=== PATIENT | male | born 1960 | race Caucasian/White ===

== ENCOUNTER → 2019-09-03 | Outpatient (CLI) | payer OTHER ==
--- NOTE | 2019-09-03 20:19 | CONS ---
CONSULTATION REASON FOR THE CONSULTATION: Sleep apnea This is morbidly obese, 59-year-old male patient. There is loud snoring and difficulty breathing at nighttime. The patient has been sleeping in a recliner for the past 1-1/2 years. He has also gotten himself a wedge to keep his legs elevated knowing that the patient has chronic lower extremity edema. He has nocturia and gets up several times in the middle of night to urinate. He does snore and has excessive fatigue and tiredness and sleepiness during the day. He goes to bed around 1:00 am, wakes up 9:00 am in the morning. His sleep is fragmented and he wakes up multiple times in the middle of the night. He used to work in [employer] and currently because of obesity and arthritis and difficult mobility, the patient is seeking disability. He is tired and fatigued and sleepy during the day. His current [place] Score is at 20 which is considered to very high. He does drink a cup of coffee in the morning. No other stimulants. He takes 1 or 2 naps during the day and the timing of that varies. He is unable to sleep on his back. He sleeps on a recliner. Mainly on his side with head of recliner elevated. No sleep paralysis. No hallucinations. No cataplexy. No history of motor vehicle accident because of feeling drowsy or sleepy. PAST MEDICAL HISTORY: Morbid obesity, hyperlipidemia, acid reflux, osteoarthritis, lumbar scoliosis. SURGICAL HISTORY: Includes carpal tunnel release bilaterally, left elbow surgery, appendectomy and bilateral knee surgery for meniscal tear. DRUG ALLERGIES: PENICILLIN. OUTPATIENT MEDICATION LIST: Includes Claritin, Pepcid, Lipitor, tramadol and testosterone shots every month. SOCIAL HISTORY: The patient is a nonsmoker. No history of alcohol. No history of IV drugs. FAMILY HISTORY: Brother has obstructive sleep apnea. REVIEW OF SYSTEMS: Fourteen-point review of system was done. Positive findings are mentioned above history of present illness. Note that the patient has gained significant amount of weight in the order of 150 pounds over the past 15 years. His sleep is fragmented. He is uncomfortable due to pain. He is unable to lay down flat in bed and he tries to sleep on his back. Either in a recliner or on his side. He gets out of bed at least 3 times in the middle of the night to urinate. No grinding of the teeth. No insomnia. No restlessness in the lower extremities. No sleep talking. No sleepwalking. No palpitation, heartburn or chest pain in the middle of the night. Takes a few minutes to fall asleep. He is quite sleepy. [place] Score of 20. BP 150/87, pulse 92, respirations 16, temperature 98.2, saturation 97% on room air. Height is 5 feet weight 342, neck size 18.5 inches, BMI 60.5. GENERAL APPEARANCE: Calm. Comfortable. Head is atraumatic, normocephalic. NECK: Supple. Mallampati class 3. There is no goiter or neck masses. LUNGS: Diminished breath sounds. Especially in the mid and lower lung aguilera bilaterally. A few scattered rhonchi and wheeze. HEART: Sounds are distant. Positive S1 and S2. No S3, S4. No murmurs. ABDOMEN: Obese, organs cannot be adequately palpated. No direct tenderness. No rebound tenderness or guarding. EXTREMITIES: +1 pitting edema and no cyanosis or clubbing. NEUROLOGIC: Awake, alert, and there are no focal neurological deficits. PSYCHIATRIC: Negative for anxiety or depression. IMPRESSION: 1. Morbid obesity with a BMI of 60.5. 2. High suspicion for obstructive sleep apnea and even possible obesity hypoventilation syndrome. 3. Chronic hypersomnia, [place] score of 20. 4. Sleep fragmentation and inability to sleep in bed. Currently, the patient is sleeping in a recliner for the above-mentioned reasons. 5. Acid reflux. 6. Osteoarthritis. 7. Lumbar scoliosis. 8. Hyperlipidemia. PLAN: 1. Would recommend weight loss. 2. Would recommend a polysomnogram looking for any significant sleep breathing disorder. This can be done also on recliner in the sleep center. be able to identify if the patient quits breathing and he has any significant sleep fragmentation and sleep breathing disorder that warrants further treatment. My suspicion is quite high based on his anatomic features and clinical features and obesity. Encourage weight loss. Optimize sleep hygiene measures. We will continue to follow. MMODL / IJN: [id number] /
== END | disposition home or self-care (01) ==
LOC: SLEEP 14:04
PROVIDERS: ATTEND Internal Medicine Critical Care Medicine
DX: G47.19 Other hypersomnia (principal); E66.01 Morbid (severe) obesity due to excess calories; K21.9 Gastro-esophageal reflux disease without esophagitis; M19.90 Unspecified osteoarthritis, unspecified site; M41.86 Other forms of scoliosis, lumbar region; E78.5 Hyperlipidemia, unspecified; Z68.44 Body mass index [BMI] 60.0-69.9, adult; Z83.6 Family history of other diseases of the respiratory system; Z79.891 Long term (current) use of opiate analgesic; Z79.890 Hormone replacement therapy; Z79.899 Other long term (current) drug therapy; Z88.0 Allergy status to penicillin
CPT/HCPCS: 99201

== ENCOUNTER → 2020-01-07 | Outpatient (CLI) | payer OTHER ==
--- NOTE | 2020-01-07 17:44 | PN ---
PROGRESS NOTE This is a 59-year-old male patient diagnosed having severe symptomatic obstructive sleep apnea. The patient was found to have an AHI of 81.9. He was titrated to a CPAP pressure of 14 cm of water. Today he is coming in for a compliancy check. He was found to have also mild periodic limb movement activity. He was excessively somnolent and sleepy and his baseline Brusly Score was 20. He has been utilizing his CPAP every night and he is happy with the treatment. He was given CPAP with a pressure of 14 cm of water. On today's evaluation, his compliancy check was done. The patient has been averaging more than 8 hours of CPAP use per night. His CPAP compliancy for more than 4 hours is 100%. His pressure is 14 cm of water. His AHI is down to 11.8. He is having some minimal leaks around the mask, on the order of 19 L/minute. He is using the Simplus full-face mask. He is also looking for alternative masks. He has no complaints. He is feeling better. He is feeling much more energetic and alert during the day. His Brusly score is down to 8. REVIEW OF SYSTEMS: A full review of systems was done. Based on the 14-point review of systems, the patient has improved. He is less somnolent and less sleepy. His weight is on the rise and he is up to 360 pounds. No angina. No palpitations. No chest pain. No shortness of breath at nighttime when he is sleeping. The nose mask is irritating his nose bridge and the patient is looking for alternative masks. PHYSICAL EXAMINATION: VITAL SIGNS: BP is 158/83, pulse 90, respirations 20. Temperature is 97.6. Saturation is 94% on room air. Weight is 360 pounds. Brusly score is 8. GENERAL APPEARANCE: Calm, comfortable. HEAD: Atraumatic, normocephalic. NECK: Supple. No JVD. No goiter or neck masses. Mallampati class IV. LUNGS: Clear to auscultation. HEART: Heart sounds are regular rate and rhythm. Normal S1, S2. No S3, S4. No murmurs. ABDOMEN: Soft, nontender. No organomegaly. EXTREMITIES: Trace edema. No cyanosis or clubbing. NEUROLOGIC: Alert and oriented x3. No focal neurological deficits. IMPRESSION: 1. Severe symptomatic obstructive sleep apnea; apnea/hypopnea index of 81. The patient is currently on a CPAP pressure of 14 cm of water. 2. Chronic hypersomnia. Brusly score is down to 8 from a baseline of 20. 3. Mild sleep fragmentation with obstructive sleep apnea. 4. Hypersomnia, improved. 5. Obesity. Currently he is weighing around 360 pounds. 6. Osteoarthritis. 7. Scoliosis. 8. Acid reflux. 9. Hyperlipidemia. PLAN: 1. Continue CPAP therapy at a pressure of 14 cm of water with the possibility of increasing the pressure up to 15 if he continues to have residual obstructive respiratory events. 2. Encourage weight loss. 3. Offer different masks. On today's evaluation I offered him the F30 [id number] full-face mask, which he liked. This is an AirFit F30 full-face mask, medium size. 4. Offer the patient heated tubing. 5. Increase the humidity up to 5. 6. Encourage weight loss. 7. See me back in 4 months' time in followup. Treatment in general is successful. The patient is benefitting from the treatment. MMODL / IJN: [id number] /
== END | disposition home or self-care (01) ==
LOC: SLEEP 16:03
PROVIDERS: ATTEND Internal Medicine Critical Care Medicine
DX: G47.33 Obstructive sleep apnea (adult) (pediatric) (principal); G47.19 Other hypersomnia; E66.9 Obesity, unspecified; M19.90 Unspecified osteoarthritis, unspecified site; M41.9 Scoliosis, unspecified; K21.9 Gastro-esophageal reflux disease without esophagitis; E78.5 Hyperlipidemia, unspecified; Z99.89 Dependence on other enabling machines and devices

== ENCOUNTER → 2022-07-22 | Outpatient (CLI) | payer MEDICARE ==
--- NOTE | 2022-07-22 15:14 | US ---
EXAMINATION TYPE: US bladder DATE OF EXAM: 07/22/2022 COMPARISON: NONE CLINICAL HISTORY: N40.0 BENIGN PROSTATIC HYPERPLASIA. BPH TECHNIQUE: Multiple sonographic images of the bladder are obtained. FINDINGS: EXAM MEASUREMENTS: Post Void Residual Volume: 0 mL patient emptied completely. MANAGER TECHNICAL SALES NOTES: Color Doppler performed to assess ureteral jets. Bilateral Jets seen: no Filter urinary bladder of 95 mL. Normal Post Void Residual (less than 50ml): yes IMPRESSION: 1. Unremarkable urinary bladder ultrasound. No urinary retention is evident.
== END | disposition home or self-care (01) ==
LOC: RADUSWWP 14:17
PROVIDERS: ATTEND Family Medicine
DX: N40.0 Benign prostatic hyperplasia without lower urinary tract symptoms (principal)
CPT/HCPCS: 76857

== ENCOUNTER → 2023-03-06 | Outpatient (CLI) | payer MEDICARE ==
--- NOTE | 2023-03-06 17:46 | CA ---
Transthoracic Echo Report Name: Miguel Sorto Age: 62 Gender: M : 1960 Exam Date: 03/06/2023 13:57 Exam Location: [facility] Ht (in): 65 Wt (lb): 335 Ordering Physician: Mikey Joseph DO Attending/Referring Phys: Rn Clinical Quality Rosemarie Lynch RDCS Procedure CPT: Indications: R06.09 Cardiac Hx: Technical Quality: Very technically difficult study Contrast 1: Lumason Total Dose (mL): 5 Contrast 2: Total Dose (mL): MEASUREMENTS (Male / Female) Normal Values 2D ECHO LV Diastolic Diameter PLAX 4.4 cm 4.2 - 5.9 / 3.9 - 5.3 cm LV Systolic Diameter PLAX 2.9 cm IVS Diastolic Thickness 1.5 cm 0.6 - 1.0 / 0.6 - 0.9 cm LVPW Diastolic Thickness 1.4 cm 0.6 - 1.0 / 0.6 - 0.9 cm LV Relative Wall Thickness 0.7 RV Internal Dim ED PLAX 3.4 cm M-MODE Aortic Root Diameter MM 3.6 cm DOPPLER AV Peak Velocity 244.9 cm/s AV Peak Gradient 24.0 mmHg AV Mean Velocity 156.1 cm/s AV Mean Gradient 11.7 mmHg AV Velocity Time Integral 52.7 cm TR Peak Velocity 280.5 cm/s TR Peak Gradient 31.5 mmHg Right Ventricular Systolic Press 36.5 mmHg FINDINGS Left Ventricle Left ventricular ejection fraction is estimated at 55-60 %. Left ventricular cavity size normal. Moderate concentric left ventricular hypertrophy. No obvious regional wall motion abnormalities. Right Ventricle Mild right ventricular dilatation. Mild pulmonary hypertension. Right Atrium Normal right atrial size. Left Atrium Left atrium not well visualized. Mitral Valve Mitral valve not well visualized. Aortic Valve Aortic valve not well visualized. Mild aortic stenosis with a peak gradient of 24 mmHg and a mean gradient of 12 mmHg. Tricuspid Valve Tricuspid valve not well visualized. Mild tricuspid regurgitation. Pulmonic Valve Pulmonic valve not well visualized. Pericardium Small pericardial effusion near LV posterior wall Aorta Aortic annulus normal. CONCLUSIONS Technically suboptimal study secondary to poor echo windows Mild aortic stenosis Normal LV systolic function with an ejection fraction of 55% Previewed by: Dr. Alen Boucher MD (Electronically Signed) Final Date: 06 March 2023 17:45
== END | disposition home or self-care (01) ==
LOC: RADECHMAIN 13:49
PROVIDERS: ATTEND Family Medicine
DX: I35.0 Nonrheumatic aortic (valve) stenosis (principal); R06.09 Other forms of dyspnea
CPT/HCPCS: C8929; Q9950; 93306

== ENCOUNTER 2023-03-21 17:49 | Inpatient (IN) | payer MEDICARE ==
[2023-03-21] MEDS ORDERED: DILTIAZEM DRIP BOLUS FROM BAG 1 MG SOLN IV ONE (18:02)
[2023-03-21] MEDS ORDERED: FUROSEMIDE 10 MG/ML 4 ML VIAL IV STA (18:05)
--- NOTE | 2023-03-21 18:08 | ED ---
SOB HPI - General Chief Complaint: Shortness of Breath Stated Complaint: respiratory failure Time Seen by Provider: 03/21/23 17:50 Source: patient, EMS, RN notes reviewed Mode of arrival: EMS - History of Present Illness Initial Comments: 62-year-old male history of A. fib status post cardioversion in the past who presents with complaints of shortness of breath which started yesterday he progressively worse he also had a fever today he was found by paramedics to be and what appear to be atrial fibrillation with a rapid ventricular response found be hypoxemic at home 82% on room air pale diaphoretic. Temporal thermometer temperature 102 Fahrenheit. No overt chest pain today smoking denies any history of asthma or COPD. No fume exposure. No other current complaints or modifying factors MD Complaint: shortness of breath - Related Data Home Medications Medication Instructions Recorded Confirmed Aspirin EC [Ecotrin Low Dose] 81 mg PO DAILY 03/21/23 03/21/23 Furosemide [Lasix] 20 mg PO DAILY 03/21/23 03/21/23 Multivitamins, Thera [Multivitamin 1 tab PO DAILY 03/21/23 03/21/23 (formulary)] Omeprazole 20 mg PO DAILY 03/21/23 03/21/23 Tamsulosin [Flomax] 0.8 mg PO HS 03/21/23 03/21/23 Allergies Allergy/AdvReac Type Severity Reaction Status Date / Time Penicillins Allergy Unknown Verified 03/21/23 19:44 Review of Systems ROS Statement: Those systems with pertinent positive or pertinent negative responses have been documented in the HPI. ROS Other: All systems not noted in ROS Statement are negative. Past Medical History Past Medical History: No Reported History Past Surgical History: No Surgical Hx Reported Past Psychological History: No Psychological Hx Reported Smoking Status: Never smoker Past Alcohol Use History: None Reported Past Drug Use History: None Reported General Exam - General Exam Comments Initial Comments: Is a well-developed obese male who is awake alert oriented 4 he is in respiratory distress Limitations: no limitations General appearance: alert, anxious, in distress Head exam: Present: atraumatic, normocephalic, normal inspection Eye exam: Present: normal appearance, PERRL, EOMI. Absent: scleral icterus, conjunctival injection, periorbital swelling ENT exam: Present: mucous membranes dry Neck exam: Present: normal inspection, full ROM, other. Absent: tenderness, meningismus, lymphadenopathy Respiratory exam: Present: rales, accessory muscle use, decreased breath sounds (No surgery or bruits). Absent: respiratory distress, wheezes, rhonchi, stridor Cardiovascular Exam: Present: normal rhythm, tachycardia, irregular rhythm. Absent: systolic murmur, diastolic murmur, rubs, gallop, clicks GI/Abdominal exam: Present: soft, normal bowel sounds. Absent: distended, tenderness, guarding, rebound, rigid Extremities exam: Present: normal inspection, full ROM, normal capillary refill. Absent: tenderness, pedal edema, joint swelling, calf tenderness Back exam: Present: normal inspection Neurological exam: Present: alert, oriented X3, CN II-XII intact Psychiatric exam: Present: normal affect, anxious Skin exam: Present: warm, intact, normal color, diaphoretic. Absent: rash Course Vital Signs 03/21/23 03/21/23 03/21/23 17:51 17:56 18:02 Temperature 100.2 F H Pulse Rate 156 H Respiratory 46 H 48 H Rate Blood Pressure 142/64 O2 Sat by Pulse 96 Oximetry Fraction of 50 Inspired Oxygen (FIO2) 03/21/23 03/21/23 03/21/23 18:03 18:15 19:36 Temperature Pulse Rate 133 H Respiratory 35 H Rate Blood Pressure 122/60 O2 Sat by Pulse 97 Oximetry Fraction of 50 50 Inspired Oxygen (FIO2) 03/21/23 03/21/23 20:06 20:27 Temperature Pulse Rate Respiratory Rate Blood Pressure O2 Sat by Pulse Oximetry Fraction of 50 50 Inspired Oxygen (FIO2) - Reevaluation(s) Reevaluation #1: 03/21/23 19:56 Reevaluation patient is feeling much improved at this time heart rate is in the 100 teens Reevaluation #2: 03/21/23 21:15 Elevated lactic acid more likely secondary to the dyspnea and rapid atrial flutter as opposed to infectious process Medical Decision Making - Medical Decision Making Patient continues to improve he has much improved heart rate he is breathing is more at ease. He does have elevated d-dimer and elevated troponin. Patient will be admitted with continued treatment for a flutter RVR acute bronchospasm dyspnea. Pulmonary medicine and cardiology will be consulted. I did discuss the case initially with Dr. Sauer. I also did discuss case with patient and family members.Was pt. sent in by a medical professional or institution (, [facility], CROWNING INSPECTOR, urgent care, hospital, or alf...) When possible be specific @ -No Did you speak to anyone other than the patient for history (EMS, parent, family, police, friend...)? What history was obtained from this source @ -Paramedics and family Did you review nursing and triage notes (agree or disagree)? Why? @ -I reviewed and agree with nursing and triage notes Were old charts reviewed (outside hosp., previous admission, EMS record, old EKG, old radiological studies, urgent care reports/EKG's, alf records)? Report findings @ -No old charts were reviewed Differential Diagnosis (chest pain, altered mental status, abdominal pain women, abdominal pain men, vaginal bleeding, weakness, fever, dyspnea, syncope, headache, dizziness, GI bleed, back pain, seizure, CVA, palpatations, mental health, musculoskeletal)? @ -Acute respiratory failure, pneumonia, febrile illness EKG interpreted by me (3pts min.). @ -As above X-rays interpreted by me (1pt min.). @ -As above] CT interpreted by me (1pt min.). @ -As above U/S interpreted by me (1pt. min.). @ -None done What testing was considered but not performed or refused? (CT, X-rays, U/S, labs)? Why? @ -None What meds were considered but not given or refused? Why? @ -None Did you discuss the management of the patient with other professionals (professionals i.e. , [facility]ARY [facility]ETH, CROWNING INSPECTOR, lab, RT, psych nurse, social media editor, intellectual property lawyer, teacher, donor relations officer, ed case manager)? Give summary @ -Dr. Sauer Was smoking cessation discussed for >3mins.? @ -No Was critical care preformed (if so, how long)? @ -Is 45 minutes Were there social determinants of health that impacted care today? How? (Homelessness, low income, unemployed, alcoholism, drug addiction, transportation, low edu. Level, literacy, decrease access to med. care, care home, rehab)? @ -No Was there de-escalation of care discussed even if they declined (Discuss DNR or withdrawal of care, Hospice)? DNR status @ -No What co-morbidities impacted this encounter? (DM, HTN, Smoking, COPD, CAD, Cancer, CVA, ARF, Chemo, Hep., AIDS, mental health diagnosis, sleep apnea, morbid obesity)? @ -Morbid obesity, asthmatic-like disease she was recently seen by cardiology and music therapy specialist Was patient admitted / discharged? Hospital course, mention meds given and route, prescriptions, significant lab abnormalities, going to OR and other pertinent info. @ -hospital course patient was admitted to the hospital he continues on BiPAP IV fluids IV steroids nebulizer treatment serial troponins Undiagnosed new problem with uncertain prognosis? @ -Rapid atrial flutter, acute bronchospasm Drug Therapy requiring intensive monitoring for toxicity (Heparin, Nitro, Insulin, Cardizem)? @ -He has Cardizem Were any procedures done? @ -No Diagnosis/symptom? @ -Acute respiratory failure, rapid atrial flutter, elevated troponin, elevated d-dimer Acute, or Chronic, or Acute on Chronic? @ -Acute Uncomplicated (without systemic symptoms) or Complicated (systemic symptoms)? @ -Complicated Side effects of treatment? @ -No Exacerbation, Progression, or Severe Exacerbation? @ -No Poses a threat to life or bodily function? How? (Chest pain, USA, VT, pneumonia, PE, COPD, DKA, ARF, appy, cholecystitis, CVA, Diverticulitis, Homicidal, Suicidal, threat to staff... and all critical care pts) @ -Yes, prostrate failure, rapid atrial flutter - Lab Data Result diagrams: 03/21/23 17:55 03/21/23 17:55 Lab Results 03/21/23 03/21/23 03/21/23 Range/Units 17:55 17:55 17:55 WBC 1.9 L (3.8-10.6) k/uL RBC 5.85 (4.30-5.90) m/uL Hgb 17.8 H (13.0-17.5) gm/dL Hct 50.6 (39.0-53.0) % MCV 86.6 (80.0-100.0) fL MCH 30.5 (25.0-35.0) pg MCHC 35.2 (31.0-37.0) g/dL RDW 16.3 H (11.5-15.5) % Plt Count 100 L (150-450) k/uL MPV 9.5 Neutrophils % 80 % Lymphocytes % 15 % Monocytes % 2 % Eosinophils % 0 % Basophils % 0 % Neutrophils # 1.5 (1.3-7.7) k/uL Lymphocytes # 0.3 L (1.0-4.8) k/uL Monocytes # 0.1 (0-1.0) k/uL Eosinophils # 0.0 (0-0.7) k/uL Basophils # 0.0 (0-0.2) k/uL Anisocytosis Slight PT 11.4 (9.0-12.0) sec INR 1.1 (<1.2) APTT 23.6 (22.0-30.0) sec D-Dimer 21.15 H (<0.60) mg/L FEU Sodium 133 L (137-145) mmol/L Potassium 4.4 (3.5-5.1) mmol/L Chloride 100 (98-107) mmol/L Carbon Dioxide 14 L (22-30) mmol/L Anion Gap 19 mmol/L BUN 26 H (9-20) mg/dL Creatinine 1.86 H (0.66-1.25) mg/dL Est GFR (CKD-EPI)AfAm 43 (>60 ml/min/1.73 sqM) Est GFR (CKD-EPI)NonAf 38 (>60 ml/min/1.73 sqM) Glucose 150 H (74-99) mg/dL Lactic Ac Sepsis Rflx Plasma Lactic Acid Vince (0.7-2.0) mmol/L Calcium 7.8 L (8.4-10.2) mg/dL Magnesium 1.5 L (1.6-2.3) mg/dL Total Bilirubin 1.4 H (0.2-1.3) mg/dL AST 53 (17-59) U/L ALT 36 (4-49) U/L Alkaline Phosphatase 102 (38-126) U/L Troponin I (0.000-0.034) ng/mL NT-Pro-B Natriuret Pep pg/mL Total Protein 7.0 (6.3-8.2) g/dL Albumin 3.7 (3.5-5.0) g/dL Influenza Type A (PCR) (Not Detectd) Influenza Type B (PCR) (Not Detectd) RSV (PCR) (Not Detectd) SARS-CoV-2 (PCR) (Not Detectd) 03/21/23 03/21/23 03/21/23 Range/Units 17:55 17:55 17:55 WBC (3.8-10.6) k/uL RBC (4.30-5.90) m/uL Hgb (13.0-17.5) gm/dL Hct (39.0-53.0) % MCV (80.0-100.0) fL MCH (25.0-35.0) pg MCHC (31.0-37.0) g/dL RDW (11.5-15.5) % Plt Count (150-450) k/uL MPV Neutrophils % % Lymphocytes % % Monocytes % % Eosinophils % % Basophils % % Neutrophils # (1.3-7.7) k/uL Lymphocytes # (1.0-4.8) k/uL Monocytes # (0-1.0) k/uL Eosinophils # (0-0.7) k/uL Basophils # (0-0.2) k/uL Anisocytosis PT (9.0-12.0) sec INR (<1.2) APTT (22.0-30.0) sec D-Dimer (<0.60) mg/L FEU Sodium (137-145) mmol/L Potassium (3.5-5.1) mmol/L Chloride (98-107) mmol/L Carbon Dioxide (22-30) mmol/L Anion Gap mmol/L BUN (9-20) mg/dL Creatinine (0.66-1.25) mg/dL Est GFR (CKD-EPI)AfAm (>60 ml/min/1.73 sqM) Est GFR (CKD-EPI)NonAf (>60 ml/min/1.73 sqM) Glucose (74-99) mg/dL Lactic Ac Sepsis Rflx Plasma Lactic Acid Vince 3.2 H* (0.7-2.0) mmol/L Calcium (8.4-10.2) mg/dL Magnesium (1.6-2.3) mg/dL Total Bilirubin (0.2-1.3) mg/dL AST (17-59) U/L ALT (4-49) U/L Alkaline Phosphatase (38-126) U/L Troponin I 0.060 H* (0.000-0.034) ng/mL NT-Pro-B Natriuret Pep 818 pg/mL Total Protein (6.3-8.2) g/dL Albumin (3.5-5.0) g/dL Influenza Type A (PCR) (Not Detectd) Influenza Type B (PCR) (Not Detectd) RSV (PCR) (Not Detectd) SARS-CoV-2 (PCR) (Not Detectd) 03/21/23 03/21/23 Range/Units 18:02 18:38 WBC (3.8-10.6) k/uL RBC (4.30-5.90) m/uL Hgb (13.0-17.5) gm/dL Hct (39.0-53.0) % MCV (80.0-100.0) fL MCH (25.0-35.0) pg MCHC (31.0-37.0) g/dL RDW (11.5-15.5) % Plt Count (150-450) k/uL MPV Neutrophils % % Lymphocytes % % Monocytes % % Eosinophils % % Basophils % % Neutrophils # (1.3-7.7) k/uL Lymphocytes # (1.0-4.8) k/uL Monocytes # (0-1.0) k/uL Eosinophils # (0-0.7) k/uL Basophils # (0-0.2) k/uL Anisocytosis PT (9.0-12.0) sec INR (<1.2) APTT (22.0-30.0) sec D-Dimer (<0.60) mg/L FEU Sodium (137-145) mmol/L Potassium (3.5-5.1) mmol/L Chloride (98-107) mmol/L Carbon Dioxide (22-30) mmol/L Anion Gap mmol/L BUN (9-20) mg/dL Creatinine (0.66-1.25) mg/dL Est GFR (CKD-EPI)AfAm (>60 ml/min/1.73 sqM) Est GFR (CKD-EPI)NonAf (>60 ml/min/1.73 sqM) Glucose (74-99) mg/dL Lactic Ac Sepsis Rflx Y Plasma Lactic Acid Vince (0.7-2.0) mmol/L Calcium (8.4-10.2) mg/dL Magnesium (1.6-2.3) mg/dL Total Bilirubin (0.2-1.3) mg/dL AST (17-59) U/L ALT (4-49) U/L Alkaline Phosphatase (38-126) U/L Troponin I (0.000-0.034) ng/mL NT-Pro-B Natriuret Pep pg/mL Total Protein (6.3-8.2) g/dL Albumin (3.5-5.0) g/dL Influenza Type A (PCR) Not Detected (Not Detectd) Influenza Type B (PCR) Not Detected (Not Detectd) RSV (PCR) Not Detected (Not Detectd) SARS-CoV-2 (PCR) Not Detected (Not Detectd) - EKG Data -: EKG Interpreted by Me EKG Comments: EKG interpreted by me atrial flutter with a rapid ventricular response. A 158 QRS duration 129 QT since QTC 325/413 red bundle-branch block pattern indeterminate axis - Radiology Data Interpreted by me: I did interpret the imaging x-ray negative for acute process. He minimally present additionally the CT shows no definitive evidence of PE Critical Care Time Critical Care Time: Yes Total Critical Care Time: 45 Disposition Clinical Impression: Atrial flutter with rapid ventricular response, Acute bronchospasm, Acute bronchitis, Febrile illness, acute, Elevated troponin, Elevated d-dimer, Elevated lactic acid level, Renal insufficiency Disposition: ADMITTED IP TO THIS HOSP Condition: Fair Referrals: Mikey Joseph DO [Primary Care Provider] - 1-2 days Decision Date: 03/21/23 Decision Time: 21:15
[2023-03-21] MEDS: DILTIAZEM 125 MG in SODIUM CHLORIDE 0.9% 100 ML IV SCH (18:09)
--- NOTE | 2023-03-21 18:42 | XR ---
EXAMINATION TYPE: XR chest 1V portable DATE OF EXAM: 03/21/2023 COMPARISON: NONE HISTORY: Shortness of breath TECHNIQUE: Single frontal view of the chest is obtained. FINDINGS: There is no focal air space opacity, pleural effusion, or pneumothorax seen. The cardiac silhouette size is enlarged. The osseous structures are intact. 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 IMPRESSION: Cardiomegaly
[2023-03-21 18:49] LABS: Anisocytosis Slight; Basophils % (A) 0 %; Eosinophils % (A) 0 %; HCT 50.6 % (39.0-53.0); HGB 17.8 gm/dL (13.0-17.5); INR 1.1 (<1.2); Lymphocytes # (A) 0.3 k/uL (1.0-4.8); Lymphocytes % (A) 15 %; MCH 30.5 pg (25.0-35.0); MCHC 35.2 g/dL (31.0-37.0); MCV 86.6 fL (80.0-100.0); Mean Platelet Volume 9.5; Monocytes # (A) 0.1 k/uL (0-1.0); Monocytes % (A) 2 %; Neutrophils # (A) 1.5 k/uL (1.3-7.7); Neutrophils % (A) 80 %; Partial Thromboplastin Time 23.6 sec (22.0-30.0); Platelet Count 100 k/uL (150-450); Prothrombin Time 11.4 sec (9.0-12.0); RBC 5.85 m/uL (4.30-5.90); RDW 16.3 % (11.5-15.5); WBC 1.9 k/uL (3.8-10.6)
[2023-03-21 18:52] LABS: Albumin 3.7 g/dL (3.5-5.0); Calcium 7.8 mg/dL (8.4-10.2); Total Bilirubin 1.4 mg/dL (0.2-1.3)
[2023-03-21 19:04] LABS: Magnesium 1.5 mg/dL (1.6-2.3); Potassium 4.4 mmol/L (3.5-5.1)
[2023-03-21] MEDS ORDERED: SODIUM CHLORIDE 0.9% 1,000 ML IV STA (19:42)
[2023-03-21] MEDS: MAGNESIUM SULFATE-D5W PMX 1 GM in DEXTROSE/WATER 1 100ML.BAG IVPB SCH ×2 (20:03→21:00)
--- NOTE | 2023-03-21 20:41 | CT ---
EXAMINATION TYPE: CT angio chest DATE OF EXAM: 03/21/2023 COMPARISON: Chest x-ray earlier today HISTORY: dyspnea CT DLP: 894.8 mGycm. Automated Exposure Control for Dose Reduction was Utilized. CONTRAST: CTA scan of the thorax is performed with IV Contrast, patient injected with 80ml mL of Isovue 370, pu lmonary embolism protocol. MIP Images are created on CT scanner and reviewed. FINDINGS: LUNGS: [id number] bibasilar linear scarring and/or atelectasis. No suspicious consolidation. T here is no pleural effusion or pneumothorax seen. The tracheobronchial tree is patent. MEDIASTINUM: Suboptimal study due to large body habitus along with most dense contrast in the SVC. No convincing CT evidence for acute pulmonary embolism. 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 There is left-sided arch with a bar ium right brachiocephalic artery running posterior to the esophagus, normal variant. There are no gre ater than 1 cm hilar or mediastinal lymph nodes. No cardiomegaly or pericardial effusion is seen. OTHER: No additional significant abnormality is seen. IMPRESSION: Suboptimal study without convincing evidence for acute pulmonary embolism. [id number] te bibasilar linear scarring and/or atelectasis is noted. No suspicious acute pulmonary infiltrate.
[2023-03-21] MEDS ORDERED: cefTRIAXone IN SWFI 1,000 MG/10 ML SYRINGE IVP STA (21:06)
[2023-03-21] MEDS ORDERED: NALOXONE 0.4 MG/ML 1 ML VIAL IV PRN (21:16)
[2023-03-21] MEDS ORDERED: HEPARIN SODIUM 1,000 UN/ML (10ML VL) IV ONE (21:19)
[2023-03-21] MEDS ORDERED: HEPARIN SODIUM 1,000 UN/ML (10ML VL) IV PRN (21:19)
[2023-03-21] MEDS ORDERED: HEPARIN SOD,PORK IN 0.45% NACL 25,000 UNIT in 0.45% NACL 1 250ML.BAG IV SCH (21:30)
[2023-03-21 22:49] LABS: INR 1.2 (<1.2); Partial Thromboplastin Time 23.1 sec (22.0-30.0)
[2023-03-21 23:08] LABS: Anisocytosis Slight; Basophils % (A) 0 %; Eosinophils % (A) 0 %; HCT 47.5 % (39.0-53.0); HGB 15.6 gm/dL (13.0-17.5); Lymphocytes # (A) 0.3 k/uL (1.0-4.8); Lymphocytes % (A) 3 %; MCH 29.3 pg (25.0-35.0); MCHC 32.8 g/dL (31.0-37.0); MCV 89.3 fL (80.0-100.0); Mean Platelet Volume 10.1; Monocytes # (A) 0.3 k/uL (0-1.0); Monocytes % (A) 3 %; Neutrophils # (A) 8.9 k/uL (1.3-7.7); Neutrophils % (A) 93 %; RBC 5.32 m/uL (4.30-5.90); RDW 16.3 % (11.5-15.5); WBC 9.6 k/uL (3.8-10.6)
[2023-03-21 23:46] LABS: Platelet Count 79 k/uL (150-450)
[2023-03-21 23:55] LABS: Glucose,Whole Blood 168 mg/dL (70-110)
[2023-03-22] MEDS ORDERED: IPRATROPIUM-ALBUTEROL 3 ML NEB INHALATION SCH
[2023-03-22] MEDS ORDERED: LORazepam 2 MG/ML INJ IV PRN (00:36)
[2023-03-22] MEDS: methylPREDNISolone SOD SUCCI 125 MG/2 ML VIAL IV SCH ×5 (00:47→23:41)
[2023-03-22] MEDS: SODIUM CHLORIDE 0.9% 1,000 ML IV SCH ×3 (00:54→06:55)
[2023-03-22] MEDS ORDERED: IPRATROPIUM-ALBUTEROL 3 ML NEB INHALATION PRN (01:26)
--- NOTE | 2023-03-22 01:43 | P.CNPUL ---
History of Present Illness Consult date: 03/22/23 Requesting physician: Poncho Queen Reason for consult: dyspnea Chief complaint: Shortness of breath History of present illness: I'm seeing this patient in new consultation today 03/22/2023 in the emergency room, waiting on a bed on the cardiac stepdown unit. Patient is a 62-year-old white male with past medical history of restrictive lung disease probably related to his morbid obesity, obstructive sleep apnea on CPAP support of 14, hyperlipidemia, BPH, and GERD. Patient was recently seen in the office by Dr. Lo, on 03/13/2023, for full PFT. Patient was found to have restrictive lung disease. The patient's FEV1 was 1.77 L which is 62% of predicted. The FVC is 2.14 L which is 55% of predicted. The ratio was elevated. Total lung capacity is only 73% of predicted. Diffusion corrected for alveolar volume is normal. These lung function are consistent with a pulmonary restrictive process. It may relate to the patient's obesity. The patient also qualified for home O2, which he has not received yet. Patient reports that he's been becoming progressively more short of breath over the last few months. Patient also reports that he has been more short of breath and anxious lately, after finding out that his daughter has a potential cancer diagnosis. Patient has been reporting some nasal congestion and frequent cough without significant sputum production. Patient was found to b e febrile on arrival to the emergency room with a T-max of 100.2F. Denies any sick contacts. He was found to be in A. fib RVR, with a heart rate in the 150s on arrival. He denies any chest pain, heart palpitations, lightheadedness, syncope. Patient was subsequently started on a Cardizem infusion which is currently infusing at 15 mg/hour, and a low intensity heparin infusion per protocol. Patient denies any prior history of A. fib. Chest x-ray on arrival showed cardiomegaly without any suspicious infiltrates or pleural effusions. D- dimer was elevated at 21.2, and a follow-up chest CTA was negative for pulmonary embolism. It did show some mild to moderate bibasilar linear scarring and/or atelectasis. No focal consolidation. Patient's CBC on arrival showed a WBC count of 9.6, hemoglobin 15.6, hematocrit 47.5, platelets 79,000. BMP on arrival showed a sodium 133, potassium 4.4, chloride 100, serum CO2 14, BUN 26, creatinine 1.86, glucose 150. Troponin was mildly elevated at 0.06. NT proBNP was not very elevated at 818. Patient's was negative for influenza, RSV, COVID- 19. Lactic acid level was 3.2 on arrival and is trending down to 2.2 after 1 L normal saline fluid resuscitation. He did receive one dose of Rocephin in the emergency room. Patient status has stabilized, and he is currently sitting up in bed, on BiPAP with settings of 14/5 and FiO2 of 50%. His respiratory rate is about 20 breaths per minute and he is achieving tidal volumes of 800. Vital signs are stable, and he will be transferred to the cardiac stepdown unit once bed available. Review of Systems REVIEW OF SYSTEMS: CONSTITUTIONAL: Denies any recent significant weight loss or weight gain. EYES: Denies change in vision. EARS, NOSE, MOUTH, THROAT: Denies headaches, denies sore throat. Reports some nasal congestion CARDIOVASCULAR: Denies radiating chest pain, palpitations or syncopal episodes. RESPIRATORY: See HPI. GASTROINTESTINAL: Denies change in appetite, abdominal pain, nausea and vomiting, or diarrhea GENITOURINARY: Denies hematuria, denies infections. MUSKULOSKELETAL: Denies pain, denies swelling. INTEGUMENTARY: Denies rash, denies eczema. NEUROLOGICAL: Denies recent memory loss, no recent seizure activity. PSYCHIATRIC: Denies anxiety, denies depression. HEMATOLOGIC/LYMPHATIC: Denies anemia, denies enlarged lymph node Past Medical History Past Medical History: No Reported History Past Surgical History: No Surgical Hx Reported Past Psychological History: No Psychological Hx Reported Smoking Status: Never smoker Past Alcohol Use History: None Reported Past Drug Use History: None Reported Medications and Allergies Home Medications Medication Instructions Recorded Confirmed Type Aspirin EC [Ecotrin Low Dose] 81 mg PO DAILY 03/21/23 03/21/23 History Furosemide [Lasix] 20 mg PO DAILY 03/21/23 03/21/23 History Multivitamins, Thera [Multivitamin 1 tab PO DAILY 03/21/23 03/21/23 History (formulary)] Omeprazole 20 mg PO DAILY 03/21/23 03/21/23 History Tamsulosin [Flomax] 0.8 mg PO HS 03/21/23 03/21/23 History Allergies Allergy/AdvReac Type Severity Reaction Status Date / Time Penicillins Allergy Unknown Verified 03/21/23 19:44 Physical Exam Vitals: Vital Signs Temp Pulse Pulse Resp BP BP Pulse Ox 03/22/23 00:37 03/22/23 00:12 111 H 20 117/71 97 03/21/23 23:58 96 03/21/23 23:45 96 03/21/23 23:00 115 H 20 118/79 99 03/21/23 22:30 117 H 28 H 107/72 95 03/21/23 21:45 107 H 16 90/65 100 03/21/23 21:30 112 H 31 H 104/60 99 03/21/23 21:00 110 H 29 H 100/51 97 03/21/23 20:30 110 H 31 H 108/63 99 03/21/23 20:27 03/21/23 20:06 03/21/23 20:00 105/88 97 03/21/23 19:36 03/21/23 19:30 21 104/62 97 03/21/23 19:00 121 H 111/67 96 03/21/23 18:15 133 H 35 H 122/60 97 03/21/23 18:03 03/21/23 18:02 03/21/23 18:00 154 H 22 142/64 97 03/21/23 17:58 158 H 45 H 142/64 97 03/21/23 17:56 48 H 03/21/23 17:51 100.2 F H 156 H 46 H 142/64 96 FiO2 03/22/23 00:37 50 03/22/23 00:12 03/21/23 23:58 03/21/23 23:45 03/21/23 23:00 03/21/23 22:30 03/21/23 21:45 03/21/23 21:30 03/21/23 21:00 03/21/23 20:30 03/21/23 20:27 50 03/21/23 20:06 50 03/21/23 20:00 03/21/23 19:36 50 03/21/23 19:30 03/21/23 19:00 03/21/23 18:15 03/21/23 18:03 50 03/21/23 18:02 50 03/21/23 18:00 03/21/23 17:58 03/21/23 17:56 03/21/23 17:51 Intake and Output 03/21/23 03/21/23 03/22/23 14:59 22:59 06:59 Intake Total 18.5 Balance 18.5 Intake: Intake, IV Titration 18.5 Amount Diltiazem 125 mg In 18.5 Sodium Chloride 0.9% 100 ml @ 10 MG/HR 10 mls/hr IV .[id number] [facility] Rx#: [id number] Other: Weight 154.902 kg GENERAL EXAM: Alert, 62-year-old morbidly obese white male, slightly anxious. HEAD: Normocephalic and atraumatic EYES: Normal reaction of pupils, equal size. NOSE: Clear with pink turbinates. THROAT: No erythema or exudates. NECK: No masses, no JVD. CHEST: No chest wall deformity. LUNGS: Equal air entry wheezes and rhonchi throughout and scattered crackles. On BiPAP with settings 14/5 and FiO2 of 50%. No conversational dyspnea or accessory muscle use.. CVS: S1 and S2 normal with no audible murmur, regular rhythm. No extra heart sounds ABDOMEN: No hepatosplenomegaly, active bowel sounds, no guarding or rigidity. SPINE: No scoliosis or deformity SKIN: No rashes CENTRAL NERVOUS SYSTEM: No focal deficits, tone is normal in all 4 extremities. EXTREMITIES: There is mild nonpitting bilateral lower extremity peripheral edema. No clubbing, or cyanosis. Peripheral pulses are intact. Results - Laboratory Findings CBC and BMP: 03/21/23 22:06 03/21/23 17:55 PT/INR, D-dimer PT 12.0 sec (9.0-12.0) 03/21/23 22:06 INR 1.2 (<1.2) H 03/21/23 22:06 D-Dimer 21.15 mg/L FEU (<0.60) H 03/21/23 17:55 Abnormal lab findings: Abnormal Labs 03/21/23 03/21/23 03/21/23 17:55 17:55 17:55 WBC 1.9 L Hgb 17.8 H RDW 16.3 H Plt Count 100 L Neutrophils # Lymphocytes # 0.3 L INR D-Dimer 21.15 H Sodium 133 L Carbon Dioxide 14 L BUN 26 H Creatinine 1.86 H Glucose 150 H POC Glucose (mg/dL) Plasma Lactic Acid Vince Calcium 7.8 L Magnesium 1.5 L Total Bilirubin 1.4 H Troponin I 03/21/23 03/21/23 03/21/23 17:55 17:55 22:06 WBC Hgb RDW Plt Count Neutrophils # Lymphocytes # INR D-Dimer Sodium Carbon Dioxide BUN Creatinine Glucose POC Glucose (mg/dL) Plasma Lactic Acid Vince 3.2 H* 2.2 H* Calcium Magnesium Total Bilirubin Troponin I 0.060 H* 03/21/23 03/21/23 03/21/23 22:06 22:06 23:53 WBC Hgb RDW 16.3 H Plt Count 79 L Neutrophils # 8.9 H Lymphocytes # 0.3 L INR 1.2 H D-Dimer Sodium Carbon Dioxide BUN Creatinine Glucose POC Glucose (mg/dL) 168 H Plasma Lactic Acid Vince Calcium Magnesium Total Bilirubin Troponin I - Diagnostic Findings Chest x-ray: image reviewed CT scan - chest: image reviewed Assessment and Plan Assessment: Acute on chronic hypoxemic respiratory failure possibly related to acute bronchitis and new onset atrial fibrillation with rapid ventricular rate. Currently on BiPAP. Chest x-ray showed no evidence of focal consolidation or pneumonia. Negative for influenza, RSV, COVID-19. New-onset atrial fibrillation with rapid ventricular rate. Patient is currently on a Cardizem infusion of 15 mg per hour and a low intensity heparin infusion per protocol. Heart rate is better controlled, and ranging between 90 and 120 bpm. Recently diagnosed restrictive lung disease which may be related to the patien t's morbid obesity. Patient was recently seen in the office on 03/13/2023 for full PFT. The patient's FEV1 was 1.77 L which is 62% of predicted. The FVC is 2.14 L which is 55% of predicted. The ratio was elevated. Total lung capacity is only 73% of predicted. Diffusion corrected for alveolar volume is normal. These lung function are consistent with a pulmonary restrictive process. Acute high anion gap metabolic acidosis related to lactic acidemia Elevated troponins possibly related to oxygen demand/supply mismatch Acute kidney injury, creatinine is 1.86 Thrombocytopenia Obstructive sleep apnea with home CPAP Morbid obesity BPH GERD without esophagitis Hyperlipidemia Ex-smoker, minimally reported smoking history Plan: Patient's medications, labs, chest x-ray, chest CT were reviewed Patient is currently on BiPAP with settings 14/5 and 50%. He is slightly anxious, and I will add Ativan when necessary, so that he can tolerate the BiPAP Start Bronchodilators Continue Rocephin for now Check procalcitonin level trend lactic acid levels Blood cultures are pending Continue Cardizem and low intensity heparin infusion Monitor platelet count Cardiology was consulted Trend troponins Patient reportedly had an echocardiogram done outpatient last week, waiting on results Prognosis is guarded, and we will continue to follow I have personally seen and examined the patient, performed the documentation and the assessment and plan as written. Number of minutes spent on the visit:20 Time with Patient: Greater than 30
[2023-03-22] MEDS: DILTIAZEM 125 MG in SODIUM CHLORIDE 0.9% 100 ML IV SCH (01:46)
[2023-03-22 04:07] LABS: INR 1.2 (<1.2); Partial Thromboplastin Time 41.7 sec (22.0-30.0); Prothrombin Time 12.1 sec (9.0-12.0)
[2023-03-22 05:59] LABS: Glucose,Whole Blood 138 mg/dL (70-110)
[2023-03-22] MEDS: IPRATROPIUM-ALBUTEROL 3 ML NEB INHALATION SCH ×4 (08:22→20:26)
[2023-03-22] MEDS: APIXABAN 5 MG TAB PO SCH ×2 (08:56→21:43)
[2023-03-22] MEDS: MULTIVITAMINS, THERA 1 EACH TAB PO SCH (08:56)
[2023-03-22] MEDS: METOPROLOL TARTRATE 50 MG TAB PO SCH ×2 (08:56→21:43)
[2023-03-22] MEDS ORDERED: NON FORMULARY DRUG (Omeprazole [Omeprazole] 20 MG Capsule.Dr) PO SCH (09:00)
[2023-03-22] MEDS ORDERED: FUROSEMIDE 20 MG TAB PO SCH (09:00)
[2023-03-22] MEDS ORDERED: ASPIRIN 81 MG PO SCH (09:00)
[2023-03-22] MEDS ORDERED: METOPROLOL TARTRATE 50 MG TAB PO SCH (09:00)
[2023-03-22] MEDS ORDERED: PANTOPRAZOLE 40 MG/10 ML VIAL IV SCH (09:00)
--- NOTE | 2023-03-22 10:04 | P.CRDCN ---
History of Present Illness Consult date: 03/22/23 History of present illness: HISTORY OF PRESENT ILLNESS: This is a 62-year-old male with a past medical history significant for morbid obesity, mild aortic stenosis, obstructive sleep apnea, and chronic lower extremity edema. Patient follows in the office with Dr. Gonzalez. We have been asked to see the patient in consultation for atrial flutter. Patient examined at the bedside. Patient presented to the hospital for chief complaint of shortness of breath. Patient was also febrile on admission with temperature 100.6. Patient was found to be hypoxic. He is currently on a BiPAP at the time of examination. Patient was also found to be in atrial flutter with RVR. The patient denies a history of atrial flutter. He was started on IV Cardizem. He subsequently converted to sinus mechanism and is maintaining sinus mechanism in the 80s at the time of examination. He denies any chest pain or pressure. Blood pressure stable. He is afebrile this morning. * EKG reveals atrial flutter with RVR * Chest xray cardiomegaly * Chest CTA: Suboptimal study without convincing evidence for acute PE. [id number] bibasilar linear scarring and/or atelectasis is noted. No suspicious acute pulmonary infiltrate. * Laboratory data: W BC 9.6. Hemoglobin 15.6. Platelet count 79. D-dimer 21.15. Sodium 133. Potassium 4.4. BUN 26. Creatinine 1.86. ProBNP 818. Troponin 0.060. 0.853. 0.745. * Current home cardiac medications include Lasix 20 mg daily * Most recent echocardiogram obtained in February 2023 revealing ejection fraction 55-60%, mild aortic stenosis, mild tricuspid regurgitation REVIEW OF SYSTEMS: At the time of my exam: CONSTITUTIONAL: Denies fever or chills. HEENT: Denies blurred vision, vision changes, or eye pain. Denies hemoptysis CARDIOVASCULAR: Denies chest pain. Denies orthopnea. Denies PND. Denies palpitations RESPIRATORY: Denies shortness of breath. GASTROINTESTINAL: Denies abdominal pain. Denies nausea or vomiting. HEMATOLOGIC: Denies bleeding disorders. GENITOURINARY: Denies any blood in urine. SKIN: Denies pruitis. Denies rash. PHYSICAL EXAM: VITAL SIGNS: Reviewed. GENERAL: Well-developed in no acute distress. HEENT: Head is normocephalic. Pupils are equal, round. Sclerae anicteric. Mucous membranes of the mouth are moist. Neck supple. No JVD or thyromegaly LUNGS: Respirations even and unlabored. Lungs essentially clear to auscultation bilaterally. HEART: Regular rate and rhythm. S1 and S2 heard. ABDOMEN: Soft. Nondistended. Nontender. EXTREMITIES: Normal range of motion. No clubbing or cyanosis. Peripheral pulses intact. No lower extremity edema NEUROLOGIC: Awake and alert. Oriented x 3. ASSESSMENT: Shortness of breath Acute hypoxic respiratory failure, requiring BiPAP Fever New-onset atrial flutter with RVR, currently maintaining sinus mechanism Abnormal troponin, type II CA secondary to oxygen supply and demand mismatch Mild aortic stenosis Obstructive sleep apnea Chronic lower extremity edema; on Lasix outpatient Acute kidney injury, baseline unknown Morbid obesity, BMI 55 Former nicotine dependence PLAN: Obtain limited echocardiogram Discontinue IV Cardizem Discontinue IV heparin Begin Eliquis 5mg BID Begin metoprolol tartrate 50 mg twice a day Check TSH Continue telemetry monitoring Further recommendations pending patient course Nurse practitioner note has been reviewed by physician. Signing provider agrees with the documented findings, assessment, and plan of care. Past Medical History Past Medical History: No Reported History Additional Past Medical History / Comment(s): provided by History of Any Multi-Drug Resistant Organisms: None Reported Past Surgical History: No Surgical Hx Reported Additional Past Surgical History / Comment(s): provided by Past Anesthesia/Blood Transfusion Reactions: No Reported Reaction Additional Past Anesthesia/Blood Transfusion Reaction / Comment(s): provided by Past Psychological History: No Psychological Hx Reported Smoking Status: Never smoker Past Alcohol Use History: None Reported Past Drug Use History: None Reported Medications and Allergies Home Medications Medication Instructions Recorded Confirmed Type Aspirin EC [Ecotrin Low Dose] 81 mg PO DAILY 03/21/23 03/21/23 History Furosemide [Lasix] 20 mg PO DAILY 03/21/23 03/21/23 History Multivitamins, Thera [Multivitamin 1 tab PO DAILY 03/21/23 03/21/23 History (formulary)] Omeprazole 20 mg PO DAILY 03/21/23 03/21/23 History Tamsulosin [Flomax] 0.8 mg PO HS 03/21/23 03/21/23 History Allergies Allergy/AdvReac Type Severity Reaction Status Date / Time Penicillins Allergy Unknown Verified 03/21/23 19:44 Physical Exam Vitals: Vital Signs Temp Pulse Pulse Resp BP BP Pulse Ox 03/22/23 08:34 95 03/22/23 08:23 93 03/22/23 07:55 97.3 F L 90 33 H 105/55 97 03/22/23 04:17 03/22/23 04:00 98.4 F 105 H 30 H 108/55 97 03/22/23 02:38 98 03/22/23 02:00 111 H 28 H 03/22/23 00:37 03/22/23 00:12 111 H 20 117/71 97 03/21/23 23:58 96 03/21/23 23:45 96 03/21/23 23:00 115 H 20 118/79 99 03/21/23 22:30 117 H 28 H 107/72 95 03/21/23 21:45 107 H 16 90/65 100 03/21/23 21:30 112 H 31 H 104/60 99 03/21/23 21:00 110 H 29 H 100/51 97 03/21/23 20:30 110 H 31 H 108/63 99 03/21/23 20:27 03/21/23 20:06 03/21/23 20:00 105/88 97 03/21/23 19:36 03/21/23 19:30 21 104/62 97 03/21/23 19:00 121 H 111/67 96 03/21/23 18:15 133 H 35 H 122/60 97 03/21/23 18:03 03/21/23 18:02 03/21/23 18:00 154 H 22 142/64 97 03/21/23 17:58 158 H 45 H 142/64 97 03/21/23 17:56 48 H 03/21/23 17:51 100.2 F H 156 H 46 H 142/64 96 FiO2 03/22/23 08:34 03/22/23 08:23 50 03/22/23 07:55 50 03/22/23 04:17 50 03/22/23 04:00 50 03/22/23 02:38 03/22/23 02:00 03/22/23 00:37 50 03/22/23 00:12 03/21/23 23:58 03/21/23 23:45 03/21/23 23:00 03/21/23 22:30 03/21/23 21:45 03/21/23 21:30 03/21/23 21:00 03/21/23 20:30 03/21/23 20:27 50 03/21/23 20:06 50 03/21/23 20:00 03/21/23 19:36 50 03/21/23 19:30 03/21/23 19:00 03/21/23 18:15 03/21/23 18:03 50 03/21/23 18:02 50 03/21/23 18:00 03/21/23 17:58 03/21/23 17:56 03/21/23 17:51 Intake and Output 03/21/23 03/22/23 03/22/23 22:59 06:59 14:59 Intake Total 18.5 146.167 Output Total 150 Balance 18.5 -3.833 Intake: Intake, IV Titration 18.5 146.167 Amount Diltiazem 125 mg In 18.5 86.5 Sodium Chloride 0.9% 100 ml @ 10 MG/HR 10 mls/hr IV .[id number] [facility] Rx#: [id number] Heparin Sod,Pork in 0.45% 59.667 NaCl 25,000 unit In 0.45 % NaCl 1 250ml.bag @ 6. 456 UNITS/KG/HR 10 mls/hr IV .Q24H [facility] Rx#: [id number] Output: Urine 150 Other: Voiding Method Urinal # Voids 3 Weight 154.902 kg 154.902 kg Results 03/21/23 22:06 03/21/23 17:55 Cardiac Enzymes 03/21/23 03/21/23 03/22/23 Range/Units 17:55 17:55 01:00 AST 53 (17-59) U/L Troponin I 0.060 H* 0.853 H* (0.000-0.034) ng/mL 03/22/23 Range/Units 03:36 AST (17-59) U/L Troponin I 0.745 H* (0.000-0.034) ng/mL Coagulation 03/21/23 03/21/23 03/22/23 Range/Units 17:55 22:06 03:36 PT 11.4 12.0 12.1 H (9.0-12.0) sec APTT 23.6 23.1 41.7 H (22.0-30.0) sec CBC 03/21/23 03/21/23 Range/Units 17:55 22:06 WBC 1.9 L 9.6 (3.8-10.6) k/uL RBC 5.85 5.32 (4.30-5.90) m/uL Hgb 17.8 H 15.6 (13.0-17.5) gm/dL Hct 50.6 47.5 (39.0-53.0) % Plt Count 100 L 79 L (150-450) k/uL Comprehensive Metabolic Panel 03/21/23 Range/Units 17:55 Sodium 133 L (137-145) mmol/L Potassium 4.4 (3.5-5.1) mmol/L Chloride 100 (98-107) mmol/L Carbon Dioxide 14 L (22-30) mmol/L BUN 26 H (9-20) mg/dL Creatinine 1.86 H (0.66-1.25) mg/dL Glucose 150 H (74-99) mg/dL Calcium 7.8 L (8.4-10.2) mg/dL AST 53 (17-59) U/L ALT 36 (4-49) U/L Alkaline Phosphatase 102 (38-126) U/L Total Protein 7.0 (6.3-8.2) g/dL Albumin 3.7 (3.5-5.0) g/dL Current Medications Generic Name Dose Route Start Last Admin Trade Name Freq PRN Reason Stop Dose Admin Acetaminophen 650 mg 03/21/23 21:16 Acetaminophen Tab 325 Mg Tab PO Q6HR PRN Mild Pain or Fever > 100.5 Albuterol/Ipratropium 3 ml 03/22/23 08:00 03/22/23 08:22 Ipratropium-Albuterol 3 Ml Neb INHALATION 3 ml RT-QID KATELIN Administration Albuterol/Ipratropium 3 ml 03/22/23 01:26 Ipratropium-Albuterol 3 Ml Neb INHALATION RT-Q2H PRN Shortness Of Breath Or Wheezing Apixaban 5 mg 03/22/23 09:00 03/22/23 08:56 Apixaban 5 Mg Tab PO 5 mg BID KATELIN Administration Protocol Furosemide 20 mg 03/22/23 09:00 03/22/23 08:55 Furosemide 20 Mg Tab PO 20 mg DAILY KATELIN Administration Heparin Sodium (Porcine) 0 unit 03/21/23 21:19 Heparin Sodium 1,000 Un/Ml (10ml Vl) IV 03/22/23 10:00 PER PROTOCOL PRN Low PTT Protocol Sodium Chloride 1,000 mls @ 75 mls/hr 03/21/23 21:30 03/22/23 06:55 Saline 0.9% IV 130 mls/hr .[id number] KATELIN Administration Heparin Sodium/Sodium Chloride 250 mls @ 10 mls/hr 03/21/23 21:30 03/22/23 05:15 25,000 unit/ Sodium Chloride IV 03/22/23 10:00 8.456 units/kg/hr .Q24H KATELIN 13.099 mls/hr Titration Protocol 6.456 UNITS/KG/HR Ceftriaxone Sodium 2 gm/ 50 mls @ 100 mls/hr 03/22/23 23:00 Sodium Chloride IVPB Q24H KATELIN Protocol Lorazepam 0.5 mg 03/22/23 00:36 03/22/23 00:48 Lorazepam 2 Mg/Ml Inj IV 0.5 mg Q6HR PRN Administration Anxiety Methylprednisolone Sodium Succinate 60 mg 03/22/23 00:00 03/22/23 06:52 Methylprednisolone Sod Succi 125 Mg/2 Ml Vial IV 60 mg Q6HR KATELIN Administration Metoprolol Tartrate 50 mg 03/22/23 09:00 03/22/23 08:56 Metoprolol Tartrate 50 Mg Tab PO 50 mg BID KATELIN Administration Multivitamins 1 each 03/22/23 09:00 03/22/23 08:56 Multivitamins, Thera 1 Each Tab PO 1 each DAILY KATELIN Administration Naloxone HCl 0.2 mg 03/21/23 21:16 Naloxone 0.4 Mg/Ml 1 Ml Vial IV Q2M PRN Opioid Reversal Pantoprazole Sodium 40 mg 03/22/23 09:00 03/22/23 08:55 Pantoprazole 40 Mg/10 Ml Vial IV 40 mg DAILY KATELIN Administration Tamsulosin HCl 0.8 mg 03/22/23 21:00 Tamsulosin 0.4 Mg Cap.Er.24h PO HS KATELIN Intake and Output 03/21/23 03/22/23 03/22/23 22:59 06:59 14:59 Intake Total 18.5 146.167 Output Total 150 Balance 18.5 -3.833 Intake: Intake, IV Titration 18.5 146.167 Amount Diltiazem 125 mg In 18.5 86.5 Sodium Chloride 0.9% 100 ml @ 10 MG/HR 10 mls/hr IV .[id number] [facility] Rx#: [id number] Heparin Sod,Pork in 0.45% 59.667 NaCl 25,000 unit In 0.45 % NaCl 1 250ml.bag @ 6. 456 UNITS/KG/HR 10 mls/hr IV .Q24H [facility] Rx#: [id number] Output: Urine 150 Other: Voiding Method Urinal # Voids 3 Weight 154.902 kg 154.902 kg 03/21/23 22:06 03/21/23 17:55
[2023-03-22] MEDS ORDERED: ONDANSETRON 4 MG/2 ML VIAL IVP PRN (11:35)
[2023-03-22] MEDS ORDERED: CALCIUM CARBONATE 500 MG CHEWABLE PO PRN (11:35)
[2023-03-22 11:48] LABS: Glucose,Whole Blood 172 mg/dL (70-110)
[2023-03-22 12:18] LABS: Anisocytosis Slight; Basophils % (A) 0 %; Eosinophils % (A) 0 %; HCT 51.3 % (39.0-53.0); Lymphocytes # (A) 0.7 k/uL (1.0-4.8); Lymphocytes % (A) 4 %; MCH 29.4 pg (25.0-35.0); MCHC 33.1 g/dL (31.0-37.0); MCV 88.7 fL (80.0-100.0); Mean Platelet Volume 9.9; Monocytes # (A) 0.2 k/uL (0-1.0); Monocytes % (A) 1 %; Neutrophils # (A) 17.6 k/uL (1.3-7.7); Neutrophils % (A) 95 %; RBC 5.78 m/uL (4.30-5.90); RDW 16.6 % (11.5-15.5); WBC 18.6 k/uL (3.8-10.6)
[2023-03-22 12:20] LABS: Platelet Count 88 k/uL (150-450)
[2023-03-22 12:22] LABS: Calcium 7.3 mg/dL (8.4-10.2); Potassium 4.9 mmol/L (3.5-5.1)
[2023-03-22] MEDS: ALPRAZolam 0.25 MG TAB PO PRN ×2 (12:30→21:43)
--- NOTE | 2023-03-22 12:33 | CA ---
Transthoracic Echo Report Name: Miguel Sorto Age: 62 Gender: M : 1960 Exam Date: 03/22/2023 09:56 Exam Location: [facility] Ht (in): 66 Wt (lb): 341 Ordering Physician: Rosa Paris Attending/Referring Phys: [id number], [place] [employer]acer Markie Smith, NEIL Procedure CPT: Indications: LV function Cardiac Hx: COPD, Satus Asthmaticus Technical Quality: Very technically difficult study Contrast 1: Lumason Total Dose (mL): 6 Contrast 2: Total Dose (mL): MEASUREMENTS (Male / Female) Normal Values 2D ECHO LV Diastolic Diameter PLAX 3.3 cm 4.2 - 5.9 / 3.9 - 5.3 cm LV Systolic Diameter PLAX 3.6 cm LV Fractional Shortening PLAX -8.6 % IVS Diastolic Thickness 1.4 cm 0.6 - 1.0 / 0.6 - 0.9 cm IVS Systolic Thickness 1.7 cm LVPW Diastolic Thickness 1.5 cm 0.6 - 1.0 / 0.6 - 0.9 cm LVPW Systolic Thickness 1.3 cm LV Relative Wall Thickness 0.9 RV Internal Dim ED PLAX 2.9 cm FINDINGS Left Ventricle Left ventricle not well visualized. Overall left ventricle systolic function appears to be normal Right Ventricle Right ventricle not well visualized. Right Atrium Right atrium not well visualized. Left Atrium Left atrium not well visualized. Mitral Valve Mitral valve not well visualized. Aortic Valve Aortic valve not well visualized. Tricuspid Valve Tricuspid valve not well visualized. Pulmonic Valve Pulmonic valve not well visualized. Pericardium Normal pericardium. No pericardial effusion. Aorta Aortic root and proximal ascending aorta not well visualized. CONCLUSIONS Technically difficult study. Lumason ECHO contrast used for improved visualization of the endocardial borders (inadequate visualization of two or more contiguous segments). Overall systolic function appears to be normal Valvular structures could not be visualized Previewed by: Dr. Yonis Decker MD (Electronically Signed) Final Date: 22 Mar 2023 12:32
--- NOTE | 2023-03-22 12:54 | P.HPIM ---
History of Present Illness H&P Date: 03/22/23 Chief Complaint: Short of breath This is a pleasant 62-year-old patient who follows with Dr. Joseph. Patient had a baseline short of breath. For at least Tumma's been progressively getting increasingly short of breath. Lower extremity edema. Cough with some white sputum. Normally sits up in a chair. Decreased appetite. Patient rather anxious because his Dr. Clements brain tumor. Normally has a bowel movement every day. In the ER found to be in atrial flutter with a rate of 158. Was started on IV Cardizem drip in the ER. Also IV heparin. Review of systems: GEN.: Tired, decreased appetite EYES: None HEENT: None NECK: None RESPIRATORY: Short of breath] CARDIOVASCULAR: [As above GASTROINTESTINAL: None GENITOURINARY: None MUSCULOSKELETAL: Multiple joint pains LYMPHATICS: None HEMATOLOGICAL: None PSYCHIATRY: Anxious NEUROLOGICAL: None Social history: . No smoking or alcohol. Physical examination: VITAL SIGNS: 100.2, 156, 46, 142/64, 96% on oxygen GENERAL: BMI 55.1, declining in a chair short of breath. EYES: Pupils equal. Conjunctiva normal. HEENT: External appearance of nose and ears normal, oral cavity grossly normal. NECK: JVD unable to assess; masses not palpable. HEART: Heart sounds irregular; some edema. LUNGS: Respiratory rate increased; decreased breath sounds. ABDOMEN: Soft, nontender, liver spleen not palpable, no masses palpable. PSYCH: [Alert and oriented x3; mood and affect anxious l. MUSCULOSKELETAL:No Clubbing/cyanosis;muscles-grossly intact. Some of OA NEUROLOGICAL: Cranial nerves grossly intact; no facial asymmetry, power and sensation grossly intact. LYMPHATICS: No lymph nodes palpable in the axilla and neck INVESTIGATIONS, reviewed in the clinical context: March 22: White count 18.6 hemoglobin 17 platelets 88 sodium 135 potassium 4.9 BUN 35 creatinine 2.78 Procalcitonin critical 100 Admission tests White count 9.6 hemoglobin 15.6 platelets 79 BUN 26 creatinine 1.86 Troponin I 0.060, 0.853, 0.74 ProBNP 818 Influenza type A, B, RSV, COVID-19: Not detected EKG tracing personally reviewed by me-atrial flutter rate uncontrolled. Right bundle-branch block pattern Chest x-ray film personally reviewed by me-possible basal infiltrate Chest CTA: Negative for PE. Questionable basilar infiltrate Previous testin-D echocardiogram [03/06/2023] moderate concentric LVH. EF 55-60%. Assessment and plan: -Basilar pneumonia, suspected gram-negative organism IV ceftriaxone. -Acute hypoxic respiratory failure multifactorial including a component of obesity hypoventilation syndrome. -Acute restrictive lung disease from morbid obesity with exacerbation in a nonsmoker DuoNeb. IV Solu-Medrol -New onset atrial fibrillation with a rapid ventricular rate IV Cardizem drip. Eliquis -Acute kidney injury, likely ATN from cardiorenal. Admission creatinine was 1.86. Today's 2.78. Hold Lasix. Patient did receive IV fluids earlier. -Evaluate for CK D. Renal ultrasound. UA -Morbid obesity BMI 55.1 Weight loss measures -Situational anxiety. Patient's daughter has brain tumor. Xanax when necessary. Mind fullness get downloaded on patient's phone -Thrombocytopenia likely ITP. Follow Care was discussed with the patient. Questions answered. Stop Lasix. Patient did receive IV fluids. Renal ultrasound. UA. IV ceftriaxone. Oxygen supplementation. Past Medical History Past Medical History: No Reported History Additional Past Medical History / Comment(s): provided by History of Any Multi-Drug Resistant Organisms: None Reported Past Surgical History: No Surgical Hx Reported Additional Past Surgical History / Comment(s): provided by Past Anesthesia/Blood Transfusion Reactions: No Reported Reaction Additional Past Anesthesia/Blood Transfusion Reaction / Comment(s): provided by Past Psychological History: No Psychological Hx Reported Smoking Status: Never smoker Past Alcohol Use History: None Reported Past Drug Use History: None Reported Medications and Allergies Home Medications Medication Instructions Recorded Confirmed Type Aspirin EC [Ecotrin Low Dose] 81 mg PO DAILY 03/21/23 03/21/23 History Furosemide [Lasix] 20 mg PO DAILY 03/21/23 03/21/23 History Multivitamins, Thera [Multivitamin 1 tab PO DAILY 03/21/23 03/21/23 History (formulary)] Omeprazole 20 mg PO DAILY 03/21/23 03/21/23 History Tamsulosin [Flomax] 0.8 mg PO HS 03/21/23 03/21/23 History Allergies Allergy/AdvReac Type Severity Reaction Status Date / Time Penicillins Allergy Unknown Verified 03/21/23 19:44 Physical Exam Vitals: Vital Signs Temp Pulse Pulse Resp BP BP Pulse Ox 03/22/23 08:34 95 03/22/23 08:23 93 03/22/23 07:55 97.3 F L 90 33 H 105/55 97 03/22/23 04:17 03/22/23 04:00 98.4 F 105 H 30 H 108/55 97 03/22/23 02:38 98 03/22/23 02:00 111 H 28 H 03/22/23 00:37 03/22/23 00:12 111 H 20 117/71 97 03/21/23 23:58 96 03/21/23 23:45 96 03/21/23 23:00 115 H 20 118/79 99 03/21/23 22:30 117 H 28 H 107/72 95 03/21/23 21:45 107 H 16 90/65 100 03/21/23 21:30 112 H 31 H 104/60 99 03/21/23 21:00 110 H 29 H 100/51 97 03/21/23 20:30 110 H 31 H 108/63 99 03/21/23 20:27 03/21/23 20:06 03/21/23 20:00 105/88 97 03/21/23 19:36 03/21/23 19:30 21 104/62 97 03/21/23 19:00 121 H 111/67 96 03/21/23 18:15 133 H 35 H 122/60 97 03/21/23 18:03 03/21/23 18:02 03/21/23 18:00 154 H 22 142/64 97 03/21/23 17:58 158 H 45 H 142/64 97 03/21/23 17:56 48 H 03/21/23 17:51 100.2 F H 156 H 46 H 142/64 96 FiO2 03/22/23 08:34 03/22/23 08:23 50 03/22/23 07:55 50 03/22/23 04:17 50 03/22/23 04:00 50 03/22/23 02:38 03/22/23 02:00 03/22/23 00:37 50 03/22/23 00:12 03/21/23 23:58 03/21/23 23:45 03/21/23 23:00 03/21/23 22:30 03/21/23 21:45 03/21/23 21:30 03/21/23 21:00 03/21/23 20:30 03/21/23 20:27 50 03/21/23 20:06 50 03/21/23 20:00 03/21/23 19:36 50 03/21/23 19:30 03/21/23 19:00 03/21/23 18:15 03/21/23 18:03 50 03/21/23 18:02 50 03/21/23 18:00 03/21/23 17:58 03/21/23 17:56 03/21/23 17:51 Intake and Output 03/21/23 03/22/23 03/22/23 22:59 06:59 14:59 Intake Total 18.5 146.167 Output Total 150 Balance 18.5 -3.833 Intake: Intake, IV Titration 18.5 146.167 Amount Diltiazem 125 mg In 18.5 86.5 Sodium Chloride 0.9% 100 ml @ 10 MG/HR 10 mls/hr IV .[id number] [facility] Rx#: [id number] Heparin Sod,Pork in 0.45% 59.667 NaCl 25,000 unit In 0.45 % NaCl 1 250ml.bag @ 6. 456 UNITS/KG/HR 10 mls/hr IV .Q24H [facility] Rx#: [id number] Output: Urine 150 Other: Voiding Method Urinal # Voids 3 Weight 154.902 kg 154.902 kg Results CBC & Chem 7: 03/22/23 11:38 03/22/23 11:38 Labs: Abnormal Lab Results - Last 24 Hours (Table) 03/21/23 03/21/23 03/21/23 Range/Units 17:55 17:55 17:55 WBC 1.9 L (3.8-10.6) k/uL Hgb 17.8 H (13.0-17.5) gm/dL RDW 16.3 H (11.5-15.5) % Plt Count 100 L (150-450) k/uL Neutrophils # (1.3-7.7) k/uL Lymphocytes # 0.3 L (1.0-4.8) k/uL PT (9.0-12.0) sec INR (<1.2) APTT (22.0-30.0) sec D-Dimer 21.15 H (<0.60) mg/L FEU Sodium 133 L (137-145) mmol/L Carbon Dioxide 14 L (22-30) mmol/L BUN 26 H (9-20) mg/dL Creatinine 1.86 H (0.66-1.25) mg/dL Glucose 150 H (74-99) mg/dL POC Glucose (mg/dL) (70-110) mg/dL Plasma Lactic Acid Vince (0.7-2.0) mmol/L Calcium 7.8 L (8.4-10.2) mg/dL Magnesium 1.5 L (1.6-2.3) mg/dL Total Bilirubin 1.4 H (0.2-1.3) mg/dL Troponin I (0.000-0.034) ng/mL 03/21/23 03/21/23 03/21/23 Range/Units 17:55 17:55 22:06 WBC (3.8-10.6) k/uL Hgb (13.0-17.5) gm/dL RDW (11.5-15.5) % Plt Count (150-450) k/uL Neutrophils # (1.3-7.7) k/uL Lymphocytes # (1.0-4.8) k/uL PT (9.0-12.0) sec INR (<1.2) APTT (22.0-30.0) sec D-Dimer (<0.60) mg/L FEU Sodium (137-145) mmol/L Carbon Dioxide (22-30) mmol/L BUN (9-20) mg/dL Creatinine (0.66-1.25) mg/dL Glucose (74-99) mg/dL POC Glucose (mg/dL) (70-110) mg/dL Plasma Lactic Acid Vince 3.2 H* 2.2 H* (0.7-2.0) mmol/L Calcium (8.4-10.2) mg/dL Magnesium (1.6-2.3) mg/dL Total Bilirubin (0.2-1.3) mg/dL Troponin I 0.060 H* (0.000-0.034) ng/mL 03/21/23 03/21/23 03/21/23 Range/Units 22:06 22:06 23:53 WBC (3.8-10.6) k/uL Hgb (13.0-17.5) gm/dL RDW 16.3 H (11.5-15.5) % Plt Count 79 L (150-450) k/uL Neutrophils # 8.9 H (1.3-7.7) k/uL Lymphocytes # 0.3 L (1.0-4.8) k/uL PT (9.0-12.0) sec INR 1.2 H (<1.2) APTT (22.0-30.0) sec D-Dimer (<0.60) mg/L FEU Sodium (137-145) mmol/L Carbon Dioxide (22-30) mmol/L BUN (9-20) mg/dL Creatinine (0.66-1.25) mg/dL Glucose (74-99) mg/dL POC Glucose (mg/dL) 168 H (70-110) mg/dL Plasma Lactic Acid Vince (0.7-2.0) mmol/L Calcium (8.4-10.2) mg/dL Magnesium (1.6-2.3) mg/dL Total Bilirubin (0.2-1.3) mg/dL Troponin I (0.000-0.034) ng/mL 03/22/23 03/22/23 03/22/23 Range/Units 01:00 01:00 03:36 WBC (3.8-10.6) k/uL Hgb (13.0-17.5) gm/dL RDW (11.5-15.5) % Plt Count (150-450) k/uL Neutrophils # (1.3-7.7) k/uL Lymphocytes # (1.0-4.8) k/uL PT (9.0-12.0) sec INR (<1.2) APTT (22.0-30.0) sec D-Dimer (<0.60) mg/L FEU Sodium (137-145) mmol/L Carbon Dioxide (22-30) mmol/L BUN (9-20) mg/dL Creatinine (0.66-1.25) mg/dL Glucose (74-99) mg/dL POC Glucose (mg/dL) (70-110) mg/dL Plasma Lactic Acid Vince 2.3 H* (0.7-2.0) mmol/L Calcium (8.4-10.2) mg/dL Magnesium (1.6-2.3) mg/dL Total Bilirubin (0.2-1.3) mg/dL Troponin I 0.853 H* 0.745 H* (0.000-0.034) ng/mL 03/22/23 03/22/23 Range/Units 03:36 05:57 WBC (3.8-10.6) k/uL Hgb (13.0-17.5) gm/dL RDW (11.5-15.5) % Plt Count (150-450) k/uL Neutrophils # (1.3-7.7) k/uL Lymphocytes # (1.0-4.8) k/uL PT 12.1 H (9.0-12.0) sec INR 1.2 H (<1.2) APTT 41.7 H (22.0-30.0) sec D-Dimer (<0.60) mg/L FEU Sodium (137-145) mmol/L Carbon Dioxide (22-30) mmol/L BUN (9-20) mg/dL Creatinine (0.66-1.25) mg/dL Glucose (74-99) mg/dL POC Glucose (mg/dL) 138 H (70-110) mg/dL Plasma Lactic Acid Vince (0.7-2.0) mmol/L Calcium (8.4-10.2) mg/dL Magnesium (1.6-2.3) mg/dL Total Bilirubin (0.2-1.3) mg/dL Troponin I (0.000-0.034) ng/mL Thrombosis Risk Factor Assmnt - Choose All That Apply Any of the Below Risk Factors Present?: Yes Each Factor Represents 1 point: Abnormal pulmonary function (COPD), Medical pt on bed rest, Obesity (BMI >25), Sepsis (< 1month), Serious lung disease incl. pneumonia (< 1month), Swollen legs (current) Each Risk Factor Represents 2 Points: Age 61-74 years, Patient confined to bed Other congenital or acquired thrombophilia - If yes, enter type in comment: No Thrombosis Risk Factor Assessment Total Risk Factor Score: 10 Thrombosis Risk Factor Assessment Level: High Risk
[2023-03-22 16:47] LABS: Glucose,Whole Blood 133 mg/dL (70-110)
[2023-03-22] MEDS: ACETAMINOPHEN TAB 325 MG TAB PO PRN (16:54)
[2023-03-22 20:21] LABS: Glucose,Whole Blood 154 mg/dL (70-110)
[2023-03-22] MEDS: MELATONIN 3 MG TABLET PO PRN (21:43)
[2023-03-22] MEDS: TAMSULOSIN 0.4 MG CAP.ER.24H PO SCH (21:43)
--- NOTE | 2023-03-22 22:44 | US ---
EXAMINATION TYPE: US kidneys/renal and bladder DATE OF EXAM: 03/22/2023 COMPARISON: Bladder US 07/22/22 CLINICAL INDICATION: Male, 62 years old with history of Evaluate for CK D; Evaluate for CKD. EXAM MEASUREMENTS: Right Kidney: 11.2 x 5.8 x 5.8 cm Left Kidney: 13.0 x 7.0 x 7.4 cm Extremely limited due to patient body habitus and gas. Pt is 341 lbs. Right Kidney: No hydronephrosis or masses seen Left Kidney: Appears asymmetrically larger, although measurement is limited. No hydronephrosis or mas ses seen Bladder: Not visualized. Bilateral Jets seen: No Bladder is decompressed. IMPRESSION: Suboptimal study without hydronephrosis identified bilaterally.
[2023-03-22 23:34] LABS: Appearance,Urine Cloudy (Clear); Bilirubin,Urine Negative (Negative); Blood,Urine Large (Negative); Color,Urine Yellow; Glucose,Urine (UA) Negative (Negative); Ketones,Urine Negative (Negative); Leukocyte Esterase,Urine Large (Negative); Mucus,Urine Rare /hpf; Nitrite,Urine Negative (Negative); Protein,Urine 1+ (Negative); RBC,Urine 25 /hpf (0-5); Specific Gravity,Urine 1.036 (1.001-1.035); Squamous Epithelial Cell,Urine 1 /hpf (0-4); WBC,Urine 57 /hpf (0-5)
[2023-03-23] MEDS: ALPRAZolam 0.25 MG TAB PO PRN ×2 (03:55→22:09)
[2023-03-23] MEDS: ACETAMINOPHEN TAB 325 MG TAB PO PRN ×2 (03:55→22:09)
[2023-03-23] MEDS: SODIUM CHLORIDE 0.9% 1,000 ML IV SCH (04:28)
[2023-03-23 06:03] LABS: Glucose,Whole Blood 156 mg/dL (70-110)
[2023-03-23] MEDS: methylPREDNISolone SOD SUCCI 125 MG/2 ML VIAL IV SCH ×4 (06:34→23:18)
[2023-03-23 07:59] LABS: Anisocytosis Slight; Basophils % (A) 0 %; Eosinophils % (A) 0 %; HCT 49.3 % (39.0-53.0); HGB 16.1 gm/dL (13.0-17.5); Lymphocytes # (A) 1.2 k/uL (1.0-4.8); Lymphocytes % (A) 8 %; MCHC 32.7 g/dL (31.0-37.0); MCV 88.8 fL (80.0-100.0); Mean Platelet Volume 10.8; Monocytes # (A) 0.3 k/uL (0-1.0); Monocytes % (A) 2 %; Neutrophils # (A) 13.2 k/uL (1.3-7.7); Neutrophils % (A) 89 %; RBC 5.56 m/uL (4.30-5.90); RDW 16.7 % (11.5-15.5); WBC 14.8 k/uL (3.8-10.6)
[2023-03-23 08:03] LABS: Platelet Count 82 k/uL (150-450)
[2023-03-23 08:09] LABS: Magnesium 2.8 mg/dL (1.6-2.3); Potassium 4.8 mmol/L (3.5-5.1)
[2023-03-23] MEDS: IPRATROPIUM-ALBUTEROL 3 ML NEB INHALATION SCH ×4 (08:49→21:09)
[2023-03-23] MEDS: METOPROLOL TARTRATE 50 MG TAB PO SCH ×2 (09:26→19:37)
[2023-03-23] MEDS: MULTIVITAMINS, THERA 1 EACH TAB PO SCH (09:26)
[2023-03-23] MEDS: APIXABAN 5 MG TAB PO SCH ×2 (09:26→19:37)
--- NOTE | 2023-03-23 10:28 | P.PN ---
Subjective Progress Note Date: 03/23/23 HISTORY OF PRESENT ILLNESS: This is a 62-year-old male with a past medical history significant for morbid obesity, mild aortic stenosis, obstructive sleep apnea, and chronic lower ex tremity edema. Patient follows in the office with Dr. Gonzalez. We have been asked to see the patient in consultation for atrial flutter. Patient examined at the bedside. Patient presented to the hospital for chief complaint of shortness of breath. Patient was also febrile on admission with temperature 100.6. Patient was found to be hypoxic. He is currently on a BiPAP at the time of examination. Patient was also found to be in atrial flutter with RVR. The patient denies a history of atrial flutter. He was started on IV Cardizem. He subsequently converted to sinus mechanism and is maintaining sinus mechanism in the 80s at the time of examination. He denies any chest pain or pressure. Blood pressure stable. He is afebrile this morning. * EKG reveals atrial flutter with RVR * Chest xray cardiomegaly * Chest CTA: Suboptimal study without convincing evidence for acute PE. [id number] bibasilar linear scarring and/or atelectasis is noted. No suspicious acute pulmonary infiltrate. * Laboratory data: W BC 9.6. Hemoglobin 15.6. Platelet count 79. D-dimer 21.15. Sodium 133. Potassium 4.4. BUN 26. Creatinine 1.86. ProBNP 818. Troponin 0.060. 0.853. 0.745. * Current home cardiac medications include Lasix 20 mg daily * Most recent echocardiogram obtained in February 2023 revealing ejection fraction 55-60%, mild aortic stenosis, mild tricuspid regurgitation 03/23/2023 Patient examined this morning at the bedside. He is sitting beside the bed eating breakfast. Patient denies chest pain or pressure. He reports improvement in his shortness of breath. He remains on IV steroids and IV antibiotics. Telemetry reveals sinus mechanism. Echocardiogram was performed although is a technically difficult study. Overall systolic function appeared to be normal and valvular structures could not be visualized. PHYSICAL EXAM: VITAL SIGNS: Reviewed. GENERAL: Well-developed in no acute distress. HEENT: Head is normocephalic. Pupils are equal, round. Sclerae anicteric. Mucous membranes of the mouth are moist. Neck supple. No JVD or thyromegaly LUNGS: Respirations even and unlabored. Lungs essentially clear to auscultation bilaterally. HEART: Regular rate and rhythm. S1 and S2 heard. ABDOMEN: Soft. Nondistended. Nontender. EXTREMITIES: Normal range of motion. No clubbing or cyanosis. Peripheral pulses intact. No lower extremity edema NEUROLOGIC: Awake and alert. Oriented x 3. ASSESSMENT: Shortness of breath Acute hypoxic respiratory failure, requiring BiPAP Fever New-onset atrial flutter with RVR, currently maintaining sinus mechanism Abnormal troponin, type II [place] secondary to oxygen supply and demand mismatch Mild aortic stenosis Obstructive sleep apnea Chronic lower extremity edema; on Lasix outpatient Acute kidney injury, baseline unknown Morbid obesity, BMI 55 Former nicotine dependence PLAN: Continue current cardiac medications Pulmonary following Patient is currently stable from a cardiac perspective Further recommendations pending patient course Nurse practitioner note has been reviewed by physician. Signing provider agrees with the documented findings, assessment, and plan of care. Objective - Vital Signs Vital signs: Vital Signs Temp 97.9 F 03/23/23 04:00 Pulse 91 03/23/23 09:01 Resp 26 H 03/23/23 04:00 BP 111/65 03/23/23 04:00 Pulse Ox 98 03/23/23 08:54 FiO2 50 03/23/23 04:00 Intake & Output 03/22/23 03/23/23 03/23/23 18:59 06:59 18:59 Intake Total 410 120 Output Total 150 350 Balance 260 -350 120 Intake: Intake, IV Titration 40 Amount Sodium Chloride 0.9% 1, 40 000 ml @ 10 mls/hr IV . Q24H ON LICENSE OF [facility] Rx#:[id number] Oral 370 120 Output: Urine 150 350 Other: Voiding Method Urinal Urinal - Labs CBC & Chem 7: 03/23/23 07:16 03/23/23 07:16 Labs: Abnormal Lab Results - Last 24 Hours (Table) 03/22/23 03/22/23 03/22/23 Range/Units 03:36 11:38 11:38 WBC 18.6 H (3.8-10.6) k/uL RDW 16.6 H (11.5-15.5) % Plt Count 88 L (150-450) k/uL Neutrophils # 17.6 H (1.3-7.7) k/uL Lymphocytes # 0.7 L (1.0-4.8) k/uL Sodium 135 L (137-145) mmol/L Carbon Dioxide 14 L (22-30) mmol/L BUN 35 H (9-20) mg/dL Creatinine 2.78 H (0.66-1.25) mg/dL Glucose 173 H (74-99) mg/dL POC Glucose (mg/dL) (70-110) mg/dL Calcium 7.3 L (8.4-10.2) mg/dL Magnesium (1.6-2.3) mg/dL Procalcitonin >100.00 H (0.02-0.09) ng/mL Ur Specific [place] (1.001-1.035) Urine Protein (Negative) Urine Blood (Negative) Ur Leukocyte Esterase (Negative) Urine RBC (0-5) /hpf Urine WBC (0-5) /hpf Urine Mucus (None) /hpf 03/22/23 03/22/23 03/22/23 Range/Units 11:44 16:45 20:14 WBC (3.8-10.6) k/uL RDW (11.5-15.5) % Plt Count (150-450) k/uL Neutrophils # (1.3-7.7) k/uL Lymphocytes # (1.0-4.8) k/uL Sodium (137-145) mmol/L Carbon Dioxide (22-30) mmol/L BUN (9-20) mg/dL Creatinine (0.66-1.25) mg/dL Glucose (74-99) mg/dL POC Glucose (mg/dL) 172 H 133 H 154 H (70-110) mg/dL Calcium (8.4-10.2) mg/dL Magnesium (1.6-2.3) mg/dL Procalcitonin (0.02-0.09) ng/mL Ur Specific [place] (1.001-1.035) Urine Protein (Negative) Urine Blood (Negative) Ur Leukocyte Esterase (Negative) Urine RBC (0-5) /hpf Urine WBC (0-5) /hpf Urine Mucus (None) /hpf 03/22/23 03/23/23 03/23/23 Range/Units 20:45 06:02 07:16 WBC (3.8-10.6) k/uL RDW (11.5-15.5) % Plt Count (150-450) k/uL Neutrophils # (1.3-7.7) k/uL Lymphocytes # (1.0-4.8) k/uL Sodium 134 L (137-145) mmol/L Carbon Dioxide 21 L (22-30) mmol/L BUN 54 H (9-20) mg/dL Creatinine 2.95 H (0.66-1.25) mg/dL Glucose 154 H (74-99) mg/dL POC Glucose (mg/dL) 156 H (70-110) mg/dL Calcium 7.0 L (8.4-10.2) mg/dL Magnesium 2.8 H (1.6-2.3) mg/dL Procalcitonin (0.02-0.09) ng/mL Ur Specific [place] 1.036 H (1.001-1.035) Urine Protein 1+ H (Negative) Urine Blood Large H (Negative) Ur Leukocyte Esterase Large H (Negative) Urine RBC 25 H (0-5) /hpf Urine WBC 57 H (0-5) /hpf Urine Mucus Rare H (None) /hpf 03/23/23 Range/Units 07:16 WBC 14.8 H (3.8-10.6) k/uL RDW 16.7 H (11.5-15.5) % Plt Count 82 L (150-450) k/uL Neutrophils # 13.2 H (1.3-7.7) k/uL Lymphocytes # (1.0-4.8) k/uL Sodium (137-145) mmol/L Carbon Dioxide (22-30) mmol/L BUN (9-20) mg/dL Creatinine (0.66-1.25) mg/dL Glucose (74-99) mg/dL POC Glucose (mg/dL) (70-110) mg/dL Calcium (8.4-10.2) mg/dL Magnesium (1.6-2.3) mg/dL Procalcitonin (0.02-0.09) ng/mL Ur Specific [place] (1.001-1.035) Urine Protein (Negative) Urine Blood (Negative) Ur Leukocyte Esterase (Negative) Urine RBC (0-5) /hpf Urine WBC (0-5) /hpf Urine Mucus (None) /hpf Microbiology - Last 24 Hours (Table) 03/21/23 18:02 Blood Culture Gram Stain - Preliminary Blood Blood Culture - Preliminary Gram Neg Bacilli 03/21/23 18:22 Blood Culture Gram Stain - Preliminary Blood Blood Culture - Preliminary Proteus spec
--- NOTE | 2023-03-23 11:45 | P.PN ---
Subjective Progress Note Date: 03/23/23 Principal diagnosis: Shortness of breath. I'm seeing this patient in new consultation today 03/22/2023 in the emergency room, waiting on a bed on the cardiac stepdown unit. Patient is a 62-year-old white male with past medical history of restrictive lung disease probably relate d to his morbid obesity, obstructive sleep apnea on CPAP support of 14, hyperlipidemia, BPH, and GERD. Patient was recently seen in the office by Dr. Lo, on 03/13/2023, for full PFT. Patient was found to have restrictive lung disease. The patient's FEV1 was 1.77 L which is 62% of predicted. The FVC is 2.14 L which is 55% of predicted. The ratio was elevated. Total lung capacity is only 73% of predicted. Diffusion corrected for alveolar volume is normal. These lung function are consistent with a pulmonary restrictive process. It may relate to the patient's obesity. The patient also qualified for home O2, which he has not received yet. Patient reports that he's been becoming progressively more short of breath over the last few months. Patient also reports that he has been more short of breath and anxious lately, after finding out that his daughter has a potential cancer diagnosis. Patient has been reporting some nasal congestion and frequent cough without significant sputum production. Patient was found to be febrile on arrival to the emergency room with a T-max of 100.2F. Denies any sick contacts. He was found to be in A. fib RVR, with a heart rate in the 150s on arrival. He denies any chest pain, heart palpitations, lightheadedness, syncope. Patient was subsequently started on a Cardizem infusion which is currently infusing at 15 mg/hour, and a low intensity heparin infusion per protocol. Patient denies any prior history of A. fib. Chest x-ray on arrival showed cardiomegaly without any suspicious infiltrates or pleural effusions. D- dimer was elevated at 21.2, and a follow-up chest CTA was negative for pulmonary embolism. It did show some mild to moderate bibasilar linear scarring and/or atelectasis. No focal consolidation. Patient's CBC on arrival showed a WBC count of 9.6, hemoglobin 15.6, hematocrit 47.5, platelets 79,000. BMP on arrival showed a sodium 133, potassium 4.4, chloride 100, serum CO2 14, BUN 26, creatinine 1.86, glucose 150. Troponin was mildly elevated at 0.06. NT proBNP was not very elevated at 818. Patient's was negative for influenza, RSV, COVID- 19. Lactic acid level was 3.2 on arrival and is trending down to 2.2 after 1 L normal saline fluid resuscitation. He did receive one dose of Rocephin in the emergency room. Patient status has stabilized, and he is currently sitting up in bed, on BiPAP with settings of 14/5 and FiO2 of 50%. His respiratory rate is about 20 breaths per minute and he is achieving tidal volumes of 800. Vital signs are stable, and he will be transferred to the cardiac stepdown unit once bed available. Progress note dated 03/23/2023. 62-year-old male seen yesterday in consultation. Currently, the patient is seen today in room 373. His blood cultures were positive for Proteus species. The patient remains on Rocephin. We will get him a flutter valve. He's getting 5 L by nasal cannula. His BiPAP settings are 11 over 5 and 50%. White count 14.8, hemoglobin 16.1, hematocrit 49.3, and platelet count 82,000. PTT is 28.3. Sodium 134, potassium 4.8, chlorides 101, CO2 21, anion gap 12, BUN 54, and creatinine 2.95. Objective - Vital Signs Vital signs: Vital Signs Temp 97.9 F 03/23/23 04:00 Pulse 91 03/23/23 09:01 Resp 26 H 03/23/23 04:00 BP 111/65 03/23/23 04:00 Pulse Ox 98 03/23/23 08:54 FiO2 50 03/23/23 04:00 Intake & Output 03/22/23 03/23/23 03/23/23 18:59 06:59 18:59 Intake Total 410 120 Output Total 150 350 Balance 260 -350 120 Intake: Intake, IV Titration 40 Amount Sodium Chloride 0.9% 1, 40 000 ml @ 10 mls/hr IV . Q24H [facility] Rx#:[id number] Oral 370 120 Output: Urine 150 350 Other: Voiding Method Urinal Urinal - Exam No acute distress, oriented 3. Currently on 5 L of oxygen. Frequent cough. HEENT examination is grossly unremarkable. Neck supple. Full range of motion. No adenopathy thyromegaly or neck vein distention. Cardiovascular examination reveals regular rhythm rate. S1-S2 normal. No S3 or S4. No discernible murmur noted. Heart rate 91 bpm. Heart sounds are distant. Lungs reveal bilateral rhonchi. Cough is a bit wet sounding. No wheezes or crackles. Breath sounds equal bilaterally. Saturations are 98%. Abdomen obese. No masses or tenderness. Extremities are intact. No cyanosis clubbing or edema. Skin is without rash or lesion. Neurologic examination is brief but nonfocal. - Labs CBC & Chem 7: 03/23/23 07:16 03/23/23 07:16 Labs: Abnormal Lab Results - Last 24 Hours (Table) 03/22/23 03/22/23 03/22/23 Range/Units 03:36 11:38 11:38 WBC 18.6 H (3.8-10.6) k/uL RDW 16.6 H (11.5-15.5) % Plt Count 88 L (150-450) k/uL Neutrophils # 17.6 H (1.3-7.7) k/uL Lymphocytes # 0.7 L (1.0-4.8) k/uL Sodium 135 L (137-145) mmol/L Carbon Dioxide 14 L (22-30) mmol/L BUN 35 H (9-20) mg/dL Creatinine 2.78 H (0.66-1.25) mg/dL Glucose 173 H (74-99) mg/dL POC Glucose (mg/dL) (70-110) mg/dL Calcium 7.3 L (8.4-10.2) mg/dL Magnesium (1.6-2.3) mg/dL Procalcitonin >100.00 H (0.02-0.09) ng/mL Ur Specific Sterling (1.001-1.035) Urine Protein (Negative) Urine Blood (Negative) Ur Leukocyte Esterase (Negative) Urine RBC (0-5) /hpf Urine WBC (0-5) /hpf Urine Mucus (None) /hpf 03/22/23 03/22/23 03/22/23 Range/Units 11:44 16:45 20:14 WBC (3.8-10.6) k/uL RDW (11.5-15.5) % Plt Count (150-450) k/uL Neutrophils # (1.3-7.7) k/uL Lymphocytes # (1.0-4.8) k/uL Sodium (137-145) mmol/L Carbon Dioxide (22-30) mmol/L BUN (9-20) mg/dL Creatinine (0.66-1.25) mg/dL Glucose (74-99) mg/dL POC Glucose (mg/dL) 172 H 133 H 154 H (70-110) mg/dL Calcium (8.4-10.2) mg/dL Magnesium (1.6-2.3) mg/dL Procalcitonin (0.02-0.09) ng/mL Ur Specific Sterling (1.001-1.035) Urine Protein (Negative) Urine Blood (Negative) Ur Leukocyte Esterase (Negative) Urine RBC (0-5) /hpf Urine WBC (0-5) /hpf Urine Mucus (None) /hpf 03/22/23 03/23/23 03/23/23 Range/Units 20:45 06:02 07:16 WBC (3.8-10.6) k/uL RDW (11.5-15.5) % Plt Count (150-450) k/uL Neutrophils # (1.3-7.7) k/uL Lymphocytes # (1.0-4.8) k/uL Sodium 134 L (137-145) mmol/L Carbon Dioxide 21 L (22-30) mmol/L BUN 54 H (9-20) mg/dL Creatinine 2.95 H (0.66-1.25) mg/dL Glucose 154 H (74-99) mg/dL POC Glucose (mg/dL) 156 H (70-110) mg/dL Calcium 7.0 L (8.4-10.2) mg/dL Magnesium 2.8 H (1.6-2.3) mg/dL Procalcitonin (0.02-0.09) ng/mL Ur Specific Sterling 1.036 H (1.001-1.035) Urine Protein 1+ H (Negative) Urine Blood Large H (Negative) Ur Leukocyte Esterase Large H (Negative) Urine RBC 25 H (0-5) /hpf Urine WBC 57 H (0-5) /hpf Urine Mucus Rare H (None) /hpf 03/23/23 Range/Units 07:16 WBC 14.8 H (3.8-10.6) k/uL RDW 16.7 H (11.5-15.5) % Plt Count 82 L (150-450) k/uL Neutrophils # 13.2 H (1.3-7.7) k/uL Lymphocytes # (1.0-4.8) k/uL Sodium (137-145) mmol/L Carbon Dioxide (22-30) mmol/L BUN (9-20) mg/dL Creatinine (0.66-1.25) mg/dL Glucose (74-99) mg/dL POC Glucose (mg/dL) (70-110) mg/dL Calcium (8.4-10.2) mg/dL Magnesium (1.6-2.3) mg/dL Procalcitonin (0.02-0.09) ng/mL Ur Specific Sterling (1.001-1.035) Urine Protein (Negative) Urine Blood (Negative) Ur Leukocyte Esterase (Negative) Urine RBC (0-5) /hpf Urine WBC (0-5) /hpf Urine Mucus (None) /hpf Microbiology - Last 24 Hours (Table) 03/21/23 18:02 Blood Culture Gram Stain - Preliminary Blood Blood Culture - Preliminary Gram Neg Bacilli 03/21/23 18:22 Blood Culture Gram Stain - Preliminary Blood Blood Culture - Preliminary Proteus spec Assessment and Plan Assessment: Acute on chronic hypoxemic respiratory failure, secondary to acute bronchitis, and new onset atrial fibrillation with RVR. New onset atrial fibrillation with RVR. Restrictive lung disease, secondary to obesity. Anion gap metabolic acidosis, resolved. Troponin leak, secondary to supply/demand mismatch. Acute kidney injury. Thrombocytopenia. Obstructive sleep apnea syndrome, on home CPAP. Morbid obesity. BPH. GERD. Hyperlipidemia. Previous history of tobacco use. Plan: Plan dated 03/23/2023. The patient is currently on Rocephin. Blood cultures were positive for Proteus. Sensitivities are not yet back. We will continue to follow and make recommendations along the way. For the patient's cough, and chest congestion, we will order a flutter valve. Labs, x-rays, and medications are reviewed. We will continue to follow the patient and and make recommendations along the way. Prognosis is certainly guarded. Time with Patient: Less than 30
[2023-03-23 11:53] LABS: Glucose,Whole Blood 154 mg/dL (70-110)
--- NOTE | 2023-03-23 16:07 | P.PN ---
Progress Note - Text Progress Note Date: 03/23/23 Chief Complaint: Short of breath This is a pleasant 62-year-old patient who follows with Dr. Joseph. Patient had a baseline short of breath. For at least Tumma's been progressively getting increasingly short of breath. Lower extremity edema. Cough with some white s putum. Normally sits up in a chair. Decreased appetite. Patient rather anxious because his daughter has brain tumor. Normally has a bowel movement every day. In the ER found to be in atrial flutter with a rate of 158. Was started on IV Cardizem drip in the ER. Also IV heparin. Admitted with multiple issues including bilateral pneumonia, acute hypoxic respiratory failure from acute exacerbation of restrictive lung disease, atrial flutter fibrillation. March 4: On DuoNeb, IV ceftriaxone, IV Solu-Medrol. Remains shortness of breath. Eating fair. On eliquis. Patient is in sinus rhythm. 2-D echo shows preserved LV function. Renal ultrasound was limited. Blood cultures growing gram- negative bacilli/Proteus species. Repeat blood cultures ordered Active Medications Acetaminophen (Acetaminophen Tab 325 Mg Tab) 650 mg PO Q6HR PRN PRN Reason: Mild Pain or Fever > 100.5 Last Admin: 03/23/23 03:55 Dose: 650 mg Albuterol/Ipratropium (Ipratropium-Albuterol 3 Ml Neb) 3 ml INHALATION RT-QID KATELIN Last Admin: 03/23/23 12:16 Dose: 3 ml Albuterol/Ipratropium (Ipratropium-Albuterol 3 Ml Neb) 3 ml INHALATION RT-Q2H PRN PRN Reason: Shortness Of Breath Or Wheezing Alprazolam (Alprazolam 0.25 Mg Tab) 0.25 mg PO Q6HR PRN PRN Reason: Anxiety Last Admin: 03/23/23 03:55 Dose: 0.25 mg Apixaban (Apixaban 5 Mg Tab) 5 mg PO BID [facility]; Protocol Last Admin: 03/23/23 09:26 Dose: 5 mg Calcium Carbonate/Glycine (Calcium Carbonate 500 Mg Chewable) 1,000 mg PO Q4HR PRN PRN Reason: Dyspepsia Sodium Chloride (Saline 0.9%) 1,000 mls @ 10 mls/hr IV .Q24H [facility] Last Admin: 03/23/23 04:28 Dose: Not Given Ceftriaxone Sodium 2 gm/ (Sodium Chloride) 50 mls @ 100 mls/hr IVPB Q24H [facility]; Protocol Last Admin: 03/22/23 23:40 Dose: 100 mls/hr Lactulose (Lactulose 20 Gm/30 Ml Cup) 20 gm PO DAILY PRN PRN Reason: Constipation Melatonin (Melatonin 3 Mg Tablet) 3 mg PO HS PRN PRN Reason: Insomnia Last Admin: 03/22/23 21:43 Dose: 3 mg Methylprednisolone Sodium Succinate (Methylprednisolone Sod Succi 125 Mg/2 Ml Vial) 60 mg IV Q6HR [facility] Last Admin: 03/23/23 13:18 Dose: 60 mg Metoprolol Tartrate (Metoprolol Tartrate 50 Mg Tab) 50 mg PO BID [facility] Last Admin: 03/23/23 09:26 Dose: 50 mg Multivitamins (Multivitamins, Thera 1 Each Tab) 1 each PO DAILY [facility] Last Admin: 03/23/23 09:26 Dose: 1 each Naloxone HCl (Naloxone 0.4 Mg/Ml 1 Ml Vial) 0.2 mg IV Q2M PRN PRN Reason: Opioid Reversal Ondansetron HCl (Ondansetron 4 Mg/2 Ml Vial) 4 mg IVP Q8HR PRN PRN Reason: Nausea And Vomiting Tamsulosin HCl (Tamsulosin 0.4 Mg Cap.Er.24h) 0.8 mg PO HS [facility] Last Admin: 03/22/23 21:43 Dose: 0.8 mg Social history: . No smoking or alcohol. Physical examination: VITAL SIGNS: 97.9, 70, 26, 111/65, 99% on BiPAP morning GENERAL: BMI 55.1, declining in bed, short of breath. EYES: Pupils equal. Conjunctiva normal. HEENT: External appearance of nose and ears normal, oral cavity grossly normal. NECK: JVD unable to assess; masses not palpable. HEART: First seconds are normal; some edema. LUNGS: Respiratory rate increased; decreased breath sounds. ABDOMEN: Soft, nontender, liver spleen not palpable, no masses palpable. PSYCH: [Alert and oriented x3; mood and affect anxious l. MUSCULOSKELETAL:No Clubbing/cyanosis;muscles-grossly intact. Some of OA INVESTIGATIONS, reviewed in the clinical context: UA: Blood large, leukoesterase large, wbc 57 squamous epithelial 1 Renal ultrasound: Not good quality Blood culture [March 21]: Gram-negative bacilli, Proteus species March 4: White count 14.8 hemoglobin 16.1 platelets 82 potassium 4.8 BUN 54 creatinine 2.95 March 3: White count 18.6 hemoglobin 17 platelets 88 sodium 135 potassium 4.9 BUN 35 creatinine 2.78 Procalcitonin critical 100 Admission tests White count 9.6 hemoglobin 15.6 platelets 79 BUN 26 creatinine 1.86 Troponin I 0.060, 0.853, 0.74 ProBNP 818 Influenza type A, B, RSV, COVID-19: Not detected EKG tracing personally reviewed by me-atrial flutter rate uncontrolled. Right bundle-branch block pattern Chest x-ray film personally reviewed by me-possible basal infiltrate Chest CTA: Negative for PE. Questionable basilar infiltrate Previous testin-D echocardiogram [03/06/2023] moderate concentric LVH. EF 55-60%. Assessment and plan: -Basilar pneumonia, suspected gram-negative organism: Slow to respond IV ceftriaxone. -Acute hypoxic respiratory failure multifactorial including a component of obesity hypoventilation syndrome.: Slow to respond -Acute restrictive lung disease from morbid obesity with exacerbation in a nonsmoker: Slow to respond DuoNeb. IV Solu-Medrol -Paroxysmal atrial fibrillation with a rapid ventricular rate, normal sinus rhythm IV Cardizem drip discontinued. Lopressor 50 mg twice a day. Eliquis -Acute kidney injury, likely ATN from cardiorenal.: Worsening Admission creatinine was 1.86. Today's 2. 95. Hold Lasix. Consult nephrology. -Evaluate for CK D. Renal ultrasound. UA -Morbid obesity BMI 55.1 Weight loss measures -Situational anxiety. Patient's daughter has brain tumor. Xanax when necessary. Mind fullness get downloaded on patient's phone -Thrombocytopenia likely ITP. Follow Sinus rhythm. Lopressor. Eliquis. IV Solu-Medrol. DuoNeb. Discussed with the patient. Consult nephrology. Worsening renal function
[2023-03-23 17:01] LABS: Glucose,Whole Blood 161 mg/dL (70-110)
[2023-03-23] MEDS: TAMSULOSIN 0.4 MG CAP.ER.24H PO SCH (19:37)
[2023-03-23 20:02] LABS: Glucose,Whole Blood 186 mg/dL (70-110)
[2023-03-24] MEDS: methylPREDNISolone SOD SUCCI 125 MG/2 ML VIAL IV SCH ×2 (05:27→12:01)
[2023-03-24 05:57] LABS: Glucose,Whole Blood 157 mg/dL (70-110)
[2023-03-24] MEDS: SODIUM CHLORIDE 0.9% 1,000 ML IV SCH (06:40)
[2023-03-24] MEDS: METOPROLOL TARTRATE 50 MG TAB PO SCH ×2 (08:04→19:47)
[2023-03-24] MEDS: APIXABAN 5 MG TAB PO SCH ×2 (08:04→19:47)
[2023-03-24] MEDS: MULTIVITAMINS, THERA 1 EACH TAB PO SCH (08:04)
[2023-03-24] MEDS: IPRATROPIUM-ALBUTEROL 3 ML NEB INHALATION SCH ×4 (09:06→21:16)
[2023-03-24 10:12] LABS: Calcium 7.4 mg/dL (8.4-10.2); Magnesium 2.9 mg/dL (1.6-2.3); Potassium 4.9 mmol/L (3.5-5.1)
--- NOTE | 2023-03-24 11:19 | P.NPCON ---
History of Present Illness - Reason for Consult acute renal failure - History of Present Illness Reason for consultation: Acute kidney injury History of present illness: Patient is a 62-year-old male seen in renal consultation for acute kidney injury. Patient's creatinine on admission was 1.86 and peaked at 2.95 on 03/23/2023. It is down to 2.06 today. Patient came to the hospital on 03/21/2023 due to shortness of breath prior to admission. He was also noted to have fever noted by the paramedics. Patient was hypoxic with oxygen saturation of 82% and was also noted to be in A. fib with RVR. He is currently on anticoagulation as well as Lopressor and heart rate is controlled. Patient states he does take Lasix at home and is currently held. He has been voiding. No hematuria. Denies history of diabetes. Denies history of coronary artery disease. Which showed no PE and mild to moderate bibasilar linear scarring. Renal ultrasound showed no evidence of hydronephrosis. Echocardiogram showed preserved ejection fraction. Patient is quite emotional as he states that his was recently hospitalized and his daughter was recently diagnosed with brain tumor. He denies vomiting or diarrhea. He does admit to taking Motrin couple times a day for back pain. He is currently on IV antibiotics as blood cultures are positive for Proteus. Vital signs are stable. General: No acute distress. HEENT: Head exam is unremarkable. On nasal cannula. LUNGS: No audible rhonchi wheezes. HEART: Rate and Rhythm are regular. ABDOMEN: Nontender, obese. EXTREMITITES: Trace edema. Lower extremity is wrapped. Past Medical History Past Medical History: No Reported History Additional Past Medical History / Comment(s): provided by History of Any Multi-Drug Resistant Organisms: None Reported Past Surgical History: No Surgical Hx Reported Additional Past Surgical History / Comment(s): provided by Past Anesthesia/Blood Transfusion Reactions: No Reported Reaction Additional Past Anesthesia/Blood Transfusion Reaction / Comment(s): provided by Past Psychological History: No Psychological Hx Reported Smoking Status: Never smoker Past Alcohol Use History: None Reported Past Drug Use History: None Reported Medications and Allergies Home Medications Medication Instructions Recorded Confirmed Type Aspirin EC [Ecotrin Low Dose] 81 mg PO DAILY 03/21/23 03/21/23 History Furosemide [Lasix] 20 mg PO DAILY 03/21/23 03/21/23 History Multivitamins, Thera [Multivitamin 1 tab PO DAILY 03/21/23 03/21/23 History (formulary)] Omeprazole 20 mg PO DAILY 03/21/23 03/21/23 History Tamsulosin [Flomax] 0.8 mg PO HS 03/21/23 03/21/23 History Allergies Allergy/AdvReac Type Severity Reaction Status Date / Time Penicillins Allergy Unknown Verified 03/21/23 19:44 Physical Exam Vitals: Vital Signs Temp Pulse Pulse Resp BP Pulse Ox FiO2 03/24/23 09:22 76 03/24/23 09:07 76 98 03/24/23 08:00 98.4 F 78 18 116/65 98 50 03/24/23 03:29 98.4 F 64 18 122/74 98 50 03/24/23 02:51 50 03/24/23 02:00 66 20 03/24/23 00:11 50 03/23/23 23:44 66 20 138/82 95 03/23/23 21:23 80 03/23/23 21:11 79 03/23/23 20:00 98.5 F 60 18 126/77 03/23/23 16:27 79 03/23/23 16:09 97 03/23/23 16:07 74 03/23/23 16:00 68 16 110/62 03/23/23 12:28 88 03/23/23 12:20 97 03/23/23 12:17 90 03/23/23 12:00 73 16 124/80 98 Intake and Output 03/23/23 03/24/23 03/24/23 22:59 06:59 14:59 Intake Total 540 Output Total 300 550 Balance 240 -550 Intake: Oral 540 Output: Urine 300 550 Other: Voiding Method Urinal Urinal Urinal Results - Lab Results Most recent lab results Calcium 7.4 mg/dL (8.4-10.2) L 03/24/23 08:43 Magnesium 2.9 mg/dL (1.6-2.3) H 03/24/23 08:43 03/23/23 07:16 03/24/23 08:43 Assessment and Plan Plan: Assessment: 1. Acute kidney injury secondary to ATN secondary to severe sepsis and contra st-induced acute kidney injury. Creatinine peaked at 2.9 at this admission and is 2.06 today. Patient underwent CTA on 03/21/2023. Unknown baseline renal function. No hydronephrosis noted on kidney ultrasound. 2. Metabolic acidosis secondary to acute kidney injury. 3. Severe sepsis secondary to Proteus bacteremia. 4. Acute on chronic hypoxic respiratory failure related to acute bronchitis in A. fib with RVR. 5. A. fib with RVR. On anticoagulation and Lopressor. Rate controlled now. 6. Morbid obesity. Plan: Encourage oral intake. Continue to hold diuretics. Avoid nephrotoxins. Add oral bicarbonate. Continue to monitor renal function and urine output. Advised patient to follow up outpatient 1-2 weeks post discharge. Thank you for the consultation. I will continue to follow the patient with you during his hospital stay.
[2023-03-24 11:52] LABS: Glucose,Whole Blood 160 mg/dL (70-110)
[2023-03-24] MEDS: ACETAMINOPHEN TAB 325 MG TAB PO PRN (12:01)
[2023-03-24] MEDS: LACTULOSE 20 GM/30 ML CUP PO PRN (12:01)
[2023-03-24] MEDS: SODIUM BICARBONATE TAB 650 MG TAB PO SCH ×2 (12:01→19:47)
[2023-03-24] MEDS: ALPRAZolam 0.25 MG TAB PO PRN (12:15)
--- NOTE | 2023-03-24 13:17 | P.PN ---
Subjective Progress Note Date: 03/24/23 Principal diagnosis: Shortness of breath. I'm seeing this patient in new consultation today 03/22/2023 in the emergency room, waiting on a bed on the cardiac stepdown unit. Patient is a 62-year-old white male with past medical history of restrictive lung disease probably relate d to his morbid obesity, obstructive sleep apnea on CPAP support of 14, hyperlipidemia, BPH, and GERD. Patient was recently seen in the office by Dr. Lo, on 03/13/2023, for full PFT. Patient was found to have restrictive lung disease. The patient's FEV1 was 1.77 L which is 62% of predicted. The FVC is 2.14 L which is 55% of predicted. The ratio was elevated. Total lung capacity is only 73% of predicted. Diffusion corrected for alveolar volume is normal. These lung function are consistent with a pulmonary restrictive process. It may relate to the patient's obesity. The patient also qualified for home O2, which he has not received yet. Patient reports that he's been becoming progressively more short of breath over the last few months. Patient also reports that he has been more short of breath and anxious lately, after finding out that his daughter has a potential cancer diagnosis. Patient has been reporting some nasal congestion and frequent cough without significant sputum production. Patient was found to be febrile on arrival to the emergency room with a T-max of 100.2F. Denies any sick contacts. He was found to be in A. fib RVR, with a heart rate in the 150s on arrival. He denies any chest pain, heart palpitations, lightheadedness, syncope. Patient was subsequently started on a Cardizem infusion which is currently infusing at 15 mg/hour, and a low intensity heparin infusion per protocol. Patient denies any prior history of A. fib. Chest x-ray on arrival showed cardiomegaly without any suspicious infiltrates or pleural effusions. D- dimer was elevated at 21.2, and a follow-up chest CTA was negative for pulmonary embolism. It did show some mild to moderate bibasilar linear scarring and/or atelectasis. No focal consolidation. Patient's CBC on arrival showed a WBC count of 9.6, hemoglobin 15.6, hematocrit 47.5, platelets 79,000. BMP on arrival showed a sodium 133, potassium 4.4, chloride 100, serum CO2 14, BUN 26, creatinine 1.86, glucose 150. Troponin was mildly elevated at 0.06. NT proBNP was not very elevated at 818. Patient's was negative for influenza, RSV, COVID- 19. Lactic acid level was 3.2 on arrival and is trending down to 2.2 after 1 L normal saline fluid resuscitation. He did receive one dose of Rocephin in the emergency room. Patient status has stabilized, and he is currently sitting up in bed, on BiPAP with settings of 14/5 and FiO2 of 50%. His respiratory rate is about 20 breaths per minute and he is achieving tidal volumes of 800. Vital signs are stable, and he will be transferred to the cardiac stepdown unit once bed available. Progress note dated 03/23/2023. 62-year-old male seen yesterday in consultation. Currently, the patient is seen today in room 373. His blood cultures were positive for Proteus species. The patient remains on Rocephin. We will get him a flutter valve. He's getting 5 L by nasal cannula. His BiPAP settings are 11 over 5 and 50%. White count 14.8, hemoglobin 16.1, hematocrit 49.3, and platelet count 82,000. PTT is 28.3. Sodium 134, potassium 4.8, chlorides 101, CO2 21, anion gap 12, BUN 54, and creatinine 2.95. Progress note dated 03/24/2023. 62-year-old male seen in consultation 2 days ago. The patient is sitting in bed, and feels like he is improved. He did test positive for Proteus in the blood, and is currently being treated for that. His pro-calcitonin level is elevated. Currently, the patient is on 3 L of oxygen. He is getting Rocephin. He did use BiPAP last night, with settings of 11/5 and 50%. Current laboratory data includes a sodium 133, potassium 4.9, chlorides 103, CO2 20, anion gap 10, BUN 58, creatinine 2.06. Calcium is 7.4 with a magnesium of 2.9. Objective - Vital Signs Vital signs: Vital Signs Temp 98.4 F 03/24/23 08:00 Pulse 80 03/24/23 12:05 Resp 18 03/24/23 08:00 BP 116/65 03/24/23 08:00 Pulse Ox 98 03/24/23 09:07 FiO2 50 03/24/23 08:00 Intake & Output 03/23/23 03/24/23 03/24/23 18:59 06:59 18:59 Intake Total 780 Output Total 300 550 Balance 480 -550 Intake: Oral 780 Output: Urine 300 550 Other: Voiding Method Urinal Urinal Urinal - Exam No acute distress, oriented 3. Currently on 3 L of oxygen. Frequent cough. HEENT examination is grossly unremarkable. Neck supple. Full range of motion. No adenopathy thyromegaly or neck vein distention. Cardiovascular examination reveals regular rhythm rate. S1-S2 normal. No S3 or S4. No discernible murmur noted. Heart rate 80 bpm. Heart sounds are distant. Lungs reveal bilateral rhonchi. Cough is a bit wet sounding. No wheezes or crackles. Breath sounds equal bilaterally. Saturations are 97 %. Abdomen obese. No masses or tenderness. Extremities are intact. No cyanosis clubbing or edema. Skin is without rash or lesion. Neurologic examination is brief but nonfocal. - Labs CBC & Chem 7: 03/23/23 07:16 03/24/23 08:43 Labs: Abnormal Lab Results - Last 24 Hours (Table) 03/23/23 03/23/23 03/24/23 Range/Units 16:59 19:57 05:55 Sodium (137-145) mmol/L Carbon Dioxide (22-30) mmol/L BUN (9-20) mg/dL Creatinine (0.66-1.25) mg/dL Glucose (74-99) mg/dL POC Glucose (mg/dL) 161 H 186 H 157 H (70-110) mg/dL Calcium (8.4-10.2) mg/dL Magnesium (1.6-2.3) mg/dL 03/24/23 03/24/23 Range/Units 08:43 11:41 Sodium 133 L (137-145) mmol/L Carbon Dioxide 20 L (22-30) mmol/L BUN 58 H (9-20) mg/dL Creatinine 2.06 H (0.66-1.25) mg/dL Glucose 176 H (74-99) mg/dL POC Glucose (mg/dL) 160 H (70-110) mg/dL Calcium 7.4 L (8.4-10.2) mg/dL Magnesium 2.9 H (1.6-2.3) mg/dL Microbiology - Last 24 Hours (Table) 03/21/23 18:02 Blood Culture Gram Stain - Final Blood Blood Culture - Final Proteus mirabilis 03/21/23 18:22 Blood Culture Gram Stain - Final Blood Blood Culture - Final Proteus mirabilis Assessment and Plan Assessment: Acute on chronic hypoxemic respiratory failure, secondary to acute bronchitis, and new onset atrial fibrillation with RVR. Proteus mirabilis bacteremia. New onset atrial fibrillation with RVR. Restrictive lung disease, secondary to obesity. Anion gap metabolic acidosis, resolved. Troponin leak, secondary to supply/demand mismatch. Acute kidney injury. Thrombocytopenia. Obstructive sleep apnea syndrome, on home CPAP. Morbid obesity. BPH. GERD. Hyperlipidemia. Previous history of tobacco use. Plan: Plan dated 03/23/2023. The patient is currently on Rocephin. Blood cultures were positive for Proteus. Sensitivities are not yet back. We will continue to follow and make recommendations along the way. For the patient's cough, and chest congestion, we will order a flutter valve. Labs, x-rays, and medications are reviewed. We will continue to follow the patient and and make recommendations along the way. Prognosis is certainly guarded. Plan dated 03/24/2023. The patient was seen again today in room 373. He has been weaned down to 3 L. The patient continues on Rocephin, first Proteus mirabilis bacteremia. Clinically is doing much better. The Solu-Medrol be discontinued in favor of prednisone. The patient is using BiPAP at nighttime. We'll continue to follow the patient and make recommendations along the way. Labs, x-rays, and medications are reviewed. He asked that his oxygen be humidified. Prognosis is guarded. Time with Patient: Less than 30
--- NOTE | 2023-03-24 13:23 | P.PN ---
Subjective Progress Note Date: 03/24/23 HISTORY OF PRESENT ILLNESS: This is a 62-year-old male with a past medical history significant for morbid obesity, mild aortic stenosis, obstructive sleep apnea, and chronic lower ex tremity edema. Patient follows in the office with Dr. Gonzalez. We have been asked to see the patient in consultation for atrial flutter. Patient examined at the bedside. Patient presented to the hospital for chief complaint of shortness of breath. Patient was also febrile on admission with temperature 100.6. Patient was found to be hypoxic. He is currently on a BiPAP at the time of examination. Patient was also found to be in atrial flutter with RVR. The patient denies a history of atrial flutter. He was started on IV Cardizem. He subsequently converted to sinus mechanism and is maintaining sinus mechanism in the 80s at the time of examination. He denies any chest pain or pressure. Blood pressure stable. He is afebrile this morning. * EKG reveals atrial flutter with RVR * Chest xray cardiomegaly * Chest CTA: Suboptimal study without convincing evidence for acute PE. [id number] bibasilar linear scarring and/or atelectasis is noted. No suspicious acute pulmonary infiltrate. * Laboratory data: W BC 9.6. Hemoglobin 15.6. Platelet count 79. D-dimer 21.15. Sodium 133. Potassium 4.4. BUN 26. Creatinine 1.86. ProBNP 818. Troponin 0.060. 0.853. 0.745. * Current home cardiac medications include Lasix 20 mg daily * Most recent echocardiogram obtained in February 2023 revealing ejection fraction 55-60%, mild aortic stenosis, mild tricuspid regurgitation 03/23/2023 Patient examined this morning at the bedside. He is sitting beside the bed eating breakfast. Patient denies chest pain or pressure. He reports improvement in his shortness of breath. He remains on IV steroids and IV antibiotics. Telemetry reveals sinus mechanism. Echocardiogram was performed although is a technically difficult study. Overall systolic function appeared to be normal and valvular structures could not be visualized. 03/24/2023 Patient examined this morning. Patient is sitting on the side of the bed. He currently denies chest pain or pressure. He reports mild shortness of breath. He is maintaining supplemental oxygen to maintain saturations greater then 92%. He reports a frequent cough. Telemetry reveals sinus mechanism. PHYSICAL EXAM: VITAL SIGNS: Reviewed. GENERAL: Well-developed in no acute distress. HEENT: Head is normocephalic. Pupils are equal, round. Sclerae anicteric. Mucous membranes of the mouth are moist. Neck supple. No JVD or thyromegaly LUNGS: Respirations even and unlabored. Lungs essentially clear to auscultation bilaterally. HEART: Regular rate and rhythm. S1 and S2 heard. ABDOMEN: Soft. Nondistended. Nontender. EXTREMITIES: Normal range of motion. No clubbing or cyanosis. Peripheral pulses intact. No lower extremity edema NEUROLOGIC: Awake and alert. Oriented x 3. ASSESSMENT: Shortness of breath Acute hypoxic respiratory failure, requiring BiPAP Fever New-onset atrial flutter with RVR, currently maintaining sinus mechanism Abnormal troponin, type II OH secondary to oxygen supply and demand mismatch Mild aortic stenosis Obstructive sleep apnea Chronic lower extremity edema; on Lasix outpatient Acute kidney injury, baseline unknown Morbid obesity, BMI 55 Former nicotine dependence PLAN: Continue current cardiac medications Pulmonary following Patient is currently stable from a cardiac perspective We will sign off. Please reconsult if needed. Nurse practitioner note has been reviewed by physician. Signing provider agrees with the documented findings, assessment, and plan of care. Objective - Vital Signs Vital signs: Vital Signs Temp 98.2 F 03/24/23 12:00 Pulse 71 03/24/23 12:51 Resp 24 03/24/23 12:51 BP 127/65 03/24/23 12:00 Pulse Ox 97 03/24/23 12:00 FiO2 50 03/24/23 08:00 Intake & Output 03/23/23 03/24/23 03/24/23 18:59 06:59 18:59 Intake Total 780 Output Total 300 550 Balance 480 -550 Intake: Oral 780 Output: Urine 300 550 Other: Voiding Method Urinal Urinal Urinal - Labs CBC & Chem 7: 03/23/23 07:16 03/24/23 08:43 Labs: Abnormal Lab Results - Last 24 Hours (Table) 03/23/23 03/23/23 03/24/23 Range/Units 16:59 19:57 05:55 Sodium (137-145) mmol/L Carbon Dioxide (22-30) mmol/L BUN (9-20) mg/dL Creatinine (0.66-1.25) mg/dL Glucose (74-99) mg/dL POC Glucose (mg/dL) 161 H 186 H 157 H (70-110) mg/dL Calcium (8.4-10.2) mg/dL Magnesium (1.6-2.3) mg/dL 03/24/23 03/24/23 Range/Units 08:43 11:41 Sodium 133 L (137-145) mmol/L Carbon Dioxide 20 L (22-30) mmol/L BUN 58 H (9-20) mg/dL Creatinine 2.06 H (0.66-1.25) mg/dL Glucose 176 H (74-99) mg/dL POC Glucose (mg/dL) 160 H (70-110) mg/dL Calcium 7.4 L (8.4-10.2) mg/dL Magnesium 2.9 H (1.6-2.3) mg/dL Microbiology - Last 24 Hours (Table) 03/21/23 18:02 Blood Culture Gram Stain - Final Blood Blood Culture - Final Proteus mirabilis 03/21/23 18:22 Blood Culture Gram Stain - Final Blood Blood Culture - Final Proteus mirabilis
[2023-03-24 16:47] LABS: Glucose,Whole Blood 145 mg/dL (70-110)
--- NOTE | 2023-03-24 17:03 | P.PN ---
Progress Note - Text Progress Note Date: 03/24/23 Chief Complaint: Short of breath This is a pleasant 62-year-old patient who follows with Dr. Joseph. Patient had a baseline short of breath. For at least Tumma's been progressively getting increasingly short of breath. Lower extremity edema. Cough with some white s putum. Normally sits up in a chair. Decreased appetite. Patient rather anxious because his daughter has brain tumor. Normally has a bowel movement every day. In the ER found to be in atrial flutter with a rate of 158. Was started on IV Cardizem drip in the ER. Also IV heparin. Admitted with multiple issues including bilateral pneumonia, acute hypoxic respiratory failure from acute exacerbation of restrictive lung disease, atrial flutter fibrillation. March 23: On DuoNeb, IV ceftriaxone, IV Solu-Medrol. Remains shortness of breath. Eating fair. On eliquis. Patient is in sinus rhythm. 2-D echo shows preserved LV function. Renal ultrasound was limited. Blood cultures growing gram- negative bacilli/Proteus species. Repeat blood cultures ordered March 24: Blood cultures are growing Proteus mirabilis. Repeat blood cultures done yesterday. Patient's breathing is a bit better. Remains on IV ceftriaxone. Oral intake fair. Care was discussed length with the patient and at [facility]. Patient is keen to go to see his daughter out of state having a brain surgery. Travel medical depend upon how patient does on the weekend. Active Medications Acetaminophen (Acetaminophen Tab 325 Mg Tab) 650 mg PO Q6HR PRN PRN Reason: Mild Pain or Fever > 100.5 Last Admin: 03/24/23 12:01 Dose: 650 mg Albuterol/Ipratropium (Ipratropium-Albuterol 3 Ml Neb) 3 ml INHALATION RT-QID KATELIN Last Admin: 03/24/23 16:39 Dose: 3 ml Albuterol/Ipratropium (Ipratropium-Albuterol 3 Ml Neb) 3 ml INHALATION RT-Q2H PRN PRN Reason: Shortness Of Breath Or Wheezing Alprazolam (Alprazolam 0.25 Mg Tab) 0.25 mg PO Q6HR PRN PRN Reason: Anxiety Last Admin: 03/23/23 22:09 Dose: 0.25 mg Apixaban (Apixaban 5 Mg Tab) 5 mg PO BID [facility]; Protocol Last Admin: 03/24/23 08:04 Dose: 5 mg Calcium Carbonate/Glycine (Calcium Carbonate 500 Mg Chewable) 1,000 mg PO Q4HR PRN PRN Reason: Dyspepsia Sodium Chloride (Saline 0.9%) 1,000 mls @ 10 mls/hr IV .Q24H [facility] Last Admin: 03/24/23 06:40 Dose: Not Given Ceftriaxone Sodium 2 gm/ (Sodium Chloride) 50 mls @ 100 mls/hr IVPB Q24H [facility]; Protocol Last Admin: 03/23/23 22:09 Dose: 100 mls/hr Lactulose (Lactulose 20 Gm/30 Ml Cup) 20 gm PO DAILY PRN PRN Reason: Constipation Last Admin: 03/24/23 12:01 Dose: 20 gm Melatonin (Melatonin 3 Mg Tablet) 3 mg PO HS PRN PRN Reason: Insomnia Last Admin: 03/22/23 21:43 Dose: 3 mg Metoprolol Tartrate (Metoprolol Tartrate 50 Mg Tab) 50 mg PO BID [facility] Last Admin: 03/24/23 08:04 Dose: 50 mg Multivitamins (Multivitamins, Thera 1 Each Tab) 1 each PO DAILY [facility] Last Admin: 03/24/23 08:04 Dose: 1 each Naloxone HCl (Naloxone 0.4 Mg/Ml 1 Ml Vial) 0.2 mg IV Q2M PRN PRN Reason: Opioid Reversal Ondansetron HCl (Ondansetron 4 Mg/2 Ml Vial) 4 mg IVP Q8HR PRN PRN Reason: Nausea And Vomiting Prednisone (Prednisone 10 Mg Tab) 30 mg PO DAILY [facility] Sodium Bicarbonate (Sodium Bicarbonate Tab 650 Mg Tab) 650 mg PO BID [facility] Last Admin: 03/24/23 12:01 Dose: 650 mg Tamsulosin HCl (Tamsulosin 0.4 Mg Cap.Er.24h) 0.8 mg PO HS [facility] Last Admin: 03/23/23 19:37 Dose: 0.8 mg Social history: . No smoking or alcohol. Physical examination: VITAL SIGNS: 98.2, 71, 24, 127/65, 97% on 3 L GENERAL: BMI 55.1, sitting at the edge of the bed, breathing improved EYES: Pupils equal. Conjunctiva normal. HEENT: External appearance of nose and ears normal, oral cavity grossly normal. NECK: JVD unable to assess; masses not palpable. HEART: First seconds are normal; some edema. LUNGS: Respiratory rate increased; decreased breath sounds. ABDOMEN: Soft, nontender, liver spleen not palpable, no masses palpable. PSYCH: [Alert and oriented x3; mood and affect anxious l. MUSCULOSKELETAL:No Clubbing/cyanosis;muscles-grossly intact. Some of OA INVESTIGATIONS, reviewed in the clinical context: March 24: Sodium 133 potassium 4.9 BUN 58 creatinine 2.06 UA: Blood large, leukoesterase large, wbc 57 squamous epithelial 1 Renal ultrasound: Not good quality Blood culture [March 21]: Proteus mirabilis March 23: White count 14.8 hemoglobin 16.1 platelets 82 potassium 4.8 BUN 54 creatinine 2.95 March 22: White count 18.6 hemoglobin 17 platelets 88 sodium 135 potassium 4.9 BUN 35 creatinine 2.78 Procalcitonin critical 100 Admission tests White count 9.6 hemoglobin 15.6 platelets 79 BUN 26 creatinine 1.86 Troponin I 0.060, 0.853, 0.74 ProBNP 818 Influenza type A, B, RSV, COVID-19: Not detected EKG tracing personally reviewed by me-atrial flutter rate uncontrolled. Right bundle-branch block pattern Chest x-ray film personally reviewed by me-possible basal infiltrate Chest CTA: Negative for PE. Questionable basilar infiltrate Previous testin-D echocardiogram [03/06/2023] moderate concentric LVH. EF 55-60%. Assessment and plan: -Basilar pneumonia, suspected gram-negative organism: IV ceftriaxone. -Sepsis positive blood cultures with Proteus mirabilis Repeat blood cultures pending -Acute hypoxic respiratory failure multifactorial including a component of obesity hypoventilation syndrome.: Slow to respond -Acute restrictive lung disease from morbid obesity with exacerbation in a nonsmoker: Slow to respond DuoNeb. Oral prednisone -Paroxysmal atrial fibrillation with a rapid ventricular rate, normal sinus rhythm IV Cardizem drip discontinued. Lopressor 50 mg twice a day. Eliquis -Acute kidney injury, likely ATN from cardiorenal.: Improvement Admission creatinine was 1.86. Peaked 2. 95. Hold Lasix. Follow nephrology. -Evaluate for CK D. Renal ultrasound. UA -Morbid obesity BMI 55.1 Weight loss measures -Situational anxiety. Patient's daughter has brain tumor. Xanax when necessary. Mind fullness get downloaded on patient's phone -Thrombocytopenia likely ITP. Follow [facility]. Melanie. Oral prednisone. DuoNeb. Discussed with the patient. Kidney function improving. Blood cultures pending. Continue IV ceftriaxone.
[2023-03-24] MEDS ORDERED: DOCUSATE 100 MG CAP PO STA (19:23)
[2023-03-24] MEDS: polyethylene glycoL 3350 17 GM POWD.PACK PO SCH (19:39)
[2023-03-24] MEDS: TAMSULOSIN 0.4 MG CAP.ER.24H PO SCH (19:47)
[2023-03-24 20:04] LABS: Glucose,Whole Blood 166 mg/dL (70-110)
[2023-03-25 06:25] LABS: Glucose,Whole Blood 116 mg/dL (70-110)
[2023-03-25] MEDS: IPRATROPIUM-ALBUTEROL 3 ML NEB INHALATION SCH ×4 (08:25→21:31)
[2023-03-25] MEDS: SODIUM CHLORIDE 0.9% 1,000 ML IV SCH (08:27)
[2023-03-25] MEDS: polyethylene glycoL 3350 17 GM POWD.PACK PO SCH (08:33)
[2023-03-25] MEDS: LACTULOSE 20 GM/30 ML CUP PO PRN (08:33)
[2023-03-25] MEDS: APIXABAN 5 MG TAB PO SCH ×2 (08:33→20:18)
[2023-03-25] MEDS: MULTIVITAMINS, THERA 1 EACH TAB PO SCH (08:34)
[2023-03-25] MEDS: METOPROLOL TARTRATE 50 MG TAB PO SCH ×2 (08:34→20:18)
[2023-03-25] MEDS: SODIUM BICARBONATE TAB 650 MG TAB PO SCH (08:34)
[2023-03-25] MEDS: ACETAMINOPHEN TAB 325 MG TAB PO PRN ×2 (08:34→20:18)
[2023-03-25] MEDS: predniSONE 10 MG TAB PO SCH (08:34)
--- NOTE | 2023-03-25 09:34 | P.PN ---
Subjective Progress Note Date: 03/25/23 Principal diagnosis: Shortness of breath. I'm seeing this patient in new consultation today 03/22/2023 in the emergency room, waiting on a bed on the cardiac stepdown unit. Patient is a 62-year-old white male with past medical history of restrictive lung disease probably relate d to his morbid obesity, obstructive sleep apnea on CPAP support of 14, hyperlipidemia, BPH, and GERD. Patient was recently seen in the office by Dr. Lo, on 03/13/2023, for full PFT. Patient was found to have restrictive lung disease. The patient's FEV1 was 1.77 L which is 62% of predicted. The FVC is 2.14 L which is 55% of predicted. The ratio was elevated. Total lung capacity is only 73% of predicted. Diffusion corrected for alveolar volume is normal. These lung function are consistent with a pulmonary restrictive process. It may relate to the patient's obesity. The patient also qualified for home O2, which he has not received yet. Patient reports that he's been becoming progressively more short of breath over the last few months. Patient also reports that he has been more short of breath and anxious lately, after finding out that his daughter has a potential cancer diagnosis. Patient has been reporting some nasal congestion and frequent cough without significant sputum production. Patient was found to be febrile on arrival to the emergency room with a T-max of 100.2F. Denies any sick contacts. He was found to be in A. fib RVR, with a heart rate in the 150s on arrival. He denies any chest pain, heart palpitations, lightheadedness, syncope. Patient was subsequently started on a Cardizem infusion which is currently infusing at 15 mg/hour, and a low intensity heparin infusion per protocol. Patient denies any prior history of A. fib. Chest x-ray on arrival showed cardiomegaly without any suspicious infiltrates or pleural effusions. D- dimer was elevated at 21.2, and a follow-up chest CTA was negative for pulmonary embolism. It did show some mild to moderate bibasilar linear scarring and/or atelectasis. No focal consolidation. Patient's CBC on arrival showed a WBC count of 9.6, hemoglobin 15.6, hematocrit 47.5, platelets 79,000. BMP on arrival showed a sodium 133, potassium 4.4, chloride 100, serum CO2 14, BUN 26, creatinine 1.86, glucose 150. Troponin was mildly elevated at 0.06. NT proBNP was not very elevated at 818. Patient's was negative for influenza, RSV, COVID- 19. Lactic acid level was 3.2 on arrival and is trending down to 2.2 after 1 L normal saline fluid resuscitation. He did receive one dose of Rocephin in the emergency room. Patient status has stabilized, and he is currently sitting up in bed, on BiPAP with settings of 14/5 and FiO2 of 50%. His respiratory rate is about 20 breaths per minute and he is achieving tidal volumes of 800. Vital signs are stable, and he will be transferred to the cardiac stepdown unit once bed available. Progress note dated 03/23/2023. 62-year-old male seen yesterday in consultation. Currently, the patient is seen today in room 373. His blood cultures were positive for Proteus species. The patient remains on Rocephin. We will get him a flutter valve. He's getting 5 L by nasal cannula. His BiPAP settings are 11 over 5 and 50%. White count 14.8, hemoglobin 16.1, hematocrit 49.3, and platelet count 82,000. PTT is 28.3. Sodium 134, potassium 4.8, chlorides 101, CO2 21, anion gap 12, BUN 54, and creatinine 2.95. Progress note dated 03/24/2023. 62-year-old male seen in consultation 2 days ago. The patient is sitting in bed, and feels like he is improved. He did test positive for Proteus in the blood, and is currently being treated for that. His pro-calcitonin level is elevated. Currently, the patient is on 3 L of oxygen. He is getting Rocephin. He did use BiPAP last night, with settings of 11/5 and 50%. Current laboratory data includes a sodium 133, potassium 4.9, chlorides 103, CO2 20, anion gap 10, BUN 58, creatinine 2.06. Calcium is 7.4 with a magnesium of 2.9. Progress note dated 03/25/2023. 62-year-old male again seen in room 373. Anemia at the bedside. The patient is currently on oxygen at 3 L by nasal cannula. No IV fluids. The patient is u sing BiPAP at nighttime, with settings of 11/5 and 50%. Clinically he is doing okay. He seems a bit agitated today. Has not had a bowel movement for a number of days. He is getting medication to help that process along. No new labs today other than a glucose of 116. Blood cultures are positive for Proteus mirabilis. Objective - Vital Signs Vital signs: Vital Signs Temp 98.3 F 03/24/23 20:00 Pulse 80 03/25/23 08:40 Resp 20 03/25/23 04:00 BP 127/64 03/25/23 04:00 Pulse Ox 96 03/25/23 08:28 FiO2 50 03/25/23 04:19 Intake & Output 03/24/23 03/25/23 03/25/23 18:59 06:59 18:59 Intake Total 420 120 Output Total 325 Balance 420 120 -325 Intake: Oral 420 120 Output: Urine 325 Other: Voiding Method Urinal Urinal - Exam No acute distress, oriented 3. Currently on 3 L of oxygen. HEENT examination is grossly unremarkable. Neck supple. Full range of motion. No adenopathy thyromegaly or neck vein distention. Cardiovascular examination reveals regular rhythm rate. S1-S2 normal. No S3 or S4. No discernible murmur noted. Heart rate 80 bpm. Heart sounds are distant. Lungs reveal bilateral rhonchi. Cough is a bit wet sounding. No wheezes or crackles. Breath sounds equal bilaterally. Saturations are 96 %. Abdomen obese. No masses or tenderness. Extremities are intact. No cyanosis clubbing or edema. His lower extremities are wrapped by LAURIE bandages. Skin is without rash or lesion. Neurologic examination is brief but nonfocal. - Labs CBC & Chem 7: 03/23/23 07:16 03/24/23 08:43 Labs: Abnormal Lab Results - Last 24 Hours (Table) 03/24/23 03/24/23 03/24/23 Range/Units 08:43 11:41 16:45 Sodium 133 L (137-145) mmol/L Carbon Dioxide 20 L (22-30) mmol/L BUN 58 H (9-20) mg/dL Creatinine 2.06 H (0.66-1.25) mg/dL Glucose 176 H (74-99) mg/dL POC Glucose (mg/dL) 160 H 145 H (70-110) mg/dL Calcium 7.4 L (8.4-10.2) mg/dL Magnesium 2.9 H (1.6-2.3) mg/dL 03/24/23 03/25/23 Range/Units 20:03 06:23 Sodium (137-145) mmol/L Carbon Dioxide (22-30) mmol/L BUN (9-20) mg/dL Creatinine (0.66-1.25) mg/dL Glucose (74-99) mg/dL POC Glucose (mg/dL) 166 H 116 H (70-110) mg/dL Calcium (8.4-10.2) mg/dL Magnesium (1.6-2.3) mg/dL Microbiology - Last 24 Hours (Table) 03/21/23 18:02 Blood Culture Gram Stain - Final Blood Blood Culture - Final Proteus mirabilis 03/21/23 18:22 Blood Culture Gram Stain - Final Blood Blood Culture - Final Proteus mirabilis Assessment and Plan Assessment: Acute on chronic hypoxemic respiratory failure, secondary to acute bronchitis, and new onset atrial fibrillation with RVR. Proteus mirabilis bacteremia. New onset atrial fibrillation with RVR. Restrictive lung disease, secondary to obesity. Anion gap metabolic acidosis, resolved. Troponin leak, secondary to supply/demand mismatch. Acute kidney injury. Thrombocytopenia. Obstructive sleep apnea syndrome, on home CPAP. Morbid obesity. BPH. GERD. Hyperlipidemia. Previous history of tobacco use. Plan: Plan dated 03/23/2023. The patient is currently on Rocephin. Blood cultures were positive for Proteus. Sensitivities are not yet back. We will continue to follow and make recommendations along the way. For the patient's cough, and chest congestion, we will order a flutter valve. Labs, x-rays, and medications are reviewed. We will continue to follow the patient and and make recommendations along the way. Prognosis is certainly guarded. Plan dated 03/24/2023. The patient was seen again today in room 373. He has been weaned down to 3 L. The patient continues on Rocephin, first Proteus mirabilis bacteremia. Clinically is doing much better. The Solu-Medrol be discontinued in favor of prednisone. The patient is using BiPAP at nighttime. We'll continue to follow the patient and make recommendations along the way. Labs, x-rays, and medicatio ns are reviewed. He asked that his oxygen be humidified. Prognosis is guarded. Plan dated March 6023. The patient is again seen today in room 373. He continues on oxygen at 3 L. He is on Rocephin for Proteus bacteremia. His complaint today includes primarily constipation. He is on medication to help that situation along. He is using BiPAP at nighttime, with settings of 11/5 and 50%. Clinically, the patient appears to be relatively stable. His respiratory status is stable. We will continue to follow and make recommendations along the way. Prognosis is guarded. Time with Patient: Less than 30
[2023-03-25] MEDS: LACTULOSE 20 GM/30 ML CUP PO SCH ×2 (10:54→20:19)
[2023-03-25] MEDS: ALPRAZolam 0.25 MG TAB PO PRN (10:55)
[2023-03-25 11:20] LABS: Glucose,Whole Blood 121 mg/dL (70-110)
--- NOTE | 2023-03-25 11:25 | XR ---
EXAMINATION TYPE: XR chest 1V portable DATE OF EXAM: 03/25/2023 11:16 AM COMPARISON: Chest radiographs from 04/08/2023 TECHNIQUE: XR chest 1V portable Frontal view of the chest. CLINICAL INDICATION:Male, 62 years old with history of chf; FINDINGS: Lungs/Pleura: No evidence of focal consolidation or pneumothorax. Blunting of the costophrenic angles is present. Pulmonary vascularity: Unremarkable. Heart/mediastinum: Cardiomediastinal silhouette is enlarged and stable. Musculoskeletal: No acute osseous pathology. IMPRESSION: Similar Cardiomegaly, pulmonary vascular congestion and bilateral pleural effusions. Correlate with B PUFFER TENDER for congestive heart failure.
[2023-03-25 11:46] LABS: Calcium 7.7 mg/dL (8.4-10.2); Potassium 4.5 mmol/L (3.5-5.1)
[2023-03-25 11:56] LABS: Anisocytosis Slight; Basophils % (A) 0 %; Eosinophils % (A) 0 %; HCT 53.7 % (39.0-53.0); HGB 17.3 gm/dL (13.0-17.5); Lymphocytes % (A) 7 %; MCH 28.8 pg (25.0-35.0); MCHC 32.3 g/dL (31.0-37.0); MCV 89.2 fL (80.0-100.0); Mean Platelet Volume 11.9; Monocytes # (A) 0.9 k/uL (0-1.0); Monocytes % (A) 6 %; Neutrophils # (A) 13.3 k/uL (1.3-7.7); Neutrophils % (A) 85 %; RBC 6.02 m/uL (4.30-5.90); RDW 16.7 % (11.5-15.5); WBC 15.6 k/uL (3.8-10.6)
[2023-03-25 11:57] LABS: Platelet Count 80 k/uL (150-450)
[2023-03-25] MEDS: FORMOTEROL FUMARATE 20 MCG/2 ML NEBU INHALATION SCH ×2 (12:04→21:31)
--- NOTE | 2023-03-25 12:04 | P.PN ---
Subjective Patient is seen for follow-up for acute kidney injury. Mostly ATN from sepsis and IV contrast. Renal function has been improving. Serum creatinine down to 1.8 mg/dL Patient has been voiding Hemodynamically stable. Blood pressure had been low initially with systolic in the 90s. Currently about 130s Bradley at Objective - Vital Signs Vital signs: Vital Signs Temp 96.9 F L 03/25/23 08:00 Pulse 80 03/25/23 08:40 Resp 20 03/25/23 08:00 BP 132/77 03/25/23 08:00 Pulse Ox 96 03/25/23 08:28 FiO2 50 03/25/23 04:19 Intake & Output 03/24/23 03/25/23 03/25/23 18:59 06:59 18:59 Intake Total 420 120 Output Total 325 Balance 420 120 -325 Intake: Oral 420 120 Output: Urine 325 Other: Voiding Method Urinal Urinal Urinal - Exam Awake, comfortable, no acute distress Examination of the heart S1 and S2 Examination of the lungs decreased breath sounds at the bases Abdomen is soft nontender obese Examination of lower extremities shows no significant edema DENTAL HYGIENE TEACHER exam grossly intact - Labs CBC & Chem 7: 03/25/23 10:44 03/25/23 09:28 Labs: Abnormal Lab Results - Last 24 Hours (Table) 03/24/23 03/24/23 03/25/23 Range/Units 16:45 20:03 06:23 WBC (3.8-10.6) k/uL RBC (4.30-5.90) m/uL Hct (39.0-53.0) % RDW (11.5-15.5) % Plt Count (150-450) k/uL Neutrophils # (1.3-7.7) k/uL BUN (9-20) mg/dL Creatinine (0.66-1.25) mg/dL Glucose (74-99) mg/dL POC Glucose (mg/dL) 145 H 166 H 116 H (70-110) mg/dL Calcium (8.4-10.2) mg/dL 03/25/23 03/25/23 03/25/23 Range/Units 09:28 10:44 11:18 WBC 15.6 H (3.8-10.6) k/uL RBC 6.02 H (4.30-5.90) m/uL Hct 53.7 H (39.0-53.0) % RDW 16.7 H (11.5-15.5) % Plt Count 80 L (150-450) k/uL Neutrophils # 13.3 H (1.3-7.7) k/uL BUN 53 H (9-20) mg/dL Creatinine 1.88 H (0.66-1.25) mg/dL Glucose 114 H (74-99) mg/dL POC Glucose (mg/dL) 121 H (70-110) mg/dL Calcium 7.7 L (8.4-10.2) mg/dL Microbiology - Last 24 Hours (Table) 03/23/23 16:21 Blood Culture - Preliminary Blood 03/21/23 18:02 Blood Culture Gram Stain - Final Blood Blood Culture - Final Proteus mirabilis 03/21/23 18:22 Blood Culture Gram Stain - Final Blood Blood Culture - Final Proteus mirabilis Assessment and Plan Assessment: 1. Acute kidney injury secondary to ATN secondary to severe sepsis and contrast-induced acute kidney injury. Patient was also on NSAIDs prior to admission. Creatinine peaked at 2.9 at this admission and is 2.06 today. Patient underwent CTA on 03/21/2023. Unknown baseline renal function. No hydronephrosis noted on kidney ultrasound. 2. Metabolic acidosis secondary to acute kidney injury. 3. Severe sepsis secondary to Proteus bacteremia. 4. Acute on chronic hypoxic respiratory failure related to acute bronchitis in A. fib with RVR. 5. A. fib with RVR. On anticoagulation and Lopressor. Rate controlled now. 6. Morbid obesity. 7. Pyuria possibly UTI. Urine culture not sent out. Patient has been on antibiotics for about 3 days Plan: Continue IV antibiotics Repeat labs in a.m. Continue off of IV fluids. DC sodium bicarb
[2023-03-25] MEDS: BUDESONIDE 1 MG/2 ML NEBU INHALATION SCH ×2 (12:05→21:31)
[2023-03-25 12:29] LABS: C Reactive Protein 5.7 mg/dL (<1.0)
[2023-03-25] MEDS: IOPAMIDOL CONTRAST (ORAL USE) VIAL PO PRN ×2 (12:29→13:29)
[2023-03-25 12:58] LABS: Erythrocyte Sedimentation Rate 25 mm/hr (0-15)
--- NOTE | 2023-03-25 13:30 | PN ---
PROGRESS NOTE DATE OF SERVICE: 03/25/2023 SUBJECTIVE: This is a 62-year-old gentleman, who was admitted with possible bibasilar pneumonia and sepsis. He is still having some shortness of breath. The patient also had some allergies previously. The patient also complaining of severe constipation and difficulty walking also. Multiple consultants are following the patient closely. The patient also had a Proteus sepsis. There is no history of any fever or rigors. PAST MEDICAL HISTORY: Reviewed. REVIEW OF SYSTEMS: A 14-point review of systems is negative except as mentioned earlier. CURRENT MEDICATIONS: Reviewed, include DuoNeb. The rest of medications noted. PHYSICAL EXAMINATION: VITAL SIGNS: Pulse is 76, blood pressure 132/70, respirations 18. HEENT: Conjunctivae normal. NECK: No jugular venous distention. CARDIOVASCULAR: S1, S2. RESPIRATIONS: Bilateral scattered rhonchi and crackles. ABDOMEN: Soft, nontender, obese. LEGS: No edema. No swelling. NERVOUS SYSTEMS: No focal deficit. LABORATORY DATA: Creatinine 2.06. ASSESSMENT: 1. Bibasilar pneumonia. 2. Proteus mirabilis sepsis. 3. Acute hypoxic respiratory failure, multifactorial. 4. Obesity hypoventilation syndrome. 5. Possible obstructive lung disease and possible chronic bronchitis. 6. Chronic kidney disease. 7. Constipation. 8. History of allergies. 9. Gait dysfunction. 10.Morbid obesity with BMI of 55.1. RECOMMENDATIONS AND DISCUSSION: This is a 62-year-old gentleman, who presented with multiple complex medical issues. We will monitor the patient closely. We will optimize bronchodilator treatment, repeat chest x-ray, repeat blood cultures. Infectious Disease evaluation. Intensive bronchodilator treatment. Otherwise PT/OT evaluation. Increase ambulation. The patient is on p.o. steroids. Prognosis guarded. Further recommendations to follow. See orders for further details. MMODL / IJN: [id number] /
--- NOTE | 2023-03-25 14:25 | CT ---
EXAMINATION TYPE: CT abdomen pelvis wo con DATE OF EXAM: 03/25/2023 COMPARISON: None HISTORY: Abdominal pain CT DLP: 2344.2 mGycm Automated exposure control for dose reduction was used. TECHNIQUE: Helical acquisition of images was performed from the lung bases through the pelvis. FINDINGS: There is minimal atelectasis in the left lung base. There are surgical absence of the gallbladder. There is no organomegaly involving the liver, pancreas, spleen or adrenal glands. There is moderate left-sided hydronephrosis secondary to a 7-8 mm proximal left ureteral calcificatio n. There are no right renal calcifications or right-sided hydronephrosis. Caliber the aorta is normal. The bowel loops normal in caliber although the colon is prominently distended with air and fluid. The re is no small bowel obstruction. There is no free intraperitoneal air or fluid. No pelvic mass, free fluid, abscess or adenopathy. The osseous structures are intact. IMPRESSION: Left moderate hydronephrosis secondary to a 7 - 8 mm proximal left ureteral calcification.
[2023-03-25 16:18] LABS: Glucose,Whole Blood 119 mg/dL (70-110)
--- NOTE | 2023-03-25 19:44 | P.CONS ---
History of Present Illness - Reason for Consult Consult date: 03/25/23 Sepsis Requesting physician: Kaylyn Jacob - Chief Complaint Shortness of breath and abdominal pain x few days - History of Present Illness Patient is a 62-year-old male with a history of atrial fibrillation presenting to the ER on 03/21/2023 for evaluation of increasing shortness of breath apparently has been getting worse for a day before presentation to hospital patient also noted to be febrile and diaphoretic and hypoxic for the patient was brought into the hospital patient denies having any headache or URI symptoms no chest pain has been complaining of shortness of breath did have a cough mild to moderate intensity no sputum production some nausea no vomiting has been complaining of abdominal pain distention and no bowel movement for the last 1 week did have some urinary burning and frequency no hematuria patient presented to the hospital did have low-grade fever 100.2 F patient was tachycardic not hypoxic currently on 3 L nasal cannula patient did have a leukopenia with a white and 1.9 however the white count is up to 15.6 today patient did have elevated BUN/creatinine did have elevated lactic acid procalcitonin was more than 100 cultures growing Proteus Mirabella's patient did have positive UA however no urine culture has been done chest x-ray cardiomegaly no focal airspace opacity patient did have a CT angiogram of the chest no convincing evidence of acute PE mild to moderate basilar linear scarring or atelectasis no acute infiltrate infectious he was consulted today for further management of the patient has been hospital for 4 days regarding sepsis Review of Systems Positive point and negatives has been mentioned in the HPI, complete review of systems was performed and all other systems are negative Past Medical History Past Medical History: No Reported History Additional Past Medical History / Comment(s): provided by History of Any Multi-Drug Resistant Organisms: None Reported Past Surgical History: No Surgical Hx Reported Additional Past Surgical History / Comment(s): provided by Past Anesthesia/Blood Transfusion Reactions: No Reported Reaction Additional Past Anesthesia/Blood Transfusion Reaction / Comm: provided by Past Psychological History: No Psychological Hx Reported Smoking Status: Never smoker Past Alcohol Use History: None Reported Past Drug Use History: None Reported Medications and Allergies Home Medications Medication Instructions Recorded Confirmed Type Aspirin EC [Ecotrin Low Dose] 81 mg PO DAILY 03/21/23 03/21/23 History Furosemide [Lasix] 20 mg PO DAILY 03/21/23 03/21/23 History Multivitamins, Thera [Multivitamin 1 tab PO DAILY 03/21/23 03/21/23 History (formulary)] Omeprazole 20 mg PO DAILY 03/21/23 03/21/23 History Tamsulosin [Flomax] 0.8 mg PO HS 03/21/23 03/21/23 History Allergies Allergy/AdvReac Type Severity Reaction Status Date / Time Penicillins Allergy Unknown Verified 03/21/23 19:44 Physical Exam Vitals: Vital Signs Temp Pulse Pulse Resp BP Pulse Ox FiO2 03/25/23 08:40 80 03/25/23 08:28 96 03/25/23 08:25 76 03/25/23 08:00 96.9 F L 82 20 132/77 98 03/25/23 04:19 50 03/25/23 04:00 78 20 127/64 94 L 03/25/23 01:08 70 20 03/25/23 00:00 70 20 122/60 96 03/24/23 21:33 80 03/24/23 21:18 74 03/24/23 20:00 98.3 F 75 20 130/66 95 03/24/23 16:39 80 03/24/23 16:00 98.2 F 77 20 133/60 97 03/24/23 12:51 71 24 03/24/23 12:05 80 03/24/23 12:00 98.2 F 71 24 127/65 97 03/24/23 11:55 80 Intake and Output 03/24/23 03/25/23 03/25/23 22:59 06:59 14:59 Intake Total 540 Output Total 325 Balance 540 -325 Intake: Oral 540 Output: Urine 325 Other: Voiding Method Urinal Urinal Urinal GENERAL DESCRIPTION: Elderly male up in the bed, no distress. No tachypnea or accessory muscle of respiration use. HEENT: Shows Pallor , no scleral icterus. Oral mucous membrane is dry. No pharyngeal erythema or thrush NECK: Trachea central, no thyromegaly. LUNGS: Unlabored breathing. Decreased intensity of breath sounds. HEART: S1, S2, regular rate and rhythm. No loud murmur ABDOMEN: Soft, distention a left-sided tenderness EXTREMITIES: No edema of feet. SKIN: No rash, no masses palpable. NEUROLOGICAL: The patient is awake, alert, oriented x3, mood and affect normal. Results CBC & Chem 7: 03/26/23 06:37 03/26/23 06:37 Labs: Abnormal Lab Results - Last 24 Hours (Table) 03/24/23 03/24/23 03/24/23 Range/Units 11:41 16:45 20:03 POC Glucose (mg/dL) 160 H 145 H 166 H (70-110) mg/dL 03/25/23 Range/Units 06:23 POC Glucose (mg/dL) 116 H (70-110) mg/dL Microbiology - Last 24 Hours (Table) 03/23/23 16:21 Blood Culture - Preliminary Blood 03/21/23 18:02 Blood Culture Gram Stain - Final Blood Blood Culture - Final Proteus mirabilis 03/21/23 18:22 Blood Culture Gram Stain - Final Blood Blood Culture - Final Proteus mirabilis Assessment and Plan (1) Sepsis Current Visit: Yes Status: Acute Code(s): A41.9 - SEPSIS, UNSPECIFIED ORGANISM SNOMED Code(s): 77677150 (2) UTI (urinary tract infection) Current Visit: Yes Status: Acute Code(s): N39.0 - URINARY TRACT INFECTION, SITE NOT SPECIFIED SNOMED Code(s): 17959413 (3) Bacteremia Current Visit: Yes Status: Acute Code(s): R78.81 - BACTEREMIA SNOMED Code(s): 8953588 Plan: 1patient presented to hospital with sepsis in this patient with fever tac hycardia elevated white count and evidence of Proteus bacteremia source likely urinary as the patient having the symptoms and positive unfortunately no urine culture was done patient did have a left-sided abdominal pain and tenderness and the patient is also constipated underlying GI source not entirely excluded versus complicated UTI as the patient have elevated creatinine and possible obstructive uropathy 2-we will obtain a CT of abdominal pelvis with oral contrast only 3-blood cultures repeated document clearance 4-continue with Rocephin 2 g daily We will follow on clinical condition and cultures to further adjust medication if needed Thank you for this consultation we will follow the patient along with you Time with Patient: Greater than 30
[2023-03-25 20:14] LABS: Glucose,Whole Blood 144 mg/dL (70-110)
[2023-03-25] MEDS: TAMSULOSIN 0.4 MG CAP.ER.24H PO SCH (20:19)
[2023-03-26] MEDS: ALPRAZolam 0.25 MG TAB PO PRN ×4 (03:10→23:59)
[2023-03-26 06:15] LABS: Glucose,Whole Blood 99 mg/dL (70-110)
[2023-03-26] MEDS: SODIUM CHLORIDE 0.9% 1,000 ML IV SCH (06:44)
[2023-03-26 07:18] LABS: Albumin 3.1 g/dL (3.5-5.0); Calcium 7.6 mg/dL (8.4-10.2); Potassium 4.3 mmol/L (3.5-5.1); Total Bilirubin 0.7 mg/dL (0.2-1.3); Total Protein 5.9 g/dL (6.3-8.2)
[2023-03-26 07:29] LABS: Anisocytosis Slight; Basophils % (A) 0 %; Eosinophils % (A) 0 %; HCT 53.3 % (39.0-53.0); HGB 17.3 gm/dL (13.0-17.5); Lymphocytes # (A) 1.1 k/uL (1.0-4.8); Lymphocytes % (A) 7 %; MCH 28.6 pg (25.0-35.0); MCHC 32.5 g/dL (31.0-37.0); MCV 87.8 fL (80.0-100.0); Mean Platelet Volume 11.1; Monocytes # (A) 1.1 k/uL (0-1.0); Monocytes % (A) 7 %; Neutrophils # (A) 12.6 k/uL (1.3-7.7); Neutrophils % (A) 83 %; Platelet Count 105 k/uL (150-450); RBC 6.07 m/uL (4.30-5.90); RDW 16.7 % (11.5-15.5); WBC 15.2 k/uL (3.8-10.6)
[2023-03-26] MEDS: METOPROLOL TARTRATE 50 MG TAB PO SCH ×2 (09:03→20:50)
[2023-03-26] MEDS: MULTIVITAMINS, THERA 1 EACH TAB PO SCH (09:03)
[2023-03-26] MEDS: APIXABAN 5 MG TAB PO SCH ×2 (09:03→20:50)
[2023-03-26] MEDS: predniSONE 10 MG TAB PO SCH (09:03)
--- NOTE | 2023-03-26 09:04 | P.GSCN ---
History of Present Illness Consult date: 03/26/23 Reason for Consult: Left ureteral stone, hydronephrosis History of present illness: This is a 62-year-old male with an 8 mm left-sided ureteral stone seen on a CT scan done yesterday. Patient admitted to the hospital with respiratory failure. Patient has been complaining of mild left-sided flank pain for the past 1-2 weeks. He did have an episode of gross hematuria approximately 2 months ago. At this time denies any gross hematuria and dysuria. Denies any nausea or vomiting. No previous history of kidney stones. Clinically he is slow to improve, but hemodynamically stable. He did have evidence of acute kidney injury on this admission with creatinine elevated at 2.95, and improved to 1.33 this morning. At this time he is having minimal left flank pain. His blood culture did grow Proteus, no urine culture was not obtained during this admission but his urinalysis was concerning for UTI on presentation Review of Systems - Constitutional Denies fever, Denies weight loss - EENT Ears, nose, mouth and throat: Denies dysphagia - Cardiovascular Denies chest pain, Denies shortness of breath - Respiratory Reports cough, Reports dyspnea - Gastrointestinal Reports as per HPI - Genitourinary Reports flank pain, Reports hematuria - Integumentary Denies rash, Denies unusual bruising - Neurological Denies headaches, Denies syncope Past Medical History Past Medical History: No Reported History Additional Past Medical History / Comment(s): provided by History of Any Multi-Drug Resistant Organisms: None Reported Past Surgical History: No Surgical Hx Reported Additional Past Surgical History / Comment(s): provided by Past Anesthesia/Blood Transfusion Reactions: No Reported Reaction Additional Past Anesthesia/Blood Transfusion Reaction / Comm: provided by Past Psychological History: No Psychological Hx Reported Smoking Status: Never smoker Past Alcohol Use History: None Reported Past Drug Use History: None Reported Medications and Allergies Home Medications Medication Instructions Recorded Confirmed Type Aspirin EC [Ecotrin Low Dose] 81 mg PO DAILY 03/21/23 03/21/23 History Furosemide [Lasix] 20 mg PO DAILY 03/21/23 03/21/23 History Multivitamins, Thera [Multivitamin 1 tab PO DAILY 03/21/23 03/21/23 History (formulary)] Omeprazole 20 mg PO DAILY 03/21/23 03/21/23 History Tamsulosin [Flomax] 0.8 mg PO HS 03/21/23 03/21/23 History Allergies Allergy/AdvReac Type Severity Reaction Status Date / Time Penicillins Allergy Unknown Verified 03/21/23 19:44 Surgical - Exam Vital Signs Temp Pulse Resp BP Pulse Ox 100.2 F H 156 H 46 H 142/64 96 03/21/23 17:51 03/21/23 17:51 03/21/23 17:51 03/21/23 17:51 03/21/23 17:51 - General no distress, no pain - Eyes normal ocular movement, no pale - ENT normal nares, normal mucosa - Respiratory normal expansion, normal respiratory effort - Abdomen Abdomen: soft, non tender - Psychiatric oriented to time, oriented to person, oriented to place Results - Labs 03/26/23 06:37 03/26/23 06:37 Abnormal Lab Results - Last 24 Hours (Table) 03/25/23 03/25/23 03/25/23 Range/Units 09:28 10:44 11:18 WBC 15.6 H (3.8-10.6) k/uL RBC 6.02 H (4.30-5.90) m/uL Hct 53.7 H (39.0-53.0) % RDW 16.7 H (11.5-15.5) % Plt Count 80 L (150-450) k/uL Neutrophils # 13.3 H (1.3-7.7) k/uL Monocytes # (0-1.0) k/uL ESR 25 H (0-15) mm/hr Sodium (137-145) mmol/L BUN 53 H (9-20) mg/dL Creatinine 1.88 H (0.66-1.25) mg/dL Glucose 114 H (74-99) mg/dL POC Glucose (mg/dL) 121 H (70-110) mg/dL Calcium 7.7 L (8.4-10.2) mg/dL C-Reactive Protein 5.7 H (<1.0) mg/dL Total Protein (6.3-8.2) g/dL Albumin (3.5-5.0) g/dL 03/25/23 03/25/23 03/26/23 Range/Units 16:16 20:13 06:37 WBC 15.2 H (3.8-10.6) k/uL RBC 6.07 H (4.30-5.90) m/uL Hct 53.3 H (39.0-53.0) % RDW 16.7 H (11.5-15.5) % Plt Count 105 L (150-450) k/uL Neutrophils # 12.6 H (1.3-7.7) k/uL Monocytes # 1.1 H (0-1.0) k/uL ESR (0-15) mm/hr Sodium (137-145) mmol/L BUN (9-20) mg/dL Creatinine (0.66-1.25) mg/dL Glucose (74-99) mg/dL POC Glucose (mg/dL) 119 H 144 H (70-110) mg/dL Calcium (8.4-10.2) mg/dL C-Reactive Protein (<1.0) mg/dL Total Protein (6.3-8.2) g/dL Albumin (3.5-5.0) g/dL 03/26/23 Range/Units 06:37 WBC (3.8-10.6) k/uL RBC (4.30-5.90) m/uL Hct (39.0-53.0) % RDW (11.5-15.5) % Plt Count (150-450) k/uL Neutrophils # (1.3-7.7) k/uL Monocytes # (0-1.0) k/uL ESR (0-15) mm/hr Sodium 136 L (137-145) mmol/L BUN 36 H (9-20) mg/dL Creatinine 1.33 H (0.66-1.25) mg/dL Glucose 106 H (74-99) mg/dL POC Glucose (mg/dL) (70-110) mg/dL Calcium 7.6 L (8.4-10.2) mg/dL C-Reactive Protein (<1.0) mg/dL Total Protein 5.9 L (6.3-8.2) g/dL Albumin 3.1 L (3.5-5.0) g/dL Microbiology - Last 24 Hours (Table) 03/23/23 16:21 Blood Culture - Preliminary Blood Diabetes panel 03/25/23 03/26/23 Range/Units 09:28 06:37 Sodium 137 136 L (137-145) mmol/L Potassium 4.5 4.3 (3.5-5.1) mmol/L Chloride 100 103 (98-107) mmol/L Carbon Dioxide 26 25 (22-30) mmol/L BUN 53 H 36 H (9-20) mg/dL Creatinine 1.88 H 1.33 H (0.66-1.25) mg/dL Glucose 114 H 106 H (74-99) mg/dL Calcium 7.7 L 7.6 L (8.4-10.2) mg/dL AST 24 (17-59) U/L ALT 35 (4-49) U/L Alkaline Phosphatase 84 (38-126) U/L Total Protein 5.9 L (6.3-8.2) g/dL Albumin 3.1 L (3.5-5.0) g/dL Calcium panel 03/25/23 03/26/23 Range/Units 09:28 06:37 Calcium 7.7 L 7.6 L (8.4-10.2) mg/dL Albumin 3.1 L (3.5-5.0) g/dL Pituitary panel 03/25/23 03/26/23 Range/Units 09:28 06:37 Sodium 137 136 L (137-145) mmol/L Potassium 4.5 4.3 (3.5-5.1) mmol/L Chloride 100 103 (98-107) mmol/L Carbon Dioxide 26 25 (22-30) mmol/L BUN 53 H 36 H (9-20) mg/dL Creatinine 1.88 H 1.33 H (0.66-1.25) mg/dL Glucose 114 H 106 H (74-99) mg/dL Calcium 7.7 L 7.6 L (8.4-10.2) mg/dL Adrenal panel 03/25/23 03/26/23 Range/Units 09:28 06:37 Sodium 137 136 L (137-145) mmol/L Potassium 4.5 4.3 (3.5-5.1) mmol/L Chloride 100 103 (98-107) mmol/L Carbon Dioxide 26 25 (22-30) mmol/L BUN 53 H 36 H (9-20) mg/dL Creatinine 1.88 H 1.33 H (0.66-1.25) mg/dL Glucose 114 H 106 H (74-99) mg/dL Calcium 7.7 L 7.6 L (8.4-10.2) mg/dL Total Bilirubin 0.7 (0.2-1.3) mg/dL AST 24 (17-59) U/L ALT 35 (4-49) U/L Alkaline Phosphatase 84 (38-126) U/L Total Protein 5.9 L (6.3-8.2) g/dL Albumin 3.1 L (3.5-5.0) g/dL - Imaging CT scan - abdomen: image reviewed (Evidence of a 7 mm left-sided ureteral stone with hydronephrosis) Assessment and Plan Assessment: 62-year-old male evidence of a 7 mm left-sided ureteral stone with hydronephrosis. blood culture grown Proteus. I discussed with him given his bacteremia and obstructive stone, the source of the Proteus could be secondary to obstruction of the left kidney. Discussed with him I do recommend proceeding with stent insertion. Discussed risk benefit and rationale during the surgery. Discussed with him he will eventually need a ureteroscopy with holmium laser after the stent insertion as an outpatient once his sepsis resolves. -Nothing by mouth past midnight -Or for cystoscopy left stent insertion tomorrow
[2023-03-26] MEDS: LACTULOSE 20 GM/30 ML CUP PO SCH ×3 (09:06→20:50)
[2023-03-26] MEDS: FORMOTEROL FUMARATE 20 MCG/2 ML NEBU INHALATION SCH ×2 (09:06→19:32)
[2023-03-26] MEDS: IPRATROPIUM-ALBUTEROL 3 ML NEB INHALATION SCH ×4 (09:06→19:31)
[2023-03-26] MEDS: BUDESONIDE 1 MG/2 ML NEBU INHALATION SCH ×2 (09:06→19:32)
[2023-03-26] MEDS: polyethylene glycoL 3350 17 GM POWD.PACK PO SCH (09:07)
[2023-03-26 11:24] LABS: Glucose,Whole Blood 126 mg/dL (70-110)
--- NOTE | 2023-03-26 11:26 | P.PN ---
Subjective Patient is seen for follow-up for acute kidney injury. Mostly ATN from sepsis and IV contrast. Renal function has been improving. Serum creatinine down to 1.3 mg/dL Patient has been voiding CT of the abdomen showed moderate left hydronephrosis with 7-8 mm proximal left ureteral calcification. Ultrasound on initial admission had not shown any a bnormality. Patient has been evaluated by urology and is scheduled for cystoscopy and left ureteral stent placement in a.m. Objective - Vital Signs Vital signs: Vital Signs Temp 98 F 03/26/23 08:00 Pulse 78 03/26/23 09:40 Resp 20 03/26/23 08:00 BP 148/81 03/26/23 08:00 Pulse Ox 95 03/26/23 09:07 FiO2 50 03/26/23 05:46 Intake & Output 03/25/23 03/26/23 03/26/23 18:59 06:59 18:59 Output Total 925 950 300 Balance -925 -950 -300 Output: Urine 925 950 300 Other: Voiding Method Urinal Urinal Urinal # Bowel Movements 1 - Exam Patient is comfortable awake alert oriented 3. Currently on the commode Bilateral lower extremities are wrapped MATERIAL ASSISTANT exam grossly intact - Labs CBC & Chem 7: 03/26/23 06:37 03/26/23 06:37 Labs: Abnormal Lab Results - Last 24 Hours (Table) 03/25/23 03/25/23 03/25/23 Range/Units 09:28 10:44 16:16 WBC 15.6 H (3.8-10.6) k/uL RBC 6.02 H (4.30-5.90) m/uL Hct 53.7 H (39.0-53.0) % RDW 16.7 H (11.5-15.5) % Plt Count 80 L (150-450) k/uL Neutrophils # 13.3 H (1.3-7.7) k/uL Monocytes # (0-1.0) k/uL ESR 25 H (0-15) mm/hr Sodium (137-145) mmol/L BUN 53 H (9-20) mg/dL Creatinine 1.88 H (0.66-1.25) mg/dL Glucose 114 H (74-99) mg/dL POC Glucose (mg/dL) 119 H (70-110) mg/dL Calcium 7.7 L (8.4-10.2) mg/dL C-Reactive Protein 5.7 H (<1.0) mg/dL Total Protein (6.3-8.2) g/dL Albumin (3.5-5.0) g/dL 03/25/23 03/26/23 03/26/23 Range/Units 20:13 06:37 06:37 WBC 15.2 H (3.8-10.6) k/uL RBC 6.07 H (4.30-5.90) m/uL Hct 53.3 H (39.0-53.0) % RDW 16.7 H (11.5-15.5) % Plt Count 105 L (150-450) k/uL Neutrophils # 12.6 H (1.3-7.7) k/uL Monocytes # 1.1 H (0-1.0) k/uL ESR (0-15) mm/hr Sodium 136 L (137-145) mmol/L BUN 36 H (9-20) mg/dL Creatinine 1.33 H (0.66-1.25) mg/dL Glucose 106 H (74-99) mg/dL POC Glucose (mg/dL) 144 H (70-110) mg/dL Calcium 7.6 L (8.4-10.2) mg/dL C-Reactive Protein (<1.0) mg/dL Total Protein 5.9 L (6.3-8.2) g/dL Albumin 3.1 L (3.5-5.0) g/dL Microbiology - Last 24 Hours (Table) 03/23/23 16:21 Blood Culture - Preliminary Blood Assessment and Plan Assessment: 1. Acute kidney injury secondary to ATN secondary to severe sepsis and contrast-induced acute kidney injury. Patient was also on NSAIDs prior to admission. CT of the abdomen shows left hydronephrosis with 7-8 mm calculus. Ultrasound done on initial admission did not reveal any hydronephrosis. Creatinine peaked at 2.9 at this admission and is 1.3 today. Patient underwent CTA on 03/21/2023. Unknown baseline renal function. No hydronephrosis noted on kidney ultrasound. 2. Metabolic acidosis secondary to acute kidney injury. 3. Severe sepsis secondary to Proteus bacteremia. 4. Acute on chronic hypoxic respiratory failure related to acute bronchitis in A. fib with RVR. 5. A. fib with RVR. On anticoagulation and Lopressor. Rate controlled now. 6. Morbid obesity. 7. Pyuria possibly UTI. Urine culture not sent out. Patient has been on antibiotics for about 3 days 8. Left hydronephrosis with 7-8 mm calculus scheduled for cystoscopy and left ureteral stent placement in a.m. Plan: Continue IV antibiotics Repeat labs in a.m. Continue off of IV fluids.
[2023-03-26] MEDS: ACETAMINOPHEN TAB 325 MG TAB PO PRN ×2 (13:18→18:47)
--- NOTE | 2023-03-26 13:41 | P.PN ---
Subjective Progress Note Date: 03/26/23 Principal diagnosis: Shortness of breath. I'm seeing this patient in new consultation today 03/22/2023 in the emergency room, waiting on a bed on the cardiac stepdown unit. Patient is a 62-year-old white male with past medical history of restrictive lung disease probably relate d to his morbid obesity, obstructive sleep apnea on CPAP support of 14, hyperlipidemia, BPH, and GERD. Patient was recently seen in the office by Dr. Lo, on 03/13/2023, for full PFT. Patient was found to have restrictive lung disease. The patient's FEV1 was 1.77 L which is 62% of predicted. The FVC is 2.14 L which is 55% of predicted. The ratio was elevated. Total lung capacity is only 73% of predicted. Diffusion corrected for alveolar volume is normal. These lung function are consistent with a pulmonary restrictive process. It may relate to the patient's obesity. The patient also qualified for home O2, which he has not received yet. Patient reports that he's been becoming progressively more short of breath over the last few months. Patient also reports that he has been more short of breath and anxious lately, after finding out that his daughter has a potential cancer diagnosis. Patient has been reporting some nasal congestion and frequent cough without significant sputum production. Patient was found to be febrile on arrival to the emergency room with a T-max of 100.2F. Denies any sick contacts. He was found to be in A. fib RVR, with a heart rate in the 150s on arrival. He denies any chest pain, heart palpitations, lightheadedness, syncope. Patient was subsequently started on a Cardizem infusion which is currently infusing at 15 mg/hour, and a low intensity heparin infusion per protocol. Patient denies any prior history of A. fib. Chest x-ray on arrival showed cardiomegaly without any suspicious infiltrates or pleural effusions. D- dimer was elevated at 21.2, and a follow-up chest CTA was negative for pulmonary embolism. It did show some mild to moderate bibasilar linear scarring and/or atelectasis. No focal consolidation. Patient's CBC on arrival showed a WBC count of 9.6, hemoglobin 15.6, hematocrit 47.5, platelets 79,000. BMP on arrival showed a sodium 133, potassium 4.4, chloride 100, serum CO2 14, BUN 26, creatinine 1.86, glucose 150. Troponin was mildly elevated at 0.06. NT proBNP was not very elevated at 818. Patient's was negative for influenza, RSV, COVID- 19. Lactic acid level was 3.2 on arrival and is trending down to 2.2 after 1 L normal saline fluid resuscitation. He did receive one dose of Rocephin in the emergency room. Patient status has stabilized, and he is currently sitting up in bed, on BiPAP with settings of 14/5 and FiO2 of 50%. His respiratory rate is about 20 breaths per minute and he is achieving tidal volumes of 800. Vital signs are stable, and he will be transferred to the cardiac stepdown unit once bed available. Progress note dated 03/23/2023. 62-year-old male seen yesterday in consultation. Currently, the patient is seen today in room 373. His blood cultures were positive for Proteus species. The patient remains on Rocephin. We will get him a flutter valve. He's getting 5 L by nasal cannula. His BiPAP settings are 11 over 5 and 50%. White count 14.8, hemoglobin 16.1, hematocrit 49.3, and platelet count 82,000. PTT is 28.3. Sodium 134, potassium 4.8, chlorides 101, CO2 21, anion gap 12, BUN 54, and creatinine 2.95. Progress note dated 03/24/2023. 62-year-old male seen in consultation 2 days ago. The patient is sitting in bed, and feels like he is improved. He did test positive for Proteus in the blood, and is currently being treated for that. His pro-calcitonin level is elevated. Currently, the patient is on 3 L of oxygen. He is getting Rocephin. He did use BiPAP last night, with settings of 11/5 and 50%. Current laboratory data includes a sodium 133, potassium 4.9, chlorides 103, CO2 20, anion gap 10, BUN 58, creatinine 2.06. Calcium is 7.4 with a magnesium of 2.9. Progress note dated 03/25/2023. 62-year-old male again seen in room 373. Anemia at the bedside. The patient is currently on oxygen at 3 L by nasal cannula. No IV fluids. The patient is u sing BiPAP at nighttime, with settings of 11/5 and 50%. Clinically he is doing okay. He seems a bit agitated today. Has not had a bowel movement for a number of days. He is getting medication to help that process along. No new labs today other than a glucose of 116. Blood cultures are positive for Proteus mirabilis. Progress note dated 04/05/2023. 62-year-old male, again seen today in room 373. The patient is on 2 L of oxygen. At nighttime, he uses BiPAP, 11/5, and 50%. The patient is not receiving any IV fluids. Clinically, the patient has improved, since being admitted here to the hospital. White count 15.2, hemoglobin 17.3, hematocrit 53.3, and platelet count 105,000. Sodium 136, potassium 4.3, chlorides 103, CO2 25, BUN 36, creatinine 1.33. Glucose is 106. Albumin is 3.1. All cultures were positive for Proteus mirabilis. The patient remains on Rocephin. His breathing is much improved. Chest x-ray was consistent with mild fluid overload, from March 25. Objective - Vital Signs Vital signs: Vital Signs Temp 98.2 F 03/26/23 11:51 Pulse 78 03/26/23 12:39 Resp 20 03/26/23 11:51 BP 151/83 03/26/23 11:51 Pulse Ox 97 03/26/23 11:51 FiO2 50 03/26/23 05:46 Intake & Output 03/25/23 03/26/23 03/26/23 18:59 06:59 18:59 Output Total 925 950 550 Balance -925 -950 -550 Output: Urine 925 950 550 Other: Voiding Method Urinal Urinal Urinal # Bowel Movements 1 - Exam No acute distress, oriented 3. Currently on 2 L of oxygen. Saturations are 97%. HEENT examination is grossly unremarkable. Neck supple. Full range of motion. No adenopathy thyromegaly or neck vein distention. Cardiovascular examination reveals regular rhythm rate. S1-S2 normal. No S3 or S4. No discernible murmur noted. Heart rate 74 bpm. Heart sounds are distant. Lungs reveal bilateral rhonchi. Cough is a bit wet sounding. No wheezes or crackles. Breath sounds equal bilaterally. Breath sounds are improved. Saturations are 97 %. Abdomen obese. No masses or tenderness. Extremities are intact. No cyanosis clubbing or edema. His lower extremities are wrapped by LAURIE bandages. Skin is without rash or lesion. Neurologic examination is brief but nonfocal. - Labs CBC & Chem 7: 03/26/23 06:37 03/26/23 06:37 Labs: Abnormal Lab Results - Last 24 Hours (Table) 03/25/23 03/25/23 03/26/23 Range/Units 16:16 20:13 06:37 WBC 15.2 H (3.8-10.6) k/uL RBC 6.07 H (4.30-5.90) m/uL Hct 53.3 H (39.0-53.0) % RDW 16.7 H (11.5-15.5) % Plt Count 105 L (150-450) k/uL Neutrophils # 12.6 H (1.3-7.7) k/uL Monocytes # 1.1 H (0-1.0) k/uL Sodium (137-145) mmol/L BUN (9-20) mg/dL Creatinine (0.66-1.25) mg/dL Glucose (74-99) mg/dL POC Glucose (mg/dL) 119 H 144 H (70-110) mg/dL Calcium (8.4-10.2) mg/dL Total Protein (6.3-8.2) g/dL Albumin (3.5-5.0) g/dL 03/26/23 03/26/23 Range/Units 06:37 11:22 WBC (3.8-10.6) k/uL RBC (4.30-5.90) m/uL Hct (39.0-53.0) % RDW (11.5-15.5) % Plt Count (150-450) k/uL Neutrophils # (1.3-7.7) k/uL Monocytes # (0-1.0) k/uL Sodium 136 L (137-145) mmol/L BUN 36 H (9-20) mg/dL Creatinine 1.33 H (0.66-1.25) mg/dL Glucose 106 H (74-99) mg/dL POC Glucose (mg/dL) 126 H (70-110) mg/dL Calcium 7.6 L (8.4-10.2) mg/dL Total Protein 5.9 L (6.3-8.2) g/dL Albumin 3.1 L (3.5-5.0) g/dL Microbiology - Last 24 Hours (Table) 03/23/23 16:21 Blood Culture - Preliminary Blood Assessment and Plan Assessment: Acute on chronic hypoxemic respiratory failure, multifactorial, secondary to acute bronchitis, mild fluid overload, and new onset atrial fibrillation with RVR. Proteus mirabilis bacteremia. New onset atrial fibrillation with RVR. Restrictive lung disease, secondary to obesity. Anion gap metabolic acidosis, resolved. Troponin leak, secondary to supply/demand mismatch. Acute kidney injury. Thrombocytopenia. Obstructive sleep apnea syndrome, on home CPAP. Morbid obesity. BPH. GERD. Hyperlipidemia. Previous history of tobacco use. Plan: Plan dated 03/23/2023. The patient is currently on Rocephin. Blood cultures were positive for Proteus. Sensitivities are not yet back. We will continue to follow and make recommendations along the way. For the patient's cough, and chest congestion, we will order a flutter valve. Labs, x-rays, and medications are reviewed. We will continue to follow the patient and and make recommendations along the way. Prognosis is certainly guarded. Plan dated 03/24/2023. The patient was seen again today in room 373. He has been weaned down to 3 L. The patient continues on Rocephin, first Proteus mirabilis bacteremia. Clinically is doing much better. The Solu-Medrol be discontinued in favor of prednisone. The patient is using BiPAP at nighttime. We'll continue to follow the patient and make recommendations along the way. Labs, x-rays, and medications are reviewed. He asked that his oxygen be humidified. Prognosis is guarded. Plan dated March 6023. The patient is again seen today in room 373. He continues on oxygen at 3 L. He is on Rocephin for Proteus bacteremia. His complaint today includes primarily constipation. He is on medication to help that situation along. He is using BiPAP at nighttime, with settings of 11/5 and 50%. Clinically, the patient appears to be relatively stable. His respiratory status is stable. We will continue to follow and make recommendations along the way. Prognosis is guarded. Plan dated 03/26/2023. The patient is resting comfortably on 2 L. His overall condition and breathing has improved. He continues on BiPAP at nighttime. Labs, x-rays, and medications are reviewed. He's being seen by infectious disease for his Proteus mirabilis bacteremia. He's currently on Rocephin. We will continue to follow the patient make recommendations along the way. I recently saw him in the office, and we diagnosed him with restrictive lung disease, secondary to obesity. In that regard, we did talk about the importance of a healthy diet, eating properly, and making good choices. Time with Patient: Less than 30
--- NOTE | 2023-03-26 14:07 | PN ---
PROGRESS NOTE DATE OF SERVICE: 03/26/2023 SUBJECTIVE: This 62-year-old gentleman, who was admitted with multiple prior medical problems including Proteus sepsis, also was found to have significant shortness of breath and possible pneumonia. The patient also has a 7 mm left-sided ureteral stone with hydronephrosis. Dr. Barraza is planning cystoscopy and possible stent placement. PAST MEDICAL HISTORY: Reviewed. REVIEW OF SYSTEMS: Fourteen-point review is negative as mentioned earlier. CURRENT MEDICATIONS: Reviewed include DuoNeb, dose and rest of medication noted. PHYSICAL EXAMINATION: VITAL SIGNS: Pulse is 81, blood pressure is 148/80, respiration 20. HEENT: Conjunctivae normal. NECK: No jugular venous distention. CARDIOVASCULAR: Normal S1, S2. RESPIRATIONS: Bilateral scattered rhonchi and crackles. Expiratory wheezing. ABDOMEN: Soft, obese. LEGS: No edema. NERVOUS SYSTEM: Nonfocal. LABORATORY DATA: WBC 15.2. Sodium 136, creatinine is noted. ASSESSMENT: 1. Bibasilar pneumonia. 2. Proteus mirabilis sepsis. 3. A 7 mm left-sided ureteral stone with hydronephrosis for cystoscopy and possible stenting. 4. Acute hypoxic respiratory failure, multifactorial. 5. Obesity hypoventilation syndrome. 6. Possible chronic obstructive pulmonary disease or chronic bronchitis. 7. Chronic kidney disease. 8. Constipation. 9. History of multiple allergies. 10.Morbid obesity with body mass index of 55.1. RECOMMENDATIONS: Recommended to continue current management and current symptomatic treatment. Otherwise, continue with bronchodilators. Continue with steroids. Continue with antibiotics and we will repeat labs. The most recent blood cultures are negative so far. Closely follow with multiple consultants and Infectious Disease input appreciated. Further recommendations to follow. MMODL / IJN: [id number] /
--- NOTE | 2023-03-26 16:11 | P.PN ---
Subjective Progress Note Date: 03/26/23 Principal diagnosis: Proteus, complicated UTI and bacteremia Patient is a 62-year-old male with a history of atrial fibrillation presenting to the ER on 03/21/2023 for evaluation of increasing shortness of breath, patient did have evidence of Proteus bacteremia did have a CT abdominal pelvis with evidence of left-sided moderate hydronephrosis. On today's evaluation that is 03/26/2023, the patient denies having any fever or any chills patient is breathing comfortably currently on a 2 L nasal cannula oxygen, patient denies having any chest pain or any coughing has been complaining of mostly abdominal distention and not having a bowel movement some left-sided discomfort, RN mention he did have a bowel movement this morning Objective - Vital Signs Vital signs: Vital Signs Temp 98.2 F 03/26/23 11:51 Pulse 78 03/26/23 12:39 Resp 20 03/26/23 11:51 BP 151/83 03/26/23 11:51 Pulse Ox 97 03/26/23 11:51 FiO2 50 03/26/23 05:46 Intake & Output 03/25/23 03/26/23 03/26/23 18:59 06:59 18:59 Output Total 925 950 550 Balance -925 -950 -550 Output: Urine 925 950 550 Other: Voiding Method Urinal Urinal Urinal # Bowel Movements 1 - Exam GENERAL DESCRIPTION: A middle-age male up in bed in no distress RESPIRATORY SYSTEM: Unlabored breathing , decreased breath sounds at bases HEART: S1 S2 regular rate and rhythm , ABDOMEN: Soft , mild distention and tenderness EXTREMITIES: No edema feet - Labs CBC & Chem 7: 03/26/23 06:37 03/26/23 06:37 Labs: Abnormal Lab Results - Last 24 Hours (Table) 03/25/23 03/25/23 03/26/23 Range/Units 16:16 20:13 06:37 WBC 15.2 H (3.8-10.6) k/uL RBC 6.07 H (4.30-5.90) m/uL Hct 53.3 H (39.0-53.0) % RDW 16.7 H (11.5-15.5) % Plt Count 105 L (150-450) k/uL Neutrophils # 12.6 H (1.3-7.7) k/uL Monocytes # 1.1 H (0-1.0) k/uL Sodium (137-145) mmol/L BUN (9-20) mg/dL Creatinine (0.66-1.25) mg/dL Glucose (74-99) mg/dL POC Glucose (mg/dL) 119 H 144 H (70-110) mg/dL Calcium (8.4-10.2) mg/dL Total Protein (6.3-8.2) g/dL Albumin (3.5-5.0) g/dL 03/26/23 03/26/23 Range/Units 06:37 11:22 WBC (3.8-10.6) k/uL RBC (4.30-5.90) m/uL Hct (39.0-53.0) % RDW (11.5-15.5) % Plt Count (150-450) k/uL Neutrophils # (1.3-7.7) k/uL Monocytes # (0-1.0) k/uL Sodium 136 L (137-145) mmol/L BUN 36 H (9-20) mg/dL Creatinine 1.33 H (0.66-1.25) mg/dL Glucose 106 H (74-99) mg/dL POC Glucose (mg/dL) 126 H (70-110) mg/dL Calcium 7.6 L (8.4-10.2) mg/dL Total Protein 5.9 L (6.3-8.2) g/dL Albumin 3.1 L (3.5-5.0) g/dL Microbiology - Last 24 Hours (Table) 03/23/23 16:21 Blood Culture - Preliminary Blood Assessment and Plan (1) Bacteremia Current Visit: Yes Status: Acute Code(s): R78.81 - BACTEREMIA SNOMED Code(s): 1569066 (2) UTI (urinary tract infection) Current Visit: Yes Status: Acute Code(s): N39.0 - URINARY TRACT INFECTION, SITE NOT SPECIFIED SNOMED Code(s): 07282659 Plan: 1patient presented to hospital with sepsis in this patient with fever tachycardia elevated white count and evidence of Proteus bacteremia source likely urinary as the patient having urinary symptoms and positive UA unfortunately no urine culture was done patient did have a left-sided abdominal pain and tenderness and the patient CT abdominal pelvis which is evidence of left-sided moderate hydronephrosis, urology has seen the patient planning for cystoscopy and stent placement tomorrow 2Patient to with Rocephin 2 g daily Questions concerned were answered Time with Patient: Less than 30
[2023-03-26 16:26] LABS: Glucose,Whole Blood 121 mg/dL (70-110)
[2023-03-26 20:14] LABS: Glucose,Whole Blood 123 mg/dL (70-110)
[2023-03-26] MEDS: TAMSULOSIN 0.4 MG CAP.ER.24H PO SCH (20:50)
[2023-03-27] MEDS: SODIUM CHLORIDE 0.9% 1,000 ML IV SCH ×3 (00:24→20:44)
[2023-03-27 05:59] LABS: Glucose,Whole Blood 106 mg/dL (70-110)
[2023-03-27] MEDS: FORMOTEROL FUMARATE 20 MCG/2 ML NEBU INHALATION SCH ×2 (08:24→21:12)
[2023-03-27] MEDS: BUDESONIDE 1 MG/2 ML NEBU INHALATION SCH ×2 (08:24→21:13)
[2023-03-27] MEDS: IPRATROPIUM-ALBUTEROL 3 ML NEB INHALATION SCH ×4 (08:24→21:13)
[2023-03-27] MEDS: LACTULOSE 20 GM/30 ML CUP PO SCH ×3 (08:28→20:42)
[2023-03-27] MEDS: polyethylene glycoL 3350 17 GM POWD.PACK PO SCH (08:28)
[2023-03-27] MEDS: MULTIVITAMINS, THERA 1 EACH TAB PO SCH (08:29)
[2023-03-27] MEDS ORDERED: LACTATED RINGERS 1,000 ML IV ONE (10:14)
--- NOTE | 2023-03-27 10:16 | P.PN ---
Subjective Progress Note Date: 03/27/23 Shortness of breath. I'm seeing this patient in new consultation today 03/22/2023 in the emergency room, waiting on a bed on the cardiac stepdown unit. Patient is a 62-year-old white male with past medical history of restrictive lung disease probably related to his morbid obesity, obstructive sleep apnea on CPAP support of 14, hyperlipidemia, BPH, and GERD. Patient was recently seen in the office by Dr. Lo, on 03/13/2023, for full PFT. Patient was found to have restrictive lung disease. The patient's FEV1 was 1.77 L which is 62% of predicted. The FVC is 2.14 L which is 55% of predicted. The ratio was elevated. Total lung capacity is only 73% of predicted. Diffusion corrected for alveolar volume is normal. These lung function are consistent with a pulmonary restrictive process. It may relate to the patient's obesity. The patient also qualified for home O2, which he has not received yet. Patient reports that he's been becoming progressively more short of breath over the last few months. Patient also reports that he has been more short of breath and anxious lately, after finding out that his daughter has a potential cancer diagnosis. Patient has been reporting some nasal congestion and frequent cough without significant sputum production. Patient was found to be febrile on arrival to the emergency room with a T-max of 100.2F. Denies any sick contacts. He was found to be in A. fib RVR, with a heart rate in the 150s on arrival. He denies any chest pain, heart palpitations, lightheadedness, syncope. Patient was subsequently started on a Cardizem infusion which is currently infusing at 15 mg/hour, and a low intensity heparin infusion per protocol. Patient denies any prior history of A. fib. Chest x-ray on arrival showed cardiomegaly without any suspicious infiltrates or pleural effusions. D- dimer was elevated at 21.2, and a follow-up chest CTA was negative for pulmonary embolism. It did show some mild to moderate bibasilar linear scarring and/or atelectasis. No focal consolidation. Patient's CBC on arrival showed a WBC count of 9.6, hemoglobin 15.6, hematocrit 47.5, platelets 79,000. BMP on arrival showed a sodium 133, potassium 4.4, chloride 100, serum CO2 14, BUN 26, creatinine 1.86, glucose 150. Troponin was mildly elevated at 0.06. NT proBNP was not very elevated at 818. Patient's was negative for influenza, RSV, COVID- 19. Lactic acid level was 3.2 on arrival and is trending down to 2.2 after 1 L normal saline fluid resuscitation. He did receive one dose of Rocephin in the emergency room. Patient status has stabilized, and he is currently sitting up in bed, on BiPAP with settings of 14/5 and FiO2 of 50%. His respiratory rate is about 20 breaths per minute and he is achieving tidal volumes of 800. Vital signs are stable, and he will be transferred to the cardiac stepdown unit once bed available. Progress note dated 03/23/2023. 62-year-old male seen yesterday in consultation. Currently, the patient is seen today in room 373. His blood cultures were positive for Proteus species. The patient remains on Rocephin. We will get him a flutter valve. He's getting 5 L by nasal cannula. His BiPAP settings are 11 over 5 and 50%. White count 14.8, hemoglobin 16.1, hematocrit 49.3, and platelet count 82,000. PTT is 28.3. Sodi um 134, potassium 4.8, chlorides 101, CO2 21, anion gap 12, BUN 54, and creatinine 2.95. Progress note dated 03/24/2023. 62-year-old male seen in consultation 2 days ago. The patient is sitting in bed, and feels like he is improved. He did test positive for Proteus in the blood, and is currently being treated for that. His pro-calcitonin level is elevated. Currently, the patient is on 3 L of oxygen. He is getting Rocephin. He did use BiPAP last night, with settings of 11/5 and 50%. Current laboratory data includes a sodium 133, potassium 4.9, chlorides 103, CO2 20, anion gap 10, BUN 58, creatinine 2.06. Calcium is 7.4 with a magnesium of 2.9. Progress note dated 03/25/2023. 62-year-old male again seen in room 373. Anemia at the bedside. The patient is currently on oxygen at 3 L by nasal cannula. No IV fluids. The patient is using BiPAP at nighttime, with settings of 11/5 and 50%. Clinically he is doing okay. He seems a bit agitated today. Has not had a bowel movement for a number of days. He is getting medication to help that process along. No new labs today other than a glucose of 116. Blood cultures are positive for Proteus mirabilis. Progress note dated 04/05/2023. 62-year-old male, again seen today in room 373. The patient is on 2 L of oxygen. At nighttime, he uses BiPAP, 11/5, and 50%. The patient is not receiving any IV fluids. Clinically, the patient has improved, since being admitted here to the hospital. White count 15.2, hemoglobin 17.3, hematocrit 53.3, and platelet count 105,000. Sodium 136, potassium 4.3, chlorides 103, CO2 25, BUN 36, creatinine 1.33. Glucose is 106. Albumin is 3.1. All cultures were positive for Proteus mirabilis. The patient remains on Rocephin. His breathing is much improved. Chest x-ray was consistent with mild fluid overload, from March 25. On today's evaluation of 03/27/2023, the patient will be taken to the operating room for a cystoscopy and stent insertion as the patient has an 8 mm stone on t he left side in the ureter and the patient is going to have a stent placed by urology. Note that his septic and the patient had positive blood cultures with Proteus mirabilis and the patient is currently on broad-spectrum antibiotics maintained on IV Rocephin at a dose of 2 mg224 hours. The patient is also known to have multiple other medical problems and the patient is morbidly obese with a BMI 55 and the patient is utilizing a BiPAP overnight. He is on his CPAP at a pressure of 14 cm of water. He has also hypertension, hyperlipidemia, BPH and acid reflux. He is known to have some chronic pulmonary interstitial due to his morbid obesity. The patient initially came to us with sepsis and atrial fibrillation with rapid ventricular response and his current cardiac rhythm is sternal atrial fibrillation his rate is controlled and his taken Eliquis for anticoagulants the addition to metoprolol 50 mg by mouth twice a day. His rate is controlled. Objective - Vital Signs Vital signs: Vital Signs Temp 97.9 F 03/27/23 10:02 Pulse 89 03/27/23 10:02 Resp 20 03/27/23 10:02 BP 126/79 03/27/23 10:02 Pulse Ox 96 03/27/23 10:02 FiO2 50 03/26/23 05:46 Intake & Output 03/26/23 03/27/23 03/27/23 18:59 06:59 18:59 Output Total 550 Balance -550 Output: Urine 550 Other: Voiding Method Urinal Urinal # Voids 2 # Bowel Movements 1 - Exam No acute distress, oriented 3. Currently on 2 L of oxygen. Saturations are 97 %. HEENT examination is grossly unremarkable. Neck supple. Full range of motion. No adenopathy thyromegaly or neck vein distention. Cardiovascular examination reveals irregular rhythm consistent with atrial fibrillation S1-S2 normal. No S3 or S4. No discernible murmur noted. Heart sounds are distant. Lungs reveal bilateral rhonchi. Cough is a bit wet sounding. No wheezes or crackles. Breath sounds equal bilaterally. Breath sounds are improved. Abdomen obese. No masses or tenderness. Extremities are intact. No cyanosis clubbing or edema. His lower extremities are wrapped by LAURIE bandages. Skin is without rash or lesion. Neurologic examinationNeurologically, the patient is awake and alert and the patient does not have any focal neurological deficit. Cranial nerves are essentially intact. - Labs CBC & Chem 7: 03/26/23 06:37 03/26/23 06:37 Labs: Abnormal Lab Results - Last 24 Hours (Table) 03/26/23 03/26/23 03/26/23 Range/Units 11:22 16:24 20:12 POC Glucose (mg/dL) 126 H 121 H 123 H (70-110) mg/dL Microbiology - Last 24 Hours (Table) 03/23/23 16:21 Blood Culture - Preliminary Blood Assessment and Plan Plan: Acute on chronic hypoxemic respiratory failure, multifactorial, secondary to acute bronchitis, mild fluid overload, and new onset atrial fibrillation with RVR. Rate is under better control and the patient is currently on 2 L of oxygen by nasal cannula Left ureteral stone measuring 8 mm in size, along with previous history of hematuria and the patient is awaiting a cystoscopy and double J stent insertion Proteus mirabilis sepsis likely have a urinary source and the patient is currently on Rocephin 2 g every 24 hours New onset atrial fibrillation with RVR. The rate is controlled and the patient on metoprolol and Eliquis Restrictive lung disease, secondary to obesity. Anion gap metabolic acidosis, resolved. Troponin leak, secondary to supply/demand mismatch. Acute kidney injury, improved Thrombocytopenia. Obstructive sleep apnea syndrome, on home CPAP. Morbid obesity. BPH. GERD. Hyperlipidemia. Previous history of tobacco use. Plan: Continue 2 g of Rocephin every 24 hours The patient is going to undergo cystoscopy with double-J stent placement Note that the patient was septic with Proteus mirabilis Currently on 2 L of oxygen by nasal cannula Renal function is improved and the creatinine today is 1.33 from yesterday and the number from today still pending White cell count from yesterday was 15.2 Hemodynamically stable Continue CPAP overnight Echo was technically a very difficult study
--- NOTE | 2023-03-27 11:11 | P.PN ---
Subjective Progress Note Date: 03/27/23 Principal diagnosis: Proteus, complicated UTI and bacteremia Patient is a 62-year-old male with a history of atrial fibrillation presenting to the ER on 03/21/2023 for evaluation of increasing shortness of breath, patient did have evidence of Proteus bacteremia did have a CT abdominal pelvis with evidence of left-sided moderate hydronephrosis. On today's evaluation that is 03/27/2023, the patient remains to be afebrile, patient is breathing comfortably currently on a 2 L nasal cannula oxygen, patient denies having any chest pain, occasional cough or sputum production did have a few bowel movements yesterday no nausea no vomiting Objective - Vital Signs Vital signs: Vital Signs Temp 97.9 F 03/27/23 10:02 Pulse 89 03/27/23 10:02 Resp 20 03/27/23 10:02 BP 126/79 03/27/23 10:02 Pulse Ox 96 03/27/23 10:02 FiO2 50 03/26/23 05:46 Intake & Output 03/26/23 03/27/23 03/27/23 18:59 06:59 18:59 Output Total 550 Balance -550 Output: Urine 550 Other: Voiding Method Urinal Urinal # Voids 2 # Bowel Movements 1 - Exam GENERAL DESCRIPTION: A middle-age male up in bed in no distress RESPIRATORY SYSTEM: Unlabored breathing , decreased breath sounds at bases HEART: S1 S2 regular rate and rhythm , ABDOMEN: Soft , mild distention and tenderness EXTREMITIES: No edema feet - Labs CBC & Chem 7: 03/26/23 06:37 03/26/23 06:37 Labs: Abnormal Lab Results - Last 24 Hours (Table) 03/26/23 03/26/23 03/26/23 Range/Units 11:22 16:24 20:12 POC Glucose (mg/dL) 126 H 121 H 123 H (70-110) mg/dL Microbiology - Last 24 Hours (Table) 03/25/23 06:00 Blood Culture - Preliminary Blood 03/23/23 16:21 Blood Culture - Preliminary Blood Assessment and Plan (1) Bacteremia Current Visit: Yes Status: Acute Code(s): R78.81 - BACTEREMIA SNOMED Code(s): 2297003 (2) UTI (urinary tract infection) Current Visit: Yes Status: Acute Code(s): N39.0 - URINARY TRACT INFECTION, SITE NOT SPECIFIED SNOMED Code(s): 10216796 Plan: 1patient presented to hospital with sepsis in this patient with fever tac hycardia elevated white count and evidence of Proteus bacteremia source likely urinary as the patient having urinary symptoms and positive UA unfortunately no urine culture was done patient did have a left-sided abdominal pain and tenderness and the patient CT abdominal pelvis which is evidence of left-sided moderate hydronephrosis, urology has seen the patient, patient is waiting for cystoscopy and stent placement this morning 2Patient to with Rocephin 2 g daily and monitor clinical course closely Time with Patient: Less than 30
[2023-03-27] MEDS ORDERED: PROPOFOL 10 MG/ML 20 ML VIAL IV ONE (11:41)
[2023-03-27] MEDS ORDERED: LIDOCAINE 2% INJ 20 MG/ML (2 ML VIAL) ONE (11:41)
[2023-03-27] MEDS ORDERED: SUCCINYLCHOLINE CHLORIDE 200 MG/10 ML VIAL IV ONE (11:41)
[2023-03-27] MEDS ORDERED: MIDAZOLAM 2 MG/2 ML VIAL ONE (11:41)
[2023-03-27] MEDS ORDERED: fentaNYL (PF) 50 MCG/ML 2 ML AMP ONE (11:41)
[2023-03-27] MEDS ORDERED: IOPAMIDOL-370 100ML BTL MISCELLANE ONE (12:07)
--- NOTE | 2023-03-27 12:20 | P.OP ---
Date of Procedure: 03/27/23 Preoperative Diagnosis: Left ureteral stone with obstruction, left pyelonephrosis. Postoperative Diagnosis: Same Procedure(s) Performed: Cystoscopy, left ureteroscopy with placement of 626 stent Anesthesia: GALILEA Surgeon: Shawn Wilson Estimated Blood Loss (ml): 0 Pathology: none sent Condition: stable Disposition: PACU Indications for Procedure: Patient is 62. He is in the hospital for urinary tract infection with sepsis. He is found to have an obstructing stone with left-sided pyonephrosis. He comes for stent placement Description of Procedure: Patient is brought to the operating suite and given a general anesthetic. He's placed in lithotomy position with a sterile prep and drape. Cystoscopy Foroblique lens and 22-[place] sheath identifies a normal anterior urethra. The prostatic urethra is inflamed. The bladder wall shows acute and chronic inflammation. Both ureteral orifices identified and somewhat small. With some difficulty and pass an 035 wire up the left ureteral orifice into the kidney. Over the wires passed an open-ended catheter and there is a hydronephrotic drip. Some dye is injected to make sure him in the kidney and I am. Through the open-ended catheter the wires passed back into the kidney. The open-ended cath eters removed and a 6 x 26 double-J catheters passed coils in the bladder and in the renal pelvis. The bladder strain the patient's awake and returned recovery room good condition Impression: Successful drainage of left ureteral and renal obstruction secondary to stone. Recommendations. The patient will need a left ureteroscopy and laser lithotripsy later date.
[2023-03-27 12:59] LABS: Glucose,Whole Blood 97 mg/dL (70-110)
[2023-03-27] MEDS: METOPROLOL TARTRATE 50 MG TAB PO SCH ×2 (14:58→20:41)
[2023-03-27] MEDS: APIXABAN 5 MG TAB PO SCH ×2 (14:58→20:41)
--- NOTE | 2023-03-27 15:32 | FL ---
EXAMINATION TYPE: FL guidance operating room DATE OF EXAM: 03/27/2023 FLUOROSCOPY Fluoroscopy time of 1 minute 15 seconds was used during urologic intervention. 3 image/s document/s the procedure. DOSE AREA PRODUCT (DAP) UGY*M,MGY*CM: 28.3
[2023-03-27 16:23] LABS: Glucose,Whole Blood 95 mg/dL (70-110)
[2023-03-27] MEDS: predniSONE 10 MG TAB PO SCH (17:34)
[2023-03-27 20:13] LABS: Glucose,Whole Blood 125 mg/dL (70-110)
[2023-03-27] MEDS: ACETAMINOPHEN TAB 325 MG TAB PO PRN (20:41)
[2023-03-27] MEDS: ALPRAZolam 0.25 MG TAB PO PRN (20:41)
[2023-03-27] MEDS: TAMSULOSIN 0.4 MG CAP.ER.24H PO SCH (20:41)
--- NOTE | 2023-03-27 21:09 | XR ---
EXAMINATION TYPE: XR abdomen acute w cxr DATE OF EXAM: 03/27/2023 COMPARISON: CT 03/25/2023 HISTORY: 62-year-old male abdominal pain and distention TECHNIQUE: Supine, upright, and left side down lateral decubitus views of the abdomen are obtained. FINDINGS: Heart mildly enlarged. Hazy densities likely related to large patient body habitus. The lung bases ar e underpenetrated and not well assessed. No obvious findings of free intraperitoneal air. Ongoing marked colonic distention estimated to measure up to 8.3 cm. No convincing dilated small mansoor l loops. Possible transition point near the splenic flexure of the colon. Left ureteral stent is in place. Very limited assessment due to patient's large body habitus. IMPRESSION: 1. Very limited assessment due to patient's large body habitus. 2. Mild cardiomegaly. Lung bases are underpenetrated and not well assessed. 3. Ongoing marked distention of the colon. Some portions measure up to 8.3 cm. Possible transition po int at the splenic flexure of the colon. Ongoing close follow-up recommended. If the finding persists , consider follow-up CT with the administration of rectal contrast to exclude a colonic obstruction. 4. No free air seen.
[2023-03-28] MEDS: SODIUM CHLORIDE 0.9% 1,000 ML IV SCH ×2 (00:14→16:40)
[2023-03-28] MEDS: MELATONIN 3 MG TABLET PO PRN ×2 (03:13→20:41)
[2023-03-28] MEDS: ALPRAZolam 0.25 MG TAB PO PRN ×2 (03:13→16:39)
[2023-03-28 05:55] LABS: Glucose,Whole Blood 110 mg/dL (70-110)
--- NOTE | 2023-03-28 06:29 | PN ---
PROGRESS NOTE DATE OF SERVICE: 03/27/2023 SUBJECTIVE: This is a 62-year-old gentleman who was admitted with multiple medical problems including bilateral pneumonia, also had Proteus sepsis. The patient underwent cystoscopy and left ureteral stent today. The patient complains of abdominal distention. The patient is also constipated but has some bowel movements since last night per staff. There is no history of fever, rigors, chills. PAST MEDICAL HISTORY: Reviewed. REVIEW OF SYSTEMS: A 14-point review of systems is negative except as mentioned earlier. MEDICATIONS: Current medications include Eliquis. Doses and rest of medication noted. PHYSICAL EXAMINATION: VITAL SIGNS: Pulse is 87, blood pressure 130/70, respirations 17. HEENT: Conjunctivae normal. CARDIOVASCULAR: S1, S2. RESPIRATIONS: Bilateral scattered rhonchi. ABDOMEN: Soft, distended. Bowel sounds diminished. No ascites. No guarding. No rigidity. LEGS: No edema. NERVOUS SYSTEM: No focal deficits. LABORATORY DATA: Labs are noted. ASSESSMENT: 1. Bibasilar pneumonia. 2. Proteus mirabilis sepsis. 3. A 7 mm left-sided ureteral stone with hydronephrosis, status post cystoscopy and ureteral stent. 4. Abdominal distention. 5. Acute hypoxic respiratory failure, multifactorial, present on admission. 6. Obesity hypoventilation syndrome. 7. Possible chronic obstructive pulmonary disease/chronic bronchitis. 8. Chronic kidney disease. 9. Multiple medical problems. RECOMMENDATIONS: This is a 62-year-old gentleman who presented with multiple complex medical problems. We will monitor the patient closely. Continue the current treatment. Continue empiric antibiotics. Otherwise, I would also recommend repeat labs in the morning. Continue with bronchodilators and rest of medications and I would also recommend acute abdominal series. Closely follow up with multiple consultants as mentioned early. See orders for further details. Prognosis guarded. MMODL / IJN: [id number] /
[2023-03-28] MEDS: IPRATROPIUM-ALBUTEROL 3 ML NEB INHALATION SCH ×4 (08:36→19:42)
[2023-03-28] MEDS: FORMOTEROL FUMARATE 20 MCG/2 ML NEBU INHALATION SCH ×2 (08:36→19:41)
[2023-03-28] MEDS: BUDESONIDE 1 MG/2 ML NEBU INHALATION SCH ×2 (08:36→19:41)
[2023-03-28] MEDS: polyethylene glycoL 3350 17 GM POWD.PACK PO SCH (08:47)
[2023-03-28] MEDS: LACTULOSE 20 GM/30 ML CUP PO SCH ×3 (08:47→20:42)
[2023-03-28] MEDS: MULTIVITAMINS, THERA 1 EACH TAB PO SCH (08:48)
[2023-03-28] MEDS: predniSONE 10 MG TAB PO SCH (08:48)
[2023-03-28] MEDS: METOPROLOL TARTRATE 50 MG TAB PO SCH ×2 (08:48→20:38)
[2023-03-28] MEDS: APIXABAN 5 MG TAB PO SCH ×2 (08:48→20:41)
--- NOTE | 2023-03-28 09:48 | P.PN ---
Subjective Progress Note Date: 03/28/23 Principal diagnosis: Left ureteral stone Underwent left-sided stent insertion purulent urine draining from the left kidney, denies any flank pain or gross hematuria Objective - Vital Signs Vital signs: Vital Signs Temp 99.2 F 03/28/23 08:00 Pulse 75 03/28/23 08:00 Resp 18 03/28/23 08:00 BP 129/75 03/28/23 08:00 Pulse Ox 96 03/28/23 08:00 FiO2 30 03/28/23 04:55 Intake & Output 03/27/23 03/28/23 03/28/23 18:59 06:59 18:59 Intake Total 568 118 Output Total 1505 1700 Balance -937 -1700 118 Intake: IV 450 Oral 118 118 Output: Urine 1500 1700 Estimated Blood Loss 5 Other: Voiding Method Urinal Urinal # Voids 2 2 # Bowel Movements 1 - Constitutional General appearance: Present: no acute distress - Gastrointestinal General gastrointestinal: Present: distended, tenderness (diffused ) - Labs CBC & Chem 7: 03/26/23 06:37 03/26/23 06:37 Labs: Abnormal Lab Results - Last 24 Hours (Table) 03/27/23 Range/Units 20:10 POC Glucose (mg/dL) 125 H (70-110) mg/dL Microbiology - Last 24 Hours (Table) 03/25/23 06:00 Blood Culture - Preliminary Blood 03/23/23 16:21 Blood Culture - Preliminary Blood Assessment and Plan Assessment: 62-year-old male evidence of a 7 mm left-sided ureteral stone with hydronephrosis. blood culture grown Proteus. Underwent left-sided stent insertion on March 27 with purulent urine from the kidney -IV antibiotics per infectious disease -Discussed with him and his he will eventually require left-sided ureteroscopy with holmium laser and stent removal as an outpatient
[2023-03-28 10:50] LABS: Calcium 7.9 mg/dL (8.4-10.2); Potassium 4.6 mmol/L (3.5-5.1)
[2023-03-28 10:58] VITALS: BMI 55.0
[2023-03-28 11:10] LABS: Anisocytosis Slight; HCT 53.3 % (39.0-53.0); HGB 17.2 gm/dL (13.0-17.5); MCH 28.5 pg (25.0-35.0); MCHC 32.4 g/dL (31.0-37.0); MCV 88.1 fL (80.0-100.0); Mean Platelet Volume 9.9; RBC 6.05 m/uL (4.30-5.90); RDW 16.3 % (11.5-15.5); WBC 10.7 k/uL (3.8-10.6)
[2023-03-28 11:13] LABS: Platelet Count 186 k/uL (150-450)
--- NOTE | 2023-03-28 11:20 | P.PN ---
Subjective Progress Note Date: 03/28/23 Shortness of breath. I'm seeing this patient in new consultation today 03/22/2023 in the emergency room, waiting on a bed on the cardiac stepdown unit. Patient is a 62-year-old white male with past medical history of restrictive lung disease probably related to his morbid obesity, obstructive sleep apnea on CPAP support of 14, hyperlipidemia, BPH, and GERD. Patient was recently seen in the office by Dr. Lo, on 03/13/2023, for full PFT. Patient was found to have restrictive lung disease. The patient's FEV1 was 1.77 L which is 62% of predicted. The FVC is 2.14 L which is 55% of predicted. The ratio was elevated. Total lung capacity is only 73% of predicted. Diffusion corrected for alveolar volume is normal. These lung function are consistent with a pulmonary restrictive process. It may relate to the patient's obesity. The patient also qualified for home O2, which he has not received yet. Patient reports that he's been becoming progressively more short of breath over the last few months. Patient also reports that he has been more short of breath and anxious lately, after finding out that his daughter has a potential cancer diagnosis. Patient has been reporting some nasal congestion and frequent cough without significant sputum production. Patient was found to be febrile on arrival to the emergency room with a T-max of 100.2F. Denies any sick contacts. He was found to be in A. fib RVR, with a heart rate in the 150s on arrival. He denies any chest pain, heart palpitations, lightheadedness, syncope. Patient was subsequently started on a Cardizem infusion which is currently infusing at 15 mg/hour, and a low intensity heparin infusion per protocol. Patient denies any prior history of A. fib. Chest x-ray on arrival showed cardiomegaly without any suspicious infiltrates or pleural effusions. D- dimer was elevated at 21.2, and a follow-up chest CTA was negative for pulmonary embolism. It did show some mild to moderate bibasilar linear scarring and/or atelectasis. No focal consolidation. Patient's CBC on arrival showed a WBC count of 9.6, hemoglobin 15.6, hematocrit 47.5, platelets 79,000. BMP on arrival showed a sodium 133, potassium 4.4, chloride 100, serum CO2 14, BUN 26, creatinine 1.86, glucose 150. Troponin was mildly elevated at 0.06. NT proBNP was not very elevated at 818. Patient's was negative for influenza, RSV, COVID- 19. Lactic acid level was 3.2 on arrival and is trending down to 2.2 after 1 L normal saline fluid resuscitation. He did receive one dose of Rocephin in the emergency room. Patient status has stabilized, and he is currently sitting up in bed, on BiPAP with settings of 14/5 and FiO2 of 50%. His respiratory rate is about 20 breaths per minute and he is achieving tidal volumes of 800. Vital signs are stable, and he will be transferred to the cardiac stepdown unit once bed available. Progress note dated 03/23/2023. 62-year-old male seen yesterday in consultation. Currently, the patient is seen today in room 373. His blood cultures were positive for Proteus species. The patient remains on Rocephin. We will get him a flutter valve. He's getting 5 L by nasal cannula. His BiPAP settings are 11 over 5 and 50%. White count 14.8, hemoglobin 16.1, hematocrit 49.3, and platelet count 82,000. PTT is 28.3. Sodi um 134, potassium 4.8, chlorides 101, CO2 21, anion gap 12, BUN 54, and creatinine 2.95. Progress note dated 03/24/2023. 62-year-old male seen in consultation 2 days ago. The patient is sitting in bed, and feels like he is improved. He did test positive for Proteus in the blood, and is currently being treated for that. His pro-calcitonin level is elevated. Currently, the patient is on 3 L of oxygen. He is getting Rocephin. He did use BiPAP last night, with settings of 11/5 and 50%. Current laboratory data includes a sodium 133, potassium 4.9, chlorides 103, CO2 20, anion gap 10, BUN 58, creatinine 2.06. Calcium is 7.4 with a magnesium of 2.9. Progress note dated 03/25/2023. 62-year-old male again seen in room 373. Anemia at the bedside. The patient is currently on oxygen at 3 L by nasal cannula. No IV fluids. The patient is using BiPAP at nighttime, with settings of 11/5 and 50%. Clinically he is doing okay. He seems a bit agitated today. Has not had a bowel movement for a number of days. He is getting medication to help that process along. No new labs today other than a glucose of 116. Blood cultures are positive for Proteus mirabilis. Progress note dated 04/05/2023. 62-year-old male, again seen today in room 373. The patient is on 2 L of oxygen. At nighttime, he uses BiPAP, 11/5, and 50%. The patient is not receiving any IV fluids. Clinically, the patient has improved, since being admitted here to the hospital. White count 15.2, hemoglobin 17.3, hematocrit 53.3, and platelet count 105,000. Sodium 136, potassium 4.3, chlorides 103, CO2 25, BUN 36, creatinine 1.33. Glucose is 106. Albumin is 3.1. All cultures were positive for Proteus mirabilis. The patient remains on Rocephin. His breathing is much improved. Chest x-ray was consistent with mild fluid overload, from March 25. On today's evaluation of 03/27/2023, the patient will be taken to the operating room for a cystoscopy and stent insertion as the patient has an 8 mm stone on t he left side in the ureter and the patient is going to have a stent placed by urology. Note that his septic and the patient had positive blood cultures with Proteus mirabilis and the patient is currently on broad-spectrum antibiotics maintained on IV Rocephin at a dose of 2 mg224 hours. The patient is also known to have multiple other medical problems and the patient is morbidly obese with a BMI 55 and the patient is utilizing a BiPAP overnight. He is on his CPAP at a pressure of 14 cm of water. He has also hypertension, hyperlipidemia, BPH and acid reflux. He is known to have some chronic pulmonary interstitial due to his morbid obesity. The patient initially came to us with sepsis and atrial fibrillation with rapid ventricular response and his current cardiac rhythm is sternal atrial fibrillation his rate is controlled and his taken Eliquis for anticoagulants the addition to metoprolol 50 mg by mouth twice a day. His rate is controlled. On today's evaluation of 03/28/2023, the patient is sitting up on a chair. The patient underwent a stent insertion in the left ureter. Patient is producing adequate urine output at this point in time. He is on IV Rocephin regarding Proteus mirabilis in his blood. As mentioned, the patient had a underlying sepsis probably of a urinary source. Meanwhile, he has developed diffuse abdominal distention. Flat abdomen film was performed yesterday and the patient had marked abdominal distention of the colon and the colon was measuring up to 8.3 cm in size and there was possible transition point at the splenic flexure. He is having some liquidy stools overtly are not frequent. He is having nausea. No emesis for now. The sodium is at 133 with a potassium level of 4.6, BUN is at 26 with a creatinine of 1.04 and the patient is recovered from his acute kidney injury. There was a count from yesterday was at 15.2 with a hemoglobin of 17.3. He remains in atrial fibrillation. He is currently off the BiPAP. He is currently on oxygen at 2 L nasal cannula. The patient's pulse ox is 95-96% on 2 L of oxygen by nasal cannula. We'll hold the BiPAP especially with his underlying abdominal distention/ileus. Objective - Vital Signs Vital signs: Vital Signs Temp 99.2 F 03/28/23 08:00 Pulse 75 03/28/23 08:00 Resp 18 03/28/23 08:00 BP 129/75 03/28/23 08:00 Pulse Ox 96 03/28/23 08:00 FiO2 30 03/28/23 04:55 Intake & Output 03/27/23 03/28/23 03/28/23 18:59 06:59 18:59 Intake Total 568 118 Output Total 1505 1700 Balance -937 -1700 118 Weight 154.902 kg Intake: IV 450 Oral 118 118 Output: Urine 1500 1700 Estimated Blood Loss 5 Other: Voiding Method Urinal Urinal Urinal # Voids 2 2 # Bowel Movements 1 - Exam No acute distress, oriented 3. Currently on 2 L of oxygen. Saturations are 97%. HEENT examination is grossly unremarkable. Neck supple. Full range of motion. No adenopathy thyromegaly or neck vein distention. Cardiovascular examination reveals irregular rhythm consistent with atrial fibrillation S1-S2 normal. No S3 or S4. No discernible murmur noted. Heart sounds are distant. Lungs reveal bilateral rhonchi. Cough is a bit wet sounding. No wheezes or crackles. Breath sounds equal bilaterally. Breath sounds are improved. Abdomen obese. No masses or tenderness. Abdomen is significantly distended. It's nontender at this point in time. Bowel sounds are hypoactive. There is positive tympany on palpation. Extremities are intact. No cyanosis clubbing or edema. His lower extremities are wrapped by LAURIE bandages. Skin is without rash or lesion. Neurologic examinationNeurologically, the patient is awake and alert and the patient does not have any focal neurological deficit. Cranial nerves are essentially intact. - Labs CBC & Chem 7: 03/26/23 06:37 03/28/23 10:00 Labs: Abnormal Lab Results - Last 24 Hours (Table) 03/27/23 03/28/23 Range/Units 20:10 10:00 Sodium 133 L (137-145) mmol/L Chloride 97 L (98-107) mmol/L BUN 26 H (9-20) mg/dL Glucose 114 H (74-99) mg/dL POC Glucose (mg/dL) 125 H (70-110) mg/dL Calcium 7.9 L (8.4-10.2) mg/dL Microbiology - Last 24 Hours (Table) 03/26/23 07:00 Blood Culture - Preliminary Blood 03/25/23 06:00 Blood Culture - Preliminary Blood 03/23/23 16:21 Blood Culture - Preliminary Blood Assessment and Plan Plan: Acute on chronic hypoxemic respiratory failure, multifactorial, secondary to acute bronchitis, mild fluid overload, and new onset atrial fibrillation with RVR. Rate is under better control and the patient is currently on 2 L of oxygen by nasal cannula Left ureteral stone measuring 8 mm in size, along with previous history of hematuria and the patient is post cystoscopy and double J stent insertion Proteus mirabilis sepsis likely have a urinary source and the patient is currently on Rocephin 2 g every 24 hours , subsequent blood cultures are negative for now. New onset atrial fibrillation with RVR. The rate is controlled and the patient on metoprolol and Eliquis Abdominal distention, ileus versus bowel obstruction. The patient significant colonic dilatation measuring up to 8 cm in size and the transition point is at the splenic flexure. Restrictive lung disease, secondary to obesity. Anion gap metabolic acidosis, resolved. Troponin leak, secondary to supply/demand mismatch. Acute kidney injury, improved Thrombocytopenia. Obstructive sleep apnea syndrome, on home CPAP. Morbid obesity. BPH. GERD. Hyperlipidemia. Previous history of tobacco use. Plan: Proceed with a CAT scan of the abdomen and pelvis, oral contrast as the patient is able to take oral contrast. We'll ask general surgery to evaluate the patient. Continue 2 g of Rocephin every 24 hours The patient is status post cystoscopy with double-J stent placement Note that the patient was septic with Proteus mirabilis, subsequent blood cultures are negative Currently on 2 L of oxygen by nasal cannula Renal function is improved and the creatinine continues to improve and the creatinine is normalized White cell count from yesterday was 15.2 Hemodynamically stable Continue CPAP overnight Echo was technically a very difficult study We'll continue to follow
[2023-03-28 11:26] LABS: Glucose,Whole Blood 115 mg/dL (70-110)
--- NOTE | 2023-03-28 12:04 | P.PN ---
Subjective Patient is seen for follow-up for acute kidney injury. Mostly ATN from sepsis and IV contrast. Renal function has been improving. Serum creatinine down to 1.3 mg/dL Patient has been voiding CT of the abdomen showed moderate left hydronephrosis with 7-8 mm proximal left ureteral calcification. Ultrasound on initial admission had not shown any a bnormality. S/p left ureteral stent placement yesterday. C/o weakness. UOP 3200 ml Objective - Vital Signs Vital signs: Vital Signs Temp 99.2 F 03/28/23 08:00 Pulse 75 03/28/23 08:00 Resp 18 03/28/23 08:00 BP 129/75 03/28/23 08:00 Pulse Ox 96 03/28/23 08:00 FiO2 30 03/28/23 04:55 Intake & Output 03/27/23 03/28/23 03/28/23 18:59 06:59 18:59 Intake Total 568 118 Output Total 1505 1700 Balance -937 -1700 118 Weight 154.902 kg Intake: IV 450 Oral 118 118 Output: Urine 1500 1700 Estimated Blood Loss 5 Other: Voiding Method Urinal Urinal Urinal # Voids 2 2 # Bowel Movements 1 - Exam Patient is comfortable awake alert oriented 3. Lungs are clear CVS s1 and S2 Abdomen soft, distended No significant edema. [employer] exam grossly intact - Labs CBC & Chem 7: 03/28/23 10:00 03/28/23 10:00 Labs: Abnormal Lab Results - Last 24 Hours (Table) 03/27/23 03/28/23 03/28/23 Range/Units 20:10 10:00 10:00 WBC 10.7 H (3.8-10.6) k/uL RBC 6.05 H (4.30-5.90) m/uL Hct 53.3 H (39.0-53.0) % RDW 16.3 H (11.5-15.5) % Sodium 133 L (137-145) mmol/L Chloride 97 L (98-107) mmol/L BUN 26 H (9-20) mg/dL Glucose 114 H (74-99) mg/dL POC Glucose (mg/dL) 125 H (70-110) mg/dL Calcium 7.9 L (8.4-10.2) mg/dL 03/28/23 Range/Units 11:25 WBC (3.8-10.6) k/uL RBC (4.30-5.90) m/uL Hct (39.0-53.0) % RDW (11.5-15.5) % Sodium (137-145) mmol/L Chloride (98-107) mmol/L BUN (9-20) mg/dL Glucose (74-99) mg/dL POC Glucose (mg/dL) 115 H (70-110) mg/dL Calcium (8.4-10.2) mg/dL Microbiology - Last 24 Hours (Table) 03/26/23 07:00 Blood Culture - Preliminary Blood 03/25/23 06:00 Blood Culture - Preliminary Blood 03/23/23 16:21 Blood Culture - Preliminary Blood Assessment and Plan Assessment: 1. Acute kidney injury secondary to ATN secondary to severe sepsis and contrast-induced acute kidney injury. Patient was also on NSAIDs prior to admission. CT of the abdomen shows left hydronephrosis with 7-8 mm calculus. Ultrasound done on initial admission did not reveal any hydronephrosis. Creatinine peaked at 2.9 at this admission and is 1.0 today. Patient underwent CTA on 03/21/2023. Unknown baseline renal function. No hydronephrosis noted on kidney ultrasound. 2. Metabolic acidosis secondary to acute kidney injury. 3. Severe sepsis secondary to Proteus bacteremia. 4. Acute on chronic hypoxic respiratory failure related to acute bronchitis in A. fib with RVR. 5. A. fib with RVR. On anticoagulation and Lopressor. Rate controlled now. 6. Morbid obesity. 7. Pyuria possibly UTI. Urine culture not sent out. Patient has been on antibiotics for about 3 days 8. Left hydronephrosis with 7-8 mm calculus s/p cystoscopy and left ureteral stent placement on 03/27/23 Plan: Continue IV antibiotics Repeat labs in a.m. Continue off of IV fluids. Treatment of constipation as per primary service, consider surgical consult.
--- NOTE | 2023-03-28 12:17 | P.PN ---
Subjective Progress Note Date: 03/28/23 Principal diagnosis: Proteus, complicated UTI and bacteremia Patient is a 62-year-old male with a history of atrial fibrillation presenting to the ER on 03/21/2023 for evaluation of increasing shortness of breath, patient did have evidence of Proteus bacteremia did have a CT abdominal pelvis with evidence of left-sided moderate hydronephrosis. Patient is status post cystoscopy and left ureteral stent placed in on 03/27/2023 On today's evaluation that is 03/28/2023, the patient continues to be afebrile, patient is breathing comfortably currently on a 2 L nasal cannula oxygen, patient denies having any chest pain, the patient did have occasional cough but no sputum production , still complaining of left-sided abdominal discomfort and distention did have a few bowel movements per the nursing staff Objective - Vital Signs Vital signs: Vital Signs Temp 99.2 F 03/28/23 08:00 Pulse 75 03/28/23 08:00 Resp 18 03/28/23 08:00 BP 129/75 03/28/23 08:00 Pulse Ox 96 03/28/23 08:00 FiO2 30 03/28/23 04:55 Intake & Output 03/27/23 03/28/23 03/28/23 18:59 06:59 18:59 Intake Total 568 118 Output Total 1505 1700 Balance -937 -1700 118 Weight 154.902 kg Intake: IV 450 Oral 118 118 Output: Urine 1500 1700 Estimated Blood Loss 5 Other: Voiding Method Urinal Urinal Urinal # Voids 2 2 # Bowel Movements 1 - Exam GENERAL DESCRIPTION: A middle-age male up in bed in no distress RESPIRATORY SYSTEM: Unlabored breathing , decreased breath sounds at bases HEART: S1 S2 regular rate and rhythm , ABDOMEN: Soft , mild distention and tenderness EXTREMITIES: No edema feet - Labs CBC & Chem 7: 03/28/23 10:00 03/28/23 10:00 Labs: Abnormal Lab Results - Last 24 Hours (Table) 03/27/23 03/28/23 03/28/23 Range/Units 20:10 10:00 10:00 WBC 10.7 H (3.8-10.6) k/uL RBC 6.05 H (4.30-5.90) m/uL Hct 53.3 H (39.0-53.0) % RDW 16.3 H (11.5-15.5) % Sodium 133 L (137-145) mmol/L Chloride 97 L (98-107) mmol/L BUN 26 H (9-20) mg/dL Glucose 114 H (74-99) mg/dL POC Glucose (mg/dL) 125 H (70-110) mg/dL Calcium 7.9 L (8.4-10.2) mg/dL Microbiology - Last 24 Hours (Table) 03/26/23 07:00 Blood Culture - Preliminary Blood 03/25/23 06:00 Blood Culture - Preliminary Blood 03/23/23 16:21 Blood Culture - Preliminary Blood Assessment and Plan (1) Bacteremia Current Visit: Yes Status: Acute Code(s): R78.81 - BACTEREMIA SNOMED Code(s): 2349350 (2) UTI (urinary tract infection) Current Visit: Yes Status: Acute Code(s): N39.0 - URINARY TRACT INFECTION, SITE NOT SPECIFIED SNOMED Code(s): 21273099 Plan: 1patient presented to hospital with sepsis in this patient with fever tachycardia elevated white count and evidence of Proteus bacteremia source likely urinary as the patient having urinary symptoms and positive UA unfortunately no urine culture was done patient did have a left-sided abdominal pain and tenderness and the patient CT abdominal pelvis which is evidence of left-sided moderate hydronephrosis, urology has seen the patient, patient is status post cystoscopy and left ureteral stent placement 03/27/2023 2Patient to with Rocephin 2 g daily and plan to finish therapy with oral Ceftin once stable for discharge from other consultants and patient has multiple questions were answered in Layman terms Time with Patient: Less than 30
[2023-03-28] MEDS: IOPAMIDOL CONTRAST (ORAL USE) VIAL PO PRN ×2 (13:10→14:28)
[2023-03-28 14:35] LABS: Band Neutrophils % 4 %; Lymphocytes # (M) 1.07 k/uL (1.0-4.8); Metamyelocytes # (M) 0.11 k/uL (0); Metamyelocytes % 1 %; Monocytes # (M) 0.96 k/uL (0-1.0); Myelocytes # (M) 0.21 k/uL (0); Myelocytes % 2 %; Neutrophils % (M) 76 %; Nucleated Red Blood Cells 0 /100 WBC (0-0); Total Cells Counted 200
--- NOTE | 2023-03-28 15:19 | CT ---
EXAMINATION TYPE: CT abdomen pelvis wo con CT DLP: 2666.2 mGycm, Automated exposure control for dose reduction was used. DATE OF EXAM: 03/28/2023 3:10 PM COMPARISON: CT abdomen pelvis most recent from 03/25/2023, acute abdominal series 03/27/2023 . CLINICAL INDICATION:Male, 62 years old with history of abd pain and distention; abdominal pain, diste ntion TECHNIQUE: Standard CT of the abdomen and pelvis following the administration of oral contrast. Cor onal and sagittal reformats were performed. FINDINGS: Limited evaluation due to lack of intravenous contrast. LOWER CHEST: Bilateral lower lobe linear atelectasis. Mild cardiomegaly. No pericardial effusion. Aor tic valvular calcifications. ABDOMEN LIVER: Unremarkable noncontrast appearance GALLBLADDER AND BILE DUCTS: Unremarkable. PANCREAS: Unremarkable noncontrast appearance SPLEEN: Unremarkable noncontrast appearance ADRENAL GLANDS: Unremarkable noncontrast appearance. KIDNEYS AND URETERS: Interval placement of left ureter stent with resolution of hydronephrosis. Previ ously seen left proximal ureteral calculus is no longer visualized. There is a nonobstructive tube ov er calculus reduction within the inferior pole the left kidney. No hydronephrosis or renal calculi in volving the right kidney. PELVIS BLADDER: Decompressed with ureteral stent. REPRODUCTIVE: Unremarkable. ABDOMEN & PELVIS STOMACH AND BOWEL: Small hiatal hernia. Enteric contrast reaches the rectum. Dilated small and large bowel with air-fluid levels identified. No focal transition point. The hepatic flexure measures up to 9.8 cm in diameter. Small bowel measures up to 3.0 cm in diameter. No focal wall thickening. PERITONEUM: No evidence of pneumoperitoneum or free fluid. VASCULATURE: No evidence of aortic aneurysm. MUSCULOSKELETAL: No acute osseous abnormalities. Moderate disc degeneration changes are present throu ghout the thoracolumbar spine. Partial ankylosis of the T9-T11 vertebral bodies. LYMPH NODES: No gross evidence for lymphadenopathy. SOFT TISSUE/ABDOMINAL WALL: Small to moderate size fat filled umbilical hernia. IMPRESSION: 1. Dilated small and large bowel with air-fluid levels and lack of focal transition point. This is m ost consistent with an ileus. 2. Interval placement of left ureteral stent with improvement of left-sided hydronephrosis. Previousl y seen left proximal ureteral calculus is no longer visualized. Stable punctate 2 mm nonobstructive l eft renal calculus.
--- NOTE | 2023-03-28 16:01 | P.GSCN ---
History of Present Illness Consult date: 03/28/23 Reason for Consult: Abdominal distention History of present illness: 62-year-old male hospitalized with abdominal pain. Patient was found to have urinary sepsis with Proteus. Bacteremia present. Patient had a left hydronephrosis secondary to kidney stone. Underwent cystoscopy with stent placement yesterday. Patient has had gradual abdominal bloating. Says his decreased bowel movements started a few days prior to admission. He says he had a small bowel movement today and also passing flatus today. A second CAT scan was performed today and reviewed. Transverse colon measuring 9.5 cm. No wall thickening present. No pneumatosis noted. Patient is on a regular diet currently. Patient says his last colonoscopy was 10 years ago. No rectal bleeding. Review of Systems The patient denies any acute changes in vision or hearing, no dysphagia or odynophagia, no chest pain or shortness of breath, no dysuria or hematuria, no headache, no runny nose, no rectal bleeding or melena, no unexplained weight l oss Past Medical History Past Medical History: No Reported History Additional Past Medical History / Comment(s): provided by History of Any Multi-Drug Resistant Organisms: None Reported Past Surgical History: No Surgical Hx Reported Additional Past Surgical History / Comment(s): provided by Past Anesthesia/Blood Transfusion Reactions: No Reported Reaction Additional Past Anesthesia/Blood Transfusion Reaction / Comm: provided by Past Psychological History: No Psychological Hx Reported Smoking Status: Never smoker Past Alcohol Use History: None Reported Past Drug Use History: None Reported Medications and Allergies Home Medications Medication Instructions Recorded Confirmed Type Aspirin EC [Ecotrin Low Dose] 81 mg PO DAILY 03/21/23 03/21/23 History Furosemide [Lasix] 20 mg PO DAILY 03/21/23 03/21/23 History Multivitamins, Thera [Multivitamin 1 tab PO DAILY 03/21/23 03/21/23 History (formulary)] Omeprazole 20 mg PO DAILY 03/21/23 03/21/23 History Tamsulosin [Flomax] 0.8 mg PO HS 03/21/23 03/21/23 History Allergies Allergy/AdvReac Type Severity Reaction Status Date / Time Penicillins Allergy Unknown Verified 03/21/23 19:44 Surgical - Exam Vital Signs Temp Pulse Resp BP Pulse Ox 100.2 F H 156 H 46 H 142/64 96 03/21/23 17:51 03/21/23 17:51 03/21/23 17:51 03/21/23 17:51 03/21/23 17:51 Physical exam: General: Well-developed, well-nourished HEENT: Normocephalic, sclerae nonicteric Abdomen: distended, tympanic, mild diffuse tenderness, no rebound or guarding Extremities: Bilateral lower extremity edema Neuro: Alert and oriented patient sitting in the chair, mildly short of breath Results - Labs 03/28/23 10:00 03/28/23 10:00 Abnormal Lab Results - Last 24 Hours (Table) 03/27/23 03/28/23 03/28/23 Range/Units 20:10 10:00 10:00 WBC 10.7 H (3.8-10.6) k/uL RBC 6.05 H (4.30-5.90) m/uL Hct 53.3 H (39.0-53.0) % RDW 16.3 H (11.5-15.5) % Neutrophils # (Manual) 8.50 H (1.3-7.7) k/uL Metamyelocytes # (Man) 0.11 H (0) k/uL Myelocytes # (Manual) 0.21 H (0) k/uL Sodium 133 L (137-145) mmol/L Chloride 97 L (98-107) mmol/L BUN 26 H (9-20) mg/dL Glucose 114 H (74-99) mg/dL POC Glucose (mg/dL) 125 H (70-110) mg/dL Calcium 7.9 L (8.4-10.2) mg/dL 03/28/23 Range/Units 11:25 WBC (3.8-10.6) k/uL RBC (4.30-5.90) m/uL Hct (39.0-53.0) % RDW (11.5-15.5) % Neutrophils # (Manual) (1.3-7.7) k/uL Metamyelocytes # (Man) (0) k/uL Myelocytes # (Manual) (0) k/uL Sodium (137-145) mmol/L Chloride (98-107) mmol/L BUN (9-20) mg/dL Glucose (74-99) mg/dL POC Glucose (mg/dL) 115 H (70-110) mg/dL Calcium (8.4-10.2) mg/dL Microbiology - Last 24 Hours (Table) 03/26/23 07:00 Blood Culture - Preliminary Blood 03/25/23 06:00 Blood Culture - Preliminary Blood 03/23/23 16:21 Blood Culture - Preliminary Blood Diabetes panel 03/28/23 Range/Units 10:00 Sodium 133 L (137-145) mmol/L Potassium 4.6 (3.5-5.1) mmol/L Chloride 97 L (98-107) mmol/L Carbon Dioxide 27 (22-30) mmol/L BUN 26 H (9-20) mg/dL Creatinine 1.04 (0.66-1.25) mg/dL Glucose 114 H (74-99) mg/dL Calcium 7.9 L (8.4-10.2) mg/dL Calcium panel 03/28/23 Range/Units 10:00 Calcium 7.9 L (8.4-10.2) mg/dL Pituitary panel 03/28/23 Range/Units 10:00 Sodium 133 L (137-145) mmol/L Potassium 4.6 (3.5-5.1) mmol/L Chloride 97 L (98-107) mmol/L Carbon Dioxide 27 (22-30) mmol/L BUN 26 H (9-20) mg/dL Creatinine 1.04 (0.66-1.25) mg/dL Glucose 114 H (74-99) mg/dL Calcium 7.9 L (8.4-10.2) mg/dL Adrenal panel 03/28/23 Range/Units 10:00 Sodium 133 L (137-145) mmol/L Potassium 4.6 (3.5-5.1) mmol/L Chloride 97 L (98-107) mmol/L Carbon Dioxide 27 (22-30) mmol/L BUN 26 H (9-20) mg/dL Creatinine 1.04 (0.66-1.25) mg/dL Glucose 114 H (74-99) mg/dL Calcium 7.9 L (8.4-10.2) mg/dL Assessment and Plan (1) Ileus Narrative/Plan: 62-year-old male with abdominal distention. Etiology most likely ileus from urosepsis. Would make nothing by mouth at this time given the degree of abdominal distention. Add Ann Sanabriacolax suppositories, and simethicone. Ambulate. Frequent position changes in bed also discussed. Continue antibiotics and supportive care. We'll follow closely. Current Visit: Yes Status: Acute Code(s): K56.7 - ILEUS, UNSPECIFIED SNOMED Code(s): 254704944
[2023-03-28 16:24] LABS: Glucose,Whole Blood 115 mg/dL (70-110)
[2023-03-28] MEDS: METOCLOPRAMIDE 5 MG/ML 2 ML VIAL IVP SCH (16:39)
[2023-03-28] MEDS: bisacodyL 10 MG SUPP RECTAL SCH (16:40)
[2023-03-28 20:10] LABS: Glucose,Whole Blood 102 mg/dL (70-110)
[2023-03-28] MEDS: SIMETHICONE 80 MG CHEWABLE PO SCH ×2 (20:38→20:40)
[2023-03-28] MEDS: TAMSULOSIN 0.4 MG CAP.ER.24H PO SCH (20:40)
[2023-03-29] MEDS: METOCLOPRAMIDE 5 MG/ML 2 ML VIAL IVP SCH ×5 (00:08→23:30)
[2023-03-29] MEDS: ALPRAZolam 0.25 MG TAB PO PRN ×3 (00:13→23:40)
--- NOTE | 2023-03-29 00:35 | PN ---
PROGRESS NOTE DATE OF SERVICE: 03/28/2023 SUBJECTIVE: This 62-year-old gentleman admitted with multiple medical problems including Proteus sepsis, also had cystoscopy and ureteral stent. The patient also had abdominal distention and acute abdominal series showed marked distention of the colon. CT scan has been ordered at this time. Surgery has also seen the patient. PAST MEDICAL HISTORY: Reviewed. REVIEW OF SYSTEMS: A 14-point review is negative except as mentioned earlier. CURRENT MEDICATIONS: Reviewed include Eliquis, doses and rest of the medications noted. PHYSICAL EXAMINATION: VITAL SIGNS: Pulse is 75, blood pressure 120/72, respirations 18. HEENT: Conjunctivae normal. NECK: No jugular venous distention. CARDIOVASCULAR: S1, S2 muffled. RESPIRATIONS: Diminished at the basis. ABDOMEN: Soft, distended. LEGS: No edema, no swelling. NERVOUS SYSTEM: No focal deficits. LABORATORY DATA: WBC 10.7, sodium 133. ASSESSMENT: 1. Bibasilar pneumonia. 2. Proteus mirabilis sepsis. 3. A 7 mm left-sided ureteral stone with hydronephrosis, status post cystoscopy and ureteral stent. 4. Abdominal distention, possibly colonic ileus versus bowel obstruction. 5. Acute hypoxic respiratory failure, multifactorial, present on admission. 6. Obesity hypoventilation syndrome. 7. Possible COPD, chronic bronchitis. 8. Chronic kidney disease. 9. Multiple medical issues. RECOMMENDATIONS AND DISCUSSION: Recommended to continue current management, continue symptomatic treatment, continue the antibiotics, and continue with bronchodilators. Closely follow with Surgery, Urology, Infectious Disease. Most recent cultures are negative, but the patient has developed some abdominal distention. Recommend continue to follow with surgery and CAT scan of the abdomen and pelvis also. MMODL / IJN: [id number] /
[2023-03-29] MEDS: SODIUM CHLORIDE 0.9% 1,000 ML IV SCH (03:24)
[2023-03-29 06:08] LABS: Glucose,Whole Blood 102 mg/dL (70-110)
[2023-03-29] MEDS: BUDESONIDE 1 MG/2 ML NEBU INHALATION SCH ×2 (07:43→20:57)
[2023-03-29] MEDS: FORMOTEROL FUMARATE 20 MCG/2 ML NEBU INHALATION SCH ×2 (07:43→20:57)
[2023-03-29] MEDS: IPRATROPIUM-ALBUTEROL 3 ML NEB INHALATION SCH ×4 (07:43→20:57)
--- NOTE | 2023-03-29 08:54 | P.PN ---
Subjective Progress Note Date: 03/29/23 The patient is in the hospital with a urinary tract infection with sepsis, an obstructing stone with left ureteral pyelonephrosis. He underwent a stent placement on 03/27/2023. He feels better but still has a significant ileus. The ileus is probably due to the sepsis. His vital signs are stable. His white count is 10,000. Objective - Vital Signs Vital signs: Vital Signs Temp 97.3 F L 03/29/23 03:22 Pulse 80 03/29/23 08:00 Resp 14 03/29/23 03:22 BP 147/76 03/29/23 03:22 Pulse Ox 95 03/29/23 07:41 FiO2 30 03/28/23 04:55 Intake & Output 03/28/23 03/29/23 03/29/23 18:59 06:59 18:59 Intake Total 118 Output Total 400 1175 Balance -282 -1175 Weight 154.902 kg Intake: Oral 118 Output: Urine 400 1175 Other: Voiding Method Urinal Urinal # Voids 1 3 # Bowel Movements 1 - Constitutional General appearance: Present: morbidly obese - Gastrointestinal Gastrointestinal Comment(s): Distended abdomen consistent with obesity and ileus - Labs CBC & Chem 7: 03/28/23 10:00 03/28/23 10:00 Labs: Abnormal Lab Results - Last 24 Hours (Table) 03/28/23 03/28/23 03/28/23 Range/Units 10:00 10:00 11:25 WBC 10.7 H (3.8-10.6) k/uL RBC 6.05 H (4.30-5.90) m/uL Hct 53.3 H (39.0-53.0) % RDW 16.3 H (11.5-15.5) % Neutrophils # (Manual) 8.50 H (1.3-7.7) k/uL Metamyelocytes # (Man) 0.11 H (0) k/uL Myelocytes # (Manual) 0.21 H (0) k/uL Sodium 133 L (137-145) mmol/L Chloride 97 L (98-107) mmol/L BUN 26 H (9-20) mg/dL Glucose 114 H (74-99) mg/dL POC Glucose (mg/dL) 115 H (70-110) mg/dL Calcium 7.9 L (8.4-10.2) mg/dL 03/28/23 Range/Units 16:22 WBC (3.8-10.6) k/uL RBC (4.30-5.90) m/uL Hct (39.0-53.0) % RDW (11.5-15.5) % Neutrophils # (Manual) (1.3-7.7) k/uL Metamyelocytes # (Man) (0) k/uL Myelocytes # (Manual) (0) k/uL Sodium (137-145) mmol/L Chloride (98-107) mmol/L BUN (9-20) mg/dL Glucose (74-99) mg/dL POC Glucose (mg/dL) 115 H (70-110) mg/dL Calcium (8.4-10.2) mg/dL Microbiology - Last 24 Hours (Table) 03/26/23 07:00 Blood Culture - Preliminary Blood 03/25/23 06:00 Blood Culture - Preliminary Blood 03/23/23 16:21 Blood Culture - Preliminary Blood Assessment and Plan Assessment: Impression: Urinary tract infection with sepsis, left ureteral obstruction secondary to stone with secondary pyelonephrosis.. Infection paralytic ileus. Multiple medical illnesses Recommendation: Review urologic standpoint we'll do nothing other than continue with antibiotics.'s cystoscopy stone and stent removal will be performed at a later date.
[2023-03-29] MEDS: predniSONE 10 MG TAB PO SCH (09:58)
[2023-03-29] MEDS: APIXABAN 5 MG TAB PO SCH ×2 (09:58→20:38)
[2023-03-29] MEDS: LACTULOSE 20 GM/30 ML CUP PO SCH ×3 (09:58→20:39)
[2023-03-29] MEDS: SIMETHICONE 80 MG CHEWABLE PO SCH ×4 (09:58→20:40)
[2023-03-29] MEDS: MULTIVITAMINS, THERA 1 EACH TAB PO SCH (09:58)
[2023-03-29] MEDS: METOPROLOL TARTRATE 50 MG TAB PO SCH ×2 (09:58→20:38)
[2023-03-29] MEDS: polyethylene glycoL 3350 17 GM POWD.PACK PO SCH (09:59)
[2023-03-29] MEDS: bisacodyL 10 MG SUPP RECTAL SCH (09:59)
--- NOTE | 2023-03-29 11:09 | P.PN ---
Subjective Progress Note Date: 03/29/23 Shortness of breath. I'm seeing this patient in new consultation today 03/22/2023 in the emergency room, waiting on a bed on the cardiac stepdown unit. Patient is a 62-year-old white male with past medical history of restrictive lung disease probably related to his morbid obesity, obstructive sleep apnea on CPAP support of 14, hyperlipidemia, BPH, and GERD. Patient was recently seen in the office by Dr. Lo, on 03/13/2023, for full PFT. Patient was found to have restrictive lung disease. The patient's FEV1 was 1.77 L which is 62% of predicted. The FVC is 2.14 L which is 55% of predicted. The ratio was elevated. Total lung capacity is only 73% of predicted. Diffusion corrected for alveolar volume is normal. These lung function are consistent with a pulmonary restrictive process. It may relate to the patient's obesity. The patient also qualified for home O2, which he has not received yet. Patient reports that he's been becoming progressively more short of breath over the last few months. Patient also reports that he has been more short of breath and anxious lately, after finding out that his daughter has a potential cancer diagnosis. Patient has been reporting some nasal congestion and frequent cough without significant sputum production. Patient was found to be febrile on arrival to the emergency room with a T-max of 100.2F. Denies any sick contacts. He was found to be in A. fib RVR, with a heart rate in the 150s on arrival. He denies any chest pain, heart palpitations, lightheadedness, syncope. Patient was subsequently started on a Cardizem infusion which is currently infusing at 15 mg/hour, and a low intensity heparin infusion per protocol. Patient denies any prior history of A. fib. Chest x-ray on arrival showed cardiomegaly without any suspicious infiltrates or pleural effusions. D- dimer was elevated at 21.2, and a follow-up chest CTA was negative for pulmonary embolism. It did show some mild to moderate bibasilar linear scarring and/or atelectasis. No focal consolidation. Patient's CBC on arrival showed a WBC count of 9.6, hemoglobin 15.6, hematocrit 47.5, platelets 79,000. BMP on arrival showed a sodium 133, potassium 4.4, chloride 100, serum CO2 14, BUN 26, creatinine 1.86, glucose 150. Troponin was mildly elevated at 0.06. NT proBNP was not very elevated at 818. Patient's was negative for influenza, RSV, COVID- 19. Lactic acid level was 3.2 on arrival and is trending down to 2.2 after 1 L normal saline fluid resuscitation. He did receive one dose of Rocephin in the emergency room. Patient status has stabilized, and he is currently sitting up in bed, on BiPAP with settings of 14/5 and FiO2 of 50%. His respiratory rate is about 20 breaths per minute and he is achieving tidal volumes of 800. Vital signs are stable, and he will be transferred to the cardiac stepdown unit once bed available. Progress note dated 03/23/2023. 62-year-old male seen yesterday in consultation. Currently, the patient is seen today in room 373. His blood cultures were positive for Proteus species. The patient remains on Rocephin. We will get him a flutter valve. He's getting 5 L by nasal cannula. His BiPAP settings are 11 over 5 and 50%. White count 14.8, hemoglobin 16.1, hematocrit 49.3, and platelet count 82,000. PTT is 28.3. Sodi um 134, potassium 4.8, chlorides 101, CO2 21, anion gap 12, BUN 54, and creatinine 2.95. Progress note dated 03/24/2023. 62-year-old male seen in consultation 2 days ago. The patient is sitting in bed, and feels like he is improved. He did test positive for Proteus in the blood, and is currently being treated for that. His pro-calcitonin level is elevated. Currently, the patient is on 3 L of oxygen. He is getting Rocephin. He did use BiPAP last night, with settings of 11/5 and 50%. Current laboratory data includes a sodium 133, potassium 4.9, chlorides 103, CO2 20, anion gap 10, BUN 58, creatinine 2.06. Calcium is 7.4 with a magnesium of 2.9. Progress note dated 03/25/2023. 62-year-old male again seen in room 373. Anemia at the bedside. The patient is currently on oxygen at 3 L by nasal cannula. No IV fluids. The patient is using BiPAP at nighttime, with settings of 11/5 and 50%. Clinically he is doing okay. He seems a bit agitated today. Has not had a bowel movement for a number of days. He is getting medication to help that process along. No new labs today other than a glucose of 116. Blood cultures are positive for Proteus mirabilis. Progress note dated 04/05/2023. 62-year-old male, again seen today in room 373. The patient is on 2 L of oxygen. At nighttime, he uses BiPAP, 11/5, and 50%. The patient is not receiving any IV fluids. Clinically, the patient has improved, since being admitted here to the hospital. White count 15.2, hemoglobin 17.3, hematocrit 53.3, and platelet count 105,000. Sodium 136, potassium 4.3, chlorides 103, CO2 25, BUN 36, creatinine 1.33. Glucose is 106. Albumin is 3.1. All cultures were positive for Proteus mirabilis. The patient remains on Rocephin. His breathing is much improved. Chest x-ray was consistent with mild fluid overload, from March 25. On today's evaluation of 03/27/2023, the patient will be taken to the operating room for a cystoscopy and stent insertion as the patient has an 8 mm stone on t he left side in the ureter and the patient is going to have a stent placed by urology. Note that his septic and the patient had positive blood cultures with Proteus mirabilis and the patient is currently on broad-spectrum antibiotics maintained on IV Rocephin at a dose of 2 mg224 hours. The patient is also known to have multiple other medical problems and the patient is morbidly obese with a BMI 55 and the patient is utilizing a BiPAP overnight. He is on his CPAP at a pressure of 14 cm of water. He has also hypertension, hyperlipidemia, BPH and acid reflux. He is known to have some chronic pulmonary interstitial due to his morbid obesity. The patient initially came to us with sepsis and atrial fibrillation with rapid ventricular response and his current cardiac rhythm is sternal atrial fibrillation his rate is controlled and his taken Eliquis for anticoagulants the addition to metoprolol 50 mg by mouth twice a day. His rate is controlled. On today's evaluation of 03/28/2023, the patient is sitting up on a chair. The patient underwent a stent insertion in the left ureter. Patient is producing adequate urine output at this point in time. He is on IV Rocephin regarding Proteus mirabilis in his blood. As mentioned, the patient had a underlying sepsis probably of a urinary source. Meanwhile, he has developed diffuse abdominal distention. Flat abdomen film was performed yesterday and the patient had marked abdominal distention of the colon and the colon was measuring up to 8.3 cm in size and there was possible transition point at the splenic flexure. He is having some liquidy stools overtly are not frequent. He is having nausea. No emesis for now. The sodium is at 133 with a potassium level of 4.6, BUN is at 26 with a creatinine of 1.04 and the patient is recovered from his acute kidney injury. There was a count from yesterday was at 15.2 with a hemoglobin of 17.3. He remains in atrial fibrillation. He is currently off the BiPAP. He is currently on oxygen at 2 L nasal cannula. The patient's pulse ox is 95-96% on 2 L of oxygen by nasal cannula. We'll hold the BiPAP especially with his underlying abdominal distention/ileus. On today's evaluation of 03/29/2023, the patient is able to get up by himself and moved to the bathroom. He still having abdominal distention. I was quite concerned about a bowel obstruction. A CAT scan of the abdomen and pelvis was done and was consistent with ileus. Based on that, the patient was seen by general surgery and the recommendations was essentially conservative management with pro bowel motility agents. Is currently passing gas. Limited amount of stool. Meanwhile, he remains on IV Rocephin regarding his sepsis. He is producing urine output. He remains on oxygen 2 L/m nasal cannula. He remains in atrial fibrillation.Blood work from yesterday was noted. No new blood tests from today. He is on anticoagulation with Eliquis. He was started on Dulcolax 10 mg rectally on a daily basis. He is also receiving lactulose 30 g 3 times a day to facilitate his bowel movements. Objective - Vital Signs Vital signs: Vital Signs Temp 97 F L 03/29/23 09:55 Pulse 86 03/29/23 09:55 Resp 16 03/29/23 09:55 BP 140/70 03/29/23 09:55 Pulse Ox 97 03/29/23 09:55 FiO2 30 03/28/23 04:55 Intake & Output 03/28/23 03/29/23 03/29/23 18:59 06:59 18:59 Intake Total 118 Output Total 400 1175 Balance -282 -1175 Weight 154.902 kg Intake: Oral 118 Output: Urine 400 1175 Other: Voiding Method Urinal Urinal Urinal # Voids 1 3 # Bowel Movements 1 - Exam No acute distress, oriented 3. Currently on 2 L of oxygen. Saturations are 97%. HEENT examination is grossly unremarkable. Neck supple. Full range of motion. No adenopathy thyromegaly or neck vein distention. Cardiovascular examination reveals irregular rhythm consistent with atrial fibrillation S1-S2 normal. No S3 or S4. No discernible murmur noted. Heart sounds are distant. Lungs reveal bilateral rhonchi. Cough is a bit wet sounding. No wheezes or crackles. Breath sounds equal bilaterally. Breath sounds are improved. Abdomen obese. No masses or tenderness. Abdomen is significantly distended. It's nontender at this point in time. Bowel sounds are hypoactive. There is positive tympany on palpation. Extremities are intact. No cyanosis clubbing or edema. His lower extremities are wrapped by LAURIE bandages. Skin is without rash or lesion. Neurologic examinationNeurologically, the patient is awake and alert and the patient does not have any focal neurological deficit. Cranial nerves are essentially intact. - Labs CBC & Chem 7: 03/28/23 10:00 03/28/23 10:00 Labs: Abnormal Lab Results - Last 24 Hours (Table) 03/28/23 03/28/23 03/28/23 Range/Units 10:00 11:25 16:22 WBC 10.7 H (3.8-10.6) k/uL RBC 6.05 H (4.30-5.90) m/uL Hct 53.3 H (39.0-53.0) % RDW 16.3 H (11.5-15.5) % Neutrophils # (Manual) 8.50 H (1.3-7.7) k/uL Metamyelocytes # (Man) 0.11 H (0) k/uL Myelocytes # (Manual) 0.21 H (0) k/uL POC Glucose (mg/dL) 115 H 115 H (70-110) mg/dL Microbiology - Last 24 Hours (Table) 03/26/23 07:00 Blood Culture - Preliminary Blood 03/25/23 06:00 Blood Culture - Preliminary Blood 03/23/23 16:21 Blood Culture - Final Blood Assessment and Plan Plan: Acute on chronic hypoxemic respiratory failure, multifactorial, secondary to acute bronchitis, mild fluid overload, and new onset atrial fibrillation with RVR. Rate is under better control and the patient is currently on 2 L of oxygen by nasal cannula Left ureteral stone measuring 8 mm in size, along with previous history of hematuria and the patient is post cystoscopy and double J stent insertion Proteus mirabilis sepsis likely have a urinary source and the patient is currently on Rocephin 2 g every 24 hours , subsequent blood cultures are negative for now. New onset atrial fibrillation with RVR. The rate is controlled and the patient on metoprolol and Eliquis Abdominal distention, ileus , please refer to the CAT scan of the abdomen and the patient is being offered laxatives and conservative management. The patient is being seen by general surgery. Restrictive lung disease, secondary to obesity. Anion gap metabolic acidosis, resolved. Troponin leak, secondary to supply/demand mismatch. Acute kidney injury, improved Thrombocytopenia. Obstructive sleep apnea syndrome, on home CPAP. Morbid obesity. BPH. GERD. Hyperlipidemia. Previous history of tobacco use. Plan: CAT scan of the abdomen was noted General surgery consultation is appreciated Continue lactulose and Dulcolax suppositories Urine operas adequate Continue IV Rocephin Hemodynamically stable Continue CPAP overnight Echo was technically a very difficult study We'll continue to follow
--- NOTE | 2023-03-29 11:44 | P.PN ---
Subjective Progress Note Date: 03/29/23 Principal diagnosis: Abdominal bloating Patient says he feels somewhat better today. He did pass more flatus and had multiple loose stools. Volume of stools is fairly low. Repeat CAT scan was performed yesterday afternoon and demonstrated ileus pattern. Patient says he feels less distended. He is currently sitting on the toilet. Per the patient and his he is ambulating somewhat better today. Shortness of breath is improved. Objective - Vital Signs Vital signs: Vital Signs Temp 97 F L 03/29/23 09:55 Pulse 86 03/29/23 09:55 Resp 16 03/29/23 09:55 BP 140/70 03/29/23 09:55 Pulse Ox 97 03/29/23 09:55 FiO2 30 03/28/23 04:55 Intake & Output 03/28/23 03/29/23 03/29/23 18:59 06:59 18:59 Intake Total 118 Output Total 400 1175 Balance -282 -1175 Weight 154.902 kg Intake: Oral 118 Output: Urine 400 1175 Other: Voiding Method Urinal Urinal Urinal # Voids 1 3 # Bowel Movements 1 - Exam Abdomen: Distended, mild tenderness, overall distention slightly improved - Labs CBC & Chem 7: 03/28/23 10:00 03/28/23 10:00 Labs: Abnormal Lab Results - Last 24 Hours (Table) 03/28/23 03/28/23 Range/Units 10:00 16:22 Neutrophils # (Manual) 8.50 H (1.3-7.7) k/uL Metamyelocytes # (Man) 0.11 H (0) k/uL Myelocytes # (Manual) 0.21 H (0) k/uL POC Glucose (mg/dL) 115 H (70-110) mg/dL Microbiology - Last 24 Hours (Table) 03/26/23 07:00 Blood Culture - Preliminary Blood 03/25/23 06:00 Blood Culture - Preliminary Blood 03/23/23 16:21 Blood Culture - Final Blood Assessment and Plan (1) Ileus Narrative/Plan: Clinically patient seems to be improving. Continue antibiotics and prokinetic agents. Continue Dulcolax suppositories. May resume liquid diet without carbonation. Continue increasing activity as able. Will follow. Current Visit: Yes Status: Acute Code(s): K56.7 - ILEUS, UNSPECIFIED SNOMED Code(s): 490965504
--- NOTE | 2023-03-29 11:44 | P.PN ---
Subjective Patient is seen for follow-up for acute kidney injury. Mostly ATN from sepsis and IV contrast. Renal function has been improving. Patient has been voiding S/p left ureteral stent placement on 03/27/2023 for left hydronephrosis and left ureteral stone about 7 mm in size C/o abdominal distention and constipation. Being seen by surgery. Serum creatinine improved to 1.0 Objective - Vital Signs Vital signs: Vital Signs Temp 97 F L 03/29/23 09:55 Pulse 86 03/29/23 09:55 Resp 16 03/29/23 09:55 BP 140/70 03/29/23 09:55 Pulse Ox 97 03/29/23 09:55 FiO2 30 03/28/23 04:55 Intake & Output 03/28/23 03/29/23 03/29/23 18:59 06:59 18:59 Intake Total 118 Output Total 400 1175 Balance -282 -1175 Weight 154.902 kg Intake: Oral 118 Output: Urine 400 1175 Other: Voiding Method Urinal Urinal Urinal # Voids 1 3 # Bowel Movements 1 - Exam Patient is comfortable awake alert oriented 3. Lungs are clear CVS s1 and S2 Abdomen soft, distended No significant edema. [employer]CHNICIAN exam grossly intact - Labs CBC & Chem 7: 03/28/23 10:00 03/28/23 10:00 Labs: Abnormal Lab Results - Last 24 Hours (Table) 03/28/23 03/28/23 Range/Units 10:00 16:22 Neutrophils # (Manual) 8.50 H (1.3-7.7) k/uL Metamyelocytes # (Man) 0.11 H (0) k/uL Myelocytes # (Manual) 0.21 H (0) k/uL POC Glucose (mg/dL) 115 H (70-110) mg/dL Microbiology - Last 24 Hours (Table) 03/26/23 07:00 Blood Culture - Preliminary Blood 03/25/23 06:00 Blood Culture - Preliminary Blood 03/23/23 16:21 Blood Culture - Final Blood Assessment and Plan Assessment: 1. Acute kidney injury secondary to ATN secondary to severe sepsis and contrast-induced acute kidney injury. Patient was also on NSAIDs prior to admission. CT of the abdomen shows left hydronephrosis with 7-8 mm calculus. Ultrasound done on initial admission did not reveal any hydronephrosis. Creatinine peaked at 2.9 at this admission and is 1.0 . Patient underwent CTA on 03/21/2023. Unknown baseline renal function. No hydronephrosis noted on kidney ultrasound. 2. Metabolic acidosis secondary to acute kidney injury. 3. Severe sepsis secondary to Proteus bacteremia. 4. Acute on chronic hypoxic respiratory failure related to acute bronchitis in A. fib with RVR. 5. A. fib with RVR. On anticoagulation and Lopressor. Rate controlled now. 6. Morbid obesity. 7. Pyuria possibly UTI. Urine culture not sent out. Patient has been on antibiotics for about 3 days 8. Left hydronephrosis with 7-8 mm calculus s/p cystoscopy and left ureteral stent placement on 03/27/23 9. Constipation with evidence of ileus on CT Plan: Continue IV antibiotics Repeat labs in a.m. Continue off of IV fluids. Treatment of ileus as per surgery
[2023-03-29 12:04] LABS: Glucose,Whole Blood 123 mg/dL (70-110)
--- NOTE | 2023-03-29 13:32 | PN ---
PROGRESS NOTE DATE OF SERVICE: 03/29/2023 SUBJECTIVE: This 62-year-old gentleman admitted with multiple medical issues including bibasilar pneumonia, also had nephrolithiasis. The patient with Proteus sepsis and most recent blood cultures are negative. OBJECTIVE: VITAL SIGNS: Pulse is 86, blood pressure 140/70, respirations 16. CHEST: A few scattered rhonchi. ABDOMEN: Soft, obese. LEGS: No edema. NERVOUS SYSTEM: Diffusely weak. LABORATORY DATA: Reviewed. ASSESSMENT: 1. Bilateral pneumonia. 2. Proteus mirabilis sepsis. 3. A 7 mm left side ureteral stone and hydronephrosis, status post cystoscopy and ureteral stent. 4. Abdominal distention, possibly colonic ileus versus bowel obstruction. 5. Acute hypoxic respiratory failure, multifactorial, present on admission. 6. Obesity hypoventilation syndrome. 7. Possible COPD, chronic bronchitis. 8. Chronic kidney disease and multiple medical issues. RECOMMENDATIONS AND DISCUSSION: Recommended to continue current management, continue symptomatic treatment, otherwise at this time closely follow with surgery and multiple consultants. Continue with antibiotics. A CT scan of the abdomen and pelvis showed dilated small and large bowel, possibly an ileus. Once again, the prognosis is guarded. Further recommendations to follow. MMODL / IJN: [id number] /
--- NOTE | 2023-03-29 14:59 | P.PN ---
Subjective Progress Note Date: 03/29/23 Principal diagnosis: Proteus, complicated UTI and bacteremia Patient is a 62-year-old male with a history of atrial fibrillation presenting to the ER on 03/21/2023 for evaluation of increasing shortness of breath, patient did have evidence of Proteus bacteremia did have a CT abdominal pelvis with evidence of left-sided moderate hydronephrosis. Patient is status post cystoscopy and left ureteral stent placed in on 03/27/2023 On today's evaluation that is 03/29/2023, the patient remains to be afebrile, patient is breathing comfortably currently on a 2 L nasal cannula oxygen, patient denies having any chest pain, the patient did have occasional cough but no sputum production , the patient is still complaining of abdominal distention did have a few bowel movements per the at the bedside Objective - Vital Signs Vital signs: Vital Signs Temp 96.9 F L 03/29/23 12:15 Pulse 76 03/29/23 12:15 Resp 16 03/29/23 12:15 BP 124/81 03/29/23 12:15 Pulse Ox 93 L 03/29/23 12:15 FiO2 30 03/28/23 04:55 Intake & Output 03/28/23 03/29/23 03/29/23 18:59 06:59 18:59 Intake Total 118 Output Total 400 1175 Balance -282 -1175 Weight 154.902 kg Intake: Oral 118 Output: Urine 400 1175 Other: Voiding Method Urinal Urinal Urinal # Voids 1 3 # Bowel Movements 1 - Exam GENERAL DESCRIPTION: A middle-age male up in bed in no distress RESPIRATORY SYSTEM: Unlabored breathing , decreased breath sounds at bases HEART: S1 S2 regular rate and rhythm , ABDOMEN: Soft , mild distention and tenderness EXTREMITIES: No edema feet - Labs CBC & Chem 7: 03/28/23 10:00 03/28/23 10:00 Labs: Abnormal Lab Results - Last 24 Hours (Table) 03/28/23 03/28/23 03/29/23 Range/Units 10:00 16:22 12:03 Neutrophils # (Manual) 8.50 H (1.3-7.7) k/uL Metamyelocytes # (Man) 0.11 H (0) k/uL Myelocytes # (Manual) 0.21 H (0) k/uL POC Glucose (mg/dL) 115 H 123 H (70-110) mg/dL Microbiology - Last 24 Hours (Table) 03/26/23 07:00 Blood Culture - Preliminary Blood 03/25/23 06:00 Blood Culture - Preliminary Blood 03/23/23 16:21 Blood Culture - Final Blood Assessment and Plan (1) Bacteremia Current Visit: Yes Status: Acute Code(s): R78.81 - BACTEREMIA SNOMED Code(s): 7732395 (2) UTI (urinary tract infection) Current Visit: Yes Status: Acute Code(s): N39.0 - URINARY TRACT INFECTION, SITE NOT SPECIFIED SNOMED Code(s): 67070926 Plan: 1patient presented to hospital with sepsis in this patient with fever tachycardia elevated white count and evidence of Proteus bacteremia source likely urinary as the patient having urinary symptoms and positive UA unfortunately no urine culture was done patient did have a left-sided abdominal pain and tenderness and the patient CT abdominal pelvis which is evidence of left-sided moderate hydronephrosis, urology has seen the patient, patient is status post cystoscopy and left ureteral stent placement 03/27/2023 2Patient to continue with the current treatment of Rocephin 2 g daily and plan to finish therapy with oral Ceftin once stable for discharge from other consultants and patient has multiple questions were again answered in Layman terms Time with Patient: Less than 30
[2023-03-29 16:33] LABS: Glucose,Whole Blood 113 mg/dL (70-110)
[2023-03-29 20:20] LABS: Glucose,Whole Blood 117 mg/dL (70-110)
[2023-03-29] MEDS: TAMSULOSIN 0.4 MG CAP.ER.24H PO SCH (20:38)
[2023-03-30] MEDS: SODIUM CHLORIDE 0.9% 1,000 ML IV SCH ×3 (05:35→17:44)
[2023-03-30 06:06] LABS: Glucose,Whole Blood 96 mg/dL (70-110)
[2023-03-30] MEDS: METOCLOPRAMIDE 5 MG/ML 2 ML VIAL IVP SCH ×4 (06:16→23:18)
[2023-03-30] MEDS: BUDESONIDE 1 MG/2 ML NEBU INHALATION SCH ×2 (07:46→19:36)
[2023-03-30] MEDS: IPRATROPIUM-ALBUTEROL 3 ML NEB INHALATION SCH ×4 (07:46→19:36)
[2023-03-30] MEDS: FORMOTEROL FUMARATE 20 MCG/2 ML NEBU INHALATION SCH ×2 (07:46→19:36)
--- NOTE | 2023-03-30 08:21 | P.PN ---
Subjective Progress Note Date: 03/30/23 The patient had placement of a stent for an obstructing left ureteral stone with pyonephrosis. He has had an ileus secondary to that. He is passing a lot of gas and feels better. Objective - Vital Signs Vital signs: Vital Signs Temp 96.3 F L 03/30/23 03:17 Pulse 77 03/30/23 03:17 Resp 14 03/30/23 03:17 BP 121/62 03/30/23 03:17 Pulse Ox 97 03/30/23 03:17 FiO2 30 03/28/23 04:55 Intake & Output 03/29/23 03/29/23 03/30/23 06:59 18:59 06:59 Intake Total 360 Output Total 1175 450 Balance -1175 360 -450 Intake: Oral 360 Output: Urine 1175 450 Other: Voiding Method Urinal Urinal Urinal # Voids 3 - Labs CBC & Chem 7: 03/28/23 10:00 03/28/23 10:00 Labs: Abnormal Lab Results - Last 24 Hours (Table) 03/29/23 03/29/23 03/29/23 Range/Units 12:03 16:31 20:18 POC Glucose (mg/dL) 123 H 113 H 117 H (70-110) mg/dL Microbiology - Last 24 Hours (Table) 03/26/23 07:00 Blood Culture - Preliminary Blood 03/25/23 06:00 Blood Culture - Preliminary Blood 03/23/23 16:21 Blood Culture - Final Blood Assessment and Plan Assessment: Impression: Uti with sepsis secondary to an obstructing stone and pyonephrosis left Plan: The patient had a stent, He will need a ureteroscopy stone and stent removal at a later date From a urological standpoint he can go home
[2023-03-30] MEDS: LACTULOSE 20 GM/30 ML CUP PO SCH ×3 (09:42→21:03)
[2023-03-30] MEDS: predniSONE 10 MG TAB PO SCH (09:43)
[2023-03-30] MEDS: bisacodyL 10 MG SUPP RECTAL SCH (09:43)
[2023-03-30] MEDS: MULTIVITAMINS, THERA 1 EACH TAB PO SCH (09:43)
[2023-03-30] MEDS: METOPROLOL TARTRATE 50 MG TAB PO SCH ×2 (09:43→21:01)
[2023-03-30] MEDS: APIXABAN 5 MG TAB PO SCH ×2 (09:43→21:01)
[2023-03-30] MEDS: polyethylene glycoL 3350 17 GM POWD.PACK PO SCH (09:43)
[2023-03-30] MEDS: SIMETHICONE 80 MG CHEWABLE PO SCH ×4 (09:43→21:02)
[2023-03-30 11:12] LABS: African American GFR (CKD) >90 (>60 ml/min/1.73 sqM); Anion Gap 5 mmol/L; Blood Urea Nitrogen 16 mg/dL (9-20); Calcium 7.7 mg/dL (8.4-10.2); Carbon Dioxide 29 mmol/L (22-30); Chloride 98 mmol/L (98-107); Glucose 110 mg/dL (74-99); Non-African American GFR(CKD) 90 (>60 ml/min/1.73 sqM); Sodium 132 mmol/L (137-145)
--- NOTE | 2023-03-30 11:13 | P.PN ---
Subjective Patient is seen for follow-up for acute kidney injury. Mostly ATN from sepsis and IV contrast. Renal function has been improving. Patient has been voiding S/p left ureteral stent placement on 03/27/2023 for left hydronephrosis and left ureteral stone about 7 mm in size C/o abdominal distention and constipation. Being seen by surgery. Serum creatinine improved to 1.0 Patient has had loose bowel movements 3-4 times a day. Patient is currently in the restroom on the commode. Objective - Vital Signs Vital signs: Vital Signs Temp 98.2 F 03/30/23 09:55 Pulse 87 03/30/23 09:55 Resp 16 03/30/23 09:55 BP 120/72 03/30/23 09:55 Pulse Ox 96 03/30/23 09:55 FiO2 21 03/30/23 07:46 Intake & Output 03/29/23 03/30/23 03/30/23 18:59 06:59 18:59 Intake Total 360 Output Total 450 Balance 360 -450 Intake: Oral 360 Output: Urine 450 Other: Voiding Method Urinal Urinal Urinal - Exam Awake, comfortable, alert oriented 3 Edema 1+ bilaterally - Labs CBC & Chem 7: 03/28/23 10:00 03/28/23 10:00 Labs: Abnormal Lab Results - Last 24 Hours (Table) 03/29/23 03/29/23 03/29/23 Range/Units 12:03 16:31 20:18 POC Glucose (mg/dL) 123 H 113 H 117 H (70-110) mg/dL Microbiology - Last 24 Hours (Table) 03/25/23 06:00 Blood Culture - Preliminary Blood 03/26/23 07:00 Blood Culture - Preliminary Blood 03/23/23 16:21 Blood Culture - Final Blood Assessment and Plan Assessment: 1. Acute kidney injury secondary to ATN secondary to severe sepsis and contrast-induced acute kidney injury. Patient was also on NSAIDs prior to admission. CT of the abdomen shows left hydronephrosis with 7-8 mm calculus. Ultrasound done on initial admission did not reveal any hydronephrosis. Creatinine peaked at 2.9 at this admission and is 1.0 . Patient underwent CTA on 03/21/2023. Unknown baseline renal function. No hydronephrosis noted on kidney ultrasound. 2. Metabolic acidosis secondary to acute kidney injury. 3. Severe sepsis secondary to Proteus bacteremia. 4. Acute on chronic hypoxic respiratory failure related to acute bronchitis in A. fib with RVR. 5. A. fib with RVR. On anticoagulation and Lopressor. Rate controlled now. 6. Morbid obesity. 7. Pyuria possibly UTI. Urine culture not sent out. Patient has been on antibiotics for about 3 days 8. Left hydronephrosis with 7-8 mm calculus s/p cystoscopy and left ureteral stent placement on 03/27/23 9. Constipation with evidence of ileus on CT Plan: Check labs today DC IV fluids as patient is tolerating oral intake.
[2023-03-30 12:12] LABS: Glucose,Whole Blood 109 mg/dL (70-110)
--- NOTE | 2023-03-30 14:01 | P.PN ---
Subjective Progress Note Date: 03/30/23 Shortness of breath. I'm seeing this patient in new consultation today 03/22/2023 in the emergency room, waiting on a bed on the cardiac stepdown unit. Patient is a 62-year-old white male with past medical history of restrictive lung disease probably related to his morbid obesity, obstructive sleep apnea on CPAP support of 14, hyperlipidemia, BPH, and GERD. Patient was recently seen in the office by Dr. Lo, on 03/13/2023, for full PFT. Patient was found to have restrictive lung disease. The patient's FEV1 was 1.77 L which is 62% of predicted. The FVC is 2.14 L which is 55% of predicted. The ratio was elevated. Total lung capacity is only 73% of predicted. Diffusion corrected for alveolar volume is normal. These lung function are consistent with a pulmonary restrictive process. It may relate to the patient's obesity. The patient also qualified for home O2, which he has not received yet. Patient reports that he's been becoming progressively more short of breath over the last few months. Patient also reports that he has been more short of breath and anxious lately, after finding out that his daughter has a potential cancer diagnosis. Patient has been reporting some nasal congestion and frequent cough without significant sputum production. Patient was found to be febrile on arrival to the emergency room with a T-max of 100.2F. Denies any sick contacts. He was found to be in A. fib RVR, with a heart rate in the 150s on arrival. He denies any chest pain, heart palpitations, lightheadedness, syncope. Patient was subsequently started on a Cardizem infusion which is currently infusing at 15 mg/hour, and a low intensity heparin infusion per protocol. Patient denies any prior history of A. fib. Chest x-ray on arrival showed cardiomegaly without any suspicious infiltrates or pleural effusions. D- dimer was elevated at 21.2, and a follow-up chest CTA was negative for pulmonary embolism. It did show some mild to moderate bibasilar linear scarring and/or atelectasis. No focal consolidation. Patient's CBC on arrival showed a WBC count of 9.6, hemoglobin 15.6, hematocrit 47.5, platelets 79,000. BMP on arrival showed a sodium 133, potassium 4.4, chloride 100, serum CO2 14, BUN 26, creatinine 1.86, glucose 150. Troponin was mildly elevated at 0.06. NT proBNP was not very elevated at 818. Patient's was negative for influenza, RSV, COVID- 19. Lactic acid level was 3.2 on arrival and is trending down to 2.2 after 1 L normal saline fluid resuscitation. He did receive one dose of Rocephin in the emergency room. Patient status has stabilized, and he is currently sitting up in bed, on BiPAP with settings of 14/5 and FiO2 of 50%. His respiratory rate is about 20 breaths per minute and he is achieving tidal volumes of 800. Vital signs are stable, and he will be transferred to the cardiac stepdown unit once bed available. Progress note dated 03/23/2023. 62-year-old male seen yesterday in consultation. Currently, the patient is seen today in room 373. His blood cultures were positive for Proteus species. The patient remains on Rocephin. We will get him a flutter valve. He's getting 5 L by nasal cannula. His BiPAP settings are 11 over 5 and 50%. White count 14.8, hemoglobin 16.1, hematocrit 49.3, and platelet count 82,000. PTT is 28.3. Sodi um 134, potassium 4.8, chlorides 101, CO2 21, anion gap 12, BUN 54, and creatinine 2.95. Progress note dated 03/24/2023. 62-year-old male seen in consultation 2 days ago. The patient is sitting in bed, and feels like he is improved. He did test positive for Proteus in the blood, and is currently being treated for that. His pro-calcitonin level is elevated. Currently, the patient is on 3 L of oxygen. He is getting Rocephin. He did use BiPAP last night, with settings of 11/5 and 50%. Current laboratory data includes a sodium 133, potassium 4.9, chlorides 103, CO2 20, anion gap 10, BUN 58, creatinine 2.06. Calcium is 7.4 with a magnesium of 2.9. Progress note dated 03/25/2023. 62-year-old male again seen in room 373. Anemia at the bedside. The patient is currently on oxygen at 3 L by nasal cannula. No IV fluids. The patient is using BiPAP at nighttime, with settings of 11/5 and 50%. Clinically he is doing okay. He seems a bit agitated today. Has not had a bowel movement for a number of days. He is getting medication to help that process along. No new labs today other than a glucose of 116. Blood cultures are positive for Proteus mirabilis. Progress note dated 04/05/2023. 62-year-old male, again seen today in room 373. The patient is on 2 L of oxygen. At nighttime, he uses BiPAP, 11/5, and 50%. The patient is not receiving any IV fluids. Clinically, the patient has improved, since being admitted here to the hospital. White count 15.2, hemoglobin 17.3, hematocrit 53.3, and platelet count 105,000. Sodium 136, potassium 4.3, chlorides 103, CO2 25, BUN 36, creatinine 1.33. Glucose is 106. Albumin is 3.1. All cultures were positive for Proteus mirabilis. The patient remains on Rocephin. His breathing is much improved. Chest x-ray was consistent with mild fluid overload, from March 25. On today's evaluation of 03/27/2023, the patient will be taken to the operating room for a cystoscopy and stent insertion as the patient has an 8 mm stone on t he left side in the ureter and the patient is going to have a stent placed by urology. Note that his septic and the patient had positive blood cultures with Proteus mirabilis and the patient is currently on broad-spectrum antibiotics maintained on IV Rocephin at a dose of 2 mg224 hours. The patient is also known to have multiple other medical problems and the patient is morbidly obese with a BMI 55 and the patient is utilizing a BiPAP overnight. He is on his CPAP at a pressure of 14 cm of water. He has also hypertension, hyperlipidemia, BPH and acid reflux. He is known to have some chronic pulmonary interstitial due to his morbid obesity. The patient initially came to us with sepsis and atrial fibrillation with rapid ventricular response and his current cardiac rhythm is sternal atrial fibrillation his rate is controlled and his taken Eliquis for anticoagulants the addition to metoprolol 50 mg by mouth twice a day. His rate is controlled. On today's evaluation of 03/28/2023, the patient is sitting up on a chair. The patient underwent a stent insertion in the left ureter. Patient is producing adequate urine output at this point in time. He is on IV Rocephin regarding Proteus mirabilis in his blood. As mentioned, the patient had a underlying sepsis probably of a urinary source. Meanwhile, he has developed diffuse abdominal distention. Flat abdomen film was performed yesterday and the patient had marked abdominal distention of the colon and the colon was measuring up to 8.3 cm in size and there was possible transition point at the splenic flexure. He is having some liquidy stools overtly are not frequent. He is having nausea. No emesis for now. The sodium is at 133 with a potassium level of 4.6, BUN is at 26 with a creatinine of 1.04 and the patient is recovered from his acute kidney injury. There was a count from yesterday was at 15.2 with a hemoglobin of 17.3. He remains in atrial fibrillation. He is currently off the BiPAP. He is currently on oxygen at 2 L nasal cannula. The patient's pulse ox is 95-96% on 2 L of oxygen by nasal cannula. We'll hold the BiPAP especially with his underlying abdominal distention/ileus. On today's evaluation of 03/29/2023, the patient is able to get up by himself and moved to the bathroom. He still having abdominal distention. I was quite concerned about a bowel obstruction. A CAT scan of the abdomen and pelvis was done and was consistent with ileus. Based on that, the patient was seen by general surgery and the recommendations was essentially conservative management with pro bowel motility agents. Is currently passing gas. Limited amount of stool. Meanwhile, he remains on IV Rocephin regarding his sepsis. He is producing urine output. He remains on oxygen 2 L/m nasal cannula. He remains in atrial fibrillation.Blood work from yesterday was noted. No new blood tests from today. He is on anticoagulation with Eliquis. He was started on Dulcolax 10 mg rectally on a daily basis. He is also receiving lactulose 30 g 3 times a day to facilitate his bowel movements. On today's evaluation of 03/30/2023, the patient is doing well on room air oxygen. He's having adequate bowel movements. Abdomen is less distended. Is afebrile and hemodynamically stable. Remains on 2 g of Rocephin daily basis. The patient also has normal electrolytes. Normal renal function. No altered mentation. No chest pain. No nausea or vomiting. No emesis. No other new complaints otherwise for now. Objective - Vital Signs Vital signs: Vital Signs Temp 97.7 F 03/30/23 12:45 Pulse 70 03/30/23 12:45 Resp 16 03/30/23 12:45 BP 120/75 03/30/23 12:45 Pulse Ox 95 03/30/23 12:45 FiO2 21 03/30/23 07:46 Intake & Output 03/29/23 03/30/23 03/30/23 18:59 06:59 18:59 Intake Total 360 Output Total 450 Balance 360 -450 Intake: Oral 360 Output: Urine 450 Other: Voiding Method Urinal Urinal Urinal - Exam No acute distress, oriented 3. Currently on 2 L of oxygen. Saturations are 97%. HEENT examination is grossly unremarkable. Neck supple. Full range of motion. No adenopathy thyromegaly or neck vein distention. Cardiovascular examination reveals irregular rhythm consistent with atrial fibrillation S1-S2 normal. No S3 or S4. No discernible murmur noted. Heart sounds are distant. Lungs reveal bilateral rhonchi. Cough is a bit wet sounding. No wheezes or crackles. Breath sounds equal bilaterally. Breath sounds are improved. Abdomen obese. No masses or tenderness. Abdomen is less distended compared to yesterday. Bowel sounds are present.. It's nontender at this point in time. Bowel sounds are hypoactive. Extremities are intact. No cyanosis clubbing or edema. His lower extremities are wrapped by LAURIE bandages. Skin is without rash or lesion. Neurologic examinationNeurologically, the patient is awake and alert and the patient does not have any focal neurological deficit. Cranial nerves are essentially intact. - Labs CBC & Chem 7: 03/28/23 10:00 03/30/23 10:24 Labs: Abnormal Lab Results - Last 24 Hours (Table) 03/29/23 03/29/23 03/30/23 Range/Units 16:31 20:18 10:24 Sodium 132 L (137-145) mmol/L Glucose 110 H (74-99) mg/dL POC Glucose (mg/dL) 113 H 117 H (70-110) mg/dL Calcium 7.7 L (8.4-10.2) mg/dL Microbiology - Last 24 Hours (Table) 03/25/23 06:00 Blood Culture - Preliminary Blood 03/26/23 07:00 Blood Culture - Preliminary Blood Assessment and Plan Plan: Acute on chronic hypoxemic respiratory failure, multifactorial, secondary to acute bronchitis, mild fluid overload, and new onset atrial fibrillation with RVR. The patient is improved and the patient is currently on room air oxygen. Left ureteral stone measuring 8 mm in size, along with previous history of hematuria and the patient is post cystoscopy and double J stent insertion Proteus mirabilis sepsis likely have a urinary source and the patient is currently on Rocephin 2 g every 24 hours , subsequent blood cultures are negative for now. New onset atrial fibrillation with RVR. The rate is controlled and the patient on metoprolol and Eliquis Abdominal distention, ileus , please refer to the CAT scan of the abdomen and the patient is being offered laxatives and conservative management. The patient is being seen by general surgery. Clinically improving and the patient's abdomen seems to be less distended on today's evaluation. Restrictive lung disease, secondary to obesity. Anion gap metabolic acidosis, resolved. Troponin leak, secondary to supply/demand mismatch. Acute kidney injury, improved Thrombocytopenia. Obstructive sleep apnea syndrome, on home CPAP. Morbid obesity. BPH. GERD. Hyperlipidemia. Previous history of tobacco use. Plan: Ileus improving General surgery consultation is appreciated Continue lactulose and Dulcolax suppositories Urine operas adequate Continue IV Rocephin Hemodynamically stable Continue CPAP overnight Patient is currently on room air oxygen Echo was technically a very difficult study We'll continue to follow Increase mobility
--- NOTE | 2023-03-30 14:27 | PN ---
PROGRESS NOTE DATE OF SERVICE: 03/30/2023 SUBJECTIVE: This is a 62-year-old gentleman who was admitted with bilateral pneumonia, also had Proteus mirabilis sepsis. The patient also had a left ureteral stone and surgery. The patient is on antibiotics. No chest pain. No palpitations. The most recent cultures are negative. OBJECTIVE: VITAL SIGNS: On exam, pulse is 87, blood pressure 120/70, respirations 16. CHEST: A few scattered rhonchi. ABDOMEN: Soft, obese. LEGS: No edema. No swelling. LABORATORY DATA: Labs are reviewed. ASSESSMENT: 1. Bilateral pneumonia. 2. Proteus mirabilis sepsis. 3. A 7 mm left ureteral stone and hydronephrosis, status post cystoscopy and ureteral stent. 4. Abdominal distention, possibly colonic ileus versus bowel obstruction. 5. Acute hypoxic respiratory failure, multifactorial, present on admission. 6. Obesity hypoventilation syndrome. 7. Possible chronic obstructive pulmonary disease and chronic bronchitis. 8. Chronic kidney disease, and multiple medical issues. RECOMMENDATIONS: Recommend to continue current medications. Continue symptomatic treatment. PT/OT evaluation. Continue bronchodilators. Closely follow with multiple consultants. Possible ECF rehab. Further recommendations to follow. MMODL / IJN: [id number] /
--- NOTE | 2023-03-30 15:22 | P.PN ---
Subjective Progress Note Date: 03/30/23 Principal diagnosis: Proteus, complicated UTI and bacteremia Patient is a 62-year-old male with a history of atrial fibrillation presenting to the ER on 03/21/2023 for evaluation of increasing shortness of breath, patient did have evidence of Proteus bacteremia did have a CT abdominal pelvis with evidence of left-sided moderate hydronephrosis. Patient is status post cystoscopy and left ureteral stent placed in on 03/27/2023 On today's evaluation that is 03/30/2023, the patient continues to be afebrile, patient is breathing comfortably currently on a 2 L nasal cannula oxygen, patient denies having any chest pain, the patient did have occasional cough which is dry in nature , the patient is still complaining of abdominal distention but no vomiting Objective - Vital Signs Vital signs: Vital Signs Temp 98.2 F 03/30/23 09:55 Pulse 84 03/30/23 11:32 Resp 16 03/30/23 09:55 BP 120/72 03/30/23 09:55 Pulse Ox 96 03/30/23 09:55 FiO2 21 03/30/23 07:46 Intake & Output 03/29/23 03/30/23 03/30/23 18:59 06:59 18:59 Intake Total 360 Output Total 450 Balance 360 -450 Intake: Oral 360 Output: Urine 450 Other: Voiding Method Urinal Urinal Urinal - Exam GENERAL DESCRIPTION: A middle-age male up in bed in no distress RESPIRATORY SYSTEM: Unlabored breathing , decreased breath sounds at bases HEART: S1 S2 regular rate and rhythm , ABDOMEN: Soft , mild distention and tenderness EXTREMITIES: No edema feet - Labs CBC & Chem 7: 03/28/23 10:00 03/30/23 10:24 Labs: Abnormal Lab Results - Last 24 Hours (Table) 03/29/23 03/29/23 03/30/23 Range/Units 16:31 20:18 10:24 Sodium 132 L (137-145) mmol/L Glucose 110 H (74-99) mg/dL POC Glucose (mg/dL) 113 H 117 H (70-110) mg/dL Calcium 7.7 L (8.4-10.2) mg/dL Microbiology - Last 24 Hours (Table) 03/25/23 06:00 Blood Culture - Preliminary Blood 03/26/23 07:00 Blood Culture - Preliminary Blood 03/23/23 16:21 Blood Culture - Final Blood Assessment and Plan (1) Bacteremia Current Visit: Yes Status: Acute Code(s): R78.81 - BACTEREMIA SNOMED Code(s): 7875562 (2) UTI (urinary tract infection) Current Visit: Yes Status: Acute Code(s): N39.0 - URINARY TRACT INFECTION, SITE NOT SPECIFIED SNOMED Code(s): 60738362 Plan: 1patient presented to hospital with sepsis in this patient with fever tachycardia elevated white count and evidence of Proteus bacteremia source likely urinary as the patient having urinary symptoms and positive UA unfortunately no urine culture was done patient did have a left-sided abdominal pain and tenderness and the patient CT abdominal pelvis which is evidence of left-sided moderate hydronephrosis, urology has seen the patient, patient is status post cystoscopy and left ureteral stent placement 03/27/2023 2Patient seem to have short-lived improvement and will continue Rocephin 2 g daily and plan to finish therapy with oral Ceftin, patient did have multiple questions and concerns were answered Time with Patient: Less than 30
--- NOTE | 2023-03-30 15:36 | P.PN ---
Subjective Progress Note Date: 03/30/23 Principal diagnosis: Abdominal bloating Patient says he is doing better today. He has no pain while sitting in the chair. Only feels discomfort when he is up and moving around a lot or if somebody is pressing on his abdomen he says. He has had multiple looser stools. He says he is passing flatus. He says he feels less bloated. He is tolerating liquid diet. He is the and more food to eat. Objective - Vital Signs Vital signs: Vital Signs Temp 97.7 F 03/30/23 12:45 Pulse 76 03/30/23 15:17 Resp 16 03/30/23 12:45 BP 120/75 03/30/23 12:45 Pulse Ox 95 03/30/23 12:45 FiO2 21 03/30/23 07:46 Intake & Output 03/29/23 03/30/23 03/30/23 18:59 06:59 18:59 Intake Total 360 Output Total 450 Balance 360 -450 Intake: Oral 360 Output: Urine 450 Other: Voiding Method Urinal Urinal Urinal # Bowel Movements 3 - Exam Abdomen: Soft, distended, less tympanic and less distended, minimal tenderness - Labs CBC & Chem 7: 03/28/23 10:00 03/30/23 10:24 Labs: Abnormal Lab Results - Last 24 Hours (Table) 03/29/23 03/29/23 03/30/23 Range/Units 16:31 20:18 10:24 Sodium 132 L (137-145) mmol/L Glucose 110 H (74-99) mg/dL POC Glucose (mg/dL) 113 H 117 H (70-110) mg/dL Calcium 7.7 L (8.4-10.2) mg/dL Microbiology - Last 24 Hours (Table) 03/25/23 06:00 Blood Culture - Preliminary Blood 03/26/23 07:00 Blood Culture - Preliminary Blood Assessment and Plan (1) Ileus Narrative/Plan: Patient continues to slowly improve. Continue stool softeners. Resume diet. Will switch to lactose-free as patient says he has dairy intolerance. Continue increasing activity. Current Visit: Yes Status: Acute Code(s): K56.7 - ILEUS, UNSPECIFIED SNOMED Code(s): 751273467
[2023-03-30 16:40] LABS: Glucose,Whole Blood 108 mg/dL (70-110)
[2023-03-30 20:08] LABS: Glucose,Whole Blood 111 mg/dL (70-110)
[2023-03-30] MEDS: TAMSULOSIN 0.4 MG CAP.ER.24H PO SCH (21:01)
[2023-03-31] MEDS: ALPRAZolam 0.25 MG TAB PO PRN ×2 (00:27→23:56)
[2023-03-31 05:56] LABS: Glucose,Whole Blood 92 mg/dL (70-110)
[2023-03-31] MEDS: METOCLOPRAMIDE 5 MG/ML 2 ML VIAL IVP SCH ×3 (06:06→16:55)
[2023-03-31] MEDS: FORMOTEROL FUMARATE 20 MCG/2 ML NEBU INHALATION SCH ×2 (08:29→21:22)
[2023-03-31] MEDS: IPRATROPIUM-ALBUTEROL 3 ML NEB INHALATION SCH ×4 (08:29→21:22)
[2023-03-31] MEDS: BUDESONIDE 1 MG/2 ML NEBU INHALATION SCH ×2 (08:29→21:21)
[2023-03-31] MEDS: SODIUM CHLORIDE 0.9% 1,000 ML IV SCH (09:07)
[2023-03-31] MEDS: LACTULOSE 20 GM/30 ML CUP PO SCH ×2 (09:46→16:54)
[2023-03-31] MEDS: predniSONE 10 MG TAB PO SCH (09:47)
[2023-03-31] MEDS: bisacodyL 10 MG SUPP RECTAL SCH (09:47)
[2023-03-31] MEDS: MULTIVITAMINS, THERA 1 EACH TAB PO SCH (09:47)
[2023-03-31] MEDS: SIMETHICONE 80 MG CHEWABLE PO SCH ×3 (09:47→16:55)
[2023-03-31] MEDS: APIXABAN 5 MG TAB PO SCH ×2 (09:47→20:38)
[2023-03-31] MEDS: METOPROLOL TARTRATE 50 MG TAB PO SCH ×2 (09:47→20:37)
[2023-03-31] MEDS: polyethylene glycoL 3350 17 GM POWD.PACK PO SCH (09:47)
[2023-03-31 11:54] LABS: Glucose,Whole Blood 106 mg/dL (70-110)
--- NOTE | 2023-03-31 12:11 | P.PN ---
Subjective Progress Note Date: 03/31/23 Shortness of breath. I'm seeing this patient in new consultation today 03/22/2023 in the emergency room, waiting on a bed on the cardiac stepdown unit. Patient is a 62-year-old white male with past medical history of restrictive lung disease probably related to his morbid obesity, obstructive sleep apnea on CPAP support of 14, hyperlipidemia, BPH, and GERD. Patient was recently seen in the office by Dr. Lo, on 03/13/2023, for full PFT. Patient was found to have restrictive lung disease. The patient's FEV1 was 1.77 L which is 62% of predicted. The FVC is 2.14 L which is 55% of predicted. The ratio was elevated. Total lung capacity is only 73% of predicted. Diffusion corrected for alveolar volume is normal. These lung function are consistent with a pulmonary restrictive process. It may relate to the patient's obesity. The patient also qualified for home O2, which he has not received yet. Patient reports that he's been becoming progressively more short of breath over the last few months. Patient also reports that he has been more short of breath and anxious lately, after finding out that his daughter has a potential cancer diagnosis. Patient has been reporting some nasal congestion and frequent cough without significant sputum production. Patient was found to be febrile on arrival to the emergency room with a T-max of 100.2F. Denies any sick contacts. He was found to be in A. fib RVR, with a heart rate in the 150s on arrival. He denies any chest pain, heart palpitations, lightheadedness, syncope. Patient was subsequently started on a Cardizem infusion which is currently infusing at 15 mg/hour, and a low intensity heparin infusion per protocol. Patient denies any prior history of A. fib. Chest x-ray on arrival showed cardiomegaly without any suspicious infiltrates or pleural effusions. D- dimer was elevated at 21.2, and a follow-up chest CTA was negative for pulmonary embolism. It did show some mild to moderate bibasilar linear scarring and/or atelectasis. No focal consolidation. Patient's CBC on arrival showed a WBC count of 9.6, hemoglobin 15.6, hematocrit 47.5, platelets 79,000. BMP on arrival showed a sodium 133, potassium 4.4, chloride 100, serum CO2 14, BUN 26, creatinine 1.86, glucose 150. Troponin was mildly elevated at 0.06. NT proBNP was not very elevated at 818. Patient's was negative for influenza, RSV, COVID- 19. Lactic acid level was 3.2 on arrival and is trending down to 2.2 after 1 L normal saline fluid resuscitation. He did receive one dose of Rocephin in the emergency room. Patient status has stabilized, and he is currently sitting up in bed, on BiPAP with settings of 14/5 and FiO2 of 50%. His respiratory rate is about 20 breaths per minute and he is achieving tidal volumes of 800. Vital signs are stable, and he will be transferred to the cardiac stepdown unit once bed available. Progress note dated 03/23/2023. 62-year-old male seen yesterday in consultation. Currently, the patient is seen today in room 373. His blood cultures were positive for Proteus species. The patient remains on Rocephin. We will get him a flutter valve. He's getting 5 L by nasal cannula. His BiPAP settings are 11 over 5 and 50%. White count 14.8, hemoglobin 16.1, hematocrit 49.3, and platelet count 82,000. PTT is 28.3. Sodi um 134, potassium 4.8, chlorides 101, CO2 21, anion gap 12, BUN 54, and creatinine 2.95. Progress note dated 03/24/2023. 62-year-old male seen in consultation 2 days ago. The patient is sitting in bed, and feels like he is improved. He did test positive for Proteus in the blood, and is currently being treated for that. His pro-calcitonin level is elevated. Currently, the patient is on 3 L of oxygen. He is getting Rocephin. He did use BiPAP last night, with settings of 11/5 and 50%. Current laboratory data includes a sodium 133, potassium 4.9, chlorides 103, CO2 20, anion gap 10, BUN 58, creatinine 2.06. Calcium is 7.4 with a magnesium of 2.9. Progress note dated 03/25/2023. 62-year-old male again seen in room 373. Anemia at the bedside. The patient is currently on oxygen at 3 L by nasal cannula. No IV fluids. The patient is using BiPAP at nighttime, with settings of 11/5 and 50%. Clinically he is doing okay. He seems a bit agitated today. Has not had a bowel movement for a number of days. He is getting medication to help that process along. No new labs today other than a glucose of 116. Blood cultures are positive for Proteus mirabilis. Progress note dated 04/05/2023. 62-year-old male, again seen today in room 373. The patient is on 2 L of oxygen. At nighttime, he uses BiPAP, 11/5, and 50%. The patient is not receiving any IV fluids. Clinically, the patient has improved, since being admitted here to the hospital. White count 15.2, hemoglobin 17.3, hematocrit 53.3, and platelet count 105,000. Sodium 136, potassium 4.3, chlorides 103, CO2 25, BUN 36, creatinine 1.33. Glucose is 106. Albumin is 3.1. All cultures were positive for Proteus mirabilis. The patient remains on Rocephin. His breathing is much improved. Chest x-ray was consistent with mild fluid overload, from March 25. On today's evaluation of 03/27/2023, the patient will be taken to the operating room for a cystoscopy and stent insertion as the patient has an 8 mm stone on t he left side in the ureter and the patient is going to have a stent placed by urology. Note that his septic and the patient had positive blood cultures with Proteus mirabilis and the patient is currently on broad-spectrum antibiotics maintained on IV Rocephin at a dose of 2 mg224 hours. The patient is also known to have multiple other medical problems and the patient is morbidly obese with a BMI 55 and the patient is utilizing a BiPAP overnight. He is on his CPAP at a pressure of 14 cm of water. He has also hypertension, hyperlipidemia, BPH and acid reflux. He is known to have some chronic pulmonary interstitial due to his morbid obesity. The patient initially came to us with sepsis and atrial fibrillation with rapid ventricular response and his current cardiac rhythm is sternal atrial fibrillation his rate is controlled and his taken Eliquis for anticoagulants the addition to metoprolol 50 mg by mouth twice a day. His rate is controlled. On today's evaluation of 03/28/2023, the patient is sitting up on a chair. The patient underwent a stent insertion in the left ureter. Patient is producing adequate urine output at this point in time. He is on IV Rocephin regarding Proteus mirabilis in his blood. As mentioned, the patient had a underlying sepsis probably of a urinary source. Meanwhile, he has developed diffuse abdominal distention. Flat abdomen film was performed yesterday and the patient had marked abdominal distention of the colon and the colon was measuring up to 8.3 cm in size and there was possible transition point at the splenic flexure. He is having some liquidy stools overtly are not frequent. He is having nausea. No emesis for now. The sodium is at 133 with a potassium level of 4.6, BUN is at 26 with a creatinine of 1.04 and the patient is recovered from his acute kidney injury. There was a count from yesterday was at 15.2 with a hemoglobin of 17.3. He remains in atrial fibrillation. He is currently off the BiPAP. He is currently on oxygen at 2 L nasal cannula. The patient's pulse ox is 95-96% on 2 L of oxygen by nasal cannula. We'll hold the BiPAP especially with his underlying abdominal distention/ileus. On today's evaluation of 03/29/2023, the patient is able to get up by himself and moved to the bathroom. He still having abdominal distention. I was quite concerned about a bowel obstruction. A CAT scan of the abdomen and pelvis was done and was consistent with ileus. Based on that, the patient was seen by general surgery and the recommendations was essentially conservative management with pro bowel motility agents. Is currently passing gas. Limited amount of stool. Meanwhile, he remains on IV Rocephin regarding his sepsis. He is producing urine output. He remains on oxygen 2 L/m nasal cannula. He remains in atrial fibrillation.Blood work from yesterday was noted. No new blood tests from today. He is on anticoagulation with Eliquis. He was started on Dulcolax 10 mg rectally on a daily basis. He is also receiving lactulose 30 g 3 times a day to facilitate his bowel movements. On today's evaluation of 03/30/2023, the patient is doing well on room air oxygen. He's having adequate bowel movements. Abdomen is less distended. Is afebrile and hemodynamically stable. Remains on 2 g of Rocephin daily basis. The patient also has normal electrolytes. Normal renal function. No altered mentation. No chest pain. No nausea or vomiting. No emesis. No other new complaints otherwise for now. On 03/31/2023, the patient doing well. No specific complaints. No abdominal distention. No abdominal pain. No significant shortness of breath. No fever or chills. Hemodynamically stable. No fever. No chills. Tolerating diet. Objective - Vital Signs Vital signs: Vital Signs Temp 99.5 F 03/31/23 08:00 Pulse 88 03/31/23 08:50 Resp 18 03/31/23 08:00 BP 117/83 03/31/23 08:00 Pulse Ox 95 03/31/23 08:29 FiO2 21 03/30/23 07:46 Intake & Output 03/30/23 03/31/23 03/31/23 18:59 06:59 18:59 Output Total 600 350 Balance -600 -350 Output: Urine 600 350 Other: Voiding Method Urinal Toilet Toilet # Voids 1 # Bowel Movements 1 - Exam No acute distress, oriented 3. Currently on room air oxygen. Saturations are 97%. HEENT examination is grossly unremarkable. Neck supple. Full range of motion. No adenopathy thyromegaly or neck vein distention. Cardiovascular examination reveals irregular rhythm consistent with atrial fibrillation S1-S2 normal. No S3 or S4. No discernible murmur noted. Heart sounds are distant. Lungs reveal bilateral rhonchi. Cough is a bit wet sounding. No wheezes or crackles. Breath sounds equal bilaterally. Breath sounds are improved. Abdomen obese. No masses or tenderness. Abdomen is less distended compared to yesterday. Bowel sounds are present.. It's nontender at this point in time. Bowel sounds are hypoactive. Extremities are intact. No cyanosis clubbing or edema. His lower extremities are wrapped by LAURIE bandages. Skin is without rash or lesion. Neurologic examinationNeurologically, the patient is awake and alert and the patient does not have any focal neurological deficit. Cranial nerves are essentially intact. - Labs CBC & Chem 7: 03/28/23 10:00 03/30/23 10:24 Labs: Abnormal Lab Results - Last 24 Hours (Table) 03/30/23 03/30/23 Range/Units 10:24 20:06 Sodium 132 L (137-145) mmol/L Glucose 110 H (74-99) mg/dL POC Glucose (mg/dL) 111 H (70-110) mg/dL Calcium 7.7 L (8.4-10.2) mg/dL Microbiology - Last 24 Hours (Table) 03/25/23 06:00 Blood Culture - Final Blood 03/26/23 07:00 Blood Culture - Preliminary Blood Assessment and Plan Plan: Acute on chronic hypoxemic respiratory failure, multifactorial, secondary to acute bronchitis, mild fluid overload, and new onset atrial fibrillation with RVR. The patient is improved and the patient is currently on room air oxygen. Left ureteral stone measuring 8 mm in size, along with previous history of hematuria and the patient is post cystoscopy and double J stent insertion. Currently asymptomatic Proteus mirabilis sepsis likely have a urinary source and the patient is c urrently on Rocephin 2 g every 24 hours , subsequent blood cultures are negative for now. New onset atrial fibrillation with RVR. The rate is controlled and the patient on metoprolol and Eliquis Abdominal distention, ileus , please refer to the CAT scan of the abdomen and the patient is being offered laxatives and conservative management. The patient is being seen by general surgery. Clinically improving and the patient's abdomen seems to be less distended on today's evaluation. Restrictive lung disease, secondary to obesity. Anion gap metabolic acidosis, resolved. Troponin leak, secondary to supply/demand mismatch. Acute kidney injury, improved Thrombocytopenia. Obstructive sleep apnea syndrome, on home CPAP. Morbid obesity. BPH. GERD. Hyperlipidemia. Previous history of tobacco use. Plan: Ileus improving, and the patient is having regular bowel movements Increase mobility and activity General surgery consultation is appreciated Continue laxatives her symptoms Continue IV Rocephin, this can be switched to oral antibiotics Hemodynamically stable Continue CPAP overnight Patient is currently on room air oxygen Echo was technically a very difficult study We'll continue to follow Increase mobility Discharge planning is in progress
--- NOTE | 2023-03-31 14:50 | P.PN ---
Subjective Progress Note Date: 03/31/23 Principal diagnosis: Proteus, complicated UTI and bacteremia Patient is a 62-year-old male with a history of atrial fibrillation presenting to the ER on 03/21/2023 for evaluation of increasing shortness of breath, patient did have evidence of Proteus bacteremia did have a CT abdominal pelvis with evidence of left-sided moderate hydronephrosis. Patient is status post cystoscopy and left ureteral stent placed in on 03/27/2023 On today's evaluation that is 03/31/2023, the patient remains to be afebrile, patient is breathing comfortably currently on room air, patient apparently has received multiple laxative and had developed significant diarrhea with about 10 bowel movements since morning per the at the bedside no vomiting or any other changes reported by her Objective - Vital Signs Vital signs: Vital Signs Temp 99.5 F 03/31/23 08:00 Pulse 80 03/31/23 11:49 Resp 18 03/31/23 08:00 BP 117/83 03/31/23 08:00 Pulse Ox 95 03/31/23 08:29 FiO2 21 03/30/23 07:46 Intake & Output 03/30/23 03/31/23 03/31/23 18:59 06:59 18:59 Output Total 600 350 Balance -600 -350 Output: Urine 600 350 Other: Voiding Method Urinal Toilet Toilet # Voids 1 # Bowel Movements 1 - Labs CBC & Chem 7: 03/28/23 10:00 03/30/23 10:24 Labs: Abnormal Lab Results - Last 24 Hours (Table) 03/30/23 Range/Units 20:06 POC Glucose (mg/dL) 111 H (70-110) mg/dL Microbiology - Last 24 Hours (Table) 03/25/23 06:00 Blood Culture - Final Blood 03/26/23 07:00 Blood Culture - Preliminary Blood Assessment and Plan (1) Bacteremia Current Visit: Yes Status: Acute Code(s): R78.81 - BACTEREMIA SNOMED Code( s): 1343125 (2) UTI (urinary tract infection) Current Visit: Yes Status: Acute Code(s): N39.0 - URINARY TRACT INFECTION, SITE NOT SPECIFIED SNOMED Code(s): 52183397 Plan: 1patient presented to hospital with sepsis in this patient with fever tachycardia elevated white count and evidence of Proteus bacteremia source likely urinary as the patient having urinary symptoms and positive UA unfortunately no urine culture was done patient did have a left-sided abdominal pain and tenderness and the patient CT abdominal pelvis which is evidence of left-sided moderate hydronephrosis, urology has seen the patient, patient is status post cystoscopy and left ureteral stent placement 03/27/2023 2Patient has shown clinical improvement as for his UTI and bacteremia is concerned, patient to continue Rocephin 2 g daily 3-diarrhea likely laxative induced, we will recheck his CBC and inflammatory markers a.m. lab Time with Patient: Less than 30
[2023-03-31 16:46] LABS: Glucose,Whole Blood 103 mg/dL (70-110)
--- NOTE | 2023-03-31 18:41 | P.PN ---
Subjective Progress Note Date: 03/31/23 Principal diagnosis: Abdominal bloating Patient says he feels slightly better today. He still feels bloated. No pain at present. Denies nausea or vomiting. Tolerating diet. He had 7 loose stools today. Objective - Vital Signs Vital signs: Vital Signs Temp 98.5 F 03/31/23 16:00 Pulse 87 03/31/23 16:00 Resp 16 03/31/23 16:00 BP 129/74 03/31/23 16:00 Pulse Ox 96 03/31/23 16:00 FiO2 21 03/30/23 07:46 Intake & Output 03/30/23 03/31/23 03/31/23 18:59 06:59 18:59 Intake Total 540 Output Total 600 350 Balance -600 190 Weight 154.902 kg Intake: Oral 540 Output: Urine 600 350 Other: Voiding Method Urinal Toilet Toilet # Voids 1 1 # Bowel Movements 1 1 - Exam Abdomen: Soft, mild distention, mild tympany, nontender - Labs CBC & Chem 7: 03/28/23 10:00 03/30/23 10:24 Labs: Abnormal Lab Results - Last 24 Hours (Table) 03/30/23 Range/Units 20:06 POC Glucose (mg/dL) 111 H (70-110) mg/dL Microbiology - Last 24 Hours (Table) 03/25/23 06:00 Blood Culture - Final Blood 03/26/23 07:00 Blood Culture - Preliminary Blood Assessment and Plan (1) Ileus Narrative/Plan: Patient doing better at this time. Continue increasing ambulation. Continue stool softeners. Monitor degree of abdominal distention. Current Visit: Yes Status: Acute Code(s): K56.7 - ILEUS, UNSPECIFIED SNOMED Code(s): 189066438
[2023-03-31] MEDS ORDERED: SIMETHICONE 80 MG CHEWABLE PO PRN (19:05)
--- NOTE | 2023-03-31 19:08 | P.PN ---
Progress Note - Text Progress Note Date: 03/31/23 Chief Complaint: Short of breath This is a pleasant 62-year-old patient who follows with Dr. Joseph. Patient had a baseline short of breath. For at least Tumma's been progressively getting increasingly short of breath. Lower extremity edema. Cough with some white s putum. Normally sits up in a chair. Decreased appetite. Patient rather anxious because his daughter has brain tumor. Normally has a bowel movement every day. In the ER found to be in atrial flutter with a rate of 158. Was started on IV Cardizem drip in the ER. Also IV heparin. Admitted with multiple issues including bilateral pneumonia, acute hypoxic respiratory failure from acute exacerbation of restrictive lung disease, atrial flutter fibrillation. March 23: On DuoNeb, IV ceftriaxone, IV Solu-Medrol. Remains shortness of breath. Eating fair. On eliquis. Patient is in sinus rhythm. 2-D echo shows preserved LV function. Renal ultrasound was limited. Blood cultures growing gram- negative bacilli/Proteus species. Repeat blood cultures ordered March 24: Blood cultures are growing Proteus mirabilis. Repeat blood cultures done yesterday. Patient's breathing is a bit better. Remains on IV ceftriaxone. Oral intake fair. Care was discussed length with the patient and at the [facility]. Patient is keen to go to see his daughter out of state having a brain surgery. Travel medical depend upon how patient does on the weekend. March 31: I resumed care of the patient [facility]. In the interim patient had a left double-J stent catheter placed. Also developed ileus. Placed on regular diet today. Had a bowel movement. at the bedside. Breathing better. Off oxygen. Once was treated for Proteus mirabilis sepsis. Active Medications Acetaminophen (Acetaminophen Tab 325 Mg Tab) 650 mg PO Q6HR PRN PRN Reason: Mild Pain or Fever > 100.5 Last Admin: 03/27/23 20:41 Dose: 650 mg Albuterol/Ipratropium (Ipratropium-Albuterol 3 Ml Neb) 3 ml INHALATION RT-QID KATELIN Last Admin: 03/31/23 15:31 Dose: 3 ml Albuterol/Ipratropium (Ipratropium-Albuterol 3 Ml Neb) 3 ml INHALATION RT-Q2H PRN PRN Reason: Shortness Of Breath Or Wheezing Alprazolam (Alprazolam 0.25 Mg Tab) 0.25 mg PO Q6HR PRN PRN Reason: Anxiety Last Admin: 03/31/23 00:27 Dose: 0.25 mg Apixaban (Apixaban 5 Mg Tab) 5 mg PO BID [facility]; Protocol Last Admin: 03/31/23 09:47 Dose: 5 mg Bisacodyl (Bisacodyl 10 Mg Supp) 10 mg RECTAL DAILY [facility] Last Admin: 03/31/23 09:47 Dose: 10 mg Budesonide (Budesonide 1 Mg/2 Ml Nebu) 1 mg INHALATION RT-BID [facility] Last Admin: 03/31/23 08:29 Dose: 1 mg Calcium Carbonate/Glycine (Calcium Carbonate 500 Mg Chewable) 1,000 mg PO Q4HR PRN PRN Reason: Dyspepsia Last Admin: 03/28/23 08:58 Dose: 1,000 mg Formoterol Fumarate (Formoterol Fumarate 20 Mcg/2 Ml Nebu) 20 mcg INHALATION RT-BID [facility] Last Admin: 03/31/23 08:29 Dose: 20 mcg Sodium Chloride (Saline 0.9%) 1,000 mls @ 10 mls/hr IV .Q24H [facility] Last Admin: 03/31/23 09:07 Dose: Not Given Ceftriaxone Sodium 2 gm/ (Sodium Chloride) 50 mls @ 100 mls/hr IVPB Q24H [facility]; Protocol Last Admin: 03/30/23 23:21 Dose: 100 mls/hr Lactulose (Lactulose 20 Gm/30 Ml Cup) 20 gm PO DAILY PRN PRN Reason: Constipation Last Admin: 03/25/23 08:33 Dose: 20 gm Lactulose (Lactulose 20 Gm/30 Ml Cup) 30 gm PO TID [facility] Last Admin: 03/31/23 16:54 Dose: Not Given Melatonin (Melatonin 3 Mg Tablet) 3 mg PO HS PRN PRN Reason: Insomnia Last Admin: 03/28/23 20:41 Dose: 3 mg Metoclopramide HCl (Metoclopramide 5 Mg/Ml 2 Ml Vial) 5 mg IVP Q6HR [facility] Last Admin: 03/31/23 16:55 Dose: 5 mg Metoprolol Tartrate (Metoprolol Tartrate 50 Mg Tab) 50 mg PO BID [facility] Last Admin: 03/31/23 09:47 Dose: 50 mg Multivitamins (Multivitamins, Thera 1 Each Tab) 1 each PO DAILY [facility] Last Admin: 03/31/23 09:47 Dose: 1 each Naloxone HCl (Naloxone 0.4 Mg/Ml 1 Ml Vial) 0.2 mg IV Q2M PRN PRN Reason: Opioid Reversal Ondansetron HCl (Ondansetron 4 Mg/2 Ml Vial) 4 mg IVP Q8HR PRN PRN Reason: Nausea And Vomiting Last Admin: 03/27/23 10:30 Dose: 4 mg Polyethylene Glycol (Polyethylene Glycol 3350 17 Gm Powd.Pack) 17 gm PO DAILY [facility] Last Admin: 03/31/23 09:47 Dose: 17 gm Prednisone (Prednisone 10 Mg Tab) 30 mg PO DAILY [facility] Last Admin: 03/31/23 09:47 Dose: 30 mg Simethicone (Simethicone 80 Mg Chewable) 40 mg PO QID [facility] Last Admin: 03/31/23 16:55 Dose: 40 mg Tamsulosin HCl (Tamsulosin 0.4 Mg Cap.Er.24h) 0.8 mg PO HS [facility] Last Admin: 03/30/23 21:01 Dose: 0.8 mg Social history: . No smoking or alcohol. Physical examination: VITAL SIGNS: 98.8, 87, 16, 1 23 x 74, 97% room air GENERAL: BMI 55.1, up in a chair, appears comfortable EYES: Pupils equal. Conjunctiva normal. HEENT: External appearance of nose and ears normal, oral cavity grossly normal. NECK: JVD unable to assess; masses not palpable. HEART: First seconds are normal; some edema. LUNGS: Respiratory rate increased; decreased breath sounds. ABDOMEN: Soft, nontender, liver spleen not palpable, no masses palpable. PSYCH: [Alert and oriented x3; mood and affect normal. MUSCULOSKELETAL:No Clubbing/cyanosis;muscles-grossly intact. Some of OA INVESTIGATIONS, reviewed in the clinical context: March 24: Sodium 133 potassium 4.9 BUN 58 creatinine 2.06 UA: Blood large, leukoesterase large, wbc 57 squamous epithelial 1 Renal ultrasound: Not good quality Blood culture [March 21]: Proteus mirabilis March 4: White count 14.8 hemoglobin 16.1 platelets 82 potassium 4.8 BUN 54 creatinine 2.95 March 3: White count 18.6 hemoglobin 17 platelets 88 sodium 135 potassium 4.9 BUN 35 creatinine 2.78 Procalcitonin critical 100 Admission tests March 30: Potassium [address] abdomen [March 25]: Small large bowel distention with air-fluid level. White count 9.6 hemoglobin 15.6 platelets 79 BUN 26 creatinine 1.86 Troponin I 0.060, 0.853, 0.74 ProBNP 818 Influenza type A, B, RSV, COVID-19: Not detected EKG tracing personally reviewed by me-atrial flutter rate uncontrolled. Right bundle-branch block pattern Chest x-ray film personally reviewed by me-possible basal infiltrate Chest CTA: Negative for PE. Questionable basilar infiltrate Previous testin-D echocardiogram [03/06/2023] moderate concentric LVH. EF 55-60%. Assessment and plan: -Basilar pneumonia, suspected gram-negative organism: Improved Completed ceftriaxone. For this purpose -Sepsis positive blood cultures with Proteus mirabilis, secondary to left obstructive hydronephrosis: Improving IV ceftriaxone -Acute hypoxic respiratory failure multifactorial including a component of obesity hypoventilation syndrome.: Improved Now on room air -Acute restrictive lung disease from morbid obesity with exacerbation in a nonsmoker: Slow to respond DuoNeb. Oral prednisone -Paroxysmal atrial fibrillation with a rapid ventricular rate, normal sinus rhythm IV Cardizem drip discontinued. Lopressor 50 mg twice a day. Eliquis -Acute kidney injury, likely ATN from cardiorenal.: Improvement Admission creatinine was 1.86. Peaked 2. 95. Hold Lasix. Follow nephrology. Creatinine now down to 0.9 -No CK D. -Sided moderate obstructive hydronephrosis, status post cystoscopy and left ureteral stent placement on 03/27/2023, by Dr. Rodriguez Follow outpatient with urology -Morbid obesity BMI 55.1 Weight loss measures -Situational anxiety. Patient's daughter has brain tumor. Xanax when necessary. Mindfullness get downloaded on patient's phone -Thrombocytopenia likely ITP. Follow Decrease prednisone to 20 mg. DC Reglan. Change simethicon onto when necessary. Scars with manager of case. Probably home tomorrow. Discussed at length with the patient and .
--- NOTE | 2023-03-31 19:13 | P.PN ---
Subjective Patient is seen for follow-up for acute kidney injury. Mostly ATN from sepsis and IV contrast. Renal function has been improving. Patient has been voiding S/p left ureteral stent placement on 03/27/2023 for left hydronephrosis and left ureteral stone about 7 mm in size C/o abdominal distention and constipation. Being seen by surgery. Serum creatinine improved to 0.9 Patient has had loose bowel movements, 10 yesterday per pt. Lactulose will be held. Objective - Vital Signs Vital signs: Vital Signs Temp 98.5 F 03/31/23 16:00 Pulse 87 03/31/23 16:00 Resp 16 03/31/23 16:00 BP 129/74 03/31/23 16:00 Pulse Ox 96 03/31/23 16:00 FiO2 21 03/30/23 07:46 Intake & Output 03/31/23 03/31/23 04/01/23 06:59 18:59 06:59 Intake Total 540 Output Total 600 350 Balance -600 190 Weight 154.902 kg Intake: Oral 540 Output: Urine 600 350 Other: Voiding Method Toilet Toilet # Voids 1 # Bowel Movements 1 - Exam Awake, comfortable, alert oriented 3 Lungs are clear CVS S1 and S2 Abdomen is obese Edema 1+ bilaterally DEVELOPMENT REP exam grossly intact. - Labs CBC & Chem 7: 03/28/23 10:00 03/30/23 10:24 Labs: Abnormal Lab Results - Last 24 Hours (Table) 03/30/23 Range/Units 20:06 POC Glucose (mg/dL) 111 H (70-110) mg/dL Microbiology - Last 24 Hours (Table) 03/25/23 06:00 Blood Culture - Final Blood 03/26/23 07:00 Blood Culture - Preliminary Blood Assessment and Plan Assessment: 1. Acute kidney injury secondary to ATN secondary to severe sepsis and contrast-induced acute kidney injury. Patient was also on NSAIDs prior to admission. CT of the abdomen shows left hydronephrosis with 7-8 mm calculus. Ultrasound done on initial admission did not reveal any hydronephrosis. Creatinine peaked at 2.9 at this admission and is 0.9 . Patient underwent CTA on 03/21/2023. Unknown baseline renal function. No hydronephrosis noted on kidney ultrasound. 2. Metabolic acidosis secondary to acute kidney injury. 3. Severe sepsis secondary to Proteus bacteremia. 4. Acute on chronic hypoxic respiratory failure related to acute bronchitis in A. fib with RVR. 5. A. fib with RVR. On anticoagulation and Lopressor. Rate controlled now. 6. Morbid obesity. 7. Pyuria possibly UTI. Urine culture not sent out. Patient has been on antibiotics for about 3 days 8. Left hydronephrosis with 7-8 mm calculus s/p cystoscopy and left ureteral stent placement on 03/27/23 9. Constipation with evidence of ileus on CT Plan: D/c lactulose Continue antibiotics. Monitor labs periodically.
[2023-03-31 20:14] LABS: Glucose,Whole Blood 110 mg/dL (70-110)
[2023-03-31] MEDS: TAMSULOSIN 0.4 MG CAP.ER.24H PO SCH (20:37)
[2023-03-31] MEDS: ACETAMINOPHEN TAB 325 MG TAB PO PRN (20:38)
[2023-03-31] MEDS: MELATONIN 3 MG TABLET PO PRN (23:56)
[2023-04-01 04:16] VITALS: TEMP 97.9
[2023-04-01] MEDS: SODIUM CHLORIDE 0.9% 1,000 ML IV SCH (05:47)
[2023-04-01 06:21] LABS: Glucose,Whole Blood 187 mg/dL (70-110)
[2023-04-01 06:21] LABS: Glucose,Whole Blood >600 mg/dL (70-110)
[2023-04-01] MEDS: bisacodyL 10 MG SUPP RECTAL SCH (07:56)
[2023-04-01] MEDS: polyethylene glycoL 3350 17 GM POWD.PACK PO SCH (07:56)
[2023-04-01] MEDS: METOPROLOL TARTRATE 50 MG TAB PO SCH (08:07)
[2023-04-01] MEDS: MULTIVITAMINS, THERA 1 EACH TAB PO SCH (08:07)
[2023-04-01] MEDS: APIXABAN 5 MG TAB PO SCH (08:07)
[2023-04-01] MEDS: ACETAMINOPHEN TAB 325 MG TAB PO PRN (08:10)
[2023-04-01 08:16] VITALS: RESP 20
[2023-04-01] MEDS: IPRATROPIUM-ALBUTEROL 3 ML NEB INHALATION SCH ×2 (08:20→11:53)
[2023-04-01] MEDS: BUDESONIDE 1 MG/2 ML NEBU INHALATION SCH (08:20)
[2023-04-01] MEDS: FORMOTEROL FUMARATE 20 MCG/2 ML NEBU INHALATION SCH (08:33)
[2023-04-01] MEDS ORDERED: predniSONE 20 MG TAB PO SCH (09:00)
--- NOTE | 2023-04-01 09:07 | P.PN ---
Progress Note - Text Progress Note Date: 04/01/23 Patient states he feels better today. He is tolerating diet. He has had bowel movements. On exam her abdomen is soft obese nontender Patient's ileus has resolved. He is stable for discharge from surgical standpoint. He'll follow-up with Dr. Monroy in the outpatient setting
[2023-04-01 10:29] LABS: ALT 81 U/L (4-49); AST 62 U/L (17-59); African American GFR (CKD) >90 (>60 ml/min/1.73 sqM); Albumin 3.2 g/dL (3.5-5.0); Alkaline Phosphatase 48 U/L (38-126); Anion Gap 10 mmol/L; Blood Urea Nitrogen 17 mg/dL (9-20); C Reactive Protein 1.1 mg/dL (<1.0); Calcium 7.6 mg/dL (8.4-10.2); Carbon Dioxide 25 mmol/L (22-30); Chloride 97 mmol/L (98-107); Glucose 97 mg/dL (74-99); Non-African American GFR(CKD) >90 (>60 ml/min/1.73 sqM); Potassium 3.5 mmol/L (3.5-5.1); Sodium 132 mmol/L (137-145); Total Bilirubin 0.9 mg/dL (0.2-1.3); Total Protein 6.1 g/dL (6.3-8.2)
[2023-04-01] MEDS: ALPRAZolam 0.25 MG TAB PO PRN (11:32)
[2023-04-01 11:37] VITALS: BP 121/80; PULSE 79
[2023-04-01 11:38] LABS: Glucose,Whole Blood 110 mg/dL (70-110)
--- NOTE | 2023-04-01 11:49 | P.PN ---
Subjective Progress Note Date: 04/01/23 Shortness of breath. I'm seeing this patient in new consultation today 03/22/2023 in the emergency room, waiting on a bed on the cardiac stepdown unit. Patient is a 62-year-old white male with past medical history of restrictive lung disease probably related to his morbid obesity, obstructive sleep apnea on CPAP support of 14, hyperlipidemia, BPH, and GERD. Patient was recently seen in the office by Dr. Lo, on 03/13/2023, for full PFT. Patient was found to have restrictive lung disease. The patient's FEV1 was 1.77 L which is 62% of predicted. The FVC is 2.14 L which is 55% of predicted. The ratio was elevated. Total lung capacity is only 73% of predicted. Diffusion corrected for alveolar volume is normal. These lung function are consistent with a pulmonary restrictive process. It may relate to the patient's obesity. The patient also qualified for home O2, which he has not received yet. Patient reports that he's been becoming progressively more short of breath over the last few months. Patient also reports that he has been more short of breath and anxious lately, after finding out that his daughter has a potential cancer diagnosis. Patient has been reporting some nasal congestion and frequent cough without significant sputum production. Patient was found to be febrile on arrival to the emergency room with a T-max of 100.2F. Denies any sick contacts. He was found to be in A. fib RVR, with a heart rate in the 150s on arrival. He denies any chest pain, heart palpitations, lightheadedness, syncope. Patient was subsequently started on a Cardizem infusion which is currently infusing at 15 mg/hour, and a low intensity heparin infusion per protocol. Patient denies any prior history of A. fib. Chest x-ray on arrival showed cardiomegaly without any suspicious infiltrates or pleural effusions. D- dimer was elevated at 21.2, and a follow-up chest CTA was negative for pulmonary embolism. It did show some mild to moderate bibasilar linear scarring and/or atelectasis. No focal consolidation. Patient's CBC on arrival showed a WBC count of 9.6, hemoglobin 15.6, hematocrit 47.5, platelets 79,000. BMP on arrival showed a sodium 133, potassium 4.4, chloride 100, serum CO2 14, BUN 26, creatinine 1.86, glucose 150. Troponin was mildly elevated at 0.06. NT proBNP was not very elevated at 818. Patient's was negative for influenza, RSV, COVID- 19. Lactic acid level was 3.2 on arrival and is trending down to 2.2 after 1 L normal saline fluid resuscitation. He did receive one dose of Rocephin in the emergency room. Patient status has stabilized, and he is currently sitting up in bed, on BiPAP with settings of 14/5 and FiO2 of 50%. His respiratory rate is about 20 breaths per minute and he is achieving tidal volumes of 800. Vital signs are stable, and he will be transferred to the cardiac stepdown unit once bed available. Progress note dated 03/23/2023. 62-year-old male seen yesterday in consultation. Currently, the patient is seen today in room 373. His blood cultures were positive for Proteus species. The patient remains on Rocephin. We will get him a flutter valve. He's getting 5 L by nasal cannula. His BiPAP settings are 11 over 5 and 50%. White count 14.8, hemoglobin 16.1, hematocrit 49.3, and platelet count 82,000. PTT is 28.3. Sodi um 134, potassium 4.8, chlorides 101, CO2 21, anion gap 12, BUN 54, and creatinine 2.95. Progress note dated 03/24/2023. 62-year-old male seen in consultation 2 days ago. The patient is sitting in bed, and feels like he is improved. He did test positive for Proteus in the blood, and is currently being treated for that. His pro-calcitonin level is elevated. Currently, the patient is on 3 L of oxygen. He is getting Rocephin. He did use BiPAP last night, with settings of 11/5 and 50%. Current laboratory data includes a sodium 133, potassium 4.9, chlorides 103, CO2 20, anion gap 10, BUN 58, creatinine 2.06. Calcium is 7.4 with a magnesium of 2.9. Progress note dated 03/25/2023. 62-year-old male again seen in room 373. Anemia at the bedside. The patient is currently on oxygen at 3 L by nasal cannula. No IV fluids. The patient is using BiPAP at nighttime, with settings of 11/5 and 50%. Clinically he is doing okay. He seems a bit agitated today. Has not had a bowel movement for a number of days. He is getting medication to help that process along. No new labs today other than a glucose of 116. Blood cultures are positive for Proteus mirabilis. Progress note dated 04/05/2023. 62-year-old male, again seen today in room 373. The patient is on 2 L of oxygen. At nighttime, he uses BiPAP, 11/5, and 50%. The patient is not receiving any IV fluids. Clinically, the patient has improved, since being admitted here to the hospital. White count 15.2, hemoglobin 17.3, hematocrit 53.3, and platelet count 105,000. Sodium 136, potassium 4.3, chlorides 103, CO2 25, BUN 36, creatinine 1.33. Glucose is 106. Albumin is 3.1. All cultures were positive for Proteus mirabilis. The patient remains on Rocephin. His breathing is much improved. Chest x-ray was consistent with mild fluid overload, from March 25. On today's evaluation of 03/27/2023, the patient will be taken to the operating room for a cystoscopy and stent insertion as the patient has an 8 mm stone on t he left side in the ureter and the patient is going to have a stent placed by urology. Note that his septic and the patient had positive blood cultures with Proteus mirabilis and the patient is currently on broad-spectrum antibiotics maintained on IV Rocephin at a dose of 2 mg224 hours. The patient is also known to have multiple other medical problems and the patient is morbidly obese with a BMI 55 and the patient is utilizing a BiPAP overnight. He is on his CPAP at a pressure of 14 cm of water. He has also hypertension, hyperlipidemia, BPH and acid reflux. He is known to have some chronic pulmonary interstitial due to his morbid obesity. The patient initially came to us with sepsis and atrial fibrillation with rapid ventricular response and his current cardiac rhythm is sternal atrial fibrillation his rate is controlled and his taken Eliquis for anticoagulants the addition to metoprolol 50 mg by mouth twice a day. His rate is controlled. On today's evaluation of 03/28/2023, the patient is sitting up on a chair. The patient underwent a stent insertion in the left ureter. Patient is producing adequate urine output at this point in time. He is on IV Rocephin regarding Proteus mirabilis in his blood. As mentioned, the patient had a underlying sepsis probably of a urinary source. Meanwhile, he has developed diffuse abdominal distention. Flat abdomen film was performed yesterday and the patient had marked abdominal distention of the colon and the colon was measuring up to 8.3 cm in size and there was possible transition point at the splenic flexure. He is having some liquidy stools overtly are not frequent. He is having nausea. No emesis for now. The sodium is at 133 with a potassium level of 4.6, BUN is at 26 with a creatinine of 1.04 and the patient is recovered from his acute kidney injury. There was a count from yesterday was at 15.2 with a hemoglobin of 17.3. He remains in atrial fibrillation. He is currently off the BiPAP. He is currently on oxygen at 2 L nasal cannula. The patient's pulse ox is 95-96% on 2 L of oxygen by nasal cannula. We'll hold the BiPAP especially with his underlying abdominal distention/ileus. On today's evaluation of 03/29/2023, the patient is able to get up by himself and moved to the bathroom. He still having abdominal distention. I was quite concerned about a bowel obstruction. A CAT scan of the abdomen and pelvis was done and was consistent with ileus. Based on that, the patient was seen by general surgery and the recommendations was essentially conservative management with pro bowel motility agents. Is currently passing gas. Limited amount of stool. Meanwhile, he remains on IV Rocephin regarding his sepsis. He is producing urine output. He remains on oxygen 2 L/m nasal cannula. He remains in atrial fibrillation.Blood work from yesterday was noted. No new blood tests from today. He is on anticoagulation with Eliquis. He was started on Dulcolax 10 mg rectally on a daily basis. He is also receiving lactulose 30 g 3 times a day to facilitate his bowel movements. On today's evaluation of 03/30/2023, the patient is doing well on room air oxygen. He's having adequate bowel movements. Abdomen is less distended. Is afebrile and hemodynamically stable. Remains on 2 g of Rocephin daily basis. The patient also has normal electrolytes. Normal renal function. No altered mentation. No chest pain. No nausea or vomiting. No emesis. No other new complaints otherwise for now. On 03/31/2023, the patient doing well. No specific complaints. No abdominal distention. No abdominal pain. No significant shortness of breath. No fever or chills. Hemodynamically stable. No fever. No chills. Tolerating diet. 04/01/2023, the patient is ambulating on room air oxygen. No new complaints. No shortness of breath. No fever or chills. Remains on IV Rocephin Objective - Vital Signs Vital signs: Vital Signs Temp 97.9 F 04/01/23 08:01 Pulse 85 04/01/23 08:43 Resp 20 04/01/23 08:01 BP 115/66 04/01/23 08:01 Pulse Ox 94 L 04/01/23 08:01 FiO2 21 03/30/23 07:46 Intake & Output 03/31/23 04/01/23 04/01/23 18:59 06:59 18:59 Intake Total 540 510 540 Output Total 350 500 Balance 190 510 40 Weight 154.902 kg Intake: Intake, IV Titration 110 Amount Sodium Chloride 0.9% 1, 60 000 ml @ 10 mls/hr IV . Q24H AKTELIN Rx#:[id number] cefTRIAXone 2 gm In 50 Sodium Chloride 0.9% 50 ml @ 100 mls/hr IVPB Q24H KATELIN Rx#:[id number] Oral 540 400 540 Output: Urine 350 500 Other: Voiding Method Toilet Toilet Toilet Urinal # Voids 1 2 2 # Bowel Movements 1 2 1 - Exam No acute distress, oriented 3. Currently on room air oxygen. Saturations are 97%. HEENT examination is grossly unremarkable. Neck supple. Full range of motion. No adenopathy thyromegaly or neck vein distention. Cardiovascular examination reveals irregular rhythm consistent with atrial fibrillation S1-S2 normal. No S3 or S4. No discernible murmur noted. Heart so unds are distant. Lungs reveal bilateral rhonchi. Cough is a bit wet sounding. No wheezes or crackles. Breath sounds equal bilaterally. Breath sounds are improved. Abdomen obese. No masses or tenderness. Abdomen is less distended compared to yesterday. Bowel sounds are present.. It's nontender at this point in time. Bowel sounds are hypoactive. Extremities are intact. No cyanosis clubbing or edema. His lower extremities are wrapped by LAURIE bandages. Skin is without rash or lesion. Neurologic examinationNeurologically, the patient is awake and alert and the patient does not have any focal neurological deficit. Cranial nerves are essentially intact. - Labs CBC & Chem 7: 03/28/23 10:00 04/01/23 09:14 Labs: Abnormal Lab Results - Last 24 Hours (Table) 04/01/23 04/01/23 Range/Units 06:17 06:19 POC Glucose (mg/dL) >600 H 187 H (70-110) mg/dL Microbiology - Last 24 Hours (Table) 03/25/23 06:00 Blood Culture - Final Blood 03/26/23 07:00 Blood Culture - Preliminary Blood Assessment and Plan Plan: Acute on chronic hypoxemic respiratory failure, multifactorial, secondary to acute bronchitis, mild fluid overload, and new onset atrial fibrillation with RVR. The patient is improved and the patient is currently on room air oxygen. Left ureteral stone measuring 8 mm in size, along with previous history of hematuria and the patient is post cystoscopy and double J stent insertion. Currently asymptomatic Proteus mirabilis sepsis likely have a urinary source and the patient is currently on Rocephin 2 g every 24 hours , subsequent blood cultures are negative for now. New onset atrial fibrillation with RVR. The rate is controlled and the patient on metoprolol and Eliquis Abdominal distention, ileus , please refer to the CAT scan of the abdomen and the patient is being offered laxatives and conservative management. The patient is being seen by general surgery. Clinically improving and the patient's abdomen seems to be less distended on today's evaluation. Restrictive lung disease, secondary to obesity. Anion gap metabolic acidosis, resolved. Troponin leak, secondary to supply/demand mismatch. Acute kidney injury, improved Thrombocytopenia. Obstructive sleep apnea syndrome, on home CPAP. Morbid obesity. BPH. GERD. Hyperlipidemia. Previous history of tobacco use. Plan: Ambulating Passing bowel movements Ileus improving, and the patient is having regular bowel movements Increase mobility and activity General surgery consultation is appreciated Continue laxatives her symptoms Switch this patient to oral antibiotics Hemodynamically stable Continue CPAP overnight Patient is currently on room air oxygen Echo was technically a very difficult study We'll continue to follow Increase mobility Discharge planning is in progress, pulmonary and critical care services will sign off.
--- NOTE | 2023-04-01 12:28 | P.PN ---
Subjective Progress Note Date: 04/01/23 Patient is in the hospital with a UTI with sepsis, an obstructing left stone with pyelonephrosis, status post stent placement. He also has cardiac arrhythmia he is feeling better and ready for discharge. Objective - Vital Signs Vital signs: Vital Signs Temp 97.9 F 04/01/23 08:01 Pulse 79 04/01/23 11:31 Resp 20 04/01/23 11:31 BP 121/80 04/01/23 11:31 Pulse Ox 96 04/01/23 11:31 FiO2 21 03/30/23 07:46 Intake & Output 03/31/23 04/01/23 04/01/23 18:59 06:59 18:59 Intake Total 540 510 540 Output Total 350 500 Balance 190 510 40 Weight 154.902 kg Intake: Intake, IV Titration 110 Amount Sodium Chloride 0.9% 1, 60 000 ml @ 10 mls/hr IV . Q24H [facility] Rx#:[id number] cefTRIAXone 2 gm In 50 Sodium Chloride 0.9% 50 ml @ 100 mls/hr IVPB Q24H [facility] Rx#:[id number] Oral 540 400 540 Output: Urine 350 500 Other: Voiding Method Toilet Toilet Toilet Urinal # Voids 1 2 2 # Bowel Movements 1 2 1 - Labs CBC & Chem 7: 03/28/23 10:00 04/01/23 09:14 Labs: Abnormal Lab Results - Last 24 Hours (Table) 04/01/23 04/01/23 04/01/23 Range/Units 06:17 06:19 09:14 Sodium 132 L (137-145) mmol/L Chloride 97 L (98-107) mmol/L POC Glucose (mg/dL) >600 H 187 H (70-110) mg/dL Calcium 7.6 L (8.4-10.2) mg/dL AST 62 H (17-59) U/L ALT 81 H (4-49) U/L C-Reactive Protein 1.1 H (<1.0) mg/dL Total Protein 6.1 L (6.3-8.2) g/dL Albumin 3.2 L (3.5-5.0) g/dL Microbiology - Last 24 Hours (Table) 03/26/23 07:00 Blood Culture - Final Blood 03/25/23 06:00 Blood Culture - Final Blood Assessment and Plan Assessment: Impression: Left ureteral calculus with pyelonephrosis status post stent placement treated with appropriate antibiotics Recommendations: The patient should be seen in the office in one week which time we will reassess and probably set him up for ureteroscopy and stone manipulation
--- NOTE | 2023-04-01 21:47 | P.DS ---
Providers Date of admission: 03/21/23 21:20 Expected date of discharge: 04/01/23 Attending physician: Diogo Sauer Consults: 03/21/23 21:16 Consult Physician Routine Consulting Provider: Shireen Cyr Consult Reason/Comments: Acute bronchospasm, dyspnea, rapid atrial flutter Do you want consulting provider notified?: Yes 03/23/23 16:01 Consult Physician Routine Consulting Provider: Brando Red Consult Reason/Comments: Kidney disease Do you want consulting provider notified?: Yes 03/25/23 10:41 Consult Physician Routine Consulting Provider: Michelle Sampson Consult Reason/Comments: sepsis Do you want consulting provider notified?: Yes 03/25/23 15:16 Consult Physician Routine Consulting Provider: Gerald Merchant Consult Reason/Comments: left hydronephrosis, proteus sepsis Do you want consulting provider notified?: Yes 03/28/23 11:31 Consult Physician Routine Consulting Provider: Ray Knox Consult Reason/Comments: abd distention Do you want consulting provider notified?: Yes Primary care physician: [facility] Course: Chief Complaint: Short of breath This is a pleasant 62-year-old patient who follows with Dr. Joseph. Patient had a baseline short of breath. For at least Tumma's been progressively getting increasingly short of breath. Lower extremity edema. Cough with some white sputum. Normally sits up in a chair. Decreased appetite. Patient rather anxious because his daughter has brain tumor. Normally has a bowel movement every day. In the ER found to be in atrial flutter with a rate of 158. Was started on IV Cardizem drip in the ER. Also IV heparin. Admitted with multiple issues including bilateral pneumonia, acute hypoxic respiratory failure from acute exacerbation of restrictive lung disease, atrial flutter fibrillation. March 23: On DuoNeb, IV ceftriaxone, IV Solu-Medrol. Remains shortness of breath. Eating fair. On eliquis. Patient is in sinus rhythm. 2-D echo shows preserved LV function. Renal ultrasound was limited. Blood cultures growing gram- negative bacilli/Proteus species. Repeat blood cultures ordered March 24: Blood cultures are growing Proteus mirabilis. Repeat blood cultures done yesterday. Patient's breathing is a bit better. Remains on IV ceftriaxone. Oral intake fair. Care was discussed length with the patient and at the bedside. Patient is keen to go to see his daughter out of state having a brain surgery. Travel medical depend upon how patient does on the weekend. March 31: [facility] In the [facility] patient had a left double-J stent catheter placed. Also developed ileus. Placed on regular diet today. Had a bowel movement. at the bedside. Breathing better. Off oxygen. Once was treated for Proteus mirabilis sepsis. April 01: Patient doing well. Up and about. Breathing well. Had a bowel movement. Feeling well. Care was discussed with the patient and . Any discharge antibiotics per ID. Patient follow-up with PCP, urology, Dr. Lo Discussion and discharge planning more than 35 minutes Social history: . No smoking or alcohol. Physical examination: VITAL SIGNS: 97.9, 94, 20, 1.5/66, 94% room air GENERAL: BMI 55.1, comfortable EYES: Pupils equal. Conjunctiva normal. HEENT: External appearance of nose and ears normal, oral cavity grossly normal. NECK: JVD unable to assess; masses not palpable. HEART: First seconds are normal; some edema. LUNGS: Respiratory rate increased; decreased breath sounds. ABDOMEN: Soft, nontender, liver spleen not palpable, no masses palpable. PSYCH: [Alert and oriented x3; mood and affect normal. MUSCULOSKELETAL:No Clubbing/cyanosis;muscles-grossly intact. Some of OA INVESTIGATIONS, reviewed in the clinical context: April 01: Potassium 3.5 creatinine 0.86 March 5: Sodium 133 potassium 4.9 BUN 58 creatinine 2.06 UA: Blood large, leukoesterase large, wbc 57 squamous epithelial 1 Renal ultrasound: Not good quality Blood culture [March 21]: Proteus mirabilis March 23: White count 14.8 hemoglobin 16.1 platelets 82 potassium 4.8 BUN 54 creatinine 2.95 March 3: White count 18.6 hemoglobin 17 platelets 88 sodium 135 potassium 4.9 BUN 35 creatinine 2.78 Procalcitonin critical 100 Admission tests March 30: Potassium [address] abdomen [March 25]: Small large bowel distention with air-fluid level. White count 9.6 hemoglobin 15.6 platelets 79 BUN 26 creatinine 1.86 Troponin I 0.060, 0.853, 0.74 ProBNP 818 Influenza type A, B, RSV, COVID-19: Not detected EKG tracing personally reviewed by me-atrial flutter rate uncontrolled. Right bundle-branch block pattern Chest x-ray film personally reviewed by me-possible basal infiltrate Chest CTA: Negative for PE. Questionable basilar infiltrate Previous testin-D echocardiogram [03/06/2023] moderate concentric LVH. EF 55-60%. Assessment and plan: -Basilar pneumonia, suspected gram-negative organism: Improved Completed ceftriaxone. -Sepsis positive blood cultures with Proteus mirabilis, secondary to left obstructive hydronephrosis: Improved IV ceftriaxone -Acute hypoxic respiratory failure multifactorial including a component of obesity hypoventilation syndrome.: Improved Now on room air -Acute restrictive lung disease from morbid obesity with exacerbation in a nonsmoker: Improved DuoNeb. Oral prednisone -Paroxysmal atrial fibrillation with a rapid ventricular rate, normal sinus rhythm IV Cardizem drip discontinued. Lopressor 50 mg twice a day. Eliquis -Acute kidney injury, likely ATN from cardiorenal.: Corrected Admission creatinine was 1.86. Peaked 2. 95. Hold Lasix. Follow nephrology. Creatinine now down to 0.9 -No CK D. -Left Sided moderate obstructive hydronephrosis, status post cystoscopy and left ureteral stent placement on 03/27/2023, by Dr. Rodriguez Follow outpatient with urology -Morbid obesity BMI 55.1 Weight loss measures -Situational anxiety. Patient's daughter has brain tumor. Xanax when necessary. Mindfullness get downloaded on patient's phone -Thrombocytopenia likely ITP. Follow Disposition: Home Patient Condition at Discharge: Fair Plan - Discharge Summary Discharge Rx Participant: Yes New Discharge Prescriptions: New Acetaminophen Tab [Tylenol] 650 mg PO Q6HR PRN tab PRN Reason: Mild Pain Or Fever > 100.5 Albuterol Sulfate [Albuterol Sulfate Hfa] 1 puff PO Q4-6H #8.5 gm predniSONE 0 mg PO DIRECTED #9 tab ALPRAZolam [Xanax] 0.25 mg PO TID PRN 3 Days #9 tab PRN Reason: Anxiety Apixaban [Eliquis] 5 mg PO BID #60 tab Metoprolol Tartrate [Lopressor] 50 mg PO BID #60 tab polyethylene glycoL 3350 [Miralax] 17 gm PO DAILY packet cefUROXime axetiL [Ceftin] 500 mg PO BID 7 Days #14 tab Continue Omeprazole 20 mg PO DAILY Tamsulosin [Flomax] 0.8 mg PO HS Multivitamins, Thera [Multivitamin (formulary)] 1 tab PO DAILY Aspirin EC [Ecotrin Low Dose] 81 mg PO DAILY Discontinued Furosemide [Lasix] 20 mg PO DAILY Discharge Medication List Aspirin EC [Ecotrin Low Dose] 81 mg PO DAILY 03/21/23 [History] Multivitamins, Thera [Multivitamin (formulary)] 1 tab PO DAILY 03/21/23 [History] Omeprazole 20 mg PO DAILY 03/21/23 [History] Tamsulosin [Flomax] 0.8 mg PO HS 03/21/23 [History] ALPRAZolam [Xanax] 0.25 mg PO TID PRN 3 Days #9 tab 04/01/23 [Rx] Acetaminophen Tab [Tylenol] 650 mg PO Q6HR PRN tab 04/01/23 [Rx] Albuterol Sulfate [Albuterol Sulfate Hfa] 1 puff PO Q4-6H #8.5 gm 04/01/23 [Rx] Apixaban [Eliquis] 5 mg PO BID #60 tab 04/01/23 [Rx] Metoprolol Tartrate [Lopressor] 50 mg PO BID #60 tab 04/01/23 [Rx] cefUROXime axetiL [Ceftin] 500 mg PO BID 7 Days #14 tab 04/01/23 [Rx] polyethylene glycoL 3350 [Miralax] 17 gm PO DAILY packet 04/01/23 [Rx] predniSONE 0 mg PO DIRECTED #9 tab 04/01/23 [Rx] Follow up Appointment(s)/Referral(s): [facility] [NON-STAFF] - Mikey Joseph DO [Primary Care Provider] - 1-2 days (Office closed--please call [facility] on Monday for follow up appointment.) Poncho Lo DO [Doctor of Osteopathic Medicine] - 2 Weeks (Office closed--please call [facility] on Monday for a follow up appointment.) Shawn Wilson MD [STAFF PHYSICIAN] - 1 Week (Office closed--please call [facility] on Monday for a follow up appointment.) [facility] [NON-STAFF] - Patient Instructions/Handouts: A-fib (Atrial Fibrillation) (DC), Urinary Retention in Men (ED) Discharge/Stand Alone Forms: Who Do I Call?, Community Resources, Personal Medical Director/Head Team Physician Discharge Disposition: HOME SELF-CARE
--- NOTE | 2023-04-02 16:14 | P.PN ---
Subjective Progress Note Date: 04/01/23 Principal diagnosis: Proteus, complicated UTI and bacteremia Patient is a 62-year-old male with a history of atrial fibrillation presenting to the ER on 03/21/2023 for evaluation of increasing shortness of breath, patient did have evidence of Proteus bacteremia did have a CT abdominal pelvis with evidence of left-sided moderate hydronephrosis. Patient is status post cystoscopy and left ureteral stent placed in on 03/27/2023 On today's evaluation that is 04/01/2023, the patient continues to be afebrile, patient is breathing comfortably currently on room air, patient denies any chest pain or cough no abdominal pain no nausea no vomiting and diarrhea has decreased in intensity Objective - Vital Signs Vital signs: Vital Signs Temp 97.9 F 04/01/23 08:01 Pulse 79 04/01/23 11:31 Resp 20 04/01/23 11:31 BP 121/80 04/01/23 11:31 Pulse Ox 96 04/01/23 11:31 FiO2 21 03/30/23 07:46 Intake & Output 03/31/23 04/01/23 04/01/23 18:59 06:59 18:59 Intake Total 540 510 540 Output Total 350 500 Balance 190 510 40 Weight 154.902 kg Intake: Intake, IV Titration 110 Amount Sodium Chloride 0.9% 1, 60 000 ml @ 10 mls/hr IV . Q24H [facility] Rx#:[id number] cefTRIAXone 2 gm In 50 Sodium Chloride 0.9% 50 ml @ 100 mls/hr IVPB Q24H [facility] Rx#:[id number] Oral 540 400 540 Output: Urine 350 500 Other: Voiding Method Toilet Toilet Toilet Urinal # Voids 1 2 2 # Bowel Movements 1 2 1 - Exam GENERAL DESCRIPTION: A middle-age male up in bed in no distress RESPIRATORY SYSTEM: Unlabored breathing , decreased breath sounds at bases HEART: S1 S2 regular rate and rhythm , ABDOMEN: Soft , mild distention and tenderness EXTREMITIES: No edema feet - Labs CBC & Chem 7: 03/28/23 10:00 04/01/23 09:14 Labs: Abnormal Lab Results - Last 24 Hours (Table) 04/01/23 04/01/23 04/01/23 Range/Units 06:17 06:19 09:14 Sodium 132 L (137-145) mmol/L Chloride 97 L (98-107) mmol/L POC Glucose (mg/dL) >600 H 187 H (70-110) mg/dL Calcium 7.6 L (8.4-10.2) mg/dL AST 62 H (17-59) U/L ALT 81 H (4-49) U/L C-Reactive Protein 1.1 H (<1.0) mg/dL Total Protein 6.1 L (6.3-8.2) g/dL Albumin 3.2 L (3.5-5.0) g/dL Microbiology - Last 24 Hours (Table) 03/26/23 07:00 Blood Culture - Final Blood 03/25/23 06:00 Blood Culture - Final Blood Assessment and Plan (1) Bacteremia Status: Acute Code(s): R78.81 - BACTEREMIA SNOMED Code(s): 2034318 (2) UTI (urinary tract infection) Status: Acute Code(s): N39.0 - URINARY TRACT INFECTION, SITE NOT SPECIFIED SNOMED Code(s): 54412503 Plan: 1patient presented to hospital with sepsis in this patient with fever tachycardia elevated white count and evidence of Proteus bacteremia source likely urinary as the patient having urinary symptoms and positive UA unfortunately no urine culture was done patient did have a left-sided abdominal pain and tenderness and the patient CT abdominal pelvis which is evidence of left-sided moderate hydronephrosis, urology has seen the patient, patient is status post cystoscopy and left ureteral stent placement 03/27/2023 2Patient has shown clinical improvement as for his UTI and bacteremia is concerned, patient has shown clinical improvement with Rocephin 2 g daily , will finish therapy with oral Ceftin prescription sent to the pharmacy Time with Patient: Less than 30
== END 2023-04-01 13:18 | disposition home or self-care (01) | DRG 853 ==
LOC: EC 17:49 → 3SCARD 21:20
PROVIDERS: ADMIT Hospitalist; ATTEND Hospitalist
PROC: 5A09357 Assistance with Respiratory Ventilation, Less than 24 Consecutive Hours, Continuous Positive Airway Pressure (ICD-10-PCS; 2023-03-21)
PROC: 0T778DZ Dilation of Left Ureter with Intraluminal Device, Via Natural or Artificial Opening Endoscopic (ICD-10-PCS; principal; 2023-03-27 07:30)
DX: A41.59 Other Gram-negative sepsis (principal); I21.A1 Myocardial infarction type 2; J18.9 Pneumonia, unspecified organism; J96.21 Acute and chronic respiratory failure with hypoxia; N17.0 Acute kidney failure with tubular necrosis; D69.3 Immune thrombocytopenic purpura; E66.2 Morbid (severe) obesity with alveolar hypoventilation; Z68.43 Body mass index [BMI] 50.0-59.9, adult; J44.0 Chronic obstructive pulmonary disease with (acute) lower respiratory infection; I48.92 Unspecified atrial flutter; K56.0 Paralytic ileus; N39.0 Urinary tract infection, site not specified; N13.6 Pyonephrosis; B96.4 Proteus (mirabilis) (morganii) as the cause of diseases classified elsewhere; I45.10 Unspecified right bundle-branch block; Z20.822 Contact with and (suspected) exposure to COVID-19; R65.20 Severe sepsis without septic shock; I13.10 Hypertensive heart and chronic kidney disease without heart failure, with stage 1 through stage 4 chronic kidney disease, or unspecified chronic kidney disease; J20.9 Acute bronchitis, unspecified; R31.0 Gross hematuria; I08.2 Rheumatic disorders of both aortic and tricuspid valves; E78.5 Hyperlipidemia, unspecified; N18.9 Chronic kidney disease, unspecified; R79.1 Abnormal coagulation profile; N40.0 Benign prostatic hyperplasia without lower urinary tract symptoms; F41.9 Anxiety disorder, unspecified; G47.00 Insomnia, unspecified; I48.0 Paroxysmal atrial fibrillation; K21.9 Gastro-esophageal reflux disease without esophagitis; Z79.82 Long term (current) use of aspirin; Z79.01 Long term (current) use of anticoagulants; Z79.899 Other long term (current) drug therapy; Z88.0 Allergy status to penicillin
CPT/HCPCS: 36415; 71045; 71275; 74022; 74176; 76770; 80048; 80053; 81001; 83605; 83735; 83880; 84145; 84443; 84484; 85025; 85379; 85610; 85652; 85730; 86140; 87077; 87186; 87636; 93005; 93308; 94640; 94660; 94667; 94668; 94760

== ENCOUNTER → 2023-04-05 | Outpatient (CLI) | payer MEDICARE ==
[2023-04-05 15:09] LABS: Basophils # (A) 0.06 X 10*3/uL (0.00-0.10); Basophils % (A) 0.6 %; Eosinophils # (A) 0.04 X 10*3/uL (0.04-0.35); Eosinophils % (A) 0.4 %; HCT 50.9 % (39.6-50.0); HGB 16.1 g/dL (13.0-17.0); Immature Grans, Automated 0.5 %; Lymphocytes # (A) 1.03 X 10*3/uL (0.90-5.00); Lymphocytes % (A) 10.9 %; MCH 28.5 pg (27.0-32.0); MCHC 31.6 g/dL (32.0-37.0); MCV 90.2 fL (80.0-97.0); Mean Platelet Volume 10.3 fL (9.5-12.2); Monocytes # (A) 0.82 X 10*3/uL (0.20-1.00); Monocytes % (A) 8.7 %; NRBC Per 100 WBC 0 /100 WBCS (0.0-0.0); Neutrophils # (A) 7.47 X 10*3/uL (1.80-7.70); Neutrophils % (A) 78.9 %; Platelet Count 230 X 10*3/uL (140-440); RBC 5.64 X 10*6/uL (4.40-5.60); RDW 17.1 % (11.5-14.5); WBC 9.47 X 10*3/uL (4.50-10.00)
[2023-04-05 15:45] LABS: African American GFR (CKD) 80.9 (60.0-200.0); Anion Gap 9.5 mmol/L (10.00-18.00); BUN/Creat Ratio 13.78 Ratio (12.00-20.00); Blood Urea Nitrogen 15.3 mg/dL (9.0-27.0); Calcium 8.9 mg/dL (8.7-10.3); Carbon Dioxide 30.1 mmol/L (20.0-27.5); Non-African American GFR(CKD) 69.8 (60.0-200.0); Potassium 4.8 mmol/L (3.5-5.5)
[2023-04-05 18:20] LABS: Appearance,Urine Clear (Clear); Bilirubin,Urine Negative (Negative); Blood,Urine Moderate (Negative); Color,Urine Yellow (Yellow); Ketones,Urine Negative (Negative); Nitrite,Urine Negative (Negative); Specific Gravity,Urine 1.011 (1.001-1.030); Urobilinogen,Urine 0.2 (0.2,1.0)
[2023-04-05 18:33] LABS: Bacteria,Urine None Seen /HPF (None Seen)
== END | disposition home or self-care (01) ==
LOC: LABPAT 11:19
PROVIDERS: ATTEND Urology
DX: Z01.812 Encounter for preprocedural laboratory examination (principal); N20.1 Calculus of ureter; R31.0 Gross hematuria
CPT/HCPCS: 80048; 81001; 85025; 87086

== ENCOUNTER 2023-04-12 09:48 | Day surgery (SDC) | payer MEDICARE ==
--- NOTE | 2023-04-11 19:20 | P.GSHP ---
History of Present Illness H&P Date: 04/11/23 62 yo male recently in the hospital with an obstructing 7-8mm stone ureteral stone, pyonephrosis, uti with sepsis[ proteus mirabilis]. A left ureteral stent was placed and the uti with sepsis was succesfully treated. He now comes for a left ureteroscopy with laser lithotripsy stone and stent removal. - Constitutional Constitutional: Denies chills, Denies fever - EENT Eyes: denies blurred vision, denies pain Ears, nose, mouth and throat: Denies headache, Denies sore throat - Cardiovascular Cardiovascular: Denies chest pain, Denies shortness of breath - Respiratory Respiratory: Denies cough, Denies 7 - Gastrointestinal Gastrointestinal: Denies abdominal pain, Denies diarrhea, Denies nausea, Denies vomiting - Genitourinary (Female) Genitourinary: Denies dysuria, Denies hematuria - Genitourinary (Male) Genitourinary: Denies dysuria, Denies hematuria - Musculoskeletal Musculoskeletal: Denies myalgias - Integumentary Integumentary: Denies pruritus, Denies rash - Neurological Neurological: Denies numbness, Denies weakness - Psychiatric Psychiatric: Denies anxiety, Denies depression - Endocrine Endocrine: Denies fatigue, Denies weight change Past Medical History Past Medical History: GERD/Reflux, Hypertension, Prostate Disorder, Sleep Apnea/CPAP/BIPAP Additional Past Medical History / Comment(s): kidney stones, recent admit for bronchospasm sepsis and heart flutter due to stone 03/22/23, wears cpap, swelling in feet improving. arthritis in hands, constipation History of Any Multi-Drug Resistant Organisms: None Reported Past Surgical History: Appendectomy Additional Past Surgical History / Comment(s): left elbow surgery, bilateral meniscus sx , hemorrhoid surgery. colonoscopy Past Anesthesia/Blood Transfusion Reactions: No Reported Reaction Additional Past Anesthesia/Blood Transfusion Reaction / Comment(s): provided by Smoking Status: Never smoker - Past Family History Mother Family Medical History: Diabetes Mellitus Medications and Allergies Home Medications Medication Instructions Recorded Confirmed Type Aspirin EC [Ecotrin Low Dose] 81 mg PO DAILY 03/21/23 04/07/23 History Multivitamins, Thera [Multivitamin 1 tab PO DAILY 03/21/23 04/07/23 History (formulary)] Omeprazole 20 mg PO DAILY 03/21/23 04/07/23 History Tamsulosin [Flomax] 0.8 mg PO HS 03/21/23 04/07/23 History ALPRAZolam [Xanax] 0.25 mg PO TID PRN 3 Days #9 tab 04/01/23 04/07/23 Rx Acetaminophen Tab [Tylenol] 650 mg PO Q6HR PRN tab 04/01/23 04/07/23 Rx Albuterol Sulfate [Albuterol 1 puff PO Q4-6H #8.5 gm 04/01/23 04/07/23 Rx Sulfate Hfa] Apixaban [Eliquis] 5 mg PO BID #60 tab 04/01/23 04/07/23 Rx Metoprolol Tartrate [Lopressor] 50 mg PO BID #60 tab 04/01/23 04/07/23 Rx polyethylene glycoL 3350 [Miralax] 17 gm PO DAILY packet 04/01/23 04/07/23 Rx Unk [employer] Tab 1 tab PO DAILY 04/07/23 04/07/23 History Allergies Allergy/AdvReac Type Severity Reaction Status Date / Time Penicillins Allergy Unknown Verified 04/07/23 15:36 Surgical - Exam - General well developed, well nourished, no distress - Eyes normal ocular movement, no icteric - ENT no hearing loss, no congestion - Neck no masses, trachea midline - Respiratory normal respiratory effort, clear to auscultation - Abdomen Abdomen: soft, non tender, no guarding, no rigid, no rebound - Integumentary no rash, no abnormal pigmentation - Neurologic no disoriented, no combative - Psychiatric oriented to time, oriented to person, oriented to place, speech is normal, memory intact Results - Imaging Abdominal x-ray: report reviewed, image reviewed Assessment and Plan Assessment: Impression: left ureteral stone, Recent history of cardiac arrythmia Plan: Left ureteroscopy with laser lithotripsy
[~2023-04-12 09:48] MED LIST: GENTAMICIN 140 MG in SODIUM CHLORIDE 0.9% 100 ML IVPB PRN; Pre Op ABX Message 1 EACH MISC MISCELLANE ONE
[2023-04-12] MEDS ORDERED: LACTATED RINGERS 1,000 ML IV ONE ×2 (10:07→13:23)
[2023-04-12] MEDS ORDERED: ONDANSETRON 4 MG/2 ML VIAL ONE (10:13)
--- NOTE | 2023-04-12 10:19 | XR ---
EXAMINATION TYPE: XR KUB DATE OF EXAM: 04/12/2023 10:05 AM INDICATION: Patient age:Male; 62 years old; Reason for study: N20.1 left ureteral stone; COMPARISON: CT 03/28/2023 TECHNIQUE: One radiographic view of the abdomen was obtained. FINDINGS: Left ureteral stent with proximal and distal tip in appropriate position. Multilevel disc d egeneration changes throughout the spine with compression deformities of the upper lumbar spine. Ther e is multilevel osteophyte formation and mild scoliosis apex L3-L4 on the right. Nonspecific bowel ga s pattern. No definitive left ureteral stone visualized. IMPRESSION: Left ureteral stent with proximal and distal tip in appropriate position. No definitive left ureteral stone visualized when compared to prior CT on 03/28/2023.
[2023-04-12 10:33] VITALS: RESP 16
[2023-04-12] MEDS ORDERED: DEXAMETHASONE SOD PHOSPHATE 4 MG/ML 1 ML VIAL IVP ONE (10:33)
[2023-04-12 10:42] LABS: Glucose,Whole Blood 81 mg/dL (70-110)
[2023-04-12] MEDS ORDERED: PROPOFOL 10 MG/ML 20 ML VIAL IV ONE (11:58)
[2023-04-12] MEDS ORDERED: PHENYLEPHRINE-0.9% NACL SYG 1,000 MCG/10 ML SYRINGE ONE (11:58)
[2023-04-12] MEDS ORDERED: MIDAZOLAM 2 MG/2 ML VIAL ONE (11:58)
[2023-04-12] MEDS ORDERED: LIDOCAINE 2% INJ 20 MG/ML (2 ML VIAL) ONE (11:58)
[2023-04-12] MEDS ORDERED: fentaNYL (PF) 50 MCG/ML 2 ML AMP ONE (11:58)
[2023-04-12] MEDS ORDERED: SUCCINYLCHOLINE CHLORIDE 200 MG/10 ML VIAL IV ONE (11:58)
--- NOTE | 2023-04-12 12:46 | P.OP ---
Date of Procedure: 04/12/23 Preoperative Diagnosis: Left ureteral calculus, status post stent placement for obstruction with pyelonephrosis Postoperative Diagnosis: Same Procedure(s) Performed: Cystoscopy, removal double-J catheter left, left ureteroscopy with laser lithotripsy and stone basketing Anesthesia: GALILEA Surgeon: Shawn Wilson Estimated Blood Loss (ml): 0 Pathology: other (Stone) Condition: stable Disposition: PACU Indications for Procedure: Patient is 62. He recently was in the hospital with an obstructing ureteral stone, urinary tract infection with sepsis and pyelonephrosis. He grew Proteus. He now comes for stent removal and stone removal as infection has cleared Description of Procedure: Patient brought to the operating suite. Given general anesthesia. Placed lithotomy position with a sterile prep and drape. Cystoscopy Foroblique lens and 21-Swiss sheath identifies a normal interior urethra. The prostatic urethra shows some obstruction. The bladder andino inspected is normal. The left ureteral orifice is identified and stent was pulled to the urethral meatus. Through the left ureteral stent an 035 wires passed up into the left kidney. I removed the stent and over the wires passed Joaquín 01-49-Anmevq reentry catheter into the left ureter. The inner sheath is removed as was the wire. I passed the flexible ureteroscope up to the stone floats packing of the kidney. 72 laser probe the stone was broken into tiny fragments a largest of which are basketed. I looked throughout the collecting system and see one other stone which is basketed. Seizure do a pullout ureteroscopy and there is no remaining stone in the edema is not significant enough to leave another stent. The bladder is drained. The patient is awakened and returned recovery room in good condition. He will be discharged home upon recovery and found the office in one week.
[2023-04-12 13:09] VITALS: TEMP 97
--- NOTE | 2023-04-12 13:46 | FL ---
Intraoperative/procedural fluoroscopic services were provided. Total fluoroscopy time is 18.6 seconds with a total of 3 submitted images to PACS. Please see the operative/procedural note for further det ails. DAP: 3.2023
[2023-04-12 13:54] VITALS: PULSE 75
[2023-04-12 14:07] VITALS: BP 124/80
== END 2023-04-12 14:35 | disposition home or self-care (01) ==
LOC: OR 09:48
PROVIDERS: ATTEND Urology
DX: N20.1 Calculus of ureter (principal); K21.9 Gastro-esophageal reflux disease without esophagitis; I10 Essential (primary) hypertension; G47.33 Obstructive sleep apnea (adult) (pediatric); Z90.49 Acquired absence of other specified parts of digestive tract; Z98.890 Other specified postprocedural states; Z87.19 Personal history of other diseases of the digestive system; Z83.3 Family history of diabetes mellitus; Z79.82 Long term (current) use of aspirin; Z79.01 Long term (current) use of anticoagulants; Z79.899 Other long term (current) drug therapy; Z99.89 Dependence on other enabling machines and devices; Z88.0 Allergy status to penicillin
CPT/HCPCS: 52353; 82365; 74018; C1769; J2250; J0330; J1100; J2405; J3010; J1580; J2370; J2704; J2001

== ENCOUNTER → 2023-05-10 | Outpatient (CLI) | payer MEDICARE ==
--- NOTE | 2023-05-10 16:07 | P.SLEEP ---
History of Present Illness DATE: 05/10/2023 CONSULTATION/NEW PATIENT EVALUATION HISTORY OF PRESENT ILLNESS/SLEEP-WAKE EVALUATION: 63-year-old gentleman had been evaluated in the sleep center for obstructive sleep apnea hypopnea syndrome. Patient has history of extremely severe obstructive sleep apnea hypopnea syndrome diagnosed in September 2019. Apnea-hypopnea index at the time 81.9 falling split polysomnography night protocol. Patient was started on treatment with CPAP and he continued to use his CPAP equipment every night for the whole night. Presently she experiencing dryness is his mouth while using CPAP equipment. I reviewed the results of previous sleep studies. Maximal CPAP pressure during titration was 14 cm of water and it was the best pressure. I checked CPAP unit. CPAP pressure is 14 cm of water, usage is 95% of nights for more than 4 hours, average 6.8 hours per night. Apnea hypopnea index is 6.4 which is borderline SLEEP SCHEDULE: Usually sleep schedule from midnight until 7 AM 7 days a week. FALLING ASLEEP: No problems with falling asleep, although patient has TV set and bedroom. DURING SLEEP: Most of the nights patient sleeps on the chair. No snoring while using CPAP. No history of sleep paralysis, or cataplexy. DURING THE DAY/WAKE STATE: Patient may fill sleepiness during the day. [place] sleepiness scale is 10. Patient may take 1 nap during the day. PAST MEDICAL HISTORY: COPD, anxiety, cardiac arrhythmia, acid reflux, hyperlipidemia, kidney stones, BPH. PAST SURGICAL HISTORY: Surgical treatment for kidney stone in 2022, knee surgeries for meniscus problems, left elbow surgery, appendectomy. MEDICATIONS: Albuterol, Xanax 0.25 mg as needed, metoprolol 50 mg twice a day, omeprazole 20 mg once a day, rosuvastatin 20 mg once a day, Tamsulosin. SOCIAL HISTORY: Negative for smoking or using alcohol. FAMILY HISTORY: Hypertension, emphysema, diabetes. REVIEW OF SYSTEMS: Awakenings from sleep with nocturia. No fevers. No double vision. No recent chest pain. No shortness of breath. No abdominal pain. No bleeding episodes. No blood in urine. No seizure episodes. PHYSICAL EXAMINATION: GENERAL: A pleasant patient without any distress. VITAL SIGNS: BP 132/79 , HR 73 , RR 16 , weight 309.6 pounds, height 5 foot 3.5 inches, body mass index 54.0 . HEENT: PERRLA, EOMI. Evaluation of oropharynx showed tongue protrudes midline, low position of soft palate Mallampati 4. NECK: Supple. No JVD. Thyroid is not palpable. 19.5 inches in circumference. LUNGS: Rhonchi HEART: S1, S2. ABDOMEN: Soft and nontender. Bowel sounds are present. No organomegaly appreciated. Obese EXTREMITIES: No clubbing or cyanosis. TURF FARMER: Awake, alert, and oriented x3. Cranial nerves 2 to 7 intact. There is no fasciculation or atrophy noted. No focal deficits observed. ASSESSMENT: 1. Extremely severe obstructive sleep apnea hypopnea syndrome by results of polysomnogram and 2019. Patient continued to use CPAP therapy every night. Apnea-hypopnea index on CPAP borderline to normal, but usually patient sleeps on the chair and original sleep study also have been done on the chair according to patient. 2. History of cardiac arrhythmia. Patient is planning for cardiac ablation procedure, which will be done on the back position under general anesthesia. Level of CPAP therapy which is sufficient for correction of respiratory abnormalities while patient is on the chair will not be sufficient for treatment in bed on the back position. 3. Morbid obesity, body mass index 54. 4. COPD. 5 acid reflux. 6 . History of osteoarthritis. 7. Hyperlipidemia. PLAN: 1. CPAP/BiPAP titration on the back position. 2. Watching and aggressive losing weight. 3. Preferable position during sleep on the side. 4. No driving if patient feels any sleepiness. Patient is aware of civil and criminal liability for unsafe driving. 5. Sleep hygiene with regular sleep time for at least 7.5-8 hours. Thank you very much for referring this patient for consultation. Sincerely, Jonathan Solomon MD, PhD, FAASM. Diplomat of [place] [employer], Sleep Medicine Board by [place] [employer] [place] [employer] [facility] [place] Past Medical History Past Medical History: GERD/Reflux, Hypertension, Prostate Disorder, Sleep Apnea/CPAP/BIPAP Additional Past Medical History / Comment(s): kidney stones, recent admit for b ronchospasm sepsis and heart flutter due to stone 03/22/23, wears cpap, swelling in feet improving. arthritis in hands, constipation History of Any Multi-Drug Resistant Organisms: None Reported Past Surgical History: Appendectomy Additional Past Surgical History / Comment(s): left elbow surgery, bilateral meniscus sx , hemorrhoid surgery. colonoscopy Past Anesthesia/Blood Transfusion Reactions: No Reported Reaction Additional Past Anesthesia/Blood Transfusion Reaction / Comment(s): provided by Smoking Status: Never smoker - Past Family History Mother Family Medical History: Diabetes Mellitus Medications and Allergies Home Medications Medication Instructions Recorded Confirmed Type Aspirin EC [Ecotrin Low Dose] 81 mg PO DAILY 03/21/23 04/12/23 History Multivitamins, Thera [Multivitamin 1 tab PO DAILY 03/21/23 04/12/23 History (formulary)] Omeprazole 20 mg PO DAILY 03/21/23 04/12/23 History Tamsulosin [Flomax] 0.8 mg PO HS 03/21/23 04/12/23 History ALPRAZolam [Xanax] 0.25 mg PO TID PRN 3 Days #9 tab 04/01/23 04/12/23 Rx Acetaminophen Tab [Tylenol] 650 mg PO Q6HR PRN tab 04/01/23 04/12/23 Rx Albuterol Sulfate [Albuterol 1 puff PO Q4-6H #8.5 gm 04/01/23 04/12/23 Rx Sulfate Hfa] Apixaban [Eliquis] 5 mg PO BID #60 tab 04/01/23 04/12/23 Rx Metoprolol Tartrate [Lopressor] 50 mg PO BID #60 tab 04/01/23 04/12/23 Rx polyethylene glycoL 3350 [Miralax] 17 gm PO DAILY packet 04/01/23 04/12/23 Rx Unk Apple Cider Tab 1 tab PO DAILY 04/07/23 04/12/23 History Allergies Allergy/AdvReac Type Severity Reaction Status Date / Time Penicillins Allergy Unknown Verified 04/12/23 10:34 Sleep Note - Sleep Note Sleep Note: Temperature: Pulse Rate: Respiratory Rate: Blood Pressure: SpO2: Height: Weight: BMI: Neck Circumference:
== END ==
LOC: 3 N SLEEP 14:14
PROVIDERS: ATTEND Internal Medicine
DX: G47.33 Obstructive sleep apnea (adult) (pediatric) (principal); J44.9 Chronic obstructive pulmonary disease, unspecified; K21.9 Gastro-esophageal reflux disease without esophagitis; M19.90 Unspecified osteoarthritis, unspecified site; F41.9 Anxiety disorder, unspecified; N40.0 Benign prostatic hyperplasia without lower urinary tract symptoms; E78.5 Hyperlipidemia, unspecified; E66.01 Morbid (severe) obesity due to excess calories; Z68.43 Body mass index [BMI] 50.0-59.9, adult; Z99.89 Dependence on other enabling machines and devices; Z86.79 Personal history of other diseases of the circulatory system; Z79.51 Long term (current) use of inhaled steroids; Z88.0 Allergy status to penicillin; Z79.899 Other long term (current) drug therapy
CPT/HCPCS: 99211

== ENCOUNTER → 2023-07-21 | Outpatient (CLI) | payer MEDICARE, OTHER ==
[2023-07-21 20:07] LABS: HCT 42.9 % (39.6-50.0); HGB 14.2 d/dL (13.0-17.0); MCH 32.6 pg (27.0-32.0); MCHC 33.1 d/dL (32.0-37.0); MCV 98.6 FL (80.0-97.0); Mean Platelet Volume 10.8 FL (9.5-12.2); NRBC Per 100 WBC 0 X 10*3/uL (0.00-0.01); Platelet Count 183 X 10*3/uL (140-440); RBC 4.35 X 10*6/uL (4.40-5.60); RDW 13.7 % (11.5-14.5); WBC 5.71 X 10*3/uL (4.50-10.00)
[2023-07-21 20:25] LABS: Blood Urea Nitrogen 9.8 mg/dL (9.0-27.0); Chloride 104 mmol/L (96-109); Potassium 4.4 mmol/L (3.5-5.5); Sodium 142 mmol/L (135-145)
== END | disposition home or self-care (01) ==
LOC: LABPAT 13:37
PROVIDERS: ATTEND Internal Medicine Clinical Cardiac Electrophysiology
DX: Z01.812 Encounter for preprocedural laboratory examination (principal); I48.92 Unspecified atrial flutter
CPT/HCPCS: 80051; 82565; 84520; 85027

== ENCOUNTER 2023-07-31 05:57 | Day surgery (SDC) | payer MEDICARE, OTHER ==
[2023-07-28 09:43] VITALS: BMI 47.9
[2023-07-31] MEDS ORDERED: SODIUM CHLORIDE 0.9% 1,000 ML IV SCH (06:06)
[2023-07-31] MEDS ORDERED: SODIUM CHLORIDE 0.9% 1,000 ML IV ONE (06:09)
[2023-07-31] MEDS ORDERED: MIDAZOLAM 2 MG/2 ML VIAL ONE (07:14)
[2023-07-31] MEDS ORDERED: PHENYLEPHRINE-0.9% NACL SYG 1,000 MCG/10 ML SYRINGE ONE (07:14)
[2023-07-31] MEDS ORDERED: GLYCOPYRROLATE 0.2 MG/ML 2 ML VIAL ONE (07:14)
[2023-07-31] MEDS ORDERED: LIDOCAINE 2% INJ 20 MG/ML (2 ML VIAL) ONE (07:14)
[2023-07-31] MEDS ORDERED: NEOSTIGMINE 1 MG/ML 10 ML VIAL ONE (07:14)
[2023-07-31] MEDS ORDERED: SUCCINYLCHOLINE CHLORIDE 200 MG/10 ML VIAL IV ONE (07:14)
[2023-07-31] MEDS ORDERED: HEPARIN SODIUM,PORCINE 5,000 UNIT/ML 1 ML VIAL ONE (07:14)
[2023-07-31] MEDS ORDERED: PROPOFOL 10 MG/ML 20 ML VIAL IV ONE (07:14)
[2023-07-31] MEDS ORDERED: ISOPROTERENOL 250 MCG/1.25 ML SYR IV ONE (07:14)
[2023-07-31] MEDS ORDERED: fentaNYL (PF) 50 MCG/ML 2 ML AMP ONE (07:14)
[2023-07-31] MEDS ORDERED: ePHEDrine 50 MG/ML 1 ML VIAL ONE (07:14)
--- NOTE | 2023-07-31 07:58 | P.HPCAR ---
History of Present Illness This is Dr. Gonzalez dictating an H/P on this patient The patient was interviewed and examined IMPRESSION / ASSESSMENT: Typical atrial flutter associated with acute exacerbation of heart failure RV enlargement Right bundle branch block pattern Morbid obesity PLAN: Proceed with typical atrial flutter ablation under general anesthesia Continue management of hypertension and diastolic heart failure Continue ELIQUIS HPI Patient has a history of congestive heart failure with acute exacerbation precipitated by typical atrial flutter He is breathing better now but remains in atrial flutter No orthopnea at this time ROS: No fever chills or rigors, no cough, phlegm or expectoration, no nausea, vomiting or diarrhea, no hematuria, dysuria, no musculoskeletal complaints, no strokes or seizures, no skin lesions. EXAMINATION: Afebrile 97.2F pulse rate in the 80s, blood pressure 142/79 mmHg Breath sounds are clear no rhonchi no crackles Heart sounds are distant Trace bilateral lower extremity edema Morbid obesity REVIEW OF LABS, ECG & MEDICAL DATA aspirin, ELIQUIS, Crestor, metoprolol 50 mrem twice daily, Lasix 20 mg daily Physical Exam Vitals: Vital Signs Temp Pulse Resp BP Pulse Ox 07/31/23 06:20 97.2 F L 85 18 142/79 92 L Past Medical History Past Medical History: Atrial Fibrillation, GERD/Reflux, Hyperlipidemia, Hypertension, Prostate Disorder, Sleep Apnea/CPAP/BIPAP Additional Past Medical History / Comment(s): kidney stones, recent admit for bronchospasm sepsis and heart flutter due to stone 03/22/23, wears cpap, swelling in feet improving. arthritis in hands, constipation, History of Any Multi-Drug Resistant Organisms: None Reported Past Surgical History: Appendectomy, Orthopedic Surgery Additional Past Surgical History / Comment(s): left elbow surgery, bilateral meniscus sx , hemorrhoid surgery. colonoscopy , KIDNEY STONE REMOVED, Past Anesthesia/Blood Transfusion Reactions: No Reported Reaction Additional Past Anesthesia/Blood Transfusion Reaction / Comment(s): provided by Smoking Status: Never smoker - Past Family History Mother Family Medical History: Diabetes Mellitus Physical Examination Vital Signs Temp Pulse Resp BP Pulse Ox 07/31/23 06:20 97.2 F L 85 18 142/79 92 L Results Current Medications Generic Name Dose Route Start Last Admin Trade Name Freq PRN Reason Stop Dose Admin Sodium Chloride 1,000 mls @ 50 mls/hr 07/31/23 06:06 Saline 0.9% IV 08/30/23 06:07 .Q20H KATELIN
[2023-07-31] MEDS ORDERED: LIDOCAINE 1% INJ 10MG/ML (20 ML MDV) SQ ONE (08:07)
[2023-07-31] MEDS ORDERED: HEPARIN SODIUM (1,000 UNIT/ML) 1,000 UNIT in SODIUM CHLORIDE 0.9% 1,000 ML IRRIGATION ONE (09:00)
[2023-07-31] MEDS ORDERED: ACETAMINOPHEN IV (For NPO) 1,000 MG in EMPTY BAG 1 BAG IVPB ONE (10:12)
[2023-07-31] MEDS ORDERED: ACETAMINOPHEN TAB 325 MG TAB PO PRN (10:12)
--- NOTE | 2023-07-31 10:24 | P.EPPROC ---
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 Written informed consent was obtained prior to the procedure. General anesthesia provided. Venous sheaths placed in the right and left femoral veins and diagnostic, mapping and ablation cath was placed in the high right atrium, His bundle area, right ventricle, coronary sinus and he will tricuspid isthmus. Intracardiac echo placed Small exudative effusion limited to the base of the LV, with a thickened pericardium noted Mid isthmus pouch noted Patient was in sinus rhythm the start of the study the right bundle-branch block Sinus cycle length 832 ms, AK interval 174 ms, QRS 160 and QT 446 ms AH 54 and HV 35 ms Sinus recovery times were 1003, 862 and 1126 ms VA Wenckebach block greater than 600 ms AV node Wenckebach block 260 ms Antegrade slow pathway conduction at 300 ms Isuprel started and atrial stimulation performed with single and double extra stimuli from the high right atrium and coronary sinus. No inducible SVT 3-D electro-anatomic mapping was performed. The cavo tricuspid isthmus was defined Linear ablation performed from the tricuspid annulus to the eustachian ridge/IVC No anatomic Left Differential pacing proved complete bidirectional block Isthmus conduction time greater than 170 ms, uniformly in both directions Patient tolerated the procedure well without any acute complications No change in intracardiac echo at the end of the procedure Venous sheaths were closed with Vascade Plan Continue ELIQUIS In view of his risk factors of dyslipidemia with obesity proceed with dobutamine stress echo as an outpatient
--- NOTE | 2023-07-31 10:29 | P.PRLE ---
RE: Miguel Sorto Dear Dr. Opal Sorto has typical atrial flutter which precipitated acute diastolic heart failure Today he underwent successful atrial flutter ablation with confirmed bidirectional block He will continue ELIQUIS as before as well as rosuvastatin and metoprolol Thank you for entrusting me with the care of the patient Warm regards Sincerely Ted Gonzalez
[2023-07-31] MEDS: METOPROLOL TARTRATE 50 MG TAB PO SCH (22:00)
[2023-07-31] MEDS: APIXABAN 5 MG TAB PO SCH (22:00)
[2023-08-01 06:30] LABS: ALT 20 U/L (4-49); AST 39 U/L (17-59); African American GFR (CKD) >90 (>60 ml/min/1.73 sqM); Albumin 3.6 g/dL (3.5-5.0); Albumin/Globulin Ratio 1.3; Alkaline Phosphatase 61 U/L (38-126); Anion Gap 7 mmol/L; Blood Urea Nitrogen 9 mg/dL (9-20); Calcium 8.7 mg/dL (8.4-10.2); Carbon Dioxide 26 mmol/L (22-30); Chloride 105 mmol/L (98-107); Globulin 2.8 g/dL; Glucose 99 mg/dL (74-99); Non-African American GFR(CKD) >90 (>60 ml/min/1.73 sqM); Potassium 3.7 mmol/L (3.5-5.1); Sodium 138 mmol/L (137-145); Total Bilirubin 0.6 mg/dL (0.2-1.3); Total Protein 6.4 g/dL (6.3-8.2)
[2023-08-01] MEDS ORDERED: PANTOPRAZOLE 40 MG TABLET PO SCH (07:30)
[2023-08-01] MEDS: APIXABAN 5 MG TAB PO SCH (07:45)
[2023-08-01] MEDS: METOPROLOL TARTRATE 50 MG TAB PO SCH (07:45)
[2023-08-01 08:09] VITALS: BP 108/72; PULSE 67; RESP 16; TEMP 98.2
[2023-08-01] MEDS ORDERED: ASPIRIN 81 MG PO SCH (09:00)
[2023-08-01] MEDS ORDERED: ATORVASTATIN 40 MG TAB PO SCH (09:00)
[2023-08-01] MEDS ORDERED: FUROSEMIDE 20 MG TAB PO SCH (09:00)
--- NOTE | 2023-08-01 12:54 | P.DS ---
Providers Attending physician: Ted Gonzalez Primary care physician: [facility] Hospital Course: Patient is doing well. Denies any chest discomfort no dizziness lightheadedness no undue shortness of breath Groins of healed well Normal heart sounds no murmurs no gallops Normal breath sounds no rhonchi no crackles Pulse rate in the 70s and 80s, normal respirations Blood pressure 134/79 mmHg Impression Typical atrial flutter with RVR and symptomatic secondary to exacerbation of diastolic heart failure Morbid obesity Dyslipidemia Status post successful ablation for typical atrial flutter Plan Incentive spirometry use encouraged for the first week postprocedure Continue and granulation Continue all other cardiac medications I will schedule the patient for a dobutamine stress echo now to evaluate for underlying coronary artery disease that could've precipitated his diastolic he art failure Plan - Discharge Summary Discharge Rx Participant: Yes New Discharge Prescriptions: Continue RX: Omeprazole 20 mg PO DAILY RX: Tamsulosin [Flomax] 0.8 mg PO HS RX: Acetaminophen Tab [Tylenol] 650 mg PO Q6HR PRN tab PRN Reason: Mild Pain Or Fever > 100.5 RX: Albuterol Sulfate [Albuterol Sulfate Hfa] 1 puff PO Q4-6H #8.5 gm RX: ALPRAZolam [Xanax] 0.25 mg PO TID PRN 3 Days #9 tab PRN Reason: Anxiety RX: Multivitamins, Thera [Multivitamin (formulary)] 1 tab PO DAILY RX: Aspirin EC [Ecotrin Low Dose] 81 mg PO DAILY RX: Apixaban [Eliquis] 5 mg PO BID #60 tab RX: Metoprolol Tartrate [Lopressor] 50 mg PO BID #60 tab Unk Apple Cider Tab 1 tab PO DAILY RX: Sodium Bicarbonate Tab 1,300 mg PO TID RX: Furosemide [Lasix] 20 mg PO DAILY RX: Rosuvastatin [Crestor] 20 mg PO DAILY Discharge Medication List RX: Aspirin EC [Ecotrin Low Dose] 81 mg PO DAILY 03/21/23 [History] RX: Multivitamins, Thera [Multivitamin (formulary)] 1 tab PO DAILY 03/21/23 [History] RX: Omeprazole 20 mg PO DAILY 03/21/23 [History] RX: Tamsulosin [Flomax] 0.8 mg PO HS 03/21/23 [History] RX: ALPRAZolam [Xanax] 0.25 mg PO TID PRN 3 Days #9 tab 04/01/23 [Rx] RX: Acetaminophen Tab [Tylenol] 650 mg PO Q6HR PRN tab 04/01/23 [Rx] RX: Albuterol Sulfate [Albuterol Sulfate Hfa] 1 puff PO Q4-6H #8.5 gm 04/01/23 [Rx] RX: Apixaban [Eliquis] 5 mg PO BID #60 tab 04/01/23 [Rx] RX: Metoprolol Tartrate [Lopressor] 50 mg PO BID #60 tab 04/01/23 [Rx] Unk Apple Cider Tab 1 tab PO DAILY 04/07/23 [History] RX: Furosemide [Lasix] 20 mg PO DAILY 07/28/23 [History] RX: Rosuvastatin [Crestor] 20 mg PO DAILY 07/28/23 [History] RX: Sodium Bicarbonate Tab 1,300 mg PO TID 07/28/23 [History] Follow up Appointment(s)/Referral(s): Ted Gonzalez MD [STAFF PHYSICIAN] - 08/08/23 11:00 am Patient Instructions/Handouts: Atrial Flutter (DC), General Anesthesia (DC), Electrophysiology Study (DC) Activity/Diet/Wound Care/Special Instructions: Post EP study - Ablation instructions 1. Keep access sites dry for 2 days. 2. No heavy lifting or straining for 2 days. 3. Avoid bending the hips repeatedly for 2 days. 4. You may go up and down stairs slowly Call if the following is noted 1. Bleeding, increasing swelling or pain at the access sites. 2. Increasing chest discomfort, especially upon taking a deep breath. 3. Increasing shortness of breath, at rest or with exertion. 4. Undue cough / phlegm 5. Difficulty or pain while swallowing. 6. Pain or change in color in the extremities. 7. Fever, chills, rigors. 8. Increasing headache or neurologic symptoms. 9. Dizziness, fainting, palpitations Continue ELIQUIS and other cardiac medications Discharge Disposition: HOME SELF-CARE
[2023-08-01 13:18] LABS: Chol/HDL Ratio 2.88 Ratio; LDL Cholesterol,Calculated 70.6 mg/dL (0.0-131.0)
== END 2023-08-01 11:19 | disposition home or self-care (01) ==
LOC: CATHEP 05:57 → 6NMEDSUR 09:26 → CATHEP 08-01 11:19
PROVIDERS: ATTEND Internal Medicine Clinical Cardiac Electrophysiology
DX: I48.3 Typical atrial flutter (principal); I11.0 Hypertensive heart disease with heart failure; I50.31 Acute diastolic (congestive) heart failure; I48.91 Unspecified atrial fibrillation; I45.10 Unspecified right bundle-branch block; K21.9 Gastro-esophageal reflux disease without esophagitis; E78.5 Hyperlipidemia, unspecified; G47.30 Sleep apnea, unspecified; E66.01 Morbid (severe) obesity due to excess calories; Z68.42 Body mass index [BMI] 45.0-49.9, adult; Z90.49 Acquired absence of other specified parts of digestive tract; Z98.890 Other specified postprocedural states; Z83.3 Family history of diabetes mellitus; Z88.0 Allergy status to penicillin; Z79.01 Long term (current) use of anticoagulants; Z79.82 Long term (current) use of aspirin; Z79.899 Other long term (current) drug therapy; Z82.49 Family history of ischemic heart disease and other diseases of the circulatory system; Z79.1 Long term (current) use of non-steroidal anti-inflammatories (NSAID)
CPT/HCPCS: 93623; 93662; 93653; 86900; 86901; 80053; 80061; 84443; 86850; C1759; C1894; C1769; C1760; C1730; C1893; C1732; J2001; J1644; J0131

== ENCOUNTER → 2023-12-06 | Outpatient (CLI) | payer MEDICARE, OTHER ==
[2023-12-06 18:54] LABS: Basophils # (A) 0.02 X 10*3/uL (0.00-0.10); Basophils % (A) 0.3 %; Eosinophils # (A) 0.14 X 10*3/uL (0.04-0.35); Eosinophils % (A) 2.1 %; HCT 41.7 % (39.6-50.0); HGB 13.8 g/dL (13.0-17.0); Lymphocytes # (A) 2.06 X 10*3/uL (0.90-5.00); Lymphocytes % (A) 30.2 %; MCH 31.5 pg (27.0-32.0); MCHC 33.1 g/dL (32.0-37.0); MCV 95.2 FL (80.0-97.0); Mean Platelet Volume 11.6 FL (9.5-12.2); Monocytes # (A) 0.53 X 10*3/uL (0.20-1.00); Monocytes % (A) 7.8 %; NRBC Per 100 WBC 0 X 10*3/uL (0.00-0.01); Neutrophils # (A) 4.05 X 10*3/uL (1.80-7.70); Neutrophils % (A) 59.5 %; Platelet Count 178 X 10*3/uL (140-440); RBC 4.38 X 10*6/uL (4.40-5.60); RDW 13.6 % (11.5-14.5); WBC 6.81 X 10*3/uL (4.50-10.00)
[2023-12-06 19:03] LABS: Erythrocyte Sedimentation Rate 25 mm/Hr (0-20)
[2023-12-06 19:18] LABS: AST 18 U/L (14-35); Albumin 4.3 g/dL (3.8-4.9); Albumin/Globulin Ratio 1.79 Ratio (1.60-3.17); Blood Urea Nitrogen 12.8 mg/dL (9.0-27.0); Calcium 9.3 mg/dL (8.7-10.3); Carbon Dioxide 25.9 mmol/L (21.6-31.8); Chloride 104 mmol/L (96-109); Globulin 2.4 g/dL (1.6-3.3); Glucose 78 mg/dL (70-110); Potassium 3.6 mmol/L (3.5-5.5); Sodium 143 mmol/L (135-145); Total Bilirubin 0.4 mg/dL (0.3-1.2); Total Protein 6.7 g/dL (6.2-8.2)
[2023-12-06 19:19] LABS: ALT 14 U/L (10-49); Alkaline Phosphatase 60 U/L (41-126)
== END | disposition home or self-care (01) ==
LOC: LABWHC1 13:52
PROVIDERS: ATTEND Internal Medicine
DX: T78.3XXA Angioneurotic edema, initial encounter (principal)
CPT/HCPCS: 36415; 80053; 84443; 85025; 85652; 86038; 86140; 86160; 86161; 86332

== ENCOUNTER → 2024-09-25 | Outpatient (CLI) | payer MEDICARE, OTHER ==
--- NOTE | 2024-10-07 22:17 | P.PCN ---
Date of Procedure: 09/25/24 Operative Findings: Home sleep study report Date of service is 09/25/2024 Pertinent history This is a 64-year-old male patient undergoing a home sleep study who is morbidly obese and known to have obstructive sleep apnea. He has been using CPAP therapy for sleep apnea. The patient was diagnosed having severe obstructive sleep apnea with an AHI of 81.9 based on on his split-night study that was done back in September 2019. Based on that, the patient has been treated with a CPAP pressure of 14 cm of waterHe has lost around 70 pounds. He is wondering whether he still needs his CPAP machine. Based on that, a follow-up home sleep study was ordered. He is known to have atrial fibrillation, chronic restrictive lung disease secondary morbid obesity, BPH, hyperlipidemia, acid reflux are among his comorbid conditions. He is also known to have hyperlipidemia, and BPH. Pertinent physical findings The patient's body mass index is 42.4 with a weight of 256 pounds Technical description The [employer] ApneaLink system was used to complete his home sleep study. This is a type III home sleep study evaluation. The total recording duration was 8 hours and 35 minutes. The study started at 11:29 PM and ended at 8:04 AM. There was a total of 8 hours and 22 minutes of flow monitoring and 8 hours and 18 minutes of oxygen saturation monitoring. Results The respiratory analysis showed a total of 179 obstructive apneas and 181 obstructive hypopneas. The resulting apnea-hypopnea index was 42.9 consistent with severe obstructive sleep apnea Oxygenation analysis The baseline pulse ox was 95% room air oxygen. Average pulse ox was 91% and a minimum pulse ox of 65% and the patient spent approximately 1 hours and 40 minutes of the sleep time below pulse ox of 89% Cardiac summary Average heart rate was 59 with a minimum heart rate of 47 and a maximum heart rate of 176 Assessment Severe symptomatic BA with an AHI of 42.9 and the patient continues to have considerably severe sleep apnea despite his ongoing weight loss. Noted the severity of his sleep apnea is improved as the patient had a baseline AHI of 81.9 back in 2018. Nevertheless, he continues to have a considerably severe sleep apnea despite his weight loss. Nocturnal oxygen desaturation, severe with the lowest pulse ox of 65% Morbid obesity with a BMI of 42.4 Chronic atrial fibrillation BPH Hyperlipidemia Restrictive lung physiology related to morbid obesity Acid reflux Plan Continue efforts to lose weight The current home sleep study is considered to be positive for severe obstructive sleep apnea and is highly recommended for this patient to continue his CPAP machine. For that matter, I would like to see this patient in follow-up in the office along with his CPAP machine to make sure his treatment is successful and the patient remains compliant to the treatment. Will make the appropriate adjustments accordingly. For now the patient is considered to have severe obstructive sleep apnea despite his underlying weight loss. Suggest continuing treatment.
== END ==
LOC: 3 N SLEEP 17:05
PROVIDERS: ATTEND Internal Medicine Critical Care Medicine
DX: G47.33 Obstructive sleep apnea (adult) (pediatric) (principal); G47.36 Sleep related hypoventilation in conditions classified elsewhere; I48.20 Chronic atrial fibrillation, unspecified; N40.0 Benign prostatic hyperplasia without lower urinary tract symptoms; E78.5 Hyperlipidemia, unspecified; K21.9 Gastro-esophageal reflux disease without esophagitis; E66.01 Morbid (severe) obesity due to excess calories; J98.4 Other disorders of lung; Z68.41 Body mass index [BMI] 40.0-44.9, adult; Z88.0 Allergy status to penicillin; Z79.01 Long term (current) use of anticoagulants

== ENCOUNTER 2025-03-18 09:30 | Day surgery (SDC) | payer MEDICARE, OTHER ==
[2025-03-14 10:45] VITALS: BMI 42.4
[~2025-03-18 09:30] MED LIST changes: -GENTAMICIN 140 MG in SODIUM CHLORIDE 0.9% 100 ML IVPB PRN; +LIDOCAINE 1% (10MG/ML) FOR IV START INTRADERMA PRN; -Pre Op ABX Message 1 EACH MISC MISCELLANE ONE
[2025-03-18] MEDS: IV FLUID CONTINUATION 1,000 ML IV ONE ×2 (10:36→11:21)
[2025-03-18 10:44] VITALS: TEMP 97
[2025-03-18] MEDS: LACTATED RINGERS 1,000 ML IV SCH (11:00)
[2025-03-18] MEDS ORDERED: PROPOFOL 10 MG/ML 20 ML VIAL IV ONE (11:22)
--- NOTE | 2025-03-18 11:45 | P.PCN ---
Date of Procedure: 03/18/25 Procedure(s) Performed: BRIEF HISTORY: Patient is a 64-year-old pleasant white male scheduled for an elective colonoscopy as a part of screening for colon cancer and family history of colon cancer. His brother was diagnosed with colon cancer at age 60. He has history of A-fib and been off the Eliquis and his last dose was yesterday morning. PROCEDURE PERFORMED: Colonoscopy with snare polypectomy and Endo Clip placement. PREOPERATIVE DIAGNOSIS: Screening for colon cancer and family history of colon cancer. IV sedation per Anesthesia. PROCEDURE: After informed consent was obtained and benefits and complications including bleeding because of the Eliquis explained in detail to the, the patient, was brought into the endoscopy unit. IV sedation was administered by Anesthesia under continuous monitoring. Digital rectal examination was normal. Initially the Olympus CF-160 flexible video colonoscope was then inserted in the rectum, gradually advanced into the cecum without any difficulty. Careful examination was performed as the scope was gradually being withdrawn. Ileocecal valve and the appendiceal orifice were visualized and appeared normal. Prep was excellent. Mucosa of the cecum, had a 1.5 cm linear polyp polyp that was removed by hot snare polypectomy followed by Endo Clip placement. In the ascending colon there was a 5 mm polyp removed by cold snare polypectomy. Rest of ascending colon, transverse colon, descending colon, sigmoid colon, and rectum appeared normal. Retroflexion was performed in the rectum and no lesions were seen. The patient tolerated the procedure well. IMPRESSION: 1.5 cm linear cecal polyp status post snare polypectomy followed by Endo Clip placement 5 mm ascending colon polyp status post cold snare polypectomy Rest of the colon appeared normal RECOMMENDATIONS: Findings of this examination were discussed with the patient as well as his family. He was advised to follow-up with the biopsy results. If the biopsy reveals adenoma he can have repeat colonoscopy in 3 years. Resume Eliquis tomorrow morning.
[2025-03-18 12:04] VITALS: BP 135/81; PULSE 51; RESP 18
== END 2025-03-18 12:18 | disposition home or self-care (01) ==
LOC: ORWHC2ENDO 09:30
PROVIDERS: ATTEND Internal Medicine Gastroenterology
DX: Z12.11 Encounter for screening for malignant neoplasm of colon (principal); D12.2 Benign neoplasm of ascending colon; D12.0 Benign neoplasm of cecum; I48.91 Unspecified atrial fibrillation; I10 Essential (primary) hypertension; E78.5 Hyperlipidemia, unspecified; G47.33 Obstructive sleep apnea (adult) (pediatric); F41.9 Anxiety disorder, unspecified; K21.9 Gastro-esophageal reflux disease without esophagitis; Z79.01 Long term (current) use of anticoagulants; Z79.899 Other long term (current) drug therapy; Z87.891 Personal history of nicotine dependence; Z88.0 Allergy status to penicillin; Z80.0 Family history of malignant neoplasm of digestive organs
CPT/HCPCS: 45385; J2704; 88305

== ENCOUNTER → 2025-05-12 | Outpatient (CLI) | payer MEDICARE, OTHER ==
--- NOTE | 2025-05-12 23:24 | US ---
EXAMINATION TYPE: US arterial LE single level DATE OF EXAM: 05/12/2025 10:10 AM COMPARISONS: None. 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 History of: Smoker: No Hypertension: Yes Diabetic: No Hyperlipidemia: Yes TIA/CVA: No Previous Vascular Surgery: No CAD: Yes ME: No Vascular Ulcers: No Claudication: Bilateral Gangrene: No FINDINGS: Doppler Waveforms: Right: Multiphasic Left: Multiphasic Pulse Volume Recording: Pressure Gradients: Brachial Artery systolic pressure: Right: 154 Left: 149 Posterior Tibial artery systolic pressure: Right: 154 Left: 149 Dorsalis Pedis artery systolic pressure: Right: 139 Left: 145 Toe artery systolic pressure: Right: 137 Left: 125 Ankle-Brachial Indices: Right: 1.0 Left: 0.97 Toe Brachial Indices: Right: 0.89 Left: 0.81 (Normal > 0.6; Mild 0.35 - 0.59, Moderate 0.12 - 0.34, Severe <0.12) Difficult exam due to machine capability, able to hear arterial signals, not able to produce proper v isual arterial waveform IMPRESSION: No significant flow-limiting stenosis identified by ultrasound. [facility], , 05/12/2025 11:21 PM
== END | disposition home or self-care (01) ==
LOC: RADUSWWP 09:19
PROVIDERS: ATTEND Family Medicine
DX: I73.9 Peripheral vascular disease, unspecified (principal)
CPT/HCPCS: 93922

== ENCOUNTER → 2025-05-14 | Outpatient (CLI) | payer MEDICARE, OTHER ==
[2025-05-15 02:29] LABS: HCT 39.8 % (39.6-50.0); HGB 12.7 g/dL (13.0-17.0); MCH 31.1 pg (27.0-32.0); MCHC 31.9 g/dL (32.0-37.0); MCV 97.5 FL (80.0-97.0); Mean Platelet Volume 11.5 FL (9.5-12.2); NRBC Per 100 WBC 0 X 10*3/uL (0.00-0.01); Platelet Count 145 X 10*3/uL (140-440); RBC 4.08 X 10*6/uL (4.40-5.60); RDW 13.2 % (11.5-14.5); WBC 5.71 X 10*3/uL (4.50-10.00)
[2025-05-15 03:15] LABS: ALT 23 U/L (10-49); AST 27 U/L (14-35); Albumin/Globulin Ratio 1.74 Ratio (1.60-3.17); Alkaline Phosphatase 58 U/L (41-126); Blood Urea Nitrogen 12.6 mg/dL (9.0-27.0); Calcium 8.9 mg/dL (8.7-10.3); Carbon Dioxide 23.6 mmol/L (21.6-31.8); Chloride 106 mmol/L (96-109); Chol/HDL Ratio 2.61 Ratio; Globulin 2.3 g/dL (1.6-3.3); Glucose 96 mg/dL (70-110); LDL Cholesterol,Calculated 79.8 mg/dL (0.0-131.0); Potassium 4.3 mmol/L (3.5-5.5); Sodium 141 mmol/L (135-145); Total Bilirubin 0.4 mg/dL (0.3-1.2); Total Protein 6.3 g/dL (6.2-8.2); VLDL Calculation 14.54 mg/dL (5.00-40.00)
[2025-05-15 03:16] LABS: Prostate Specific Antigen 0.02 ng/mL (0.000-4.500)
[2025-05-15 07:21] LABS: Appearance,Urine Clear (Clear); Bilirubin,Urine Negative (Negative); Blood,Urine Negative (Negative); Color,Urine Yellow (Yellow); Ketones,Urine Negative (Negative); Nitrite,Urine Negative (Negative); PH, Urine 7.5; Specific Gravity,Urine 1.012 (1.001-1.030); Urobilinogen,Urine 0.2 E.U./DL
== END | disposition home or self-care (01) ==
LOC: LABWHC1 16:29
PROVIDERS: ATTEND Family Medicine
DX: I48.0 Paroxysmal atrial fibrillation (principal); E78.5 Hyperlipidemia, unspecified; N40.0 Benign prostatic hyperplasia without lower urinary tract symptoms; E55.9 Vitamin D deficiency, unspecified
CPT/HCPCS: 36415; 80053; 80061; 81003; 82306; 84153; 84443; 85027

== ENCOUNTER → 2025-05-22 | Outpatient (CLI) | payer MEDICARE, OTHER ==
[2025-05-22 19:50] LABS: Basophils # (A) 0.04 X 10*3/uL (0.00-0.10); Basophils % (A) 0.7 %; Eosinophils # (A) 0.30 X 10*3/uL (0.04-0.35); Eosinophils % (A) 5.0 %; HCT 39.3 % (39.6-50.0); HGB 12.6 g/dL (13.0-17.0); Immature Grans, Automated 0.20 %; Lymphocytes # (A) 2.29 X 10*3/uL (0.90-5.00); Lymphocytes % (A) 38.0 %; MCH 30.9 pg (27.0-32.0); MCHC 32.1 g/dL (32.0-37.0); MCV 96.3 FL (80.0-97.0); Monocytes # (A) 0.49 X 10*3/uL (0.20-1.00); Monocytes % (A) 8.1 %; NRBC Per 100 WBC 0 X 10*3/uL (0.00-0.01); Neutrophils # (A) 2.90 X 10*3/uL (1.80-7.70); Neutrophils % (A) 48.0 %; Platelet Count 166 X 10*3/uL (140-440); RBC 4.08 X 10*6/uL (4.40-5.60); RDW 13.2 % (11.5-14.5); WBC 6.03 X 10*3/uL (4.50-10.00)
== END | disposition home or self-care (01) ==
LOC: LABWHC1 14:32
PROVIDERS: ATTEND Family Medicine
DX: D64.9 Anemia, unspecified (principal)
CPT/HCPCS: 36415; 85025

== ENCOUNTER → 2025-06-10 | Outpatient (CLI) | payer MEDICARE, OTHER ==
[2025-06-10 11:50] LABS: HCT 41.8 % (39.6-50.0); HGB 14.1 g/dL (13.0-17.0); MCH 32.0 pg (27.0-32.0); MCHC 33.7 g/dL (32.0-37.0); MCV 95.0 fL (80.0-97.0); Platelet Count 169 10*3/uL (140-440); RBC 4.40 10*6/uL (4.40-5.60); RDW 12.6 % (11.5-14.5); WBC 5.82 10*3/uL (4.50-10.00)
[2025-06-10 15:51] LABS: Ferritin 414.0 ng/mL (22.0-322.0); Iron 85.0 UG/DL (65-175); Total Iron Binding Capacity 283.0 UG/DL (228-460); Vitamin B12 568.0 pg/mL (200.0-944.0)
== END | disposition home or self-care (01) ==
LOC: LABWHC1 11:11
PROVIDERS: ATTEND Family Medicine
DX: D53.9 Nutritional anemia, unspecified (principal)
CPT/HCPCS: 36415; 82607; 82728; 82747; 83540; 83550; 85027